=== PATIENT | male | born 1970 | race Caucasian/White ===

== ENCOUNTER → 2023-10-09 06:53 | Outpatient (REF) | payer OTHER, SELFPAY ==
[2023-10-09 07:10] VITALS: BP 134/61; BP_SYST 73
[2023-10-09 08:01] VITALS: BP 114/58; BP_SYST 68
[2023-10-09 08:24] LABS: Body Fluid Mononuclear 74.8 %; Body Fluid Polymorphonuclear 25.2 %; Body Fluid WBC 131 /CUMM
[2023-10-09 08:28] LABS: Body Fluid Second Tech SD
== END ==
LOC: RADI 06:53
PROVIDERS: ATTENDING PHYSICIAN Internal Medicine Gastroenterology
DX: R18.8 Other ascites (principal)
CPT/HCPCS: 49083; 87015; 87070; 87205; 89051

== ENCOUNTER → 2023-10-12 06:57 | Outpatient (REF) | payer OTHER, SELFPAY ==
[2023-10-12 07:10] VITALS: BP 121/59; BP_SYST 65
[2023-10-12 07:50] VITALS: BP 121/61
[2023-10-12 08:57] LABS: Body Fluid Mononuclear 82.1 %; Body Fluid Polymorphonuclear 17.9 %; Body Fluid WBC 145 /CUMM
[2023-10-12 11:25] LABS: Body Fluid Second Tech CMB
== END ==
LOC: RADI 06:57
PROVIDERS: ATTENDING PHYSICIAN Internal Medicine Gastroenterology
DX: R18.8 Other ascites (principal)
CPT/HCPCS: 49083; 87015; 87070; 87205; 89051

== ENCOUNTER → 2023-10-16 06:26 | Outpatient (REF) | payer OTHER, SELFPAY ==
[2023-10-16 07:25] VITALS: BP 127/62; BP_SYST 60
[2023-10-16 08:10] VITALS: BP 143/70; BP_SYST 61
[2023-10-16 08:37] LABS: Body Fluid Mononuclear 82.9 %; Body Fluid Polymorphonuclear 17.1 %; Body Fluid WBC 117 /CUMM
[2023-10-16 08:38] LABS: Body Fluid Second Tech CF
== END ==
LOC: RADI 06:26
PROVIDERS: ATTENDING PHYSICIAN Internal Medicine Gastroenterology
DX: R18.8 Other ascites (principal)
CPT/HCPCS: 49083; 87015; 87070; 87205; 89051

== ENCOUNTER → 2023-10-19 06:52 | Outpatient (REF) | payer OTHER, SELFPAY ==
[2023-10-19 07:15] VITALS: BP 121/62; BP_SYST 63
[2023-10-19 08:02] VITALS: BP 123/62
--- NOTE | 2023-10-19 08:21 | PTCARENOTE ---
Per Anastasia NAJERA, ok to use labs from 08/15/2023 since patient will be getting labs done 10/22/2022 at [facility]
[2023-10-19 09:40] LABS: Body Fluid Mononuclear 88.2 %; Body Fluid Polymorphonuclear 11.8 %; Body Fluid WBC 110 /CUMM
[2023-10-19 09:52] LABS: Body Fluid Second Tech AMA
== END ==
LOC: RADI 06:52
PROVIDERS: ATTENDING PHYSICIAN Internal Medicine Gastroenterology
DX: R18.8 Other ascites (principal)
CPT/HCPCS: 49083; 87015; 87070; 87205; 89051

== ENCOUNTER 2023-10-19 08:35 | Outpatient (RCR) | payer OTHER, SELFPAY ==
[2023-10-12 08:32] VITALS: BP 120/59
[2023-10-12] MEDS: FLEXBUMIN 100 IV (08:50)
[2023-10-12 08:54] VITALS: BP 120/59
[2023-10-12 10:35] VITALS: BP 119/52
[2023-10-16 09:09] VITALS: BP 125/49
[2023-10-16] MEDS: FLEXBUMIN 100 IV (09:15)
[2023-10-16 11:31] VITALS: BP 108/81
[2023-10-19 08:52] VITALS: BP 114/51
[2023-10-19] MEDS: FLEXBUMIN 100 IV (08:57)
[2023-10-19 09:02] VITALS: BP 114/51
[2023-10-19 10:43] VITALS: BP 109/47
== END 2023-11-06 14:50 | disposition home or self-care (01) ==
LOC: OID 08:35
PROVIDERS: ATTENDING PHYSICIAN Internal Medicine Gastroenterology; FAMILY PHYSICIAN Internal Medicine
DX: K70.31 Alcoholic cirrhosis of liver with ascites (principal); Z92.89 Personal history of other medical treatment; Z98.890 Other specified postprocedural states
CPT/HCPCS: 49083; 87015; 87070; 87205; 89051; 96365; 96366; P9047

== ENCOUNTER → 2023-10-23 06:11 | Outpatient (REF) | payer OTHER, SELFPAY ==
[2023-10-23 07:20] VITALS: BP 145/60; BP_SYST 67
[2023-10-23 08:15] VITALS: BP 147/65; BP_SYST 67
[2023-10-23 08:57] LABS: Body Fluid Mononuclear 88.9 %; Body Fluid Polymorphonuclear 11.1 %; Body Fluid WBC 144 /CUMM
[2023-10-23 09:02] LABS: Body Fluid Second Tech SD
== END ==
LOC: RADI 06:11
PROVIDERS: ATTENDING PHYSICIAN Internal Medicine Gastroenterology
DX: R18.8 Other ascites (principal)
CPT/HCPCS: 49083; 87015; 87070; 87205; 89051

== ENCOUNTER → 2023-10-26 07:15 | Outpatient (REF) | payer OTHER, SELFPAY ==
[2023-10-26 07:34] VITALS: BP 133/63; BP_SYST 68
[2023-10-26 08:25] VITALS: BP 98/69
[2023-10-26 08:57] LABS: Body Fluid Mononuclear 79.5 %; Body Fluid Polymorphonuclear 20.5 %; Body Fluid WBC 132 /CUMM
[2023-10-26 09:04] LABS: Body Fluid Second Tech EM
== END ==
LOC: RADI 07:15
PROVIDERS: ATTENDING PHYSICIAN Internal Medicine Gastroenterology
DX: R18.8 Other ascites (principal)
CPT/HCPCS: 49083; 87015; 87070; 87205; 89051

== ENCOUNTER → 2023-10-30 06:39 | Outpatient (REF) | payer OTHER, SELFPAY ==
[2023-10-30 07:15] VITALS: BP 145/50; BP_SYST 65
[2023-10-30 08:10] VITALS: BP 131/60; BP_SYST 64
[2023-10-30 08:39] LABS: Body Fluid Mononuclear 93.4 %; Body Fluid Polymorphonuclear 6.6 %; Body Fluid WBC 123 /CUMM
[2023-10-30 08:40] LABS: Body Fluid Second Tech SS
== END ==
LOC: RADI 06:39
PROVIDERS: ATTENDING PHYSICIAN Internal Medicine Gastroenterology
DX: R18.8 Other ascites (principal)
CPT/HCPCS: 49083; 87015; 87070; 87205; 89051

== ENCOUNTER → 2023-11-02 06:28 | Outpatient (REF) | payer OTHER, SELFPAY ==
[2023-11-02 07:24] VITALS: BP 111/50; BP_SYST 69
[2023-11-02 08:34] LABS: Body Fluid WBC 121 /CUMM
[2023-11-02 08:36] LABS: Body Fluid Second Tech AMA
[2023-11-02 08:55] VITALS: BP 117/60
== END ==
LOC: RADI 06:28
PROVIDERS: ATTENDING PHYSICIAN Internal Medicine Gastroenterology
DX: R18.8 Other ascites (principal)
CPT/HCPCS: 49083; 87015; 87070; 87205; 89051

== ENCOUNTER → 2023-11-06 07:11 | Outpatient (REF) | payer OTHER, SELFPAY ==
[2023-11-06 07:25] VITALS: BP 125/68; BP_SYST 69
[2023-11-06 08:57] LABS: Body Fluid Mononuclear 81.7 %; Body Fluid Polymorphonuclear 18.3 %; Body Fluid WBC 126 /CUMM
[2023-11-06 08:59] LABS: Body Fluid Second Tech SS
== END ==
LOC: RADI 07:11
PROVIDERS: ATTENDING PHYSICIAN Internal Medicine Gastroenterology
DX: R18.8 Other ascites (principal)
CPT/HCPCS: 49083; 87015; 87070; 87205; 89051

== ENCOUNTER → 2023-11-09 06:53 | Outpatient (REF) | payer OTHER, SELFPAY ==
[2023-11-09 07:15] VITALS: BP 141/63; BP_SYST 72
[2023-11-09 08:05] VITALS: BP 153/77; BP_SYST 77
[2023-11-09] MEDS: ZOFRAN ODT (ORALLY DISINTEGRATING) 4 MG PO (08:13)
--- NOTE | 2023-11-09 08:16 | PTCARENOTE ---
[facility] note: patient is feeling very nauseous and belching. order received from Ian TURNER for Zofran 4 mg. medicine given per order. Suggested patient to go to ER, but refused.
[2023-11-09 08:33] VITALS: BP 153/77
[2023-11-09 08:41] LABS: Body Fluid Mononuclear 79.7 %; Body Fluid Polymorphonuclear 20.3 %; Body Fluid WBC 118 /CUMM
[2023-11-09 08:50] LABS: Body Fluid Second Tech AMA
== END ==
LOC: RADI 06:53
PROVIDERS: ATTENDING PHYSICIAN Internal Medicine Gastroenterology
DX: R18.8 Other ascites (principal)
CPT/HCPCS: 49083; 87015; 87070; 87205; 89051

== ENCOUNTER → 2023-11-13 06:31 | Outpatient (REF) | payer OTHER, SELFPAY ==
[2023-11-13 07:10] VITALS: BP 140/60; BP_SYST 73
[2023-11-13 08:02] VITALS: BP 152/77
[2023-11-13 08:36] LABS: Body Fluid Mononuclear 81.2 %; Body Fluid Polymorphonuclear 18.8 %; Body Fluid WBC 117 /CUMM
[2023-11-13 08:38] LABS: Body Fluid Second Tech SD
== END ==
LOC: RADI 06:31
PROVIDERS: ATTENDING PHYSICIAN Internal Medicine Gastroenterology
DX: R18.8 Other ascites (principal)
CPT/HCPCS: 49083; 87015; 87070; 87205; 89051

== ENCOUNTER → 2023-11-16 06:18 | Outpatient (REF) | payer OTHER, SELFPAY ==
[2023-11-16 07:06] VITALS: BP 120/59; BP_SYST 69
[2023-11-16 08:15] VITALS: BP 130/68; BP_SYST 63
[2023-11-16 09:03] LABS: Body Fluid Mononuclear 86.5 %; Body Fluid Polymorphonuclear 13.5 %; Body Fluid WBC 96 /CUMM
[2023-11-16 09:04] LABS: Body Fluid Second Tech AMA
== END ==
LOC: RADI 06:18
PROVIDERS: ATTENDING PHYSICIAN Internal Medicine Gastroenterology
DX: R18.8 Other ascites (principal)
CPT/HCPCS: 49083; 87015; 87070; 87205; 89051

== ENCOUNTER → 2023-11-20 06:34 | Outpatient (REF) | payer OTHER, SELFPAY ==
[2023-11-20 07:13] VITALS: BP 128/64; BP_SYST 64
[2023-11-20 08:17] VITALS: BP 128/72
[2023-11-20 09:12] LABS: Body Fluid Mononuclear 88.5 %; Body Fluid Polymorphonuclear 11.5 %; Body Fluid WBC 121 /CUMM
[2023-11-20 09:22] LABS: Body Fluid Second Tech AMA
== END ==
LOC: RADI 06:34
PROVIDERS: ATTENDING PHYSICIAN Internal Medicine Gastroenterology; FAMILY PHYSICIAN Internal Medicine
DX: R18.8 Other ascites (principal)
CPT/HCPCS: 49083; 87015; 87070; 87205; 89051

== ENCOUNTER → 2023-11-23 06:35 | Outpatient (REF) | payer OTHER, SELFPAY ==
[2023-11-23 07:20] VITALS: BP 136/64; BP_SYST 67
[2023-11-23 08:34] VITALS: BP 156/73; BP_SYST 66
[2023-11-23 08:58] LABS: Body Fluid Mononuclear 92.6 %; Body Fluid Polymorphonuclear 7.4 %; Body Fluid WBC 108 /CUMM
[2023-11-23 09:03] LABS: Body Fluid Second Tech AMA
== END ==
LOC: RADI 06:35
PROVIDERS: ATTENDING PHYSICIAN Internal Medicine Gastroenterology; FAMILY PHYSICIAN Internal Medicine
DX: R18.8 Other ascites (principal)
CPT/HCPCS: 49083; 89051

== ENCOUNTER → 2023-11-27 06:50 | Outpatient (REF) | payer OTHER, SELFPAY ==
[2023-11-27 07:14] VITALS: BP 134/69; BP_SYST 65
[2023-11-27 08:30] VITALS: BP 138/60
[2023-11-27 09:08] LABS: Body Fluid WBC 95 /CUMM
[2023-11-27 09:12] LABS: Body Fluid Second Tech BP
== END ==
LOC: RADI 06:50
PROVIDERS: ATTENDING PHYSICIAN Internal Medicine Gastroenterology
DX: R18.8 Other ascites (principal)
CPT/HCPCS: 49083; 87015; 87070; 87205; 89051

== ENCOUNTER → 2023-11-30 06:19 | Outpatient (REF) | payer OTHER, SELFPAY ==
[2023-11-30 07:15] VITALS: BP 142/66; BP_SYST 74
[2023-11-30 07:53] VITALS: BP 131/63; BP_SYST 67
[2023-11-30 08:12] VITALS: BP 131/63
[2023-11-30 10:37] LABS: Body Fluid Mononuclear 84.1 %; Body Fluid Polymorphonuclear 15.9 %; Body Fluid WBC 63 /CUMM
[2023-11-30 10:40] LABS: Body Fluid Second Tech AMA
== END ==
LOC: RADI 06:19
PROVIDERS: ATTENDING PHYSICIAN Internal Medicine Gastroenterology
DX: R18.8 Other ascites (principal)
CPT/HCPCS: 49083; 89051

== ENCOUNTER → 2023-12-03 12:43 | Outpatient (REF) | payer OTHER, SELFPAY ==
[2023-12-03 13:03] VITALS: BP 118/77; BP_SYST 55
[2023-12-03 14:12] VITALS: BP 125/74; BP_SYST 59
[2023-12-03 15:26] LABS: Body Fluid Mononuclear 74.7 %; Body Fluid Polymorphonuclear 25.3 %; Body Fluid WBC 75 /CUMM
[2023-12-03 15:29] LABS: Body Fluid Second Tech EYM
== END ==
LOC: RADI 12:43
PROVIDERS: ATTENDING PHYSICIAN Internal Medicine Gastroenterology
DX: R18.8 Other ascites (principal)
CPT/HCPCS: 49083; 89051

== ENCOUNTER → 2023-12-07 06:20 | Outpatient (REF) | payer OTHER, SELFPAY ==
[2023-12-07 07:20] VITALS: BP 120/65; BP_SYST 65
[2023-12-07 07:57] VITALS: BP 120/64
[2023-12-07 08:58] LABS: Body Fluid Mononuclear 83.3 %; Body Fluid Polymorphonuclear 16.7 %; Body Fluid WBC 120 /CUMM
[2023-12-07 09:01] LABS: Body Fluid Second Tech CF
== END ==
LOC: RADI 06:20
PROVIDERS: ATTENDING PHYSICIAN Internal Medicine Gastroenterology
DX: R18.8 Other ascites (principal)
CPT/HCPCS: 49083; 87015; 87070; 87205; 89051

== ENCOUNTER → 2023-12-11 07:01 | Outpatient (REF) | payer OTHER, SELFPAY ==
[2023-12-11 07:21] VITALS: BP 130/74; BP_SYST 68
[2023-12-11 08:42] VITALS: BP 136/71; BP_SYST 64
[2023-12-11 08:46] VITALS: BP 136/71
[2023-12-11 09:33] LABS: Body Fluid Mononuclear 84.8 %; Body Fluid Polymorphonuclear 15.2 %; Body Fluid WBC 125 /CUMM
[2023-12-11 10:07] LABS: Body Fluid Second Tech AMA
== END ==
LOC: RADI 07:01
PROVIDERS: ATTENDING PHYSICIAN Internal Medicine Gastroenterology
DX: R18.8 Other ascites (principal)
CPT/HCPCS: 49083; 89051

== ENCOUNTER → 2023-12-14 06:29 | Outpatient (REF) | payer OTHER, SELFPAY ==
[2023-12-14 07:17] VITALS: BP 127/74; BP_SYST 71
[2023-12-14 08:11] VITALS: BP 125/62
[2023-12-14 09:07] LABS: Body Fluid Mononuclear 85.7 %; Body Fluid Polymorphonuclear 14.3 %; Body Fluid WBC 126 /CUMM
[2023-12-14 09:08] LABS: Body Fluid Second Tech AMA
== END ==
LOC: RADI 06:29
PROVIDERS: ATTENDING PHYSICIAN Internal Medicine Gastroenterology
DX: R18.8 Other ascites (principal)
CPT/HCPCS: 49083; 87015; 87070; 87205; 89051

== ENCOUNTER → 2023-12-18 06:55 | Outpatient (REF) | payer OTHER, SELFPAY ==
[2023-12-18 07:18] VITALS: BP 130/80; BP_SYST 77
[2023-12-18 08:40] VITALS: BP 136/74
[2023-12-18 08:59] LABS: Body Fluid Mononuclear 90.5 %; Body Fluid Polymorphonuclear 9.5 %; Body Fluid WBC 147 /CUMM
[2023-12-18 09:26] LABS: Body Fluid Second Tech BP
== END ==
LOC: RADI 06:55
PROVIDERS: ATTENDING PHYSICIAN Internal Medicine Gastroenterology
DX: R18.8 Other ascites (principal)
CPT/HCPCS: 49083; 87015; 87070; 87205; 89051

== ENCOUNTER → 2023-12-21 06:32 | Outpatient (REF) | payer OTHER, SELFPAY ==
[2023-12-21 07:15] VITALS: BP 123/69; BP_SYST 71
[2023-12-21 08:15] VITALS: BP 118/72; BP_SYST 65
[2023-12-21 08:21] VITALS: BP 118/72
[2023-12-21 10:27] LABS: Body Fluid Mononuclear 97.1 %; Body Fluid Polymorphonuclear 2.9 %; Body Fluid WBC 206 /CUMM
[2023-12-21 10:31] LABS: Body Fluid Second Tech EF
== END ==
LOC: RADI 06:32
PROVIDERS: ATTENDING PHYSICIAN Internal Medicine Gastroenterology
DX: R18.8 Other ascites (principal)
CPT/HCPCS: 49083; 89051

== ENCOUNTER → 2023-12-25 06:32 | Outpatient (REF) | payer OTHER, SELFPAY ==
[2023-12-25 07:15] VITALS: BP 135/71; BP_SYST 70
[2023-12-25 08:06] VITALS: BP 123/62
[2023-12-25 08:11] LABS: Body Fluid WBC 226 /CUMM
[2023-12-25 08:18] LABS: Body Fluid Second Tech CF
== END ==
LOC: RADI 06:32
PROVIDERS: ATTENDING PHYSICIAN Internal Medicine Gastroenterology
DX: R18.8 Other ascites (principal)
CPT/HCPCS: 49083; 87015; 87070; 87205; 89051

== ENCOUNTER → 2023-12-28 06:41 | Outpatient (REF) | payer OTHER, SELFPAY ==
[2023-12-28 07:14] VITALS: BP 127/64; BP_SYST 69
[2023-12-28 08:01] VITALS: BP 120/60
[2023-12-28 09:01] LABS: Body Fluid WBC 251 /CUMM
[2023-12-28 09:04] LABS: Body Fluid Second Tech JKH
== END ==
LOC: RADI 06:41
PROVIDERS: ATTENDING PHYSICIAN Internal Medicine Gastroenterology
DX: R18.8 Other ascites (principal)
CPT/HCPCS: 49083; 87015; 87070; 87205; 89051

== ENCOUNTER → 2024-01-01 06:39 | Outpatient (REF) | payer OTHER, SELFPAY ==
[2024-01-01 07:10] VITALS: BP 141/64; BP_SYST 69
[2024-01-01 08:05] VITALS: BP 116/61; BP_SYST 64
[2024-01-01 08:37] VITALS: BP 116/61
[2024-01-01 09:21] LABS: Body Fluid Mononuclear 92.7 %; Body Fluid Polymorphonuclear 7.3 %; Body Fluid WBC 218 /CUMM
[2024-01-01 09:26] LABS: Body Fluid Second Tech AMA
== END ==
LOC: RADI 06:39
PROVIDERS: ATTENDING PHYSICIAN Internal Medicine Gastroenterology
DX: R18.8 Other ascites (principal)
CPT/HCPCS: 49083; 89051

== ENCOUNTER → 2024-01-04 06:16 | Outpatient (REF) | payer OTHER, SELFPAY ==
[2024-01-04 07:20] VITALS: BP 118/59; BP_SYST 69
[2024-01-04 08:52] VITALS: BP 133/58
[2024-01-04 09:34] LABS: Body Fluid Mononuclear 93.8 %; Body Fluid Polymorphonuclear 6.2 %; Body Fluid WBC 241 /CUMM
[2024-01-04 09:35] LABS: Body Fluid Second Tech CS
== END ==
LOC: RADI 06:16
PROVIDERS: ATTENDING PHYSICIAN Internal Medicine Gastroenterology
DX: R18.8 Other ascites (principal)
CPT/HCPCS: 49083; 87015; 87070; 87205; 89051

== ENCOUNTER 2024-01-06 11:53 | Emergency (ER) | payer OTHER, SELFPAY ==
[2024-01-06 11:59] VITALS: BP 130/74
--- NOTE | 2024-01-06 13:15 | ED.GENMED ---
History of Present Illness
<REINALDO Jimenes - Last Filed: 01/06/24 17:53>
General
Chief Complaint: Abdominal Symptoms
Source: patient
Exam Limitations: none
Time Seen by Provider: 01/06/24 12:42
Nursing documentation reviewed up to this point in time: agreed with
Travel History
Have you had any contact with someone who has COVID-19?: No
Do you have any symptoms of coronavirus? Fever > 100 degrees, chills, cough, shortness of breath, sore throat, loss of taste or smell, muscle aches, or headache?: No
History of Present Illness
History of Present Illness:
Patient is a 53-year-old male with history of alcoholic cirrhosis of the liver with ascites inguinal hernia presents to the ER for evaluation. Patient typically gets paracentesis done twice a week Tuesdays and Fridays here at [facility]. He did
get paracentesis on Sunday as scheduled. He however now is followed at [facility] and has hepatology there. He has chronic scrotal swelling from ascites which is worse today. He states he just cannot wait until Sunday.
He denies any fever chills.
He denies any fever chills abdominal pain/chest pain , shortness of breath.
Past History
<REINALDO Jimenes - Last Filed: 01/06/24 17:53>
Past History
ED Past Medical History: HTN and Other (pre-diabetic years ago but lost weight and says he no longer is)
ED Past Surgical History: None and Orthopedic
Patient has exhibited threatening behavior?: No
PSI?: No
Social History
Tobacco: Smoker
Alcohol: Former (Heavy alcohol use, quit March 2022)
Drug: None
Personal: Single
Living: with family
Employment: Not employed
Family History
Family History: Other
Review of Systems
<REINALDO Jimenes - Last Filed: 01/06/24 17:53>
Review of Systems
Allergies reviewed?: Yes
All Other Systems: ROS reviewed and negative except as documented in HPI and ROS
Constitutional: Reports no symptoms; Denies fever, fatigue or chills
Respiratory: Reports no symptoms
ABD/GI: Reports other (mild abdominal swelling/discomfort/chronic )
: Reports other (Worsening scrotal swelling/discomfort )
Skin: Reports no symptoms
Neurological: Reports no symptoms
Psychiatric: Reports no symptoms
Phy Exam
<REINALDO Jimenes - Last Filed: 01/06/24 17:53>
General Physical Exam
General Presentation: no apparent distress
General age: appears stated age
General Skin: warm and dry
General Habitus: normal
General Mental: alert
General Hydration: appears well hydrated
Gastrointestinal Exam
Gastrointestinal Exam: soft and other (abd soft no erythema non tender )
Neurological Exam
Neurological Exam: alert and oriented x3
Musculoskeletal Exam
Musculoskeletal Exam: full ROM
Skin Exam
Skin Exam: normal color and warm/dry
Psychiatric Exam
Psychiatric Exam: normal mood/affect
Course
<REINALDO Jimenes - Last Filed: 01/06/24 17:53>
Vital Signs
Initial and Last Documented VS:
Initial Vital Signs
Temp Pulse Resp BP Pulse Ox
97.9 F 72 16 130/74 100
01/06/24 11:59 01/06/24 11:59 01/06/24 11:59 01/06/24 11:59 01/06/24 11:59
Last Documented Vital Signs
Temp Pulse Resp BP Pulse Ox
97.9 F 72 16 130/74 100
01/06/24 11:59 01/06/24 11:59 01/06/24 11:59 01/06/24 11:59 01/06/24 11:59
Microbiology Technologist consulted with Physician
Microbiology Technologist consulted with physician?: Yes
Name of Physician Consulted: [facility]
<Alfonzo Jacinto MD - Last Filed: 01/06/24 14:31>
Vital Signs
Initial and Last Documented VS:
Initial Vital Signs
Temp Pulse Resp BP Pulse Ox
97.9 F 72 16 130/74 100
01/06/24 11:59 01/06/24 11:59 01/06/24 11:59 01/06/24 11:59 01/06/24 11:59
Last Documented Vital Signs
Temp Pulse Resp BP Pulse Ox
97.9 F 72 16 130/74 100
01/06/24 11:59 01/06/24 11:59 01/06/24 11:59 01/06/24 11:59 01/06/24 11:59
<REINALDO Jimenes - Last Filed: 01/06/24 17:53>
MDM/Problems Addressed
Differential Diagnosis Includes:
Chronic ascites
MDM/Problems Addressed:
Patient is a 53-year-old male with chronic cirrhosis requiring biweekly paracentesis presented to the ER for evaluation of recent scrotal swelling. Patient has constant scrotal swelling and reports shortly after he gets tapped his swelling starts.
He did get tapped on Sunday but comes to the ER today requesting tap today. Patient however is in no acute distress. On exam he has obvious scrotal swelling he appears mildly uncomfortable but denies any fevers. Patient was eval by ED physician
gentle palpation of the scrotum does disperse fluid back into the abdominal region. We did speak with radiology however there is no emergency and paracentesis will not be done at this time. He can follow-up as an outpatient. Patient left prior to
being officially discharged. Discussion was done about blood work however he declined
Chronic conditions affecting care:
Alcoholic cirrhosis with ascites hypertension
<REINALDO Jimenes - Last Filed: 01/06/24 17:53>
*Critical Care Note
Total Time (30-74mins, 75-104mins- exclusive of procedures): Not Applicable
Data Reviewed
Review of Other/Old Records Reveals: Other (previous paracentesis and previous ED visit )
ED Attending Note
<REINALDO Jimenes - Last Filed: 01/06/24 17:53>
-
Portions of this chart may have been created with voice recognition software.� Occasional wrong word or��sound alike� substitutions may have occurred due to the inherent limitations of voice recognition software.
<Alfonzo Jacinto MD - Last Filed: 01/06/24 14:31>
ED Attending Note
Patient seen and examined by attending physician: Yes
I performed the substantive portion of visit, reviewed & personally made and approve the management plan that is documented in note by myself or ANUJ.: Yes
ED Attending Note:
Patient here complaining of increased scrotal pain requesting a paracentesis. Patient receives a paracentesis twice a week. Normally getting 3 to 5000 cc of fluid. Denies fever or abdominal pain. Has some leg cramps but this is not unusual.
On exam patient is nontoxic lying flat resting comfortably in no distress. He is actually sleeping on arrival to the room. Abdomen is soft. Minimal distention periumbilical hernia easily reducible. However no tense ascitic changes. Scrotum is
large however surprisingly soft and easily reducible with the fluid easily pushed back into the abdominal cavity. There is no erythema or cellulitis. No drainage.
Patient is complaining of some increased leg cramps.
Impression: Increased ascitic and groin fluid. No sign of infection. With cramps I highly recommended labs given his significant fluid flux. Reasoning and logic were explained to the patient and potentially serious life-threatening issues were
explained to the patient for checking labs. He refuses labs at this time and does not want them. Interventional radiology is unable to do the paracentesis today. Medically it is not absolutely necessary to do today. Patient was not incredibly
happy with this finding. He was offered admission with observation versus coming back tomorrow or as an outpatient. He apparently eloped after this.
Discharge Plan
Departure
Patient Disposition: Elopement
Date of Disposition: 01/06/24
Time of Disposition: 14:28
Patient with high blood pressure during this ER visit?: No
Discharge Problem:
Scrotal swelling secondary to ascites, History of liver disease
Prescriptions:
No Action
acetaminophen [Tylenol Ex Str Arthritis Pain] 500 mg Tablet
1,000 mg PO Q12
multivitamin Tablet
1 tab PO DAILY
bumetanide 1 mg Tablet
2 mg PO DAILY
spironolactone 25 mg Tablet
12.5 mg PO DAILY
Referrals:
UNKNOWN - PT DOES,NOT KNOW [Family Provider] -
Interventions
Interventions:
*Risk Screen - Suicide Last Done: 01/06/24 13:17
*General Assessment Last Done: 01/06/24 13:17
*Neglect/Abuse Screening Last Done: 01/06/24 13:17
ED- Fall Risk Assessment Last Done: 01/06/24 14:25
*ED COVID-19 Vaccine History Last Done: 01/06/24 13:17
*Nursing Disposition Last Done: 01/06/24 14:25
PH-[facility]-[id number] Assessment Last Done: 01/06/24 13:17
Discharge Date and Time
Discharge Date/Time: 01/06/24 14:29
Print Language: WOLOF
== END 2024-01-06 14:29 | disposition left against medical advice (07) ==
LOC: EMR 11:53
PROVIDERS: EMERGENCY PHYSICIAN Emergency Medicine
DX: N50.89 Other specified disorders of the male genital organs (principal); K70.31 Alcoholic cirrhosis of liver with ascites; I10 Essential (primary) hypertension; F17.200 Nicotine dependence, unspecified, uncomplicated
CPT/HCPCS: 99281

== ENCOUNTER → 2024-01-08 06:52 | Outpatient (REF) | payer OTHER, SELFPAY ==
[2024-01-08 07:41] VITALS: BP 134/68; BP_SYST 65
[2024-01-08 09:00] VITALS: BP 125/72; BP_SYST 61
[2024-01-08 09:12] VITALS: BP 125/72
[2024-01-08 10:18] LABS: Body Fluid Mononuclear 94.2 %; Body Fluid Polymorphonuclear 5.8 %; Body Fluid WBC 244 /CUMM
[2024-01-08 10:24] LABS: Body Fluid Second Tech EF
== END ==
LOC: RADI 06:52
PROVIDERS: ATTENDING PHYSICIAN Internal Medicine Gastroenterology
DX: R18.8 Other ascites (principal)
CPT/HCPCS: 49083; 89051

== ENCOUNTER 2024-01-08 09:19 | Outpatient (RCR) | payer OTHER, SELFPAY ==
[2023-12-28 08:55] VITALS: BP 132/55
[2023-12-28] MEDS: FLEXBUMIN 100 IV (08:56)
[2024-01-01 08:45] VITALS: BP 135/64
[2024-01-01] MEDS: FLEXBUMIN 50 IV (08:46)
[2024-01-01] MEDS: FLEXBUMIN 100 IV (09:30)
[2024-01-01 09:31] VITALS: BP 122/47
[2024-01-01 10:55] VITALS: BP 131/54
[2024-01-04 09:30] VITALS: BP 131/60
[2024-01-04] MEDS: FLEXBUMIN 50 IV (09:36)
[2024-01-04] MEDS: FLEXBUMIN 100 IV (10:24)
[2024-01-08 09:30] VITALS: BP 122/53
[2024-01-08] MEDS: FLEXBUMIN 100 IV (09:38)
[2024-01-08 09:47] VITALS: BP 122/53
[2024-01-08] MEDS: FLEXBUMIN 50 IV (11:06)
[2024-01-08 11:09] VITALS: BP 130/58
[2024-01-08 11:45] VITALS: BP 130/60
== END 2024-01-08 23:59 | disposition home or self-care (01) ==
LOC: OID 09:19
PROVIDERS: ATTENDING PHYSICIAN Internal Medicine Gastroenterology; FAMILY PHYSICIAN Internal Medicine
DX: K70.31 Alcoholic cirrhosis of liver with ascites (principal); Z92.89 Personal history of other medical treatment; Z98.890 Other specified postprocedural states
CPT/HCPCS: 49083; 87015; 87070; 87205; 89051; 96365; 96366; P9047

== ENCOUNTER → 2024-01-11 06:30 | Outpatient (REF) | payer OTHER, SELFPAY ==
[2024-01-11 07:19] VITALS: BP 130/69; BP_SYST 69
[2024-01-11 08:57] LABS: Body Fluid Mononuclear 89.1 %; Body Fluid Polymorphonuclear 10.9 %; Body Fluid WBC 293 /CUMM
[2024-01-11 09:03] LABS: Body Fluid Second Tech AMA
== END ==
LOC: RADI 06:30
PROVIDERS: ATTENDING PHYSICIAN Internal Medicine Gastroenterology
DX: R18.8 Other ascites (principal)
CPT/HCPCS: 49083; 87015; 87070; 87205; 89051

== ENCOUNTER → 2024-01-15 06:25 | Outpatient (REF) | payer OTHER, SELFPAY ==
[2024-01-15 07:40] VITALS: BP 143/66; BP_SYST 76
[2024-01-15 08:59] VITALS: BP 119/51; BP_SYST 66
[2024-01-15 09:22] VITALS: BP 119/51
[2024-01-15 09:27] LABS: Body Fluid Mononuclear 92.3 %; Body Fluid Polymorphonuclear 7.7 %; Body Fluid WBC 232 /CUMM
[2024-01-15 09:29] LABS: Body Fluid Second Tech CF
== END ==
LOC: RADI 06:25
PROVIDERS: ATTENDING PHYSICIAN Internal Medicine Gastroenterology
DX: R18.8 Other ascites (principal)
CPT/HCPCS: 49083; 89051

== ENCOUNTER → 2024-01-18 06:23 | Outpatient (REF) | payer OTHER, SELFPAY ==
[2024-01-18 07:36] VITALS: BP 113/58; BP_SYST 65
[2024-01-18 10:16] LABS: Body Fluid Mononuclear 89.2 %; Body Fluid Polymorphonuclear 10.8 %; Body Fluid WBC 242 /CUMM
[2024-01-18 10:29] LABS: Body Fluid Second Tech CMB
== END ==
LOC: RADI 06:23
PROVIDERS: ATTENDING PHYSICIAN Internal Medicine Gastroenterology
DX: R18.8 Other ascites (principal)
CPT/HCPCS: 49083; 87015; 87070; 87205; 89051

== ENCOUNTER → 2024-01-21 13:56 | Outpatient (REF) | payer OTHER, SELFPAY ==
[2024-01-21 14:47] VITALS: BP 145/76; BP_SYST 74
[2024-01-21 15:43] VITALS: BP 144/77; BP 146/77; BP_SYST 67
[2024-01-21 16:17] LABS: Body Fluid Mononuclear 96.1 %; Body Fluid Polymorphonuclear 3.9 %; Body Fluid WBC 260 /CUMM
[2024-01-21 16:34] LABS: Body Fluid Second Tech EYM
== END ==
LOC: RADI 13:56
PROVIDERS: ATTENDING PHYSICIAN Internal Medicine Gastroenterology
DX: R18.8 Other ascites (principal)
CPT/HCPCS: 49083; 89051

== ENCOUNTER → 2024-01-29 08:05 | Outpatient (REF) | payer OTHER, SELFPAY ==
[2024-01-29 08:20] VITALS: BP 132/67; BP_SYST 71
[2024-01-29 09:16] VITALS: BP 124/53; BP_SYST 66
[2024-01-29 09:45] VITALS: BP 124/53
--- NOTE | 2024-01-29 10:01 | PTCARENOTE ---
[facility] note: pt arrived to [facility] for paracentesis, AAO x 3, feeling weak. patient had paracentesis and removed 5350ml fluid. patient c/o feeling very weak, assisted to wheelchair by 2 RNs. advised pt to go to ER for evaluation but pt refused. pt
wheeled to [facility]. [facility] nurse Tiffanie notified on patient's condition.
[2024-01-29 10:29] LABS: Body Fluid Mononuclear 89.9 %; Body Fluid Polymorphonuclear 10.1 %; Body Fluid WBC 306 /CUMM
[2024-01-29 10:30] LABS: Body Fluid Second Tech LD
== END ==
LOC: RADI 08:05
PROVIDERS: ATTENDING PHYSICIAN Internal Medicine Gastroenterology
DX: R18.8 Other ascites (principal)
CPT/HCPCS: 49083; 89051

== ENCOUNTER → 2024-02-01 07:52 | Outpatient (REF) | payer OTHER, SELFPAY ==
[2024-02-01 08:15] VITALS: BP 134/74; BP_SYST 72
[2024-02-01 09:05] VITALS: BP 121/56
[2024-02-01 10:50] LABS: Body Fluid WBC 366 /CUMM
[2024-02-01 10:51] LABS: Body Fluid Mononuclear 93.2 %; Body Fluid Polymorphonuclear 6.8 %
[2024-02-01 11:16] LABS: Body Fluid Second Tech EF
== END ==
LOC: RADI 07:52
PROVIDERS: ATTENDING PHYSICIAN Internal Medicine Gastroenterology
DX: R18.8 Other ascites (principal)
CPT/HCPCS: 49083; 89051

== ENCOUNTER → 2024-02-05 07:48 | Outpatient (REF) | payer OTHER, SELFPAY ==
[2024-02-05 08:08] VITALS: BP 137/68; BP_SYST 68
[2024-02-05 08:51] LABS: Body Fluid Mononuclear 96.4 %; Body Fluid Polymorphonuclear 3.6 %; Body Fluid WBC 303 /CUMM
[2024-02-05 08:52] LABS: Body Fluid Second Tech EM
[2024-02-05 09:24] VITALS: BP 120/50
== END ==
LOC: RADI 07:48
PROVIDERS: ATTENDING PHYSICIAN Internal Medicine Gastroenterology
DX: R18.8 Other ascites (principal)
CPT/HCPCS: 49083; 89051

== ENCOUNTER → 2024-02-08 07:53 | Outpatient (REF) | payer OTHER, SELFPAY ==
[2024-02-08 08:30] VITALS: BP 116/54; BP_SYST 70
[2024-02-08 09:44] VITALS: BP 116/54
[2024-02-08 10:43] LABS: Body Fluid Mononuclear 93.4 %; Body Fluid Polymorphonuclear 6.6 %; Body Fluid WBC 259 /CUMM
[2024-02-08 10:44] LABS: Body Fluid Second Tech CF
== END ==
LOC: RADI 07:53
PROVIDERS: ATTENDING PHYSICIAN Internal Medicine Gastroenterology
DX: R18.8 Other ascites (principal)
CPT/HCPCS: 49083; 89051

== ENCOUNTER 2024-02-08 09:35 | Outpatient (RCR) | payer OTHER, SELFPAY ==
[2024-01-11 08:58] VITALS: BP 117/60
[2024-01-11] MEDS: FLEXBUMIN 100 IV (08:58)
[2024-01-11 09:12] VITALS: BP 117/60
[2024-01-11 10:28] VITALS: BP 105/66
[2024-01-11 11:00] VITALS: BP 120/55
[2024-01-15] MEDS: FLEXBUMIN 50 IV (09:27)
[2024-01-15 09:29] VITALS: BP 140/54
[2024-01-15] MEDS: FLEXBUMIN 100 IV (10:24)
[2024-01-15 10:25] VITALS: BP 139/42
[2024-01-15 11:48] VITALS: BP 130/44
[2024-01-18 08:57] VITALS: BP 112/56
[2024-01-18] MEDS: FLEXBUMIN 100 IV (08:57)
[2024-01-18 10:34] VITALS: BP 121/60
[2024-01-21 16:20] VITALS: BP 138/67
[2024-01-21 16:23] VITALS: BP 138/67
[2024-01-21] MEDS: FLEXBUMIN 100 IV (16:23)
[2024-01-21 17:46] VITALS: BP 130/65
[2024-01-29 10:00] VITALS: BP 128/62
[2024-01-29] MEDS: FLEXBUMIN 50 IV (10:02)
[2024-01-29] MEDS: FLEXBUMIN 100 IV (10:51)
[2024-01-29 10:53] VITALS: BP 128/67
[2024-01-29 12:14] VITALS: BP 114/63
[2024-02-01] MEDS: FLEXBUMIN 50 IV (09:53)
[2024-02-01] MEDS: FLEXBUMIN 100 IV (10:42)
[2024-02-01 10:45] VITALS: BP 155/60
[2024-02-01 12:15] VITALS: BP 109/63
[2024-02-05 09:51] VITALS: BP 112/56
[2024-02-05] MEDS: FLEXBUMIN 100 IV (09:51)
[2024-02-05] MEDS: FLEXBUMIN 50 IV (11:15)
[2024-02-05 12:00] VITALS: BP 121/53
== END 2024-02-08 14:42 | disposition home or self-care (01) ==
LOC: OID 09:35
PROVIDERS: ATTENDING PHYSICIAN Internal Medicine Gastroenterology; FAMILY PHYSICIAN Internal Medicine
DX: K70.31 Alcoholic cirrhosis of liver with ascites (principal); Z92.89 Personal history of other medical treatment; Z98.890 Other specified postprocedural states
CPT/HCPCS: 36415; 49083; 87015; 87070; 87205; 89051; 96365; 96366; P9047

== ENCOUNTER 2024-02-08 10:30 | Emergency (ER) | payer OTHER, SELFPAY ==
[2024-02-08 10:48] VITALS: BP 103/44
[2024-02-08 11:00] VITALS: BP 98/73
--- NOTE | 2024-02-08 11:56 | ED.GENMED ---
History of Present Illness
General
Chief Complaint: Weakness
Source: patient
Time Seen by Provider: 02/08/24 11:39
Travel History
Have you had any contact with someone who has COVID-19?: No
Do you have any symptoms of coronavirus? Fever > 100 degrees, chills, cough, shortness of breath, sore throat, loss of taste or smell, muscle aches, or headache?: No
History of Present Illness
History of Present Illness:
53-year-old male with history of cirrhosis presents in referral from outpatient infusion center for vomiting and weakness. He had paracentesis performed this morning and was on his way to the OR ID to get his albumin infusion, he started vomiting.
His only complaint at this time is fatigue. He states the nausea is improved. He notes chronic abdominal pain. No other complaints at this time
Past History
Past History
ED Past Medical History: HTN and Other (pre-diabetic years ago but lost weight and says he no longer is)
ED Past Surgical History: None and Orthopedic
Patient has exhibited threatening behavior?: No
PSI?: No
Social History
Tobacco: Smoker
Alcohol: Former (Heavy alcohol use, quit March 2022)
Drug: None
Personal: Single
Living: with family
Employment: Not employed
Family History
Family History: Other
Phy Exam
Physical Exam
Physical Exam:
General: Well-appearing male no acute respiratory distress
HEENT: Normocephalic atraumatic
Heart: Regular rate and rhythm no murmurs
Lungs: Clear no wheeze or rales
Abdomen soft mildly diffusely tender no guarding rebound normal bowel sounds
Extremities: No cyanosis
Course
Orders/Labs/Results
Orders:
Orders
02/08/24 12:23
Complete Blood Count/With Diff Urgent
Comprehensive Metabolic Panel Urgent
Lipase Urgent
02/08/24 14:39
Case Management Consult ONCE
Case Management Consult: Discharge Planning
Comment: Pt is having a challenging time finding transportation from home to treatment centers. Has no quality
of life and may require PT.
02/08/24 14:45
Albumin Human 25% 100 ml [Flexbumin] 25 grams in 100 ml IV 60 mls/hr
02/08/24 15:15
Albumin Human 25% 50 ml [Flexbumin] 12.5 grams in 50 ml IV 60 mls/hr
Abnormal Lab Results
02/08/24
12:23
RBC 3.54 L 10^6/uL
(4.70-6.10)
Hgb 10.8 L g/dL
(13.0-18.0)
Hct 30.7 L %
(39.0-52.0)
Plt Count 99 L 10^3/uL
(130-400)
Absolute Neuts (auto) 8.5 H 10^3/uL
(1.4-6.5)
Absolute Lymphs (auto) 0.8 L 10^3/uL
(1.2-3.4)
Absolute Monos (auto) 1.2 H 10^3/uL
(0.1-0.6)
Neutrophils % 78.5 H %
(42.2-75.2)
Lymphocytes % 7.2 L %
(20.5-51.1)
Monocytes % 11.2 H %
(1.7-9.3)
Sodium 132 L mmol/L
(135-145)
Potassium 5.2 H mmol/L
(3.5-5.1)
Chloride 108 H mmol/L
(98-107)
Carbon Dioxide 21 L mmol/L
(22-30)
BUN 47 H mg/dl
(9-20)
Creatinine 1.6 H mg/dL
(0.7-1.3)
Glucose 163 H mg/dl
(70-99)
Calcium 7.7 L mg/dl
(8.4-10.2)
Total Bilirubin 1.5 H mg/dl
(0.2-1.3)
Alkaline Phosphatase 229 H U/L
(38-126)
Total Protein 5.1 L g/dl
(6.3-8.2)
Albumin 2.4 L g/dl
(3.5-5.0)
Lipase 386 H U/L
(23-300)
02/08/24 12:23
02/08/24 12:23
Vital Signs
Initial and Last Documented VS:
Initial Vital Signs
Temp Pulse Resp BP Pulse Ox
98.4 F 73 18 103/44 95
02/08/24 10:48 02/08/24 10:48 02/08/24 10:48 02/08/24 10:48 02/08/24 10:48
Last Documented Vital Signs
Temp Pulse Resp BP Pulse Ox
98.4 F 70 14 98/73 95
02/08/24 10:48 02/08/24 15:00 02/08/24 15:00 02/08/24 11:00 02/08/24 10:48
MDM/Problems Addressed
Differential Diagnosis Includes:
Generally fatigue and nausea. This is not new for the patient. Currently very somnolent during my exam. Will check labs and give Zofran.
*Critical Care Note
Total Time (30-74mins, 75-104mins- exclusive of procedures): Not Applicable
Update Note
Update Note:
Patient did receive albumin here. Labs reviewed without significant abnormalities. Discussed at length with patient. He is due to see his specialists at [facility] next week for further evaluation of his cirrhosis and recurrent ascites. No indication
for admission at this time. Stable for discharge
ED Attending Note
-
Portions of this chart may have been created with voice recognition software.� Occasional wrong word or��sound alike� substitutions may have occurred due to the inherent limitations of voice recognition software.
Discharge Plan
Departure
Patient Disposition: Home (Routine Discharge)
Date of Disposition: 02/08/24
Time of Disposition: 16:33
Patient with high blood pressure during this ER visit?: No
Discharge Problem:
Weakness
Instructions: Generalized Weakness (DC)
Prescriptions:
No Action
acetaminophen [Tylenol Ex Str Arthritis Pain] 500 mg Tablet
1,000 mg PO Q12
multivitamin Tablet
1 tab PO DAILY
magnesium 500 mg Tablet
500 mg PO DAILY
lactulose 20 gram/30 mL Solution
30 ml PO TID
Referrals:
Alfonzo Conn DO [Family Provider] -
Activity Restrictions/Additional Instructions:
Please return here if needed. Follow-up with your GI specialist at [facility] as planned. Return if worse otherwise
Interventions
Interventions:
*Risk Screen - Suicide Last Done: 02/08/24 10:48
*General Assessment Last Done: 02/08/24 10:48
*Neglect/Abuse Screening Last Done: 02/08/24 10:48
*ED COVID-19 Vaccine History Last Done: 02/08/24 10:48
ED- Cardiac Assessment Last Done: 02/08/24 10:48
ED- Neurological Assessment Last Done: 02/08/24 10:48
ED- Pulmonary Assessment Last Done: 02/08/24 10:48
Discharge Date and Time
Print Language: NAMIBIAN
[2024-02-08 12:36] LABS: % Basophils 0.5 % (0-2); % Eosinophils 2.2 % (0-6); % Immature Granulocytes 0.4 % (0-0.5); % Lymphocytes 7.2 % (20.5-51.1); % Monocytes 11.2 % (1.7-9.3); % Neutrophils 78.5 % (42.2-75.2); Absolute Basophils 0.1 10^3/uL (0-0.2); Absolute Eosinophils 0.2 10^3/uL (0-0.7); Absolute Lymphocytes 0.8 10^3/uL (1.2-3.4); Absolute Monocytes 1.2 10^3/uL (0.1-0.6); Absolute Neutrophils 8.5 10^3/uL (1.4-6.5); Hematocrit 30.7 % (39.0-52.0); Hemoglobin 10.8 g/dL (13.0-18.0); Mean Corp Hgb Conc. 35.2 g/dL (33.0-37.0); Mean Corpuscular Hgb 30.5 pg (27.0-31.0); Mean Corpuscular Volume 86.7 fL (80.0-94.0); Mean Platelet Volume 9.5 fL (7.4-10.4); Nucleated Red Blood Cells % 0 % (-); Platelet Count 99 10^3/uL (130-400); Red Blood Cell Count 3.54 10^6/uL (4.70-6.10); Red Cell Dist. Width 14.4 % (11.5-14.5); White Blood Cell Count 10.8 10^3/uL (4.8-10.8)
[2024-02-08 12:48] LABS: ALT (SGPT) 27 U/L (0-50); AST (SGOT) 37 U/L (17-59); Albumin 2.4 g/dl (3.5-5.0); Alkaline Phosphatase 229 U/L (38-126); Blood Urea Nitrogen 47 mg/dl (9-20); Calcium 7.7 mg/dl (8.4-10.2); Carbon Dioxide 21 mmol/L (22-30); Chloride 108 mmol/L (98-107); Estimated Creatinine Clearance 62 ml/min; Glucose 163 mg/dl (70-99); Lipase 386 U/L (23-300); Potassium 5.2 mmol/L (3.5-5.1); Sodium 132 mmol/L (135-145); Total Bilirubin 1.5 mg/dl (0.2-1.3); Total Protein 5.1 g/dl (6.3-8.2)
[2024-02-08] MEDS: FLEXBUMIN 100 IV (15:36)
--- NOTE | 2024-02-08 15:42 | CM ---
Addendum entered by Iram Colin RN 02/08/24 15:53:
CM spoke with case management at [facility]. They will place a referral for services and reach out to patient.
Original Note:
CM was consulted to discuss resources around transportation and care coordination. CM spoke with patient. He stated that he does not have much family support in the area. He is relying on friends for transportation and it has been coming more
difficult. Patient is also complaining of pain and more difficult ambulating. He has multiple complaints about his medical team and IR. CM provided emotional support.
CM offered home care and a referral to [facility] Care Management. Patient is in agreement with referrals. CM updated bedside RN.
[2024-02-08] MEDS: FLEXBUMIN 50 IV (16:46)
[2024-02-08] MEDS: FLEXBUMIN IV (16:52)
[2024-02-08 17:15] VITALS: BP 96/76
== END 2024-02-08 17:20 | disposition home or self-care (01) ==
LOC: EMR 10:30
PROVIDERS: Physician Assistant; EMERGENCY PHYSICIAN Emergency Medicine; FAMILY PHYSICIAN Family Medicine
DX: R53.1 Weakness (principal); F17.200 Nicotine dependence, unspecified, uncomplicated
CPT/HCPCS: 99285; 96365; 96366; 80053; 83690; 85025; P9047

== ENCOUNTER → 2024-02-11 08:09 | Outpatient (REF) | payer OTHER, SELFPAY ==
[2024-02-11 08:35] VITALS: BP 125/57; BP_SYST 66
[2024-02-11 10:14] VITALS: BP 114/54; BP_SYST 66
[2024-02-11 11:00] LABS: Body Fluid Mononuclear 90.5 %; Body Fluid Polymorphonuclear 9.5 %; Body Fluid WBC 337 /CUMM
[2024-02-11 11:02] LABS: Body Fluid Second Tech CF
== END ==
LOC: RADI 08:09
PROVIDERS: ATTENDING PHYSICIAN Internal Medicine Gastroenterology
DX: R18.8 Other ascites (principal)
CPT/HCPCS: 49083; 89051

== ENCOUNTER 2024-02-12 19:14 | Inpatient (IN) | payer OTHER, SELFPAY ==
[2024-02-12] VITALS (9 sets, daily range): BP systolic 103–134; BP diastolic 53–76; BMI 28.3; BMI 25.7
[2024-02-12] MEDS: DILAUDID 0.5 MG IV ×3 (12:16→22:45)
[2024-02-12 12:28] LABS: % Basophils 0.5 % (0-2); % Eosinophils 0.8 % (0-6); % Immature Granulocytes 0.2 % (0-0.5); % Lymphocytes 9.4 % (20.5-51.1); % Monocytes 7.3 % (1.7-9.3); % Neutrophils 81.8 % (42.2-75.2); Absolute Eosinophils 0.1 10^3/uL (0-0.7); Absolute Lymphocytes 0.8 10^3/uL (1.2-3.4); Absolute Monocytes 0.6 10^3/uL (0.1-0.6); Hematocrit 30.8 % (39.0-52.0); Hemoglobin 10.9 g/dL (13.0-18.0); Mean Corp Hgb Conc. 35.4 g/dL (33.0-37.0); Mean Corpuscular Hgb 30.1 pg (27.0-31.0); Mean Corpuscular Volume 85.1 fL (80.0-94.0); Mean Platelet Volume 9.9 fL (7.4-10.4); Nucleated Red Blood Cells % 0 % (-); Platelet Count 122 10^3/uL (130-400); Red Blood Cell Count 3.62 10^6/uL (4.70-6.10); Red Cell Dist. Width 14.3 % (11.5-14.5); White Blood Cell Count 8.6 10^3/uL (4.8-10.8)
[2024-02-12 12:43] LABS: Ammonia 88 umol/L (9-30)
[2024-02-12 12:52] LABS: ALT (SGPT) 23 U/L (0-50); AST (SGOT) 34 U/L (17-59); Albumin 2.8 g/dl (3.5-5.0); Alkaline Phosphatase 184 U/L (38-126); Blood Urea Nitrogen 52 mg/dl (9-20); Calcium 8.2 mg/dl (8.4-10.2); Carbon Dioxide 20 mmol/L (22-30); Chloride 109 mmol/L (98-107); Estimated Creatinine Clearance 59 ml/min; Glucose 223 mg/dl (70-99); Lipase 358 U/L (23-300); Potassium 6.2 mmol/L (3.5-5.1); Sodium 133 mmol/L (135-145); Total Bilirubin 1.4 mg/dl (0.2-1.3); Total Protein 5.5 g/dl (6.3-8.2)
[2024-02-12 13:06] LABS: INR 1.62; PT 19.1 Sec (11.4-14.6)
[2024-02-12] MEDS: NOVOLIN R 10 UNITS IV (13:25)
[2024-02-12] MEDS: DEXTROSE 50% SYRINGE 25 GRAMS IV (13:26)
[2024-02-12 14:05] LABS: Urine Albumin Negative (Neg - Trace); Urine Bilirubin Negative (Negative); Urine Character Clear (Clear); Urine Color Yellow; Urine Glucose 2+ (Negative); Urine Ketone Negative (Negative); Urine Leukocyte Trace (Negative); Urine Nitrite Negative (Negative); Urine Occult Blood Negative (Negative); Urine Urobilinogen Negative (Neg - 1+)
[2024-02-12] MEDS: DUPHALAC/CHRONULAC 20 GRAMS PO ×2 (14:22→22:40)
--- NOTE | 2024-02-12 14:22 | ED.GENMED ---
History of Present Illness
<Randy Wood PA-C - Last Filed: 02/13/24 15:42>
General
Chief Complaint: Abdominal Symptoms
Time Seen by Provider: 02/12/24 12:00
Travel History
Have you had any contact with someone who has COVID-19?: No
Do you have any symptoms of coronavirus? Fever > 100 degrees, chills, cough, shortness of breath, sore throat, loss of taste or smell, muscle aches, or headache?: No
History of Present Illness
History of Present Illness:
53-year-old male with history of alcoholic cirrhosis with ascites status post TIPS presents to the emergency department for evaluation of abdominal cramping, nausea, vomiting, weakness, and 'confusion' ongoing for the past 24 hours. He states that
his abdominal pain has been present for the past weeks and seems to get worse after his biweekly paracentesis. Most recent paracentesis was yesterday, 3100 cc of fluid was removed, lab analysis negative for SBP. Patient is concerned that his
umbilical hernia may have some correlation to this. He states he has been compliant with his home medications including lactulose
Had recent TIPS revision 3-4 weeks ago at [place]
Past History
<Randy Wood PA-C - Last Filed: 02/13/24 15:42>
Past History
ED Past Medical History: HTN and Other (pre-diabetic years ago but lost weight and says he no longer is)
ED Past Surgical History: None and Orthopedic
Patient has exhibited threatening behavior?: No
PSI?: No
Social History
Tobacco: Smoker
Alcohol: Former (Heavy alcohol use, quit March 2022)
Drug: None
Personal: Single
Living: with family
Employment: Not employed
Family History
Family History: Other
Review of Systems
<Randy Wood PA-C - Last Filed: 02/13/24 15:42>
Review of Systems
Allergies reviewed?: Yes
All Other Systems: ROS reviewed and negative except as documented in HPI and ROS
Phy Exam
<Randy Wood PA-C - Last Filed: 02/13/24 15:42>
Physical Exam
Physical Exam:
GEN: Chronically ill-appearing, writhing in pain
Eyes: PERRLA, EOMs intact, no scleral icterus
HENT: NCAT, oral mucosa moist
Lungs: CTAB, no wheezes, rales, rhonchi, normal chest wall excursion
Cardiac: RRR, no M/R/G, no peripheral edema. Radial pulses 2+ bilat
Abdomen: Protuberant abdomen, bulging and nonreducible umbilical hernia that is exquisitely tender to palpation
Neuro: Somnolent but arouses to voice, moves all extremities freely
MSK: No gross deformity or ecchymosis. No edema. No digital clubbing
Skin: No rashes, petechiae. Normal color, no pallor or jaundice.
Psych: Calm, cooperative, proper hygiene
Course
<Randy Wood PA-C - Last Filed: 02/13/24 15:42>
Orders/Labs/Results
Orders:
Orders
02/12/24 11:52
IV Insert/Care/Rem.- Treatment PRN
02/12/24 11:58
Complete Blood Count/With Diff Urgent
Comprehensive Metabolic Panel Urgent
Lipase Urgent
Urinalysis Reflex To Culture Urgent
Date Specimen was Collected: 02/12/24
Time Specimen was Collected: 11:52
Urine Microscopic Reflex Cult Urgent
02/12/24 12:00
Ammonia Urgent
02/12/24 12:10
HYDROmorphone [Dilaudid] 0.5 mg IV NOW STA
02/12/24 12:16
Prothrombin Time Urgent
02/12/24 13:09
Electrocardiogram (*1) Urgent
Reason for Study: QTc Monitoring
EKG- Treatment ONCE
Dextrose 50%-Water [Dextrose 50% Syringe] 25 grams IV NOW STA
Insulin Human Regular [Novolin R] 10 units IV NOW STA
02/12/24 13:49
HYDROmorphone [Dilaudid] 0.5 mg .ROUTE .STK-MED ONE
02/12/24 13:50
HYDROmorphone [Dilaudid] 0.5 mg IV NOW STA
02/12/24 13:59
CT Abd/Pel (IV only)-DH only Urgent
Comment:
Reason For Exam: nonreducible umbilical hernia pain
Lactulose [Duphalac/Chronulac] 20 grams PO NOW STA
02/12/24 Dinner
NPO
Allow oral meds: Yes
Allow clear liquids: Sips of Clears
02/12/24 15:13
Basic Metabolic Panel Urgent
02/12/24 15:17
Furosemide [Lasix] 40 mg IV NOW STA
02/12/24 18:38
Admit/Transfer Patient As Directed
Co-Sign Provider:
Level of Care: Inpatient admission
Assign to:: IMU- Intermediate Care
Physician / Group: abel
Diagnosis: decompensated cirrhosis
Reason for Hospitalization: decompensated cirrhosis
Expected length of stay greater than two midnights?: Yes
ELOS- Estimated Length of Stay in days: 2
I certify the patient meets the requirements for IP care: Yes
02/12/24 18:40
Code Status As Directed
Resuscitation Status: Full Code
02/12/24 18:45
Calcium Gluconate 1 gram/100mL [Calcium Gluconate] 1 gram in 100 ml IV ONCE
02/12/24 18:54
Blood Culture Q30M
DERRICK Source: Blood/Venous
Specimen Description:
Blood Culture Q30M
DERRICK Source: Blood/Venous
Specimen Description:
02/12/24 20:00
CefTRIAXone [Rocephin] 2,000 mg IV Q12H
02/12/24 21:06
BMP [Basic Metabolic Panel] Routine
02/12/24 21:34
Acetaminophen [Tylenol] 1,000 mg PO [id number] PRN
HYDROmorphone [Dilaudid] 0.5 mg IV Q4HPRN PRN
Heparin 5,000 units SC Q12
Ondansetron Injectable [Zofran] 4 mg IV Q6HPRN PRN
02/12/24 21:34
Consult Interventional Radiology [IRAD CONSULT] Routine
Consulting Provider: Enrico Krishnamurthy
Was physician already notified: Yes
Reason for Consult/Procedure: para
Acknowledgement that appropriate orders are entered: Yes
GASTROINTESTINAL CONSULT Routine
Consulting Provider: Raul Hernandez
Was physician already notified: Yes
Body Fluid Albumin Routine
Fluid Source: Peritoneal (Ascites)
Date Specimen was Collected: 02/13/24
Time Specimen was Collected: 13:35
Body Fluid Amylase Routine
Fluid Source: Peritoneal (Ascites)
Date Specimen was Collected: 02/13/24
Time Specimen was Collected: 13:35
Body Fluid Cell Count Routine
What is the Body Fluid: peritoneal fluid
Date Specimen was Collected: 02/13/24
Time Specimen was Collected: 13:35
Comment: post procedure
Body Fluid LDH Routine
Fluid Source: Peritoneal (Ascites)
Date Specimen was Collected: 02/13/24
Time Specimen was Collected: 13:35
Body Fluid Protein Routine
Fluid Source: Peritoneal (Ascites)
Date Specimen was Collected: 02/13/24
Time Specimen was Collected: 13:35
Fluid Culture with Gram Stain Routine
DERRICK Source: Peritoneal Fluid
Specimen Description:
Date Specimen was Collected: 02/13/24
Time Specimen was Collected: 13:35
Comment: Post Procedure
Activity As Directed
Activity Level: As Tolerated
Vital Signs As Directed
Frequency: Per unit guidelines
IRAD Cytology Routine
Date Specimen was Collected: 02/13/24
Time Specimen was Collected: 13:35
Source: Peritoneal Fluid
Clinical Impression: cirrhosis
History of Malignancy: no
History of Radiation / Chemotherapy: no
Submitting Physician: Aleida Fierro
DX Deep Vein Thrombosis Video Routine
02/12/24 22:00
Lactulose [Duphalac/Chronulac] 20 grams PO TID
Rifaximin [Xifaxan] 200 mg PO TID
02/13/24 05:23
Complete Blood Count/With Diff IN AM
Comprehensive Metabolic Panel IN AM
02/13/24 08:00
Magnesium l-Lactate [Mag-Tab Sr] 84 mg PO DAILY
Abnormal Lab Results
02/12/24 02/12/24 02/12/24
11:58 12:00 12:16
RBC 3.62 L 10^6/uL
(4.70-6.10)
Hgb 10.9 L g/dL
(13.0-18.0)
Hct 30.8 L %
(39.0-52.0)
Plt Count 122 L D 10^3/uL
(130-400)
Absolute Neuts (auto) 7.0 H 10^3/uL
(1.4-6.5)
Absolute Lymphs (auto) 0.8 L 10^3/uL
(1.2-3.4)
Neutrophils % 81.8 H %
(42.2-75.2)
Lymphocytes % 9.4 L %
(20.5-51.1)
PT 19.1 H Sec
(11.4-14.6)
Sodium 133 L mmol/L
(135-145)
Potassium 6.2 H* mmol/L
(3.5-5.1)
Chloride 109 H mmol/L
(98-107)
Carbon Dioxide 20 L mmol/L
(22-30)
BUN 52 H mg/dl
(9-20)
Creatinine 1.6 H mg/dL
(0.7-1.3)
Glucose 223 H mg/dl
(70-99)
Calcium 8.2 L mg/dl
(8.4-10.2)
Total Bilirubin 1.4 H mg/dl
(0.2-1.3)
Alkaline Phosphatase 184 H U/L
(38-126)
Ammonia 88 H umol/L
(9-30)
Total Protein 5.5 L g/dl
(6.3-8.2)
Albumin 2.8 L g/dl
(3.5-5.0)
Lipase 358 H U/L
(23-300)
Leukocyte Esterase Rfl Trace A
(Negative)
Urine Glucose 2+ A
(Negative)
02/12/24
15:13
RBC
Hgb
Hct
Plt Count
Absolute Neuts (auto)
Absolute Lymphs (auto)
Neutrophils %
Lymphocytes %
PT
Sodium 133 L mmol/L
(135-145)
Potassium 6.4 H* mmol/L
(3.5-5.1)
Chloride
Carbon Dioxide 21 L mmol/L
(22-30)
BUN 51 H mg/dl
(9-20)
Creatinine 1.6 H mg/dL
(0.7-1.3)
Glucose 183 H mg/dl
(70-99)
Calcium
Total Bilirubin
Alkaline Phosphatase
Ammonia
Total Protein
Albumin
Lipase
Leukocyte Esterase Rfl
Urine Glucose
02/12/24 11:58
02/12/24 15:13
Vital Signs
Initial and Last Documented VS:
Initial Vital Signs
Pulse Resp BP Pulse Ox
73 16 131/65 100
02/12/24 11:53 02/12/24 11:53 02/12/24 11:53 02/12/24 11:53
Last Documented Vital Signs
Temp Pulse Resp BP Pulse Ox
98.6 F 70 13 122/60 98
02/13/24 15:01 02/13/24 15:00 02/13/24 15:00 02/13/24 14:13 02/13/24 15:00
<Marquise La PA-C - Last Filed: 02/12/24 17:48>
Orders/Labs/Results
Orders:
Orders
02/12/24 11:52
IV Insert/Care/Rem.- Treatment PRN
02/12/24 11:58
Complete Blood Count/With Diff Urgent
Comprehensive Metabolic Panel Urgent
Lipase Urgent
Urinalysis Reflex To Culture Urgent
Date Specimen was Collected: 02/12/24
Time Specimen was Collected: 11:52
Urine Microscopic Reflex Cult Urgent
02/12/24 12:00
Ammonia Urgent
02/12/24 12:10
HYDROmorphone [Dilaudid] 0.5 mg IV NOW STA
02/12/24 12:16
Prothrombin Time Urgent
02/12/24 13:09
Electrocardiogram (*1) Urgent
Reason for Study: QTc Monitoring
EKG- Treatment ONCE
Dextrose 50%-Water [Dextrose 50% Syringe] 25 grams IV NOW STA
Insulin Human Regular [Novolin R] 10 units IV NOW STA
02/12/24 13:49
HYDROmorphone [Dilaudid] 0.5 mg .ROUTE .STK-MED ONE
02/12/24 13:50
HYDROmorphone [Dilaudid] 0.5 mg IV NOW STA
02/12/24 13:59
CT Abd/Pel (IV only)-DH only Urgent
Comment:
Reason For Exam: nonreducible umbilical hernia pain
Lactulose [Duphalac/Chronulac] 20 grams PO NOW STA
02/12/24 Dinner
NPO
Allow oral meds: Yes
Allow clear liquids: Sips of Clears
02/12/24 15:13
Basic Metabolic Panel Urgent
02/12/24 15:17
Furosemide [Lasix] 40 mg IV NOW STA
02/12/24 18:38
Admit/Transfer Patient As Directed
Co-Sign Provider:
Level of Care: Inpatient admission
Assign to:: IMU- Intermediate Care
Physician / Group: abel
Diagnosis: decompensated cirrhosis
Reason for Hospitalization: decompensated cirrhosis
Expected length of stay greater than two midnights?: Yes
ELOS- Estimated Length of Stay in days: 2
I certify the patient meets the requirements for IP care: Yes
02/12/24 18:40
Code Status As Directed
Resuscitation Status: Full Code
02/12/24 18:45
Calcium Gluconate 1 gram/100mL [Calcium Gluconate] 1 gram in 100 ml IV ONCE
02/12/24 18:54
Blood Culture Q30M
DERRICK Source: Blood/Venous
Specimen Description:
Blood Culture Q30M
DERRICK Source: Blood/Venous
Specimen Description:
02/12/24 20:00
CefTRIAXone [Rocephin] 2,000 mg IV Q12H
02/12/24 21:06
BMP [Basic Metabolic Panel] Routine
02/12/24 21:34
Acetaminophen [Tylenol] 1,000 mg PO [id number] PRN
HYDROmorphone [Dilaudid] 0.5 mg IV Q4HPRN PRN
Heparin 5,000 units SC Q12
Ondansetron Injectable [Zofran] 4 mg IV Q6HPRN PRN
02/12/24 21:34
Consult Interventional Radiology [IRAD CONSULT] Routine
Consulting Provider: Enrico Krishnamurthy
Was physician already notified: Yes
Reason for Consult/Procedure: para
Acknowledgement that appropriate orders are entered: Yes
GASTROINTESTINAL CONSULT Routine
Consulting Provider: Raul Hernandez
Was physician already notified: Yes
Body Fluid Albumin Routine
Fluid Source: Peritoneal (Ascites)
Date Specimen was Collected: 02/13/24
Time Specimen was Collected: 13:35
Body Fluid Amylase Routine
Fluid Source: Peritoneal (Ascites)
Date Specimen was Collected: 02/13/24
Time Specimen was Collected: 13:35
Body Fluid Cell Count Routine
What is the Body Fluid: peritoneal fluid
Date Specimen was Collected: 02/13/24
Time Specimen was Collected: 13:35
Comment: post procedure
Body Fluid LDH Routine
Fluid Source: Peritoneal (Ascites)
Date Specimen was Collected: 02/13/24
Time Specimen was Collected: 13:35
Body Fluid Protein Routine
Fluid Source: Peritoneal (Ascites)
Date Specimen was Collected: 02/13/24
Time Specimen was Collected: 13:35
Fluid Culture with Gram Stain Routine
DERRICK Source: Peritoneal Fluid
Specimen Description:
Date Specimen was Collected: 02/13/24
Time Specimen was Collected: 13:35
Comment: Post Procedure
Activity As Directed
Activity Level: As Tolerated
Vital Signs As Directed
Frequency: Per unit guidelines
IRAD Cytology Routine
Date Specimen was Collected: 02/13/24
Time Specimen was Collected: 13:35
Source: Peritoneal Fluid
Clinical Impression: cirrhosis
History of Malignancy: no
History of Radiation / Chemotherapy: no
Submitting Physician: Aleida Fierro
DX Deep Vein Thrombosis Video Routine
02/12/24 22:00
Lactulose [Duphalac/Chronulac] 20 grams PO TID
Rifaximin [Xifaxan] 200 mg PO TID
02/13/24 05:23
Complete Blood Count/With Diff IN AM
Comprehensive Metabolic Panel IN AM
02/13/24 08:00
Magnesium l-Lactate [Mag-Tab Sr] 84 mg PO DAILY
Abnormal Lab Results
02/12/24 02/12/24 02/12/24
11:58 12:00 12:16
RBC 3.62 L 10^6/uL
(4.70-6.10)
Hgb 10.9 L g/dL
(13.0-18.0)
Hct 30.8 L %
(39.0-52.0)
Plt Count 122 L D 10^3/uL
(130-400)
Absolute Neuts (auto) 7.0 H 10^3/uL
(1.4-6.5)
Absolute Lymphs (auto) 0.8 L 10^3/uL
(1.2-3.4)
Neutrophils % 81.8 H %
(42.2-75.2)
Lymphocytes % 9.4 L %
(20.5-51.1)
PT 19.1 H Sec
(11.4-14.6)
Sodium 133 L mmol/L
(135-145)
Potassium 6.2 H* mmol/L
(3.5-5.1)
Chloride 109 H mmol/L
(98-107)
Carbon Dioxide 20 L mmol/L
(-30)
BUN 52 H mg/dl
(9-20)
Creatinine 1.6 H mg/dL
(0.7-1.3)
Glucose 223 H mg/dl
(70-99)
Calcium 8.2 L mg/dl
(8.4-10.2)
Total Bilirubin 1.4 H mg/dl
(0.2-1.3)
Alkaline Phosphatase 184 H U/L
(38-126)
Ammonia 88 H umol/L
(-30)
Total Protein 5.5 L g/dl
(6.3-8.2)
Albumin 2.8 L g/dl
(3.5-5.0)
Lipase 358 H U/L
(23-300)
Leukocyte Esterase Rfl Trace A
(Negative)
Urine Glucose 2+ A
(Negative)
02/12/24
15:13
RBC
Hgb
Hct
Plt Count
Absolute Neuts (auto)
Absolute Lymphs (auto)
Neutrophils %
Lymphocytes %
PT
Sodium 133 L mmol/L
(135-145)
Potassium 6.4 H* mmol/L
(3.5-5.1)
Chloride
Carbon Dioxide 21 L mmol/L
(22-30)
BUN 51 H mg/dl
(9-20)
Creatinine 1.6 H mg/dL
(0.7-1.3)
Glucose 183 H mg/dl
(70-99)
Calcium
Total Bilirubin
Alkaline Phosphatase
Ammonia
Total Protein
Albumin
Lipase
Leukocyte Esterase Rfl
Urine Glucose
02/12/24 11:58
02/12/24 15:13
Vital Signs
Initial and Last Documented VS:
Initial Vital Signs
Pulse Resp BP Pulse Ox
73 16 131/65 100
02/12/24 11:53 02/12/24 11:53 02/12/24 11:53 02/12/24 11:53
Last Documented Vital Signs
Temp Pulse Resp BP Pulse Ox
98.6 F 70 13 122/60 98
02/13/24 15:01 02/13/24 15:00 02/13/24 15:00 02/13/24 14:13 02/13/24 15:00
<Randy Wood PA-C - Last Filed: 02/13/24 15:42>
MDM/Problems Addressed
MDM/Problems Addressed:
Patient will require admission for hyperammonemia and confusion due to hepatic encephalopathy. Imaging is pending for pelvic hernia, differentiated general surgery evaluation. Potassium elevation noted, this is acute on chronic, given insulin and
dextrose IV fluids and BMP will be rechecked. Unclear etiology to this as the patient is not on potassium sparing diuretics or BOBBY/ARB
<Marquise La PA-C - Last Filed: 02/12/24 17:48>
*Critical Care Note
Total Time (30-74mins, 75-104mins- exclusive of procedures): Not Applicable
<Marquise La PA-C - Last Filed: 02/12/24 17:48>
Patient Management
Discussion with other providers: Hospitalist and Honey Producer
Escalation/DeEscalation of care consider admission/obs:
Patient received in signout at [address] scan report with plan to be for patient admission. CT scans with multiple findings including a fat and fluid containing umbilical hernia, moderate abdominopelvic ascites, mild small bowel ileus,
small gallstone and a large right hydrocele. There is also a new L5 compression fracture hospitalist team was notified who accepts for continued evaluation and treatment. I also notified general surgery so they can evaluate the patient in
consultation
ED Attending Note
<Randy Wood PA-C - Last Filed: 02/13/24 15:42>
-
Portions of this chart may have been created with voice recognition software.� Occasional wrong word or��sound alike� substitutions may have occurred due to the inherent limitations of voice recognition software.
Discharge Plan
Departure
Patient Disposition: Admit
Date of Disposition: 02/12/24
Time of Disposition: 17:48
Presentation/result/management discussed w/ accepting MD/DO: Hospitalist
Discharge Problem:
Acute hepatic encephalopathy, Hernia, umbilical, Acute hyperkalemia, CKD (chronic kidney disease)
Interventions
Interventions:
*Risk Screen - Suicide Last Done: 02/12/24 11:53
*General Assessment Last Done: 02/12/24 11:53
*Neglect/Abuse Screening Last Done: 02/12/24 11:53
ED- Fall Risk Assessment Last Done: 02/12/24 12:26
*ED COVID-19 Vaccine History Last Done: 02/12/24 22:03
*Nursing Disposition Last Done: 02/12/24 21:37
UV-Ebhtnd-Lyxyoqpcwg Assessment Last Done: 02/12/24 12:26
Discharge Date and Time
Discharge Date/Time: 02/12/24 21:38
[2024-02-12 14:58] LABS: Urine Amorphous Seen; Urine Mucus Few
[2024-02-12 14:59] LABS: Urine Red Blood Cell 0-2 /HPF (0-2)
[2024-02-12] MEDS: LASIX 40 MG IV (15:28)
[2024-02-12 15:48] LABS: Blood Urea Nitrogen 51 mg/dl (9-20); Calcium 8.4 mg/dl (8.4-10.2); Carbon Dioxide 21 mmol/L (22-30); Chloride 107 mmol/L (98-107); Estimated Creatinine Clearance 59 ml/min; Glucose 183 mg/dl (70-99); Potassium 6.4 mmol/L (3.5-5.1); Sodium 133 mmol/L (135-145)
--- NOTE | 2024-02-12 18:46 | HPS.HSE ---
Family Physician
-
Family Physician: NOT KNOW UNKNOWN - PT DOES
Chief Complaint
-
abdominal pain
History of Present Illness
53-year-old male past medical history of alcoholic cirrhosis status post TIPS 1 year ago, umbilical hernia, hypertension, chronic kidney disease, right-sided hydrocele presenting to the emergency room for abdominal cramping, nausea vomiting and
weakness and confusion for the past day. Patient gets biweekly paracentesis and he has had abdominal pain for the past several weeks that seems to get worse after paracentesis. His last paracentesis was yesterday and 3100 cc of fluid was removed.
Studies were negative for SBP. He has been having 2-3 bowel movements per day. He denies any blood in the stool or black stool. He denies any recent drainage from the umbilical hernia.
He recently had TIPS revision 3 to 4 weeks ago at [place].
He has been complaining of right scrotal swelling and pain for several years. He complains that nobody ever wanted to do anything about it.
He has not drunk alcohol in a few years.
Medical History
Past Medical History
Past Medical History: Reports Other (alcoholic cirrhosis status post TIPS 1 year ago, umbilical hernia, hypertension, chronic kidney disease, right-sided hydrocele)
Past Surgical History: Reports Other (TIPS, TIPS revision )
Social History
Tobacco: Non-smoker
Alcohol: Former
Drug: None
Family History
Family History: Not pertinent
Allergies / Home Medications
Allergies reflects when Allergies were last updated in [facility].
Home Medications with original date entered in [facility]
Allergy/Medication List:
Allergies
Allergy/AdvReac Type Severity Reaction Status Date / Time
No Known Allergies Allergy Verified 02/11/24 10:19
Home Medications
acetaminophen 500 mg tablet 1,000 mg PO Q12 PRN mild pain/fever 08/08/22
lactulose 20 gram/30 mL oral solution 30 ml PO TID 02/05/24
magnesium 250 mg tablet 250 mg PO DAILY 02/12/24
Review of Systems
-
History Source: Patient
A 12 point ROS was completed and negative except as noted: Yes
Constitutional: Reports No Symptoms
EENT: Reports No Symptoms
Respiratory: Reports No Symptoms
Cardiac: Reports No Symptoms
Abdomen/GI: Reports See HPI
: Reports No Symptoms
Musculoskeletal: Reports No Symptoms
Skin: Reports No Symptoms
Neurological: Reports No Symptoms
Endocrine: Reports No Symptoms
Hematologic/Lymphatic: Reports No Symptoms
Psych: Reports No Symptoms
Physical Exam
Vital Signs
Vital Signs
Pulse Resp BP Pulse Ox
86 10 118/56 100
02/12/24 18:30 02/12/24 18:30 02/12/24 18:00 02/12/24 18:30
Physical Exam
General: Well Developed, Well Nourished and No Apparent Distress
HEENT: NormoCephalic, Moist mucous membranes and Atraumatic
Respiratory: Clear
Cardiac: S1/S2 and Regular Rhythm; No Murmur or Rub
GI: Soft, Non Distended, Normal Bowel Sounds and Tender (umbilical hernia tender ); No Organomegaly
Rectal: Deferred by Provider
Musculoskeletal: No Clubbing, No Cyanosis and No Edema
Skin: No Rash
Neuro: Nonfocal/grossly intact
Laboratory Results
-
02/12/24 11:58
02/12/24 15:13
Laboratory Results
PT 19.1 Sec (11.4-14.6) H 02/12/24 12:16
INR 1.62 02/12/24 12:16
Total Bilirubin 1.4 mg/dl (0.2-1.3) H 02/12/24 11:58
AST 34 U/L (17-59) 02/12/24 11:58
ALT 23 U/L (0-50) 02/12/24 11:58
Alkaline Phosphatase 184 U/L (38-126) H 02/12/24 11:58
Lipase 358 U/L (23-300) H 02/12/24 11:58
Data Reviewed
-
Lab Data: Labs Reviewed by me
Old Records: Reviewed
Impression/Plan
-
IMPRESSION:
PLAN:
# Progressive abdominal pelvic ascites/decompensated alcoholic cirrhosis
# History of alcoholic cirrhosis with refractory ascites status post TIPS procedure with recent revision
-IR consulted for paracentesis
-Check blood cultures
-Ceftriaxone started
-Zofran, Dilaudid as needed
-Poor prognosis
-GI consulted
# Hepatic encephalopathy possibly related to TIPS revision
-Ammonia level of 67
-Continue lactulose
-Add Xifaxan
# Fat and fluid containing umbilical hernia
-Tender to palpation
-CT scan showed fat and fluid continue local hernia which can be seen with incarceration/strangulation
-General surgery notified and thinks fluid in hernia is due to ascites rather than strangulation, and patient is not a operative candidate due to advanced cirrhosis, MELD score 21
# Hyperkalemia secondary to advanced cirrhosis
-EKG shows sinus rhythm with first-degree AV block, slightly peaking T waves
-Insulin dextrose given
-40 IV Lasix given
-Give calcium gluconate
-Recheck BMP in 6 hours
Large right hydrocele
-Would not be a surgical candidate
Mild L5 compression fracture age-indeterminate
-Incidentally discovered on CT scan
Grade 1 anterolisthesis of L4 and L5
-Incidentally discovered on CT scan
Chronic kidney disease
-Renal function appears baseline
Chronic anemia
-Hemoglobin at baseline
Thrombocytopenia secondary to cirrhosis
-Improved compared to previously
Former alcohol use disorder
Full code
DVT prophylaxis�heparin
N.p.o.
[2024-02-12] MEDS: STERILE WATER FOR INJECTION 20 ML IV (19:32)
[2024-02-12] MEDS: ROCEPHIN 2000 MG IV (19:32)
[2024-02-12] MEDS: CALCIUM GLUCONATE 100 IV (19:38)
[2024-02-12 21:26] LABS: Blood Urea Nitrogen 50 mg/dl (9-20); Calcium 8.8 mg/dl (8.4-10.2); Carbon Dioxide 21 mmol/L (22-30); Chloride 108 mmol/L (98-107); Estimated Creatinine Clearance 55 ml/min; Glucose 129 mg/dl (70-99); Potassium 5.6 mmol/L (3.5-5.1); Sodium 134 mmol/L (135-145); eGFR 47.61
--- NOTE | 2024-02-12 22:13 | PTCARENOTE ---
Assumed care of Pt from ED RN. Pt ambulated with a steady but slow gait from stretcher to bed. Pt C/O nausea, threw up a moderate amount of bile in basin. Awaiting TOOL AND DIE REPAIRER to assess Pts IV site in order to administer IV zofran. This RN attempted to
slowly flush the Pts right AC IV site to which the Pt yelled out loudly in pain stating 'it stewart'. TOOL AND DIE REPAIRER contacted.
[2024-02-12] MEDS: ZOFRAN 4 MG IV (22:37)
[2024-02-13] VITALS (18 sets, daily range): BP systolic 85–138; BP diastolic 38–88; BMI 25.8
--- NOTE | 2024-02-13 00:04 | PTCARENOTE ---
Pt refused heparin injection, Pt educated on the purpose and necessity of the anticoagulant, but Pt continues to refuse med. Pt also refuses ordered Xifaxan for hepatic encephalopathy, pt states refusal is because his 'java performance engineer is not consulted'
regarding the ordered med. Purpose, necessity, and use of med explained to Pt by this RN. Pt conts to refuse med. Refusal documented in NOV.
--- NOTE | 2024-02-13 02:51 | PTCARENOTE ---
Pt frequently questions care interventions/ the necessity of implementing said interventions. Expresses he feels such interventions are not needed. i.e ringing for assistance when ambulating such as using the bathroom, Q2hr blood pressure checks,
remaining npo. This RN educated Pt on the reasoning and importance of all ordered care interventions.
[2024-02-13] MEDS: DILAUDID 0.5 MG IV (05:25)
[2024-02-13 05:38] LABS: % Basophils 0.6 % (0-2); % Eosinophils 1.5 % (0-6); % Immature Granulocytes 0.5 % (0-0.5); % Lymphocytes 9.3 % (20.5-51.1); % Monocytes 9.7 % (1.7-9.3); % Neutrophils 78.4 % (42.2-75.2); Absolute Basophils 0.1 10^3/uL (0-0.2); Absolute Eosinophils 0.2 10^3/uL (0-0.7); Absolute Immature Granulocytes 0.1 10^3/uL (0-0.05); Absolute Lymphocytes 1.2 10^3/uL (1.2-3.4); Absolute Monocytes 1.2 10^3/uL (0.1-0.6); Absolute Neutrophils 9.9 10^3/uL (1.4-6.5); Hematocrit 30.5 % (39.0-52.0); Hemoglobin 10.8 g/dL (13.0-18.0); Mean Corp Hgb Conc. 35.4 g/dL (33.0-37.0); Mean Corpuscular Hgb 30.3 pg (27.0-31.0); Mean Corpuscular Volume 85.7 fL (80.0-94.0); Mean Platelet Volume 9.9 fL (7.4-10.4); Nucleated Red Blood Cells % 0 % (-); Platelet Count 114 10^3/uL (130-400); Red Blood Cell Count 3.56 10^6/uL (4.70-6.10); Red Cell Dist. Width 14.5 % (11.5-14.5); White Blood Cell Count 12.6 10^3/uL (4.8-10.8)
[2024-02-13 06:26] LABS: ALT (SGPT) 23 U/L (0-50); AST (SGOT) 33 U/L (17-59); Albumin 2.6 g/dl (3.5-5.0); Blood Urea Nitrogen 52 mg/dl (9-20); Carbon Dioxide 18 mmol/L (22-30); Estimated Creatinine Clearance 52 ml/min; Glucose 104 mg/dl (70-99); Potassium 5.9 mmol/L (3.5-5.1); Total Bilirubin 1.8 mg/dl (0.2-1.3); Total Protein 5.5 g/dl (6.3-8.2); eGFR 44.45
[2024-02-13 06:48] LABS: Alkaline Phosphatase 138 U/L (38-126); Calcium 8.4 mg/dl (8.4-10.2); Chloride 110 mmol/L (98-107); Sodium 135 mmol/L (135-145)
[2024-02-13] MEDS: LOKELMA 10 GRAM PO (07:11)
--- NOTE | 2024-02-13 07:16 | PTCARENOTE ---
Pts Am K+ was 5.9, elevated from previous 5.6. UTILITY SPECIALIST notified. order received for lokelma. Med administered. Pt NSR on monitor with first degree block. Denies chest pain.
[2024-02-13] MEDS: XIFAXAN 200 MG PO (08:23)
[2024-02-13] MEDS: DUPHALAC/CHRONULAC 20 GRAMS PO ×3 (08:24→21:36)
[2024-02-13] MEDS: MAG-TAB SR 84 MG PO (08:24)
[2024-02-13] MEDS: ROCEPHIN 2000 MG IV (08:24)
[2024-02-13] MEDS: STERILE WATER FOR INJECTION 20 ML IV (08:25)
[2024-02-13] MEDS: FLUSH (NSS) 2 FLUSH IV (08:26)
--- NOTE | 2024-02-13 10:15 | W.PN.HOSP.TC ---
Today's Communication/Plan
-
see outlined plan
Assessment / Plan
Assessment / Plan
Assessment:
Progressive abdominal pelvic ascites
Underlying decompensated alcoholic cirrhosis with hx of TIPS procedure ([facility]) 1 year ago with revision 2 weeks prior
- s/p outpatient IR paracentesis with 3.1 L removed on 02/10
- CT here showed: Moderate abdominopelvic ascites. Progressed
- IR reconsulted for paracentesis today, may need Albumin
- He was previously on diuretics but stopped them on his own
- continue Rocephin, follow cultures
- pain control, anti-emetics
- GI Consulted
- he has 2x/weekly paracentesis. May need to increase frequency or amount of volume removed
- he follows with [facility] Dr. Young
Hepatic encephalopathy possibly related to TIPS revision and underlying decompensated alcoholic cirrhosis
- continue Lactulose/Xifaxan
- Ammonia level of 88 on admission
Fat and fluid containing umbilical hernia
- Tender to palpation
- CT scan showed fat and fluid around hernia which can be seen with incarceration/strangulation
- GS consulted for evaluation.
Hyperkalemia secondary to advanced cirrhosis
- EKG shows sinus rhythm with first-degree AV block, slightly peaking T waves
- s/p Insulin/dextrose/IV Lasix
- diet with K modification
- Lokelma
- follow BMP
Hypervolemic hyponatremia
- monitor BMP
Large right hydrocele
- outpatient Urology f/u
Mild L5 compression fracture age-indeterminate
- Incidentally discovered on CT scan
Grade 1 anterolisthesis of L4 and L5
- Incidentally discovered on CT scan
Chronic kidney disease, stage 3b
- Renal function appears baseline
Chronic anemia
- Hemoglobin at baseline
chronic Thrombocytopenia secondary to cirrhosis
- Improved compared to previously
Former alcohol use disorder
DVT ppx: SC Heparin
Code: Full
Anticipated Discharge: > 48 hours
Subjective/Interval History
-
Date of Service: February 13, 2024
reports abdominal distention
last paracentesis was Sunday
Objective Data
-
Labs:
Laboratory Results
02/13/24
05:23
WBC 12.6 H
Hgb 10.8 L
Hct 30.5 L
Plt Count 114 L
Sodium 135
Potassium 5.9 H
Chloride 110 H
Carbon Dioxide 18 L
BUN 52 H
Creatinine 1.8 H
Glucose 104 H
Calcium 8.4
Total Bilirubin 1.8 H
AST 33
ALT 23
Alkaline Phosphatase 138 H
Vital Signs:
Vital Signs
Temp Pulse Resp BP Pulse Ox
98.3 F 72 15 110/69 97
02/13/24 07:24 02/13/24 04:45 02/13/24 04:45 02/13/24 04:00 02/13/24 04:45
I&O
02/12/24 02/13/24 02/14/24
06:59 06:59 06:59
Intake Total 240 / 240
Balance 240 / 240
Physical Exam
-
General: Appears Chronically Ill
HEENT: Normocephalic and Atraumatic
Respiratory: Negative Wheezes
Cardiac: Regular Rhythm
GI: Distended
Neuro: AO x 3
Psych: Calm
Data Reviewed
-
Total Time Spent with Patient (in minutes): 45
Labs: Labs Reviewed by me
--- NOTE | 2024-02-13 10:16 | VNURNOTE ---
Chart reviewed. Patient current with [facility]. [facility] referral in [facility]. Will follow hospital course.
--- NOTE | 2024-02-13 10:34 | CON.GS ---
Consultation
-
Requesting Provider: Chepe
Performing Provider: Joon
Reason for Consultation: Umbilical hernia
Medical History
-
Chief Complaint: Abd pain
History of Present Illness:
53Mwith acute onset abdominal cramping, nausea vomiting and weakness and confusion for the past day. Patient gets biweekly paracentesis, most recent 2 days ago with 3.1L drained. He reports abdominal pain for the past several weeks that seems to
get worse after paracentesis. He describes generalized cramping a/w sudden n/v. He gets relief after vomiting. Paracentesis fluid studies were negative for SBP. He has been having 2-3 bowel movements per day. He denies any blood in the stool or
black stool. He denies any recent drainage or skin changes at the umbilical hernia.
He had TIPS revision 3 to 4 weeks ago at [facility]. He has been complaining of right scrotal swelling and pain for several years. He understands this is caused by his ascites. He has not drunk alcohol in a few years.
Past Medical History
Past Medical History: Other (alcoholic cirrhosis status post TIPS 1 year ago, umbilical hernia, hypertension, chronic kidney disease, right-sided hydrocele)
Past Surgical History: Other (as per HPI)
Social History
Tobacco: Non-Smoker
Alcohol: Former
Drug: None
Family History
Family History: Reviewed & Noncontributory
Allergies / Home Medications
Allergy/AdvReac Type Severity Reaction Status Date / Time
No Known Allergies Allergy Verified 02/11/24 10:19
�Medication �Instructions �Recorded �Confirmed �Type
acetaminophen 500 mg tablet 1,000 mg PO Q12 PRN mild pain/fever 08/08/22 02/12/24 History
lactulose 20 gram/30 mL oral 30 ml PO TID 02/05/24 02/12/24 History
solution
magnesium 250 mg tablet 250 mg PO DAILY 02/12/24 02/12/24 History
Review of Systems
-
A 10 point review of systems was completed, and was negative except as per HPI.
Physical Exam
Vital Signs
Temp Pulse Resp BP Pulse Ox
98.3 F 72 15 110/69 97
02/13/24 07:24 02/13/24 04:45 02/13/24 04:45 02/13/24 04:00 02/13/24 04:45
02/12/24 02/13/24 02/14/24
06:59 06:59 06:59
Actual Weight 86.3 kg
Body Mass Index (BMI) 25.8
Lab Results
02/13/24 05:23
02/13/24 05:23
WBC 12.6 10^3/uL (4.8-10.8) H 02/13/24 05:23
Hgb 10.8 g/dL (13.0-18.0) L 02/13/24 05:23
Hct 30.5 % (39.0-52.0) L 02/13/24 05:23
Plt Count 114 10^3/uL (130-400) L 02/13/24 05:23
Abs Immat Gran (auto) 0.1 10^3/uL (0-0.05) H 02/13/24 05:23
Neutrophils % 78.4 % (42.2-75.2) H 02/13/24 05:23
Physical Exam
General: No Apparent Distress
HEENT: Normocephalic and Anicteric
GI: Soft, Non Tender, Distended (fluid distention, moderate) and Other (soft reducible fluid filled umbilical hernia, the skin is thin but there is no evidence of drainage or ulceration)
Skin: Warm and Dry
Neuro: AO x 3
Psych: Calm
Data Reviewed
-
CT Scan: Image Personally Visualized and interpreted, Report Reviewed by me, Discussed with Physician and Discussed with Patient
Labs: Labs Reviewed by me
Old Records: Reviewed
Assessment / Plan
-
53M with abd pain with n/v for several months in setting of advanced chronic liver disease
Child Lackey B
Meld 21
Not a candidate for surgery at this institution, he follows with a team at [facility].
The hernia is soft and reducible, and dry and without ulceration
His pain is not surgical in nature and more likely related to his cirrhosis
I advised him if he develops ulceration or drainage from his umbilical skin this is a surgical emergency and recommended he go directly to [facility] should that occur
No role for surgery at this time, pls call with ?s
--- NOTE | 2024-02-13 12:32 | CON.GI ---
Consultation
-
Date/Time Consultation Requested: 02/13/24, 7:00 AM
Date/Time Consultation Performed: 02/13/24, 9:30 AM
Requesting Provider: Dr. Mo
Performing Provider: Dr. Miller
Reason for Consultation: Refractory Ascites, Decompensated Cirrhosis
Medical History
Chief Complaint / HPI
History of Present Illness:
Jb Martinez is a 53 y.o. male w/ pmhx decompensated etoH cirrhosis c/b thrombocytopenia, hepatic encephalopathy and refractory ascites s/p TIPS w/ recent revision requiring biweekly LVP, tobacco use, prediabetes who was admitted to yesterday
after presenting with worsening abdominal distension with associated nausea, vomiting and encephalopathy. He reports that his last paracentesis was on 02/10, with removal of 3100 cc, studies were neg. for SBP. He is adamant that he is compliant with
his lactulose, takes 30mL TID-- when asked how many BMs he has per day 'depends on what I eat.' He would not answer this question. He was on diuretics, initially stopped due to his worsening kidney function, they states he resumed it but stopped
them on his own as he feels 'they were making him crazy.' He describes an incident recently where he was dressed up in army gear, hiding in his bushes, told his neighbor there were 'Stephen's everywhere.' He does not recall every doing this, his
neighbor told him the following day. After stopping the diuretics, he states he felt back to himself. He does not feel this is due to noncompliance or inadequate dosing of his lactulose. His main complaints at this time are his ongoing frustrations
regrading his refractory ascites and scrotal swelling for the past 2 years, despite TIPs w/ recent revision and diuretics. He feels no one is listening to him and is tired of repeating himself. He is unsure if he is listed for a transplant at [facility].
He does not know the details of his TIPS revision, we have no records of recent procedure performed.
In regards to his cirrhosis, he was initially diagnosed in May 2022, at which time he was diagnosed with cirrhois decompensated by ascites also had an KEYON, MELD was 28, subsequently improved to 21. He currently follows with Dr. Young from
[facility] liver transplant clinic and has had prior evaluation with [facility]. Patient is s/p TIPS procedure 05/2023 but despite this, was still requiring biweekly LVP.He follows with Dr. Rivera, last seeen in the office on 11/05/23, though,
he has missed his last few scheduled appointments. At his most recent office visit in [facility], his calculated MELD 3.0 was 17.
Labs on admission: WBC 8.6, Hgb 10.9, MCV 85 (b/l hgb in the 10's), Plt 122, INR 1.62, K 6.4 --> 5.6 --> 5.9, Cl 107, CO2 21, BUN 51/Cr. 1.6, Glu 183, Tbili 1.8, alk phos 138, AST 33, ALT 23
CT A/P w/ PO & IV Contrast: Nodular hepatic margin consistent with cirrhosis and biliary stent. There is a small gallstone measuring approximately 3 mm. There is a fat and fluid-filled containing umbilical hernia, collectively it measures 6.5 x
4.3 cm. Mild small bowel ileus. Mild fecal material in the colon. Large right hydrocele.
Past Medical History
Past Medical History: Other (EtOH cirrhosis, hydrocele, umbilical hernia, prediabetes)
Social History
Tobacco: Smoker
Alcohol: Former (Last drink in 03/2022 at time of cirrhosis dx)
Drug: Former User (Prior cocaine, mushroom, LSD, marijuana use. )
Living: Alone
Employment: Not Employed
Family History
Family History: Reviewed & Not Pertinent
Allergies / Home Medications
Allergy/AdvReac Type Severity Reaction Status Date / Time
No Known Allergies Allergy Verified 02/11/24 10:19
�Medication �Instructions �Recorded
acetaminophen 500 mg tablet 1,000 mg PO Q12 PRN mild pain/fever 08/08/22
lactulose 20 gram/30 mL oral 30 ml PO TID 02/05/24
solution
magnesium 250 mg tablet 250 mg PO DAILY 02/12/24
Review of Systems
-
History Source: Patient
All other systems: A 12 pt ROS was Negative except as stated above in HPI
Vital Signs
Temp Pulse Resp BP Pulse Ox
98.5 F 72 15 110/69 97
02/13/24 11:16 02/13/24 04:45 02/13/24 04:45 02/13/24 04:00 02/13/24 04:45
Physical Exam
Exam
GENERAL: In no acute distress, appears comfortable
ABDOMEN: +BS; soft, distended; nontender; +reducible umbilical hernia
EXT: No LE edema, b/l
SKIN: Dry, warm
NEURO: AAOx3
Results
WBC 12.6 10^3/uL (4.8-10.8) H 02/13/24 05:23
Hgb 10.8 g/dL (13.0-18.0) L 02/13/24 05:23
Hct 30.5 % (39.0-52.0) L 02/13/24 05:23
MCV 85.7 fL (80.0-94.0) 02/13/24 05:23
Plt Count 114 10^3/uL (130-400) L 02/13/24 05:23
Absolute Neuts (auto) 9.9 10^3/uL (1.4-6.5) H 02/13/24 05:23
PT 19.1 Sec (11.4-14.6) H 02/12/24 12:16
INR 1.62 02/12/24 12:16
Sodium 135 mmol/L (135-145) 02/13/24 05:23
Potassium 5.9 mmol/L (3.5-5.1) H 02/13/24 05:23
Chloride 110 mmol/L (98-107) H 02/13/24 05:23
Carbon Dioxide 18 mmol/L (22-30) L 02/13/24 05:23
BUN 52 mg/dl (9-20) H 02/13/24 05:23
Creatinine 1.8 mg/dL (0.7-1.3) H 02/13/24 05:23
Calcium 8.4 mg/dl (8.4-10.2) 02/13/24 05:23
Total Bilirubin 1.8 mg/dl (0.2-1.3) H 02/13/24 05:23
AST 33 U/L (17-59) 02/13/24 05:23
ALT 23 U/L (0-50) 02/13/24 05:23
Alkaline Phosphatase 138 U/L (38-126) H 02/13/24 05:23
Lipase 358 U/L (23-300) H 02/12/24 11:58
Diagnostic Image Results:
�������-- 11/05/2022 CT abdomen and pelvis: IMPRESSION: Cirrhosis. Portal hypertension. Splenomegaly, which has increased. Ascites, slightly less than that seen previously. No renal or ureteral calculus. No obstructive uropathy. No bowel obstruction.
Possible less than 1 mm gallstone. Multilevel mild vertebral compression deformities, as described. Although age indeterminate, new since prior examination, and appearing relatively nonacute.
�������--11/2022 MRI abdomen-severe hepatitic cirrhosis with innumberable dysplastic nodules, no HCC, severe portal HTN, with recanalization paraumbilical vein, and caput medusa in anterior abdominal wall. small to moderate ascites, severe
splenomegaly, mild to moderatee upper abdomeninal lymphadenopathy, small HH
Prior GI Procedures:
EGD:
���--09/18/2022 EGD, Dr. Rivera: Grade 1-2 varices, small hiatal hernia, variable Z line, edematous-looking gastric folds, biopsies unremarkable, duodenal biopsies benign as well.
Colonoscopy:
��--09/18/2022 colonoscopy, Dr. Rivera: Screening; Sigmoid and rectosigmoid tubular adenoma removed, repeat in 7 years
Assessment / Plan
-
53 y.o. male w/ decompensated etoh cirrhosis c/b hepatic encephalopathy, EV, thrombocytopenia, refractory ascites s/p TIPS w/ recent revision at [facility] presents with nausea, vomiting, abdominal pain and encephalopathy found to be hyperkalemic with a
potassium of 6.5.
Hyperkalemia-- medication-induced vs. progressive kidney disease
-EKG w/ 1sdst degree AV block, slightly peaking T waves
-s/p insulin/dextrose/IV lasix; need to be cautious with nephrotoxic agents
# Decompensated etoh Cirrhosis - MELD 3.0=22
- Please obtain RUQ U/S with duplex need to evaluate vasculature and TIPS
-obtain records from [facility] regarding TIPS revision
- Would perform paracentesis- please send fluid for: cell count with differential, culture, gram stain, albumin, protein, and cytology
- If >4.5L ascitic fluid removed, patient will need 6-8 g/albumin per L of fluid removed (recommend albumin 25%)
- Varices: Last EGD (09/2022) Grade 1-2 varices, small hiatal hernia, variable Z line, edematous-looking gastric folds, biopsies unremarkable, duodenal biopsies benign as well.; Overdue for surveillance EGD 09/2023, no signs of GI bleeding at this
time, hemoglobin at baseline, will defer at this time
- Hepatic Encephalopathy: Unclear compliance at home, CT shows stool burden, recommend increasing dose, titrate to 2-3 loose BMs daily, c/w Xifaxin, change dose to 550mg BID, blood cultures pending, possibly encephalopathy 2/2 TIPS? Need records.
- Ascites: Refractory. Diuretics: none, 2/2 CKD, 2 gram sodium diet, no history of SBP; paracentesis pending, empiric ceftriaxone started
- HCC Screening: CT A/P performed on admission w/o focal liver lesions; AFP 3.5 (08/15/23); needs US/MRI and AFP q6 months, due for repeat AFP now
- Immunizations: if patient lacks immunity to HAV and HBV will need vaccination. Please check HAV total Ab, HBsAg, HBcAb, and HBsAb if not already checked
Data Reviewed
-
Radiology: Report Reviewed by me
CT Scan: Report Reviewed by me
Old Records: Reviewed
Time spent with patient (in minutes): >75 minutes were spent evaluating patient and reviewing prior records
-
-
Thank you for consultation and allowing me to participate in the patient's care. Please call the foreman/pile driving and erection GI physician during the after hours with any questions or concerns.
[2024-02-13 14:38] LABS: Body Fluid Mononuclear 90.1 %; Body Fluid Polymorphonuclear 9.9 %; Body Fluid WBC 324 /CUMM
[2024-02-13 14:40] LABS: Body Fluid Second Tech LD
[2024-02-13 14:59] LABS: Body Fluid Albumin < 1.0 g/dl; Body Fluid Amylase 41 U/L; Body Fluid LDH 99 U/L; Body Fluid Protein < 2.0 g/dl
[2024-02-13] MEDS: XIFAXAN PO ×2 (16:08→16:31)
[2024-02-13 16:43] LABS: Blood Urea Nitrogen 55 mg/dl (9-20); Calcium 8.4 mg/dl (8.4-10.2); Carbon Dioxide 15 mmol/L (22-30); Chloride 110 mmol/L (98-107); Estimated Creatinine Clearance 52 ml/min; Glucose 113 mg/dl (70-99); Magnesium 2.4 mg/dl (1.6-2.3); Potassium 5.5 mmol/L (3.5-5.1); Sodium 132 mmol/L (135-145); eGFR 44.45
--- NOTE | 2024-02-13 17:13 | CM ---
Patient with Hx alcoholic cirrhosis with Dx Progressive abdominal pelvic ascites, s/p paracentesis today. Receiving IV Abx. Per nursing assessment; ambulatory by self in room.
Met with patient who resides alone in a first floor condo.
The patient has been independent in ADLs and ambulation, sometimes using his SPC.
He drives himself to the hospital for his paracentesis twice weekly, although says this is becoming harder to do.
Patient says he asks a friend or neighbor to drive him to medical appts as needed or can take an Uber.
DME - [facility]
Current with [facility] for SN & PT - he does not wish to continue with [facility]---> message to [facility] Liaison.
PCP - [facility]
Pharmacy - [facility]
No CM d/c needs identified.
Plan home.
[2024-02-13] MEDS: FLEXBUMIN 100 IV (18:32)
--- NOTE | 2024-02-13 19:24 | PTCARENOTE ---
PAtient challenging to communicate with during this shift. He is angry and inpatient with staff as we provide care. To [facility] today for Paracentesis and returned after 2200ml drained. No complaints of abd pain upon return. Pt refused lactulose enema
today and GI notified. Pt receiving IV Albumin at this time. Pt is having large loose liquid mtz stools on BSC. Attends or pads offered to pt who refuses these hygiene products. Pt assisted in Shower after he removed his monitoring devices.
[2024-02-14] VITALS (10 sets, daily range): BP systolic 92–136; BP diastolic 50–72; BMI 25.3
[2024-02-14] MEDS: DILAUDID 0.5 MG IV ×3 (00:22→22:34)
--- NOTE | 2024-02-14 01:00 | PTCARENOTE ---
Pt rang call with complaints of pain. Pt appearing tearful and crying saying he is scared of 'falling asleep and never waking up'. Pt appearing frustrated with is situation and scared. Pt given PRN medication and emotional support. Vitals stable at
this time. Assessment, care and vitals as charted.
[2024-02-14] MEDS: TUMS EX (EXTRA STRENGTH) CHEWABLE 2 TABLET PO (03:21)
[2024-02-14 06:03] LABS: Hematocrit 28.2 % (39.0-52.0); Mean Corp Hgb Conc. 35.5 g/dL (33.0-37.0); Mean Corpuscular Hgb 31.2 pg (27.0-31.0); Mean Corpuscular Volume 87.9 fL (80.0-94.0); Mean Platelet Volume 9.9 fL (7.4-10.4); Platelet Count 75 10^3/uL (130-400); Red Blood Cell Count 3.21 10^6/uL (4.70-6.10); Red Cell Dist. Width 14.2 % (11.5-14.5)
[2024-02-14 06:29] LABS: ALT (SGPT) 22 U/L (0-50); AST (SGOT) 35 U/L (17-59); Albumin 2.7 g/dl (3.5-5.0); Alkaline Phosphatase 103 U/L (38-126); Blood Urea Nitrogen 57 mg/dl (9-20); Calcium 8.4 mg/dl (8.4-10.2); Carbon Dioxide 20 mmol/L (22-30); Chloride 104 mmol/L (98-107); Estimated Creatinine Clearance 43 ml/min; Glucose 127 mg/dl (70-99); Potassium 5.1 mmol/L (3.5-5.1); Sodium 131 mmol/L (135-145); Total Bilirubin 2.4 mg/dl (0.2-1.3); Total Protein 5.3 g/dl (6.3-8.2); eGFR 34.94
[2024-02-14] MEDS: STERILE WATER FOR INJECTION 20 ML IV ×2 (08:25→10:40)
[2024-02-14] MEDS: DUPHALAC/CHRONULAC 20 GRAMS PO (08:25)
[2024-02-14] MEDS: ROCEPHIN IV (08:25)
--- NOTE | 2024-02-14 08:39 | PHA.VAN.IN ---
Assessment
- Assessment
Renal Function: Appears similar to baseline (SCr 2.2)
Maximum Temperature: 99.4
Concomitant Antimicrobials: ceftriaxone
Plan
- Plan
Initial / Loading Dose: 2000mg 02/13 pending administration
Maintenance Regimen: dose by level
Monitoring: random 67 am
Pharmacokinetics Vancomycin I
- -
Patient Age: 53
Patient Sex: Male
Vancomycin Day #: 1
Indication: Bacteremia
Requesting Provider: Dr Mo
Pertinent Antimicrobial Allergies:
no known allergies
Height / Weight:
Height 6 ft
Actual Weight 84.6 kg
Pertinent Past Medical History: ascites and liver failure
- Vital Signs / Lab Results
Temp Pulse Resp BP Pulse Ox
99.4 F 77 9 108/55 99
02/14/24 03:09 02/14/24 06:00 02/14/24 06:00 02/14/24 05:47 02/14/24 06:00
Lab Results - Hematology
02/12/24 02/13/24 02/14/24
11:58 05:23 05:53
WBC 8.6 12.6 H 13.0 H
Lab Results - Chemistry
02/12/24 02/12/24 02/12/24
11:58 15:13 21:06
BUN 52 H 51 H 50 H
Creatinine 1.6 H 1.6 H 1.7 H
Estimated Creat Clear 59 59 55
Albumin 2.8 L
02/13/24 02/13/24 02/14/24
05:23 16:21 05:53
BUN 52 H 55 H 57 H
Creatinine 1.8 H 1.8 H 2.2 H
Estimated Creat Clear 52 52 43
Albumin 2.6 L 2.7 L
Lab Results - Urine
02/12/24
11:58
Urine Nitrite (Reflex) Negative
Leukocyte Esterase Rfl Trace A
Urine WBC (Reflex) 3-5
Ur Squamous Epith Cells 3-5
Microbiology Results
02/12/24 18:54 Blood Culture - Preliminary
Blood/Venous Positive culture in progress
Gram Stain - Preliminary
02/13/24 13:37 Gram Stain - Preliminary
Peritoneal Fluid
02/12/24 18:54 Blood Culture - Preliminary
Blood/Venous No Growth in 24 hours- Final report to follow
[2024-02-14] MEDS: ROCEPHIN 2000 MG IV (10:39)
--- NOTE | 2024-02-14 10:43 | CON.ID ---
Consultation
-
Date/Time Consultation Requested: 02/14/2024 1000
Date/Time Consultation Performed: 02/14/2024 1043
Requesting Provider: Dr. Mo
Performing Provider: Dr. Avila
Reason for Consultation: Bacteremia
Chief Complaint / Past History
History of Present Illness
Jb Martinez is a 53-year-old man being evaluated at the request of Dr. Mo in regards to bacteremia. History is obtained from chart review, along with patient interview.
The patient has a significant past medical history of advanced alcoholic cirrhosis, and reports that he has been receiving routine twice weekly paracentesis for the past 2 years. He has previously undergone a TIPS procedure in June 2023, with
revision on 01/23/2024.
He presented to the emergency room on 02/07 following a paracentesis and on his way to the outpatient infusion center to receive albumin. On the way he had significant vomiting and generalized weakness. Ultimately, he received his dose of albumin
and was discharged.
He presented back to the ER on 02/11 for ongoing abdominal pain, nausea, vomiting and weakness. At this point in time he reported also that he had had some confusion over the prior 24 hours. Blood cultures from that time are now positive, and
Infectious Diseases asked to comment upon further antimicrobial therapy.
He reports that prior to admission he was having significant arm and leg cramping. He has not had any fevers, although he has felt cold all admitted. He has not had any temperature spikes since admission. He denies any cough or congestion. He
denies any chest pain. He does note ongoing scrotal swelling, especially on the right side. He denies any dysuria.
Past History
Additional Past Medical History:
Alcoholic cirrhosis
Recurrent ascites (paracentesis twice weekly)
HTN
Umbilical hernia
CKD
Right-sided hydrocele
Additional Past Surgical History:
TIPS procedure (2022; revision 01/2024)
Allergy History:
No Known Allergies Allergy (Verified 02/11/24 10:19)
Medications Reviewed: Yes
Current Antibiotics:
Ceftriaxone 2 g IV every 24 hours
Xifaxan 550 mg twice daily
Vancomycin (dosing per pharmacy
Social History
Tobacco: Smoker (occ.)
Alcohol: Former
Drug: None
Personal: Single
Living: With Family
Family History
Family History: Not Pertinent
Review of Systems
Vital Signs
Temp Pulse Resp BP Pulse Ox
98.9 F 77 9 108/55 99
02/14/24 07:20 02/14/24 06:00 02/14/24 06:00 02/14/24 05:47 02/14/24 06:00
Physical Exam
Physical Exam
Constitutional: No Acute Distress, Comfortable and Non-toxic
Head: Normocephalic
Eyes: Pupils Equal, Pupils Round, No Conjunctival Hemorrhage and Sclera Anicteric
Oral: No Thrush and No Ulcers
Cardiovascular: S1/S2; Negative S3/S4 or Murmur
Pulmonary: Clear; Negative Wheezes, Rales or Rhonchi
Gastrointestinal: Soft, Tender (mild, diffuse), Non Distended and Normal Bowel Sounds
Genito-Urinary: Other (Significant scrotal swelling.)
Extremities: Edema (trace)
Skin: Warm and Dry; Negative Rash or Jaundice
Neurological: Awake and Alert
Psychological: Calm
Lab / Diagnostic Study Results
02/14/24 05:53
02/14/24 05:53
Abs Immat Gran (auto) 0.1 10^3/uL (0-0.05) H 02/13/24 05:23
Absolute Neuts (auto) 9.9 10^3/uL (1.4-6.5) H 02/13/24 05:23
Absolute Lymphs (auto) 1.2 10^3/uL (1.2-3.4) 02/13/24 05:23
Absolute Monos (auto) 1.2 10^3/uL (0.1-0.6) H 02/13/24 05:23
Absolute Basos (auto) 0.1 10^3/uL (0-0.2) 02/13/24 05:23
Immature Gran % 0.5 % (0-0.5) 02/13/24 05:23
Neutrophils % 78.4 % (42.2-75.2) H 02/13/24 05:23
Lymphocytes % 9.3 % (20.5-51.1) L 02/13/24 05:23
Monocytes % 9.7 % (1.7-9.3) H 02/13/24 05:23
Eosinophils % 1.5 % (0-6) 02/13/24 05:23
Basophils % 0.6 % (0-2) 02/13/24 05:23
PT 19.1 Sec (11.4-14.6) H 02/12/24 12:16
INR 1.62 02/12/24 12:16
Ur Squamous Epith Cells 3-5 /LPF (Few) 02/12/24 11:58
Microbiology Results
Micro:
02/13/24
13:37
Fluid WBC 324
Fluid Mononuclear Cell 90.1
Fl Polymorphonucl Cell 9.9
Fluid Other Cells Not Reportable
Fluid Diff Path Review Not Reportable
Fluid Total Protein < 2.0
Fluid Albumin < 1.0
Fluid LDH 99
Fluid Amylase 41
02/13/24 13:37 Body Fluid Culture - Preliminary
Peritoneal Fluid No Growth After 18-24 Hours
Gram Stain - Preliminary
02/12/24 18:54 Blood Culture - Preliminary
Blood/Venous Positive, culture in progress (aerobic bottle)
Gram Stain - Preliminary
02/12/24 18:54 Blood Culture - Preliminary
Blood/Venous No Growth in 24 hours- Final report to follow
Assessment / Plan
Positive blood culture
- suspect may be contaminant
Leukocytosis
KEYON on CKD
Hx alcoholic cirrhosis with recurrent ascites
Hx HTN
Umbilical hernia
Recommendations:
No evidence of SBP on most recent paracentesis.
Agree with initiation of vancomycin given blood culture results.
Repeat blood cultures x 2 today.
Await further culture data to guide further antimicrobial therapy.
Monitor creatinine.
Monitor white count
[2024-02-14] MEDS: VANCOCIN 540 MG IV (10:50)
--- NOTE | 2024-02-14 10:54 | W.PN.GI.CBS2 ---
Addendum entered and electronically signed by Raul Hernandez MD 02/14/24 16:39:
I saw and examined the patient.
The SILVER WRAPPER or PA's note was reviewed and I agree with the note.
Comment:
Pt w/o any abd pain or confusion. Having diarrhea from the lactulose
alert and oriented
u/s with elevated velocities
plan:
hold lactulose, continue xifaxin
ID getting blood cultures
albumin and renal for increasd creatinine
will likely need TIPs reevaluation as velocities on doppler may indicate stenosis
2 gram sodium diet
Original Note:
Today's Communication / Plan
-
US as noted will review with Dr. Hernandez-- no records from [place] with TIPS revision information
6/5 s/p para for 2200 ml neg SBP
2 gram Na diet
concern for noted rise in WBC's and now bacteremia await ID input cont abx on Cetriaxone
also rise in creat overnight -- hold diuretics, Add Albumin 25gram q 8 hours over next 24 hours, for renal eval
urine Na pending
up to date on variceal screening last 09/2022
HCC screen- CT on admission without focal lesion, AFP 3.5 (08/15/23); needs US/MRI and AFP q6 months, repeat AFP pending
for HE continue Lactulose TID and Xifaxan monitor stools may need to titrate down lactulose
pt was due to follow up at [facility] yesterday Dr. Young but missed with admission will need to be rescheduled
Immunizations: if patient lacks immunity to HAV and HBV will need vaccination. Please check HAV total Ab, HBsAb pending
repeat labs with INR in AM to recalculate MELD
pt states some financial issues without work for 2 years-- consult social work for disability process
Assessment / Plan
-
53 y.o. male w/ decompensated etoh cirrhosis c/b hepatic encephalopathy, EV, thrombocytopenia, refractory ascites s/p TIPS w/ recent revision at [facility] presents with nausea, vomiting, abdominal pain and encephalopathy found to be hyperkalemic with a
potassium of 6.5. MELD 21 on admission.
02/14/24 US abdomen- Elevated velocities within the TIPS catheter.Normal spectral Doppler waveforms of the hepatic veins, likely due to cirrhosis. High resistance waveform of the hepatic artery with elevated velocity.
Cholelithiasis. Thickened gallbladder wall, nonspecific.No evidence for intrahepatic bile duct dilation. The common bile duct measures up to 7 mm, considered mildly dilated. Cirrhotic liver. Moderate amount of ascites in the right and left upper
quadrants. Splenomegaly.
-decompensated ETOH cirrhosis MELD 22 on admission
-hyperkalemia on admission -- medication-induced vs. progressive kidney disease
----EKG w/ 1sdst degree AV block, slightly peaking T waves
----s/p insulin/dextrose/IV lasix; need to be cautious with nephrotoxic agents
-acute on chronic kidney disease
-hepatic encephalopathy with elevated ammonia on admission
-bacteremia - gram + cocci
-intractable ascites with frequent paracentesis
-umbilical hernia s/p surgical eval
-right hydrocele
-L5 comp fx
PLAN:
US as noted will review with Dr. Hernandez-- no records from [place] with TIPS revision information
02/12 s/p para for 2200 ml neg SBP
2 gram Na diet
concern for noted rise in WBC's and now bacteremia await ID input cont abx on Cetriaxone
also rise in creat overnight -- hold diuretics, Add Albumin 25gram q 8 hours over next 24 hours, for renal eval
urine Na pending
up to date on variceal screening last 09/2022
HCC screen- CT on admission without focal lesion, AFP 3.5 (08/15/23); needs US/MRI and AFP q6 months, repeat AFP pending
for HE continue Lactulose TID and Xifaxan monitor stools may need to titrate down lactulose
pt was due to follow up at [place] yesterday Dr. Young but missed with admission will need to be rescheduled
Immunizations: if patient lacks immunity to HAV and HBV will need vaccination. Please check HAV total Ab, HBsAb pending
repeat labs with INR in AM to recalculate MELD
pt states some financial issues without work for 2 years-- consult social work for disability process
Subjective
Subjective
Date of Service: February 14, 2024
02/12 brown watery stools, on 2 gram Na diet,
Objective
Data Reviewed
Laboratory Data:
Laboratory Results
02/14/24 05:53
02/14/24 05:53
Laboratory Results
PT 19.1 Sec (11.4-14.6) H 02/12/24 12:16
INR 1.62 02/12/24 12:16
Magnesium 2.4 mg/dl (1.6-2.3) H 02/13/24 16:21
Total Bilirubin 2.4 mg/dl (0.2-1.3) H 02/14/24 05:53
AST 35 U/L (17-59) 02/14/24 05:53
ALT 22 U/L (0-50) 02/14/24 05:53
Alkaline Phosphatase 103 U/L (38-126) 02/14/24 05:53
Lipase 358 U/L (23-300) H 02/12/24 11:58
Vital Signs and I&O:
Vital Signs
Temp Pulse Resp BP Pulse Ox
98.9 F 77 9 108/55 99
02/14/24 07:20 02/14/24 06:00 02/14/24 06:00 02/14/24 05:47 02/14/24 06:00
I&O
02/13/24 02/14/24 02/15/24
06:59 06:59 06:59
Intake Total 1260 / 1260
Balance 1260 / 1260
Physical Exam
Physical Exam
HEENT: Other (jaundice )
Cardiology: Normal Sinus Rhythm
Pulmonary: Clear
GI: Soft, Distended (mild ) and Other (umbilical hernia decompressed )
Neuro: Non Focal and Other (minimal asterixis)
[2024-02-14 11:38] LABS: Urine Sodium < 5 mmol/L (30-90)
--- NOTE | 2024-02-14 12:32 | W.CON.NEPH ---
Consultation
-
Date/Time Consultation Requested: February 14, 2024 11 AM
Date/Time Consultation Performed: February 14, 2024 12:30 PM
Requesting Provider: Dr. Mo
Performing Provider: Dr. Gonzalez
Reason for Consultation: Acute kidney injury
Medical History
-
Chief Complaint: Abdominal cramping, nausea vomiting
History of Present Illness:
This is a 53-year-old gentleman who has alcoholic cirrhosis with history of TIPS in the fall 2022. Unfortunately he still requires very frequent paracenteses almost twice weekly. He does have chronic kidney disease stage IIIa with baseline
creatinine approximately 1.6-1.[address] Houston in our office. He had previously had some hypotension but does not require midodrine at this time with stable blood pressures. He was admitted because of development of abdominal
cramping nausea, vomiting, weakness and confusion for a few days time. At the time of admission he had undergone a CT scan with IV contrast which did not show any new acute pathology. He was noted to have hyperkalemia with a potassium of 6.4 at
the time of admission which was treated medically. That has improved. Today he was found to have a creatinine elevation up to 2.2 and we are asked to assist with management of the acute kidney injury.
Past Medical History
Alcoholic cirrhosis, ascites, sciatica, glucose intolerance, right inguinal hernia, CKD 3A, sinus surgery, bilateral myringotomy tubes, wisdom teeth extraction, right hand surgery
Social History
Works in the pharmaceutical history for 30 years.
Tobacco: Smoker
Alcohol: Former
Family History
Family History: Not Pertinent
Allergies / Home Medications
Allergy/AdvReac Type Severity Reaction Status Date / Time
No Known Allergies Allergy Verified 02/11/24 10:19
�Medication �Instructions �Recorded �Confirmed �Type
acetaminophen 500 mg tablet 1,000 mg PO Q12 PRN mild pain/fever 08/08/22 02/12/24 History
lactulose 20 gram/30 mL oral 30 ml PO TID 02/05/24 02/12/24 History
solution
magnesium 250 mg tablet 250 mg PO DAILY 02/12/24 02/12/24 History
Review of Systems
-
Abdominal pain has improved. No nausea or vomiting. He has some fatigue.
All other systems: Negative unless noted
Physical Exam
Vital Signs
Vital Signs
Temp Pulse Resp BP Pulse Ox
98.3 F 88 17 122/51 99
02/14/24 11:30 02/14/24 11:14 02/14/24 11:14 02/14/24 11:14 02/14/24 11:14
Lab Results
WBC 13.0 10^3/uL (4.8-10.8) H 02/14/24 05:53
RBC 3.21 10^6/uL (4.70-6.10) L 02/14/24 05:53
Hgb 10.0 g/dL (13.0-18.0) L 02/14/24 05:53
Hct 28.2 % (39.0-52.0) L 02/14/24 05:53
Plt Count 75 10^3/uL (130-400) L D 02/14/24 05:53
Sodium 131 mmol/L (135-145) L 02/14/24 05:53
Potassium 5.1 mmol/L (3.5-5.1) 02/14/24 05:53
Chloride 104 mmol/L (98-107) 02/14/24 05:53
Carbon Dioxide 20 mmol/L (22-30) L 02/14/24 05:53
BUN 57 mg/dl (9-20) H 02/14/24 05:53
Creatinine 2.2 mg/dL (0.7-1.3) H 02/14/24 05:53
eGFR 34.94 02/14/24 05:53
Glucose 127 mg/dl (70-99) H 02/14/24 05:53
Calcium 8.4 mg/dl (8.4-10.2) 02/14/24 05:53
Albumin 2.7 g/dl (3.5-5.0) L 02/14/24 05:53
Physical Exam
Patient is awake alert oriented and in no distress. Mood and affect were pleasant, insight and judgment were good. Pupils are equal round and reactive to light, extraocular movements are intact, sclera were anicteric. Hearing was normal, ears and
nose are intact. Oropharynx was clear. Neck was supple with trachea midline and no thyromegaly. Heart was regular rate and rhythm without rubs. Lower extremities without edema. Lungs were clear to auscultation bilaterally and with normal
excursion. Abdomen was soft, nontender, minimally distended, with normal active bowel sounds, and no hepatosplenomegaly. Skin was without rash and with normal turgor.
Data Reviewed
-
CT Scan: Report Reviewed by me (CT of the abdomen and pelvis on 02/12/2024 with IV contrast shows moderate ascites, right hydrocele, biliary stent, cirrhotic liver, fluid and fat containing umbilical hernia, L5 compression fracture)
Medical Tests (Nuc Med, Echo etc): Image Personally Visualized and interpreted (EKG on February 12, 2024 by my read shows sinus rhythm first-degree AV block anterior Q)
Labs: Labs Reviewed by me (Hemoglobin 10.0, WBC 13.0, platelets 75, sodium 131, potassium 5.1, bicarbonate 20, BUN 57, creatinine 2.2, total bilirubin 2.4, AST 35, ALT 22, urine sodium less than 5)
Assessment/Plan
-
Assessment:
Decompensated alcoholic cirrhosis
Hepatic encephalopathy
Thrombocytopenia
Refractory ascites status post TIPS
Hyponatremia
Hyperkalemia
Mild metabolic acidosis
CKD 3A, 1.8
Acute kidney injury
Plan:
Empiric antibiotics with vancomycin. 1 of 2 sets of blood cultures with coag negative staph
No Lasix required at this time
Midodrine required at this time
KEYON is likely due to contrast exposure
No evidence of hepatorenal syndrome
Continue IV albumin replacement after paracentesis
Follow basic metabolic panel
[2024-02-14] MEDS: FLEXBUMIN 100 IV ×2 (12:55→20:34)
--- NOTE | 2024-02-14 13:48 | W.PN.HOSP.TC ---
Today's Communication/Plan
-
continue IV Abx pending cultures
IV Albumin
follow BMP
Assessment / Plan
Assessment / Plan
Assessment:
Progressive abdominal pelvic ascites
Underlying decompensated alcoholic cirrhosis with hx of TIPS procedure ([facility]) 1 year ago with revision 2 weeks prior
- s/p outpatient IR paracentesis with 3.1 L removed on 02/10
- CT here showed: Moderate abdominopelvic ascites. Progressed
- s/p repeat paracentesis 02/13, 2.2 removed
- GI ordering IV albumin
- He was previously on diuretics but stopped them on his own. continue 2gram Na and OFR diet
- continue Rocephin day 2, follow cultures
- pain control, anti-emetics
- GI following
- he has 2x/weekly paracentesis. May need to increase frequency or amount of volume removed
- he follows with [facility] Dr. Young
- US: shows high TIPS velocities. Await records from [facility].
Gram positive bacteremia
- IV Vanco for now
- ID consulted
Hepatic encephalopathy possibly related to TIPS revision and underlying decompensated alcoholic cirrhosis
- continue Lactulose/Xifaxan, titrate to 3 BMs daily
- Ammonia level of 88 on admission
Fat and fluid containing umbilical hernia
- Tender to palpation
- CT scan showed fat and fluid around hernia which can be seen with incarceration/strangulation
- GS evaluated; no indication for surgical indication.
KEYON on CKD stage 3b
Hyperkalemia secondary to advanced cirrhosis
- EKG shows sinus rhythm with first-degree AV block, slightly peaking T waves
- s/p Insulin/dextrose/IV Lasix
- diet with K modification
- s/p Lokelma
- follow BMP
- Nephrology consulted. Arlee KEYON is likely contrast related. No concern for HRS currently.
Hypervolemic hyponatremia
- monitor BMP
Large right hydrocele
- outpatient Urology f/u
Mild L5 compression fracture age-indeterminate
- Incidentally discovered on CT scan
Grade 1 anterolisthesis of L4 and L5
- Incidentally discovered on CT scan
Chronic anemia
- Hemoglobin at baseline
chronic Thrombocytopenia secondary to cirrhosis
- Improved compared to previously
- platelet count 75
Former alcohol use disorder
DVT ppx: SC Heparin
Code: Full
Anticipated Discharge: > 48 hours
Subjective/Interval History
-
Date of Service: February 14, 2024
no new complaints
Objective Data
-
Labs:
Laboratory Results
02/14/24
05:53
WBC 13.0 H
Hgb 10.0 L
Hct 28.2 L
Plt Count 75 L D
Sodium 131 L
Potassium 5.1
Chloride 104
Carbon Dioxide 20 L
BUN 57 H
Creatinine 2.2 H
Glucose 127 H
Calcium 8.4
Total Bilirubin 2.4 H
AST 35
ALT 22
Alkaline Phosphatase 103
Vital Signs:
Vital Signs
Temp Pulse Resp BP Pulse Ox
98.3 F 79 14 122/51 99
02/14/24 11:30 02/14/24 12:00 02/14/24 12:00 02/14/24 11:14 02/14/24 11:14
I&O
02/13/24 02/14/24 02/15/24
06:59 06:59 06:59
Intake Total 1260 / 1260 1140 / 1140
Balance 1260 / 1260 1140 / 1140
Physical Exam
-
General: No Apparent Distress
HEENT: Normocephalic
Respiratory: Negative Wheezes or Rales
Cardiac: Regular Rhythm and S1/S2
GI: Soft
Genito-urinary: No Costovertebral Tender
Neuro: AO x 3
Hematologic / Lymphatic: No Lymphadenopathy
Psych: Calm
Data Reviewed
-
Total Time Spent with Patient (in minutes): 45
Labs: Labs Reviewed by me
--- NOTE | 2024-02-14 14:22 | CM ---
Patient with Hx alcoholic cirrhosis with Dx Progressive abdominal pelvic ascites, s/p paracentesis. Receiving IV Abx, IV Albumin. Per nursing assessment 02/12; ambulatory by self in room.
CM Consult: assist with disability.
Met with patient who states his housing is paid until the end of the year, then he has concerns he will be living in his truck.
Informed patient he can request that his PCP complete disability paperwork. Patient made excuses why he is too busy for another PCP appointment.
Provided written info for [employer] [place], [place] Office, Benefits Dept for assistance with disability - ph [phone].
Plan home.
[2024-02-14] MEDS: DUPHALAC/CHRONULAC PO ×2 (15:42→21:38)
[2024-02-14] MEDS: ZOFRAN 4 MG IV (17:23)
[2024-02-14] MEDS: COMPAZINE 5 MG IV (19:06)
--- NOTE | 2024-02-14 19:47 | PTCARENOTE ---
Assumed care of Pt from day shift RN. Pt AAO. Watching TV. Pt NSR on monitor with first degree heart block, which is known about. HR 78. RR even and unlabored. Pt refused pm heparin and Xifaxan, Pt educated on purpose of meds. Pt sittin on BSC to
have BM. Call dueñas in reach. No further needs at this time.
[2024-02-14 21:50] LABS: Hepatitis B Surface Antibody Negative
[2024-02-14 22:00] LABS: AFP Male/Tumor Marker 2.73 ng/ml
--- NOTE | 2024-02-14 23:13 | PTCARENOTE ---
Pt had large BM on commode, unable to send ordered sample to the lab r/t contamination via urine. Will monitor for next BM to send sample.
[2024-02-14 23:57] LABS: Hepatitis A Antibody, Total Borderline (Negative)
[2024-02-15] VITALS (9 sets, daily range): BP systolic 87–120; BP diastolic 51–65; BMI 25.6; BMI 25.7
[2024-02-15] MEDS: FLEXBUMIN 100 IV (04:43)
--- NOTE | 2024-02-15 05:34 | VATNOTE ---
PT CONTINUES TO C/O THAT EVERY IV INSERTED THIS ADMISSION HAS BEEN 'EXCRUTIATINGLY PAINFUL AND HE HAS NEVER EXPERIENCED ANYTHING LIKE IT.' ATTEMPTED TO PROPOSE A ML INSERTION AN IV/PHLEBOTOMY OPTION FOR PT AND HE RUDELY STATED NO PRIOR TO ME
COMPLETING THE EXPLANATION. THE PCN AT BEDSIDE ATTEMPTED TO ASK PT WHY HE WAS OPPOSED AND HE AGAIN RUDELY SHOUTED, 'I SAID NO'. NEW IV ESTABLISHED DOCUMENTED AND ALBUMIN INFUSION INITIATED. AM LABS OBTAINED AT TIME OF IV INSERTION.
[2024-02-15 06:01] LABS: Hematocrit 25.2 % (39.0-52.0); Hemoglobin 9.1 g/dL (13.0-18.0); Mean Corp Hgb Conc. 36.1 g/dL (33.0-37.0); Mean Corpuscular Hgb 30.5 pg (27.0-31.0); Mean Corpuscular Volume 84.6 fL (80.0-94.0); Platelet Count 76 10^3/uL (130-400); Red Blood Cell Count 2.98 10^6/uL (4.70-6.10); White Blood Cell Count 8.6 10^3/uL (4.8-10.8)
[2024-02-15 06:06] LABS: INR 1.88; PT 21.8 Sec (11.4-14.6)
[2024-02-15 06:31] LABS: Vancomycin Random 13.5 ug/ml
[2024-02-15 06:56] LABS: ALT (SGPT) 23 U/L (0-50); AST (SGOT) 41 U/L (17-59); Albumin 2.8 g/dl (3.5-5.0); Alkaline Phosphatase 90 U/L (38-126); Blood Urea Nitrogen 60 mg/dl (9-20); Calcium 8.4 mg/dl (8.4-10.2); Carbon Dioxide 18 mmol/L (22-30); Chloride 105 mmol/L (98-107); Estimated Creatinine Clearance 49 ml/min; Glucose 91 mg/dl (70-99); Potassium 4.3 mmol/L (3.5-5.1); Sodium 131 mmol/L (135-145); Total Bilirubin 1.5 mg/dl (0.2-1.3); Total Protein 5.3 g/dl (6.3-8.2); eGFR 41.66
[2024-02-15] MEDS: DUPHALAC/CHRONULAC 20 GRAMS PO (08:25)
--- NOTE | 2024-02-15 08:30 | W.PN.ID1 ---
Date of Service
Date of Service: February 15, 2024
Today's Communication
Discontinue ceftriaxone and vancomycin. Continue with rifaximin.
Assessment / Plan
Positive blood culture
- CoNS recovered.
Leukocytosis
- resolved
KEYON on CKD
Hx alcoholic cirrhosis with recurrent ascites
Hx HTN
Umbilical hernia
Recommendations:
No evidence of SBP on most recent paracentesis.
Positive single blood culture with coag negative staph.
Discontinue further ceftriaxone and vancomycin at this time.
Monitor creatinine.
Monitor white count
Subjective / Review of Systems
Review of Systems: No Fever, No Chills and No Abdominal Pain
Vital Signs / Physical Exam
Vital Signs
Vital Signs
Temp Pulse Resp BP Pulse Ox
98.8 F 63 9 103/58 97
02/15/24 03:19 02/15/24 04:50 02/15/24 04:50 02/15/24 04:50 02/14/24 23:05
Physical Exam
Constitutional: No Acute Distress, Comfortable and Non-toxic
Pulmonary: Non Labored
Gastrointestinal: Non Distended
Extremities: Negative Edema
Skin: Negative Rash or Jaundice
Neurological: Awake and Alert
Psychological: Calm
Objective Data
Lab Data
Lab Results
02/15/24 05:24
02/15/24 05:24
PT 21.8 Sec (11.4-14.6) H 02/15/24 05:24
INR 1.88 02/15/24 05:24
Estimated Creat Clear 49 ml/min 02/15/24 05:24
Total Bilirubin 1.5 mg/dl (0.2-1.3) H 02/15/24 05:24
AST 41 U/L (17-59) 02/15/24 05:24
ALT 23 U/L (0-50) 02/15/24 05:24
Alkaline Phosphatase 90 U/L (38-126) 02/15/24 05:24
Most recent labs reviewed.
Micro Results:
02/12/24 18:54 Blood Culture - Preliminary
Blood/Venous No Growth in 48 hours- Final report to follow
02/14/24 15:14 Blood Culture - Pending
Blood/Venous
02/14/24 14:30 Blood Culture - Pending
Blood/Venous
02/12/24 18:54 Blood Culture - Preliminary
Blood/Venous Positive culture in progress
Gram Stain - Preliminary
02/13/24 13:37 Body Fluid Culture - Preliminary
Peritoneal Fluid No Growth After 18-24 Hours
Gram Stain - Preliminary
[2024-02-15] MEDS: STERILE WATER FOR INJECTION IV (08:37)
[2024-02-15] MEDS: ROCEPHIN IV (08:37)
--- NOTE | 2024-02-15 09:35 | W.PN.GI.CBS2 ---
Addendum entered and electronically signed by Odessa Rivera MD 02/15/24 15:05:
I saw and examined the patient.
The TICKET CLERK or PA's note was reviewed and I agree with the note.
Comment: Patient without any abdominal pain, scrotal edema is much more bothersome. No fevers or chills.
Abdomen, distended, no significant lower extremity edema
Alcoholic liver disease with decompensated cirrhosis
-MELD score 3.0-25
Due to get paracentesis today, rule out chylous ascites given turbid fluid noted during previous paracentesis
Added triglycerides, cultures
Creatinine slightly trending down at 1.9, cannot tolerate diuretics given elevated creatinine
Status post revision of TIPS 01/23/2024 at [facility]
Message left for the TICKET CLERK regarding recent ultrasound Doppler findings
Lactulose dose decreased for recent diarrhea, continue 20 mg daily and Xifaxan twice a day
Discussed with Dr. Young at [facility]
He will follow-up with patient 02/22/2024 at 2 PM [facility]
Discussed with patient regarding scrotal sling to be ordered from [employer]
Patient aware.
Repeat CMP in a week. Okay for discharge
Addendum entered and electronically signed by REINALDO Cheatham 02/15/24 12:34:
para 1600ml will need 12.5 gram albumin with KEYON
Addendum entered and electronically signed by REINALDO Cheatham 02/15/24 10:18:
spoke with Lilia Adamson -- US faxed to [phone] and sent images via [employer]
Original Note:
Today's Communication / Plan
-
Pt feeling better today, mental status clear, K 4.3
mild HE may have been triggered with electrolyte imbalance vs recent tips revision vs other
sent message to Lilia Adamson at [facility] to review US with recent tips review
will repeat para today as was due OP to completed -- goes 2 times per week-- will need albumin replacement with renal issues
cont 2 gram Na diet
WBC improving, blood cx coag neg stap-- rx per ID may be contaminant
with diarrhea yesterday Lactulose now 20grm daily and Xifaxan BID
meld 25 will give low dose vitamin K 5mg with rise in INR
appreciate renal input creat 1.8 today
consider urology evaluation for any other recommendation for scrotal swelling
trend hbg with anemia
will need labs 1-2 week after discharge
reviewed with patient will need to review with Dr. Mo for discharge
up to date on variceal screening last 09/2022
HCC screen- CT on admission without focal lesion, AFP 3.5 (08/15/23); needs US/MRI and AFP q6 months, repeat AFP pending
Dr. Rivera spoke with Dr. Young-- followup 02/21 2 pm at [facility] 2nd floor, liver transplant clinic -- pt needs to confirm-- added to discharge
Immunizations: iPt will need vaccination-- hep A ab borderline , hep B s Ab neg -- added to discharge
social work -- disability issues with financial issues out of work
Assessment / Plan
-
53 y.o. male w/ decompensated etoh cirrhosis c/b hepatic encephalopathy, EV, thrombocytopenia, refractory ascites s/p TIPS w/ recent revision at [facility] presents with nausea, vomiting, abdominal pain and encephalopathy found to be hyperkalemic with a
potassium of 6.5. MELD 21 on admission 02/14 25
02/14/24 US abdomen- Elevated velocities within the TIPS catheter.Normal spectral Doppler waveforms of the hepatic veins, likely due to cirrhosis. High resistance waveform of the hepatic artery with elevated velocity.
Cholelithiasis. Thickened gallbladder wall, nonspecific.No evidence for intrahepatic bile duct dilation. The common bile duct measures up to 7 mm, considered mildly dilated. Cirrhotic liver. Moderate amount of ascites in the right and left upper
quadrants. Splenomegaly.
-decompensated ETOH cirrhosis MELD 22 on admission
-hyperkalemia on admission -- medication-induced vs. progressive kidney disease
----EKG w/ 1sdst degree AV block, slightly peaking T waves
----s/p insulin/dextrose/IV lasix; need to be cautious with nephrotoxic agents
-acute on chronic kidney disease
-hepatic encephalopathy with elevated ammonia on admission
-bacteremia - gram + cocci - coag neg staph
-intractable ascites with frequent paracentesis
-umbilical hernia s/p surgical eval
-right hydrocele
-L5 comp fx
PLAN:
Pt feeling better today, mental status clear, K 4.3
mild HE may have been triggered with electrolyte imbalance vs recent tips revision vs other
sent message to Lilia Adamson at [facility] to review US with recent tips review
will repeat para today as was due OP to completed -- goes 2 times per week-- will need albumin replacement with renal issues
cont 2 gram Na diet
WBC improving, blood cx coag neg stap-- rx per ID may be contaminant
with diarrhea yesterday Lactulose now 20grm daily and Xifaxan BID
meld 25 will give low dose vitamin K 5mg with rise in INR
appreciate renal input creat 1.8 today
consider urology evaluation for any other recommendation for scrotal swelling
trend hbg with anemia
will need labs 1-2 week after discharge
reviewed with patient will need to review with Dr. Mo for discharge
up to date on variceal screening last 09/2022
HCC screen- CT on admission without focal lesion, AFP 3.5 (08/15/23); needs US/MRI and AFP q6 months, repeat AFP pending
Dr. Rivera spoke with Dr. Young-- followup 02/21 2 pm at [facility] 2nd floor, liver transplant clinic -- pt needs to confirm-- added to discharge
Immunizations: iPt will need vaccination-- hep A ab borderline , hep B s Ab neg -- added to discharge
social work -- disability issues with financial issues out of work
Subjective
Subjective
Date of Service: February 15, 2024
6/6 brown stools on 2 gram Na diet, c/o scrotal swelling and some abdominal distention
Objective
Data Reviewed
Laboratory Data:
Laboratory Results
02/15/24 05:24
02/15/24 05:24
Laboratory Results
PT 21.8 Sec (11.4-14.6) H 02/15/24 05:24
INR 1.88 02/15/24 05:24
Magnesium 2.4 mg/dl (1.6-2.3) H 02/13/24 16:21
Total Bilirubin 1.5 mg/dl (0.2-1.3) H 02/15/24 05:24
AST 41 U/L (17-59) 02/15/24 05:24
ALT 23 U/L (0-50) 02/15/24 05:24
Alkaline Phosphatase 90 U/L (38-126) 02/15/24 05:24
Lipase 358 U/L (23-300) H 02/12/24 11:58
Vital Signs and I&O:
Vital Signs
Temp Pulse Resp BP Pulse Ox
98.6 F 72 17 96/51 97
02/15/24 07:20 02/15/24 08:28 02/15/24 08:28 02/15/24 08:28 02/14/24 23:05
I&O
02/14/24 02/15/24 02/16/24
06:59 06:59 06:59
Intake Total 1260 / 1260 1919
Output Total 250 / 250
Balance 1260 / 1260 1919 -250 / -250
Physical Exam
Physical Exam
HEENT: Other (jaundice )
Cardiology: Normal Sinus Rhythm
Pulmonary: Clear
GI: Soft, Distended, Non Tender and Other (large amount of scrotal edema)
Extremities: No Edema
Neuro: Non Focal
--- NOTE | 2024-02-15 10:39 | W.PN.HOSP.TC ---
Today's Communication/Plan
-
dc today after paracentesis + likely Albumin
Assessment / Plan
Assessment / Plan
Assessment:
Progressive abdominal pelvic ascites
Underlying decompensated alcoholic cirrhosis with hx of TIPS procedure ([place]) 1 year ago with revision 2 weeks prior
- s/p outpatient IR paracentesis with 3.1 L removed on 02/10
- CT here showed: Moderate abdominopelvic ascites. Progressed
- s/p repeat paracentesis 02/13, 2.2 removed
- s/p IV albumin course
- repeat paracentesis today prior to DC
- He was previously on diuretics but stopped them on his own. continue 2 gram Na and OFR diet
- off Abx no SBP evidence
- pain control, anti-emetics
- GI following
- he has 2x/weekly paracentesis. May need to increase frequency or amount of volume removed
- he follows with [facility] Dr. Young - appointment 02/21 @ 2pm and records/images shared.
- US: shows high TIPS velocities.
coag negative staph bacteremia
- off DC per ID
Hepatic encephalopathy possibly related to TIPS revision and underlying decompensated alcoholic cirrhosis
- continue Lactulose/Xifaxan per GI
- Ammonia level of 88 on admission; mentation has improved
Fat and fluid containing umbilical hernia
- Tender to palpation
- CT scan showed fat and fluid around hernia which can be seen with incarceration/strangulation
- GS evaluated; no indication for surgical indication.
KEYON on CKD stage 3b
Hyperkalemia secondary to advanced cirrhosis
- EKG shows sinus rhythm with first-degree AV block, slightly peaking T waves
- s/p Insulin/dextrose/IV Lasix
- diet with K modification
- s/p Lokelma
- Nephrology following. [facility]o KEYON is likely contrast related. No concern for HRS currently.
- will receive IV Albumin post-paracentesis
- repeat CMP next week
Hypervolemic hyponatremia
- repeat CMP next week
Large right hydrocele
- outpatient Urology f/u
Mild L5 compression fracture age-indeterminate
- Incidentally discovered on CT scan
Grade 1 anterolisthesis of L4 and L5
- Incidentally discovered on CT scan
Chronic anemia
- Hemoglobin at baseline
chronic Thrombocytopenia secondary to cirrhosis
- Improved compared to previously
- platelet count 75
Former alcohol use disorder
DVT ppx: SC Heparin
Code: Full
More than 30 minutes spent in discharge including
Final examination of the patient
Summarizing hospital stay
Instructions for continuing care to all relevant caregivers
Preparation of discharge records, prescriptions, and referral forms
Total time spent (in minutes): 41
Anticipated Discharge: Today
Subjective/Interval History
-
Date of Service: February 15, 2024
for repeat paracentesis prior to DC later today
Objective Data
-
Labs:
Laboratory Results
02/15/24
05:24
WBC 8.6
Hgb 9.1 L
Hct 25.2 L
Plt Count 76 L
PT 21.8 H
INR 1.88
Sodium 131 L
Potassium 4.3
Chloride 105
Carbon Dioxide 18 L
BUN 60 H
Creatinine 1.9 H
Glucose 91
Calcium 8.4
Total Bilirubin 1.5 H
AST 41
ALT 23
Alkaline Phosphatase 90
Vital Signs:
Vital Signs
Temp Pulse Resp BP Pulse Ox
98.6 F 72 17 96/51 97
02/15/24 07:20 02/15/24 08:28 02/15/24 08:28 02/15/24 08:28 02/14/24 23:05
I&O
02/14/24 02/15/24 02/16/24
06:59 06:59 06:59
Intake Total 1260 / 1260 1919 / 1919
Output Total 250 / 250
Balance 1260 / 1260 1919 / 1920 -250 / -250
Physical Exam
-
General: No Apparent Distress
HEENT: Normocephalic and Atraumatic
Respiratory: Negative Wheezes
Cardiac: Regular Rhythm and S1/S2
GI: Distended
Genito-urinary: Other (scrotal edema)
Neuro: AO x 3
Hematologic / Lymphatic: No Lymphadenopathy
Psych: Calm
Data Reviewed
-
Total Time Spent with Patient (in minutes): 41
Labs: Labs Reviewed by me
--- NOTE | 2024-02-15 10:49 | W.DS.TRANS ---
DC Summary - [employer] Transport [employer]
-
Discharge Instructions:
Discharge Diagnosis/Procedures Cirrhosis, with hepatic encephalopathy,
recurrent ascites s/p paracentesis x 2
Diet Restrict fluids to 48 oz,2 Gram Sodium
Activity As tolerated
Blood Work CMP in 1 week - RX provided
Instructions:
Stand-Alone Forms:
Changes to Home Medications: Yes
Discharge Medications:
DC Medications w/original date entered in [employer]
acetaminophen 500 mg tablet 1,000 mg PO Q12 PRN mild pain/fever 08/08/22
magnesium 250 mg tablet 250 mg PO DAILY 02/12/24
lactulose 20 gram/30 mL oral solution 20 g (30 mL) PO DAILY #1,200 mL 02/15/24
rifaximin 550 mg tablet (Xifaxan) 550 mg PO BID #60 tabs 02/15/24
Home Medication Changes
Lactulose to daily
Pending Results: No
Total time spent discharging patient (in min): 41
--- NOTE | 2024-02-15 11:50 | PTCARENOTE ---
Assumed care at 0700. VSS. NSR w/ 1 degree block on telemetry, HR 60-70s. Not interested in taking Xifaxan during am despite education about medication. Patient anxious for discharge, tried to set realistic expectations with patient regarding
discharge planning but often is not willing to listen to what others say.
[2024-02-15] MEDS: FLEXBUMIN 50 IV (12:57)
[2024-02-15] MEDS: MEPHYTON 5 MG PO (13:00)
--- NOTE | 2024-02-15 13:15 | PTCARENOTE ---
Received back from IR, VSS. Bandaid to RLQ. Albumin currently infusing. Patient eager for discharge. Reports he will uber home.
--- NOTE | 2024-02-15 13:49 | VNURNOTE ---
Home Health Liaison met with patient to discuss resuming [facility] services and patient is declining at this time.
He stated that he has appointments, he checks his own BP and does not feel as though [facility] is necessary.
Liaison explained to patient that if he decides to restart in future he would contact his PCP and patient is agreeable.
CM updated.
[2024-02-15 13:55] LABS: Body Fluid Triglycerides 115 mg/dl
[2024-02-15 14:02] LABS: Body Fluid Mononuclear 84.4 %; Body Fluid Polymorphonuclear 15.6 %; Body Fluid WBC 418 /CUMM
[2024-02-15 14:29] LABS: Body Fluid Second Tech AMA
--- NOTE | 2024-02-15 15:13 | CM ---
Met with patient who was preparing for discharge.
The patient says he feels ready for discharge home today.
He plans on calling a neighbor/friend for a ride home.
Spoke with [facility] Liaison; patient declined offer for [facility].
No CM d/c needs identified.
Plan home today.
== END 2024-02-15 14:14 | disposition home or self-care (01) | DRG 433 ==
LOC: IMU 19:14
PROVIDERS: Internal Medicine Gastroenterology; Nurse Practitioner Adult Health; Physician Assistant; Radiology Diagnostic Radiology; Radiology Vascular & Interventional Radiology; ADMITTING PHYSICIAN Hospitalist; ATTENDING PHYSICIAN Internal Medicine; CONSULT PHYSICIAN Internal Medicine Infectious Disease; CONSULT PHYSICIAN Surgery; EMERGENCY PHYSICIAN Emergency Medicine; OTHER PHYSICIAN Internal Medicine; OTHER PHYSICIAN Specialist
PROC: 0W9G3ZZ Drainage of Peritoneal Cavity, Percutaneous Approach (ICD-10-PCS; 2024-02-13)
DX: K70.31 Alcoholic cirrhosis of liver with ascites (principal); E87.1 Hypo-osmolality and hyponatremia; K56.7 Ileus, unspecified; K76.6 Portal hypertension; N17.8 Other acute kidney failure; M48.56XA Collapsed vertebra, not elsewhere classified, lumbar region, initial encounter for fracture; E87.20 Acidosis, unspecified; I85.10 Secondary esophageal varices without bleeding; R78.81 Bacteremia; D63.1 Anemia in chronic kidney disease; D69.59 Other secondary thrombocytopenia; I12.9 Hypertensive chronic kidney disease with stage 1 through stage 4 chronic kidney disease, or unspecified chronic kidney disease; N18.32 Chronic kidney disease, stage 3b; K76.82 Hepatic encephalopathy; K83.8 Other specified diseases of biliary tract; B95.7 Other staphylococcus as the cause of diseases classified elsewhere; T50.8X5A Adverse effect of diagnostic agents, initial encounter; N43.3 Hydrocele, unspecified; N14.11 Contrast-induced nephropathy; I44.0 Atrioventricular block, first degree; K56.41 Fecal impaction; K80.20 Calculus of gallbladder without cholecystitis without obstruction; K42.9 Umbilical hernia without obstruction or gangrene; E74.39 Other disorders of intestinal carbohydrate absorption; E87.5 Hyperkalemia; M43.16 Spondylolisthesis, lumbar region; E87.70 Fluid overload, unspecified; F10.91 Alcohol use, unspecified, in remission; F17.200 Nicotine dependence, unspecified, uncomplicated; T50.2X6A Underdosing of carbonic-anhydrase inhibitors, benzothiadiazides and other diuretics, initial encounter; Z91.128 Patient's intentional underdosing of medication regimen for other reason; R16.1 Splenomegaly, not elsewhere classified; R19.7 Diarrhea, unspecified; Z79.899 Other long term (current) drug therapy
CPT/HCPCS: 88305; 49083; 74177; 76700; 80048; 80053; 80202; 81003; 81015; 82042; 82105; 82140; 82150; 83615; 83690; 83735; 84157; 84300; 84478; 85025; 85027; 85610; 86706; 86708; 87015; 87040; 87070; 87150; 87205; 88112; 89051; 93005; 93975; 96374; 96375; 96376; 99285; P9047; Q9967

== ENCOUNTER → 2024-02-19 07:21 | Outpatient (REF) | payer OTHER, SELFPAY ==
[2024-02-19 07:51] VITALS: BP 115/64; BP_SYST 64
[2024-02-19 08:45] VITALS: BP 115/62
[2024-02-19 09:34] LABS: Body Fluid Mononuclear 88.7 %; Body Fluid Polymorphonuclear 11.3 %; Body Fluid WBC 372 /CUMM
[2024-02-19 10:06] LABS: Body Fluid Second Tech HB
== END ==
LOC: RADI 07:21
PROVIDERS: ATTENDING PHYSICIAN Internal Medicine Gastroenterology
DX: R18.8 Other ascites (principal)
CPT/HCPCS: 49083; 89051

== ENCOUNTER → 2024-02-22 07:01 | Outpatient (REF) | payer OTHER, SELFPAY ==
[2024-02-22 07:40] VITALS: BP 132/60; BP_SYST 71
[2024-02-22 09:25] LABS: Body Fluid Mononuclear 89.5 %; Body Fluid Polymorphonuclear 10.5 %; Body Fluid WBC 313 /CUMM
[2024-02-22 09:45] LABS: Body Fluid Second Tech EF
== END ==
LOC: RADI 07:01
PROVIDERS: ATTENDING PHYSICIAN Internal Medicine Gastroenterology
DX: R18.8 Other ascites (principal)
CPT/HCPCS: 49083; 89051

== ENCOUNTER → 2024-02-26 07:34 | Outpatient (REF) | payer OTHER, SELFPAY ==
[2024-02-26 07:49] VITALS: BP 130/65; BP_SYST 70
[2024-02-26 08:45] VITALS: BP 115/56; BP_SYST 68
[2024-02-26 09:00] VITALS: BP 115/56
[2024-02-26 09:42] LABS: Body Fluid Mononuclear 90.7 %; Body Fluid Polymorphonuclear 9.3 %; Body Fluid WBC 259 /CUMM
[2024-02-26 09:44] LABS: Body Fluid Second Tech AMA
== END ==
LOC: RADI 07:34
PROVIDERS: ATTENDING PHYSICIAN Internal Medicine Gastroenterology
DX: R18.8 Other ascites (principal)
CPT/HCPCS: 49083; 89051

== ENCOUNTER → 2024-02-29 06:24 | Outpatient (REF) | payer OTHER, SELFPAY ==
[2024-02-29 07:35] VITALS: BP 117/65; BP_SYST 68
[2024-02-29 08:34] VITALS: BP 110/63
[2024-02-29 09:18] LABS: Body Fluid Mononuclear 83.7 %; Body Fluid Polymorphonuclear 16.3 %; Body Fluid WBC 240 /CUMM
[2024-02-29 09:37] LABS: Body Fluid Second Tech HB
== END ==
LOC: RADI 06:24
PROVIDERS: ATTENDING PHYSICIAN Internal Medicine Gastroenterology
DX: R18.8 Other ascites (principal)
CPT/HCPCS: 49083; 89051

== ENCOUNTER → 2024-03-04 07:32 | Outpatient (REF) | payer OTHER, SELFPAY ==
[2024-03-04 07:44] VITALS: BP 110/56; BP_SYST 67
[2024-03-04 09:00] VITALS: BP 123/61; BP_SYST 65
[2024-03-04 09:13] VITALS: BP 123/61
[2024-03-04 09:49] LABS: Body Fluid Mononuclear 90.3 %; Body Fluid Polymorphonuclear 9.7 %; Body Fluid WBC 237 /CUMM
[2024-03-04 09:54] LABS: Body Fluid Second Tech AMA
== END ==
LOC: RADI 07:32
PROVIDERS: ATTENDING PHYSICIAN Internal Medicine Gastroenterology
DX: R18.8 Other ascites (principal)
CPT/HCPCS: 49083; 89051

== ENCOUNTER 2024-03-04 09:12 | Outpatient (RCR) | payer OTHER, SELFPAY ==
[2024-02-11 10:15] VITALS: BP 119/60
[2024-02-11 10:34] VITALS: BP 119/60
[2024-02-11] MEDS: FLEXBUMIN 100 IV (10:34)
[2024-02-11 12:13] VITALS: BP 111/48
[2024-02-19 09:11] VITALS: BP 128/70
[2024-02-19] MEDS: FLEXBUMIN 50 IV (09:24)
[2024-02-19 10:12] VITALS: BP 129/68
[2024-02-22 08:15] VITALS: BP 143/67
[2024-02-22 08:24] VITALS: BP 143/61
[2024-02-22] MEDS: FLEXBUMIN 100 IV (08:24)
[2024-02-22 10:00] VITALS: BP 124/48
[2024-02-26 09:14] VITALS: BP 112/60
[2024-02-26] MEDS: FLEXBUMIN 50 IV (09:14)
[2024-02-26] MEDS: FLEXBUMIN 100 IV (10:05)
[2024-02-26 10:06] VITALS: BP 118/61
[2024-02-26 11:45] VITALS: BP 107/53
[2024-02-29] MEDS: FLEXBUMIN 100 IV (09:07)
[2024-02-29 09:14] VITALS: BP 117/64
[2024-02-29 09:17] VITALS: BP 117/64
[2024-02-29 10:50] VITALS: BP 110/46
[2024-03-04] MEDS: FLEXBUMIN 100 IV (09:50)
[2024-03-04 09:51] VITALS: BP 128/60
[2024-03-04 09:53] VITALS: BP 128/60
[2024-03-04] MEDS: FLEXBUMIN 50 IV (11:20)
[2024-03-04 11:25] VITALS: BP 124/47
[2024-03-04 12:36] VITALS: BP 105/48
== END 2024-03-09 23:59 | disposition home or self-care (01) ==
LOC: OID 09:12
PROVIDERS: ATTENDING PHYSICIAN Internal Medicine Gastroenterology; FAMILY PHYSICIAN Internal Medicine
DX: K70.31 Alcoholic cirrhosis of liver with ascites (principal); Z92.89 Personal history of other medical treatment; Z98.890 Other specified postprocedural states
CPT/HCPCS: 49083; 89051; 96365; 96366; P9047

== ENCOUNTER → 2024-03-07 06:49 | Outpatient (REF) | payer OTHER, SELFPAY ==
[2024-03-07 07:30] VITALS: BP 126/70; BP_SYST 72
[2024-03-07 08:48] VITALS: BP 129/62
[2024-03-07 09:26] LABS: Body Fluid Mononuclear 86.8 %; Body Fluid Polymorphonuclear 13.2 %; Body Fluid WBC 280 /CUMM
[2024-03-07 10:04] LABS: Body Fluid Second Tech CMB
== END ==
LOC: RADI 06:49
PROVIDERS: Internal Medicine Gastroenterology; ATTENDING PHYSICIAN Internal Medicine Gastroenterology
DX: R18.8 Other ascites (principal)
CPT/HCPCS: 49083; 89051

== ENCOUNTER → 2024-03-10 07:34 | Outpatient (REF) | payer OTHER, SELFPAY ==
[2024-03-10 08:00] VITALS: BP 119/44; BP_SYST 70
[2024-03-10 09:00] VITALS: BP 111/58; BP_SYST 70
[2024-03-10 11:15] LABS: Body Fluid Mononuclear 90.5 %; Body Fluid Polymorphonuclear 9.5 %; Body Fluid WBC 231 /CUMM
[2024-03-10 11:20] LABS: Body Fluid Second Tech EF
== END ==
LOC: RADI 07:34
PROVIDERS: ATTENDING PHYSICIAN Internal Medicine Gastroenterology
DX: R18.8 Other ascites (principal)
CPT/HCPCS: 49083; 87015; 87070; 87205; 89051

== ENCOUNTER → 2024-03-12 06:56 | Outpatient (REF) | payer OTHER, SELFPAY ==
[2024-03-12 07:20] VITALS: BP 129/64; BP_SYST 72
[2024-03-12 08:05] VITALS: BP 124/53; BP_SYST 71
[2024-03-12 08:15] VITALS: BP 124/53
[2024-03-12 11:36] LABS: Body Fluid Mononuclear 89.7 %; Body Fluid Polymorphonuclear 10.3 %; Body Fluid WBC 272 /CUMM
[2024-03-12 11:44] LABS: Body Fluid Second Tech SS
== END ==
LOC: RADI 06:56
PROVIDERS: ATTENDING PHYSICIAN Internal Medicine Gastroenterology
DX: R18.8 Other ascites (principal)
CPT/HCPCS: 49083; 89051

== ENCOUNTER → 2024-03-14 06:50 | Outpatient (REF) | payer OTHER, SELFPAY ==
[2024-03-14 07:10] VITALS: BP 125/53; BP_SYST 64
[2024-03-14 08:00] VITALS: BP 124/51
[2024-03-14 11:03] LABS: Body Fluid WBC 205 /CUMM
[2024-03-14 11:04] LABS: Body Fluid Mononuclear 90.3 %; Body Fluid Polymorphonuclear 9.7 %
[2024-03-14 11:15] LABS: Body Fluid Second Tech AMA
== END ==
LOC: RADI 06:50
PROVIDERS: ATTENDING PHYSICIAN Internal Medicine Gastroenterology
DX: R18.8 Other ascites (principal)
CPT/HCPCS: 49083; 89051

== ENCOUNTER → 2024-03-17 07:12 | Outpatient (REF) | payer OTHER, SELFPAY ==
[2024-03-17 07:25] VITALS: BP 124/64; BP_SYST 69
[2024-03-17 08:15] VITALS: BP 118/57; BP_SYST 63
[2024-03-17 08:20] VITALS: BP 118/57
[2024-03-17 12:20] LABS: Body Fluid Mononuclear 91.6 %; Body Fluid Polymorphonuclear 8.4 %; Body Fluid WBC 237 /CUMM
[2024-03-17 12:48] LABS: Body Fluid Second Tech EM
== END ==
LOC: RADI 07:12
PROVIDERS: ATTENDING PHYSICIAN Internal Medicine Gastroenterology
DX: R18.8 Other ascites (principal)
CPT/HCPCS: 49083; 89051

== ENCOUNTER 2024-03-18 04:49 | Inpatient (IN) | payer OTHER, SELFPAY ==
[2024-03-17 22:33] VITALS: BP 130/84
[2024-03-17 22:37] VITALS: BP 130/84
[2024-03-17 22:44] VITALS: BMI 26.6
[2024-03-17 23:00] VITALS: BP 120/57
[2024-03-17 23:00] LABS: % Basophils 0.5 % (0-2); % Eosinophils 0.1 % (0-6); % Immature Granulocytes 0.5 % (0-0.5); % Lymphocytes 6.5 % (20.5-51.1); % Monocytes 5.9 % (1.7-9.3); % Neutrophils 86.5 % (42.2-75.2); Absolute Basophils 0.1 10^3/uL (0-0.2); Absolute Immature Granulocytes 0.1 10^3/uL (0-0.05); Absolute Lymphocytes 0.8 10^3/uL (1.2-3.4); Absolute Monocytes 0.7 10^3/uL (0.1-0.6); Absolute Neutrophils 10.6 10^3/uL (1.4-6.5); Hematocrit 32.2 % (39.0-52.0); Hemoglobin 11.1 g/dL (13.0-18.0); Mean Corp Hgb Conc. 34.5 g/dL (33.0-37.0); Mean Corpuscular Hgb 28.2 pg (27.0-31.0); Mean Corpuscular Volume 81.9 fL (80.0-94.0); Mean Platelet Volume 10.2 fL (7.4-10.4); Nucleated Red Blood Cells % 0 % (-); Platelet Count 154 10^3/uL (130-400); Red Blood Cell Count 3.93 10^6/uL (4.70-6.10); Red Cell Dist. Width 14.2 % (11.5-14.5); White Blood Cell Count 12.2 10^3/uL (4.8-10.8)
[2024-03-17 23:19] LABS: ALT (SGPT) 29 U/L (0-50); AST (SGOT) 49 U/L (17-59); Albumin 2.9 g/dl (3.5-5.0); Alkaline Phosphatase 200 U/L (38-126); Blood Urea Nitrogen 48 mg/dl (9-20); Calcium 9.2 mg/dl (8.4-10.2); Carbon Dioxide 24 mmol/L (22-30); Chloride 101 mmol/L (98-107); Estimated Creatinine Clearance 55 ml/min; Glucose 225 mg/dl (70-99); Potassium 4.8 mmol/L (3.5-5.1); Sodium 132 mmol/L (135-145); Total Bilirubin 1.6 mg/dl (0.2-1.3); eGFR 47.61
[2024-03-18] VITALS (22 sets, daily range): BP systolic 96–148; BP diastolic 46–89; BMI 26.1
--- NOTE | 2024-03-18 00:09 | ED.GENMED ---
History of Present Illness
General
Chief Complaint: Male Genito-Urinary Symptoms
Source: patient
Exam Limitations: none
Time Seen by Provider: 03/18/24 00:01
Nursing documentation reviewed up to this point in time: agreed with
History of Present Illness
History of Present Illness:
Pleasant 53-year-old male presents with lower abdominal and right inguinal pain. Patient has ascites and cirrhosis of the liver. He gets paracentesis 3 times a week. He had paracentesis here this morning. He states that he went home and
developed acute on chronic testicular pain. He has known umbilical and inguinal hernias. He states that seem to be bothering him at this point. He denies fever or chills. States that the pain is severe. Patient denies chest pain or shortness of
breath
Past History
Past History
ED Past Medical History: HTN and Other (pre-diabetic years ago but lost weight and says he no longer is)
ED Past Surgical History: None and Orthopedic
Patient has exhibited threatening behavior?: No
PSI?: No
Social History
Tobacco: Smoker
Alcohol: Former (Heavy alcohol use, quit March 2022)
Drug: None
Personal: Single
Living: with family
Employment: Not employed
Family History
Family History: Other
Review of Systems
Review of Systems
Allergies reviewed?: Yes
All Other Systems: ROS reviewed and negative except as documented in HPI and ROS
ABD/GI: Reports abdominal pain; Denies nausea or diarrhea
Psychiatric: Reports anxiety
Phy Exam
General Physical Exam
General Presentation: moderate distress
General age: appears older than age
General Skin: ashen
General Habitus: debilitated
General Mental: alert and anxious
General Hydration: appears well hydrated
ENT Exam
ENT Exam: EOMI, pharynx normal, neck supple and normocephalic
Eye Exam
Eye Exam: PERRL, cornea clear and conjunctiva normal
Cardiovascular Exam
Cardiovascular Exam: regular rate/rhythm, no edema, no murmur and normal peripheral pulses
Pulmonary Exam
Pulmonary Exam: lungs clear, no respiratory distress, no rales, no crackles, no rhonchi, no stridor, no wheezing and no cough
Gastrointestinal Exam
Gastrointestinal Exam: normal bowel sounds, non tender, soft, no organomegaly, no pulsatile mass and non distended
External Findings: other (Umbilical hernia)
Palpation: right lower quadrant: Moderate tenderness
Neurological Exam
Neurological Exam: alert, oriented x3, no motor deficits and speech normal
Musculoskeletal Exam
Musculoskeletal Exam: full ROM and no edema
Skin Exam
Skin Exam: normal color, warm/dry, no rash and no petechia
Psychiatric Exam
Psychiatric Exam: normal mood/affect
Course
Orders/Labs/Results
Orders:
Orders
03/17/24 22:47
CMP [Comprehensive Metabolic Panel] Urgent
Complete Blood Count/With Diff Urgent
03/18/24 00:32
CT Abd/pelvis W Iv Cont Urgent
Comment:
Reason For Exam: right inguinal and lower abd pain. s/p thorocentes
HYDROmorphone [Dilaudid] 1 mg IV NOW STA
Abnormal Lab Results
03/17/24
22:47
WBC 12.2 H 10^3/uL
(4.8-10.8)
RBC 3.93 L 10^6/uL
(4.70-6.10)
Hgb 11.1 L g/dL
(13.0-18.0)
Hct 32.2 L %
(39.0-52.0)
Abs Immat Gran (auto) 0.1 H 10^3/uL
(0-0.05)
Absolute Neuts (auto) 10.6 H 10^3/uL
(1.4-6.5)
Absolute Lymphs (auto) 0.8 L 10^3/uL
(1.2-3.4)
Absolute Monos (auto) 0.7 H 10^3/uL
(0.1-0.6)
Neutrophils % 86.5 H %
(42.2-75.2)
Lymphocytes % 6.5 L %
(20.5-51.1)
Sodium 132 L mmol/L
(135-145)
BUN 48 H mg/dl
(9-20)
Creatinine 1.7 H mg/dL
(0.7-1.3)
Glucose 225 H mg/dl
(70-99)
Total Bilirubin 1.6 H mg/dl
(0.2-1.3)
Alkaline Phosphatase 200 H U/L
(38-126)
Total Protein 6.0 L g/dl
(6.3-8.2)
Albumin 2.9 L g/dl
(3.5-5.0)
03/17/24 22:47
03/17/24 22:47
Vital Signs
Initial and Last Documented VS:
Initial Vital Signs
Temp Pulse Resp BP Pulse Ox
97.9 F 74 22 130/84 100
03/17/24 22:33 03/17/24 22:33 03/17/24 22:33 03/17/24 22:33 03/17/24 22:33
Last Documented Vital Signs
Temp Pulse Resp BP Pulse Ox
97.9 F 78 18 136/69 100
03/17/24 22:33 03/18/24 01:00 03/18/24 02:00 03/18/24 02:00 03/18/24 02:01
*Critical Care Note
Total Time (30-74mins, 75-104mins- exclusive of procedures): 30
comment:
Critical care statement: A total of 30 minutes of critical care time was provided for this patient. This time is separate from time utilized to perform the aforementioned documented procedures. Aggregate critical care time includes only time
during which I was engaged in work directly related to the patient's care, as described above, whether at the bedside or elsewhere in the Emergency Department.
ED Attending Note
-
Portions of this chart may have been created with voice recognition software.� Occasional wrong word or��sound alike� substitutions may have occurred due to the inherent limitations of voice recognition software.
Discharge Plan
Departure
Patient Disposition: Admit
Date of Disposition: 03/18/24
Time of Disposition: 02:09
Admit to: Telemetry
Presentation/result/management discussed w/ accepting MD/DO: Hospitalist
Condition: Fair
Discharge Problem:
SBO (small bowel obstruction), Hernia, umbilical, Abdominal ascites, Inguinal hernia, Alcoholic cirrhosis of liver with ascites
Prescriptions:
No Action
acetaminophen 500 mg Tablet
1,000 mg PO Q12 PRN (Reason: mild pain/fever)
magnesium 250 mg Tablet
250 mg PO DAILY
lactulose 20 gram/30 mL Solution
20 g PO DAILY Qty: 1200 0RF
Referrals:
UNKNOWN - PT NOT,INTERVIEWE [Family Provider] -
Interventions
Interventions:
*Risk Screen - Suicide Last Done: 03/17/24 22:33
*General Assessment Last Done: 03/17/24 22:33
*Neglect/Abuse Screening Last Done: 03/17/24 22:33
ED- Fall Risk Assessment Last Done: 03/17/24 23:15
*ED COVID-19 Vaccine History Last Done: 03/17/24 22:44
ED-Male Genitourinary Assessment Last Done: 03/17/24 23:15
Discharge Date and Time
Print Language: CHADIAN
[2024-03-18] MEDS: DILAUDID 1 MG IV (00:42)
--- NOTE | 2024-03-18 04:27 | HPS.HSE ---
Family Physician
-
Family Physician: INTERVIEWE UNKNOWN - PT NOT
Chief Complaint
-
abdominal pain
History of Present Illness
HPI
53M HX cirrhosis, Portal HTN, recurrent ascites pw lower abdominal and right inguinal pain.
On paracentesis 3 times per week. last paracentesis yesterday morning.
Onset of pain stated s/p paracentesis yesterday
Known HX umbilical and inguinal hernias
ROS
denies fever or chills.
Medical History
Past Medical History
Past Medical History: Reports Other (alcoholic cirrhosis status post TIPS 1 year ago, umbilical hernia, hypertension, chronic kidney disease, right-sided hydrocele)
Past Surgical History: Reports Other (TIPS, TIPS revision )
Social History
Tobacco: Non-smoker
Alcohol: Former
Drug: None
Family History
Family History: Not pertinent
Allergies / Home Medications
Allergies reflects when Allergies were last updated in [employer].
Home Medications with original date entered in [employer]
Allergy/Medication List:
Allergies
Allergy/AdvReac Type Severity Reaction Status Date / Time
No Known Allergies Allergy Verified 02/11/24 10:19
Home Medications
acetaminophen 500 mg tablet 1,000 mg PO Q12 PRN mild pain/fever 08/08/22
lactulose 20 gram/30 mL oral solution 30 ml PO TID 02/05/24
magnesium 250 mg tablet 250 mg PO DAILY 02/12/24
Review of Systems
-
History Source: Patient
A 12 point ROS was completed and negative except as noted: Yes
Constitutional: Reports No Symptoms
EENT: Reports No Symptoms
Respiratory: Reports No Symptoms
Cardiac: Reports No Symptoms
Abdomen/GI: Reports Abdominal Pain
: Reports No Symptoms
Musculoskeletal: Reports No Symptoms
Skin: Reports No Symptoms
Neurological: Reports No Symptoms
Endocrine: Reports No Symptoms
Hematologic/Lymphatic: Reports No Symptoms
Psych: Reports No Symptoms
Physical Exam
Vital Signs
Vital Signs
Temp Pulse Resp BP Pulse Ox
97.9 F 77 18 135/73 100
03/17/24 22:33 03/18/24 04:00 03/18/24 04:00 03/18/24 04:00 03/18/24 04:00
Physical Exam
General: Conversant and Appears in Distress (with pain )
HEENT: NormoCephalic, Anicteric and Moist mucous membranes
Respiratory: Clear
Cardiac: S1/S2 and Regular Rhythm
Breast: Deferred by me
GI: Soft and Other (see CT report )
Neuro: Awake and Alert (lethargic s/p IV dilaudid )
Psych: Calm
Laboratory Results
-
03/17/24 22:47
03/17/24 22:47
Laboratory Results
Total Bilirubin 1.6 mg/dl (0.2-1.3) H 03/17/24 22:47
AST 49 U/L (17-59) 03/17/24 22:47
ALT 29 U/L (0-50) 03/17/24 22:47
Alkaline Phosphatase 200 U/L (38-126) H 03/17/24 22:47
Data Reviewed
-
CT Scan: Report Reviewed by me
Lab Data: Labs Reviewed by me
Old Records: Reviewed
Impression/Plan
-
Reviewed VS: unremarkable
Data
WCC 12.2
Hgb 11.1
Na 132
BUN 48
Cr 1.7 at baseline
eGFR 47 at baseline
03/18/24 CT A/P W/IV CONTRAST
Comparison with 02/12/2024.
- Small bowel obstruction 2/2 right inguinal hernia containing loops of small bowel.
- Small bowel loops within the hernia appear to be incarcerated.
- There is moderate to large surrounding volume of fluid in the inguinal hernia sac.
- Previously, the hernia sac had a moderate to large amount of fluid.
- Moderate sized umbilical hernia, similar to prior containing fluid but no evidence of herniated bowel loops at this site.
- Cirrhosis and large ascites, similar to prior. No free air.
- Patent TIPS, similar to prior.
- No appendicitis or colitis.
- No evidence of hydroureteronephrosis or obstructing stone.
- Unremarkable appearance of the pelvic viscera.
- No AAA.
Last hospitalist admission: 02/12/24 - 02/15/24
PDxs:
Cirrhosis, with hepatic encephalopathy,
recurrent ascites s/p paracentesis x 2
ASSESSMENT & PLAN
Pending Rx reconciliation
Incarcerated loop of SB in Rt Inguinal hernia
Associated abdominal pain
- NPO and IVF
- PRN narcotic analgesia
- PRN anti emetics
- Empiric IV Zosyn
- GS consulted by ER attd
HX decompensated alcoholic cirrhosis with hx of TIPS procedure ([place]) 1 year ago with revision 2 weeks prior
- last IR paracentesis was yesterday AM
- OP IR paracentesis thrice per week
- NPO for Incarcerated SB loos in Rt Inguinal hernia
- follows with [facility] Dr. Young - appointment 02/21 @ 2pm and records/images shared.
- GI consult
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
- check basline NH3
HX CKD 3b stable
Hypervolemic hyponatremia
- trend Na
Chronic pre existing conditions
Large right hydrocele: - outpatient Urology f/u
Mild L5 compression fracture age-indeterminate
Grade 1 anterolisthesis of L4 and L5
Chronic anemia
HX Chronic Thrombocytopenia secondary to cirrhosis: curently normal Plts
Former alcohol use disorder
DVT Px: SCD
Code: Full
ICU
Total Critical Care Time__45___ minutes.
I was immediately available to the patient and staff. I personally examined, reviewed labs, diagnostic images/reports, interpretations, treatment plans, discussed patient care with other providers and family or caregivers (if patient is unable
to make decisions), entered orders as appropriate and documented the medical record.
[2024-03-18] MEDS: DILAUDID 0.5 MG IV (05:14)
--- NOTE | 2024-03-18 06:00 | PTCARENOTE ---
Rec'd pt from ER via stretcher on monitor, CHG bath done, oriented to icu routine, cooperative, SR w/ 1' AV block, weak distal pulses, R groin edema,skin warm/dry, RA, sat 98, lungs decr in bases, Hyper bowel sounds, no bm, abd w/ ascites, tender,
distended, Left nares [place] inserted to low inter wall suction , scant brown liquid, NPO, HNV voided yet
[2024-03-18 06:28] LABS: Hematocrit 29.3 % (39.0-52.0); Hemoglobin 10.2 g/dL (13.0-18.0); Mean Corp Hgb Conc. 34.8 g/dL (33.0-37.0); Mean Corpuscular Hgb 28.7 pg (27.0-31.0); Mean Corpuscular Volume 82.5 fL (80.0-94.0); Mean Platelet Volume 10.3 fL (7.4-10.4); Platelet Count 128 10^3/uL (130-400); Red Blood Cell Count 3.55 10^6/uL (4.70-6.10); Red Cell Dist. Width 14.2 % (11.5-14.5); White Blood Cell Count 14.7 10^3/uL (4.8-10.8)
[2024-03-18 06:43] LABS: ALT (SGPT) 27 U/L (0-50); AST (SGOT) 44 U/L (17-59); Albumin 2.7 g/dl (3.5-5.0); Alkaline Phosphatase 147 U/L (38-126); Blood Urea Nitrogen 48 mg/dl (9-20); Calcium 9.2 mg/dl (8.4-10.2); Carbon Dioxide 25 mmol/L (22-30); Chloride 104 mmol/L (98-107); Estimated Creatinine Clearance 55 ml/min; Glucose 151 mg/dl (70-99); Magnesium 2.3 mg/dl (1.6-2.3); Phosphorus 4.8 mg/dl (2.5-4.5); Potassium 5.4 mmol/L (3.5-5.1); Sodium 133 mmol/L (135-145); Total Bilirubin 1.9 mg/dl (0.2-1.3); Total Protein 5.7 g/dl (6.3-8.2); eGFR 47.61
--- NOTE | 2024-03-18 07:05 | CON.GI ---
Addendum entered and electronically signed by Samantha Zambrano DO 03/18/24 11:07:
Patient seen and examined independently of REINALDO. I agree with her note with my additions below
Jb is a 53-year-old male with decompensated alcoholic cirrhosis possibly listed for transplant at [facility] under the care of Dr. Young. Patient came in last night with persistent and worsening right inguinal pain. CT was
concerning for incarceration.
Patient was seen by general surgery. I spoke to Dr. Anthony who states the hernia was easily reducible with no firmness or skin changes and no plans for surgery. He did have an NG tube placed last night with minimal output.
He does have a significant leukocytosis.He is currently on Zosyn which is appropriate to cover for any possible peritonitis especially in the setting of cirrhosis. If does not improve and would require surgery he would need transfer to [place]
[facility] since he is possibly listed. I did put out a call and left a voicemail for his transplant canvas cutter machine and am awaiting return.
From hepatology standpoint: He gets paracentesis 3 times per week---03/17- 3650, 03/14 2750, 03/12 1550-- neg SBP; patient should get albumin after each paracentesis considering his renal function
Based on labs from today, 03/18/2024: current CLARKE vocal score for surgical risk-- 30 day mortality 6.4%, 90 day mortality 8.4%, 180 day mortality 10.9%, -- 90 day decompensation 23.1 %
MELD 3.0 22
On exam he is somnolent after receiving narcotics but easily arousable and conversant
--- He is hemodynamically stable
-- Abdomen is soft, minimal fluid wave, umbilical hernia that is reducible, inguinal hernia no significant pain with palpation
-- NG tube in place with minimal scant bloody output
# Inguinal hernia with complication -per surgery
-- NG tube per surgery -likely to come out soon
# Decompensated alcoholic cirrhosis status post TIPS with TIPS revision likely failed based on intractable ascites with intermittent hepatic encephalopathy -
-- current CLARKE vocal score for surgical risk-- 30 day mortality 6.4%, 90 day mortality 8.4%, 180 day mortality 10.9%, -- 90 day decompensation 23.1 %
MELD 3.0 22
-- Patient had 3.6 L paracentesis yesterday that was negative for SBP
--Agree with antibiotics to cover him for possible peritonitis in the setting of cirrhosis
--Minimize narcotics which can induce hepatic encephalopathy
--Awaiting conversation with . [facility] to determine his transplant status -no urgent need for transfer unless he is can undergo surgery which according to Dr. Anthony over [place] text is highly unlikely
--Start once daily PPI in the setting of having NG tube with a small amount of dark emesis after placement
-- Will follow
Original Note:
Consultation
-
Date/Time Consultation Requested: 03/18/24 0615
Date/Time Consultation Performed: 03/18/24 0700
Requesting Provider: Markel Lazar MD
Performing Provider: REINALDO Morris, Samantha Zambrano DO
Reason for Consultation: groin pain
Medical History
Chief Complaint / HPI
History of Present Illness:
Pt is a 53yo presents with hx ETOH decompensated cirrhosis s/p TIPS and TIPS revision, intractable ascites with paracentesis now 3 times per week, umbilical hernia, HTN, CKD, right hydrocele presents with lower abdominal pain and inguinal pain.
CT on admission with concern for incarcerated inguinal hernia. Asked to eval for cirrhosis and surgical risk. In reviewing with patient he has hx cirrhosis for several years with known hernia. He has had significant scrotal swelling with
improvement with frequent paracentesis until recently continued swelling after para. He states he will typically get pain in groin after paracentesis that improves with time and lying down. On 03/17 he had para with post groin pain but symptoms
persisted for several hours prompting ER visit.
He currently rates pain as severe and still presents. He complaints of nausea and vomiting may be worse since NGT placement with drainage of small amount of dark emesis with visible blood. Pt states some flatus and regular stools yesterday.
No blood or black in stools. �--09/18/2022 EGD, Dr. Rivera: Grade 1-2 varices, small hiatal hernia, variable Z line, edematous-looking gastric folds, biopsies unremarkable, duodenal biopsies benign as well.
Colonoscopy: 09/18/2022 colonoscopy, Dr. Rivera: Screening; Sigmoid and rectosigmoid tubular adenoma removed, repeat in 7 years.
Past Medical History
Past Medical History: HTN, Renal Failure and Other (cirrhosis s/p TIPS, umbilical hernia, right sided hydrocele, portal HTN)
Past Surgical History: Other (TIPS)
Social History
Alcohol: Former
Drug: Other (prior cocaine, mushroom, LSD, marijuana)
Living: Alone
Employment: Not Employed
Family History
Family History: Reviewed & Not Pertinent
Allergies / Home Medications
Allergy/AdvReac Type Severity Reaction Status Date / Time
No Known Allergies Allergy Verified 03/17/24 07:55
�Medication �Instructions �Recorded
acetaminophen 500 mg tablet 1,000 mg PO Q12 PRN mild pain/fever 08/08/22
magnesium 250 mg tablet 250 mg PO DAILY 02/12/24
lactulose 20 gram/30 mL oral 20 g (30 mL) PO DAILY #1,200 mL 02/15/24
solution
Review of Systems
-
Unable to obtain full review of systems at this time due to: Other (some drifting off in conversation)
History Source: Patient
Constitutional: Reports Other (weight up and down with ascites and paracentesis )
EENT: Reports No Symptoms
Respiratory: Reports No Symptoms
Cardiac: Reports No Symptoms
Abdomen/GI: Reports Nausea, Vomiting (after NGT placement ) and Other (severe groin pain)
: Reports No Symptoms
Musculoskeletal: Reports No Symptoms
Skin: Reports No Symptoms
Neurological: Reports Other (some drifting off with pain meds )
Hematologic/Lymphatic: Reports No Symptoms
Vital Signs
Temp Pulse Resp BP Pulse Ox
98 F 81 16 145/56 100
03/18/24 06:00 03/18/24 06:00 03/18/24 06:00 03/18/24 05:00 03/18/24 06:00
Physical Exam
Exam
General: Other (some distress with continued pain in groin )
HEENT: Normocephalic and Anicteric
Respiratory: Clear
Cardiac: Regular Rhythm
GI: Soft, Tender (groin tenderness ) and Distended (minimal )
Musculoskeletal: No Clubbing and No Cyanosis
Skin: Warm and Dry
Neuro: Awake and Other (drifts off in conversation)
Psych: Agitated (with NGT need for admission)
Results
WBC 14.7 10^3/uL (4.8-10.8) H 03/18/24 06:15
Hgb 10.2 g/dL (13.0-18.0) L 03/18/24 06:15
Hct 29.3 % (39.0-52.0) L 03/18/24 06:15
MCV 82.5 fL (80.0-94.0) 03/18/24 06:15
Plt Count 128 10^3/uL (130-400) L 03/18/24 06:15
Absolute Neuts (auto) 10.6 10^3/uL (1.4-6.5) H 03/17/24 22:47
PT 18.0 Sec (11.4-14.6) H 03/18/24 06:14
INR 1.50 03/18/24 06:14
APTT 38.0 Sec (23.4-35.0) H 03/18/24 06:14
Sodium 133 mmol/L (135-145) L 03/18/24 06:14
Potassium 5.4 mmol/L (3.5-5.1) H 03/18/24 06:14
Chloride 104 mmol/L (98-107) 03/18/24 06:14
Carbon Dioxide 25 mmol/L (22-30) 03/18/24 06:14
BUN 48 mg/dl (9-20) H 03/18/24 06:14
Creatinine 1.7 mg/dL (0.7-1.3) H 03/18/24 06:14
Calcium 9.2 mg/dl (8.4-10.2) 03/18/24 06:14
Total Bilirubin 1.9 mg/dl (0.2-1.3) H 03/18/24 06:14
AST 44 U/L (17-59) 03/18/24 06:14
ALT 27 U/L (0-50) 03/18/24 06:14
Alkaline Phosphatase 147 U/L (38-126) H 03/18/24 06:14
Diagnostic Image Results:
03/18/24 CT Abd/pelvis W Iv Cont
CT findings compatible with small bowel obstruction due to a right inguinal hernia, with small bowel loops extending to the superior margin of a large right-sided hydrocele. Strangulation of the small bowel loops cannot be excluded by imaging.
Cirrhotic liver with TIPS catheter in place. Moderate to large amount of ascites is present.
Umbilical hernia which contains fluid but no evidence for small bowel loops on today's exam.
Small calcifications along the periphery of the gallbladder, which could be peripheral calcified gallstones versus scattered foci of gallbladder wall calcification, similar appearance to previous examination. No evidence of biliary ductal dilation.
Multiple Schmorl's nodes with mild loss of height of vertebral bodies, stable from examination of February 12, 2024. Grade 1 degenerative spondylolisthesis at L4-5, also stable.
7924- Abd X ray Nasogastric tube is present with tip over the left upper quadrant, within the stomach.
paracentesis 3 times per week---03/17- 3650, 03/14 2750, 03/12 1550-- neg SBP
--US abd with abd doppler - Elevated velocities within the TIPS catheter. Normal spectral Doppler waveforms of the hepatic veins, likely due to cirrhosis.
High resistance waveform of the hepatic artery with elevated velocity. Cholelithiasis. Thickened gallbladder wall, nonspecific.No evidence for intrahepatic bile duct dilation. The common bile duct measures up to 7 mm, considered mildly dilated.
Cirrhotic liver. Moderate amount of ascites in the right and left upper quadrants. Splenomegaly.
--11/2022 MRI abdomen-severe hepatitic cirrhosis with innumberable dysplastic nodules, no HCC, severe portal HTN, with recanalization paraumbilical vein, and caput medusa in anterior abdominal wall. small to moderate ascites, severe splenomegaly,
mild to moderatee upper abdomeninal lymphadenopathy, small HH
Prior GI Procedures:
EGD:
���--09/18/2022 EGD, Dr. Rivera: Grade 1-2 varices, small hiatal hernia, variable Z line, edematous-looking gastric folds, biopsies unremarkable, duodenal biopsies benign as well.
Colonoscopy:
��--09/18/2022 colonoscopy, Dr. Rivera: Screening; Sigmoid and rectosigmoid tubular adenoma removed, repeat in 7 years
Assessment / Plan
-
Pt is a 53yo presents with hx ETOH decompensated cirrhosis s/p TIPS, intractable ascites with paracentesis now 3 times per week, umbilical hernia, HTN, CKD, right hydrocele presents with lower abdominal pain and inguinal pain. CT on admission
with concern for incarcerated right inguinal hernia with loop of small bowel extending to superior margin of large right sided hydrocele with strangulation of small bowel loops not excluded. Asked to eval for cirrhosis and surgical risk. In
reviewing with patient he has hx cirrhosis for several years with known hernia. He has had significant scrotal swelling with improvement with frequent paracentesis until recently continued swelling after para. He states he will typically get pain
in groin after paracentesis that improves with time and lying down. On 03/17 he had para with post groin pain but symptoms persisted for several hours prompting ER visit. Follow with Dr. Young at [facility] with transplant listing if MELD >15.
-concern for incarcerated right inguinal hernia with strangulation not excluded
-nausea/vomiting with small amount of blood in emesis
-decompensated ETOH cirrhosis MELD 22 on admission(prior 22 last admission in February)
-hyperkalemia on admission
- chronic kidney disease
- hx hepatic encephalopathy
-intractable ascites with frequent paracentesis
-right hydrocele
-L5 comp fx
PLAN:
Currently with concern for incarcerated hernia
await surgical input
NGT for decompression if patient can tolerate
monitor hbg and for further emesis
current CLARKE vocal score for surgical risk-- 30 day mortality 6.4%, 90 day mortality 8.4%, 180 day mortality 10.9%, -- 90 day decompensation 23.1 %
MELD 3.0 22
NPO
cont IV Zosyn
up to date on variceal screening last 09/2022
HCC screen- CT on admission without focal lesion, AFP 2.73 02/[address] neg
add Lactulose daily-- monitor mental status closely has daily dosing listed on admission but was on TID dosing last admission
minimize narcotics with liver disease
reviewed Dr. Young recent letter -- pt currently listed
-
-
Thank you for consultation and allowing me to participate in the patient's care. Please call the franchise consultant GI physician during the after hours with any questions or concerns.
--- NOTE | 2024-03-18 07:12 | CON.INTV ---
Consultation
Consultation Request
Date/Time Consultation Requested: 03/18/24
Date/Time Consultation Performed: 03/18/24
Performing Provider: [place]
Reason for Consultation: Critical Care
Medical History
-
History of Present Illness:
Patient is a 53-year-old male with previous history of alcoholic cirrhosis, recurrent ascites status post TIPS 1 year ago, portal hypertension presenting with lower abdominal and right inguinal pain. He chronically receives paracentesis 3 times per
week, last paracentesis was day prior to admission. He had onset of pain following procedure. He has known history of umbilical and inguinal hernias. CT obtained indicating small bowel obstruction and right inguinal hernia containing loops of
small bowel, appear to be incarcerated.
Admitted to ICU for potential need for OR.
Past Medical History
Past Medical History: Other (see list below)
Social History
Tobacco: Non-smoker
Alcohol: Former
Drug: None
Family History
Family History: Reviewed & Not Pertinent
Allergies / Home Medications
Allergies
Allergy/AdvReac Type Severity Reaction Status Date / Time
No Known Allergies Allergy Verified 03/17/24 07:55
Home Medications
�Medication �Instructions �Recorded �Confirmed �Last Taken �Type
acetaminophen 500 mg tablet 1,000 mg PO Q12 PRN mild pain/fever 08/08/22 03/17/24 03/07/24 History
magnesium 250 mg tablet 250 mg PO DAILY 02/12/24 03/17/24 03/07/24 History
lactulose 20 gram/30 mL oral 20 g (30 mL) PO DAILY #1,200 mL 02/15/24 03/17/24 03/07/24 Rx
solution
Review of Systems
-
History Source: Patient
All other systems: Negative unless noted
Vitals / Labs / Diagnostic Testing
Vital Signs
Temp Pulse Resp BP Pulse Ox
98 F 81 16 145/56 100
03/18/24 06:00 03/18/24 06:00 03/18/24 06:00 03/18/24 05:00 03/18/24 06:00
Lab Data
03/18/24 06:15
03/18/24 06:14
Laboratory Results
03/18/24
06:14
PT 18.0 H
INR 1.50
APTT 38.0 H
Diagnostic Testing:
Physical Exam
-
HEENT: Normocephalic, Anicteric and Moist Mucous Membranes
Cardiovascular: S1/S2 and Regular Rhythm
Respiratory: Clear and Non-Labored Respirations
GI: Soft, Distended (fluid wave) and Non Tender
Neurology: Awake, Alert, Oriented (to self, place) and Other (some lethargy is noted)
Skin: Warm and Dry
General: Comfortable and Other (NAD)
Assessment
-
Patient is a 53-year-old male with previous history of alcoholic cirrhosis, recurrent ascites status post TIPS 1 year ago, portal hypertension presenting with lower abdominal and right inguinal pain. He chronically receives paracentesis 3 times per
week, last paracentesis was day prior to admission. He had onset of pain following procedure. He has known history of umbilical and inguinal hernias. CT obtained indicating small bowel obstruction and right inguinal hernia containing loops of
small bowel, appear to be incarcerated. Admitted to ICU for potential need for OR.
Acute small bowel obstruction s/p reduction at bedside
Incarcerated loop of small bowel and right inguinal hernia
Abdominal pain
Leukocytosis
Hyperkalemia
Hyperglycemia
Conditions present PRODUCT MARKETING CONSULTANT
Alcoholic cirrhosis
Recurrent ascites status post TIPS, 1 year ago
Still receiving paracentesis 3 times per week/outpatient
Portal hypertension
Hepatic encephalopathy
History of inguinal and umbilical hernia
Hypervolemic hyponatremia, chronic
Chronic kidney disease 3B
Right-sided hydrocele
Chronic anemia/thrombocytopenia
Former alcohol use disorder
Plan
Hepatic encephalopathy noted, chronic history
Takes lactulose as outpatient, can be resumed
Denies pain at this time.
Pain/sedation: As needed
RASS goals: 0
Hemodynamically stable, not requiring pressors.
Cardiac history reviewed-hypertension, portal hypertension
No prior echo for review
Resume home meds
Monitor on telemetry
Oxygen needs: stable on room air
Prior history of lung disease: none
Supplemental O2 as indicated to maintain sats > 89%
CXR/CT reviewed indicating no acute disease
History of cirrhosis, portal hypertension status post TIPS
Follows with [facility], unclear transplant status
NPO, resume diet when able
NG tube in place per surgery
Acute incarcerated hernia status post bedside reduction
No plans for surgical operation at this time
Financial Service Professional recommendations
Aspiration precautions, HOB > 30 degrees
May need to arrange paracentesis as needed while inpatient
CKD stage III
Creat at baseline, follow clinically
Void trials
Follow urine output, critical I/Os
Replete electrolytes as needed
Incarcerated hernia, was started on empiric antibiotics
Can likely stop if culture is negative
Follow fever trend, WBC count
CBC stable, mild anemia and thrombocytopenia which is chronic and at baseline
No signs of acute on chronic coagulopathy.
DVT prophylaxis as assessed based on risk, including mechanical SCDs
Can transfuse if indicated for Hb <7, plt < 10
INR 1.5 (prior 1.88)
No prior h/o diabetes or thyroid disease
Monitor accuchecks PRN/SS coverage if needed
HbA1c n/a
Can likely transfer out of ICU if not plans for surgical procedure. Patient would like to go home.
Reviewed with care team, we will sign off upon transfer.
Diagnostic Data
Chest X-Ray: 03/18/24- No evidence of active cardiopulmonary disease.
CT Scan: AP 03/18/24- CT findings compatible with small bowel obstruction due to a right inguinal hernia, with small bowel loops extending to the superior margin of a large right-sided hydrocele. Strangulation of the small bowel loops cannot be
excluded by imaging.
Cirrhotic liver with TIPS catheter in place. Moderate to large amount of ascites is present. Umbilical hernia which contains fluid but no evidence for small bowel loops on today's exam.
Small calcifications along the periphery of the gallbladder, which could be peripheral calcified gallstones versus scattered foci of gallbladder wall calcification, similar appearance to previous examination. No evidence of biliary ductal dilation.
Multiple Schmorl's nodes with mild loss of height of vertebral bodies, stable from examination of February 12, 2024. Grade 1 degenerative spondylolisthesis at L4-5, also stable.
Echo:
PFT's:
Reports and relevant images were personally reviewed.
-----
Critical care time 65 mins -- this includes review of history, physical exam, medications, hemodynamic/ventilator parameters, laboratory data, imaging and discussion with house staff, pharmacy, respiratory therapy, patient service technician pst, and nursing.
[2024-03-18] MEDS: ZOFRAN 4 MG IV (08:00)
--- NOTE | 2024-03-18 08:00 | PTCARENOTE ---
recd, handoff bedside, uncomfortable and c/o NG tube, that nothing has been done. reviewed plan of care, seen by multiple providers, questions answered. abd soft, rounded. Small amount emesis and retching, med order obtained and given for zofran.
skin warm, dry, falls back to sleep when undisturbed.
[2024-03-18] MEDS: ZOSYN 50 IV ×3 (08:05→20:02)
[2024-03-18] MEDS: NSS 1000 IV (10:02)
--- NOTE | 2024-03-18 10:59 | CON.GS ---
Medical History
-
Chief Complaint: Abdominal pain
History of Present Illness:
Patient is a 53 yo M with a PMH of HTN, decompensated EtOH cirrhosis with HRS s/p TIPS and TIPS revision, recurrent ascites necessitating paracentesis 3x/week c/b umbilical and RIH. He recently underwent a paracentesis on 03/17/2024. Post procedure
he has developed lower abdominal and RIGHT inguinal discomfort. Associated nausea and vomiting. He reports passing flatus and some stool yesterday. Currently at his waxes and wanes between somnolence and agitation. No fevers. Denies any current
nausea or vomiting. Irritated by NGT.
Of note, patient follows with Dr. Young at at [facility]. He is currently on the transplant list. His prior TIPS procedures have all been performed down at [facility]. He receives paracenteses here at .
Past Medical History
Past Medical History: Other (EtOH cirrhosis (MELD 22))
Past Surgical History: Other (TIPS)
Social History
Tobacco: Non-Smoker
Alcohol: Former
Drug: Marijuana, Cocaine and Other (LSD, muchrooms)
Family History
Family History: Reviewed & Not Pertinent
Allergies / Home Medications
Allergy/AdvReac Type Severity Reaction Status Date / Time
No Known Allergies Allergy Verified 03/17/24 07:55
�Medication �Instructions �Recorded �Confirmed �Type
acetaminophen 500 mg tablet 1,000 mg PO Q12 PRN mild pain/fever 08/08/22 03/17/24 History
magnesium 250 mg tablet 250 mg PO DAILY Electrolyte 02/12/24 03/17/24 History
Repletion
lactulose 20 gram/30 mL oral 20 g PO DAILY Gastrointestinal 03/18/24 03/17/24 History
solution Issue
Review of Systems
-
A 10 point review of systems was completed, and was negative except as per HPI.
Physical Exam
Vital Signs
Temp Pulse Resp BP Pulse Ox
97.7 F 90 13 145/79 100
03/18/24 07:53 03/18/24 08:00 03/18/24 08:00 03/18/24 08:00 03/18/24 08:00
03/17/24 03/18/24 03/19/24
06:59 06:59 06:59
Actual Weight 87.2 kg
Body Mass Index (BMI) 26.1
Lab Results
03/18/24 06:15
03/18/24 06:14
WBC 14.7 10^3/uL (4.8-10.8) H 03/18/24 06:15
Hgb 10.2 g/dL (13.0-18.0) L 03/18/24 06:15
Hct 29.3 % (39.0-52.0) L 03/18/24 06:15
Plt Count 128 10^3/uL (130-400) L 03/18/24 06:15
Abs Immat Gran (auto) 0.1 10^3/uL (0-0.05) H 03/17/24 22:47
Neutrophils % 86.5 % (42.2-75.2) H 03/17/24 22:47
Physical Exam
General: Well Developed, Well Nourished and Other (Waxing and waning mental status)
HEENT: Scleral Icterus
Respiratory: Non Labored Respirations
Cardiac: Regular Rhythm
GI: Soft, Non Tender, Distended (Minimal) and Other (Umbilical hernia, soft, reducible, no overlying skin changes)
Genito-urinary: Inguinal Hernia (Large RIGHT inguinoscrotal hernia, soft, reducible, no skin changes, no firmness)
Skin: Warm and Dry
Neuro: Other (Depressed mental status)
Data Reviewed
-
CT Scan: Image Personally Visualized and interpreted and Report Reviewed by me
Labs: Labs Reviewed by me
Assessment / Plan
-
Patient is a 53 yo M p/w abdominal pain following paracenteses
Patient with a longstanding umbilical and RIGHT inguinal hernias. Radiographic concern for a bowel obstruction at the level of his RIGHT inguinal hernia. Prior CT scan imaging without bowel within the hernia sac. Clinically patient with a
reducible inguinal hernia. No evidence of pneumatosis or free air. No indication or need for an emergent or urgent operation. Repeat abdominal x-ray with normal bowel gas pattern and air within the colon. NGT outputs minimal and nonbilious.
Patient is at high risk for operative complications including bleeding, infection, and recurrence. He is also at significantly risk for worsening liver failure. No plans for surgical intervention at this time. Can remove NGT and trial clears.
Trend WBC and would start Zosyn for prophylaxis. If no improvement over the next 24 hours would pursue transfer down to [facility] given his increased risks from a liver standpoint.
-- No plans for surgical intervention
-- DC NGT
-- Clears
-- Zosyn
--- NOTE | 2024-03-18 11:24 | PTCARENOTE ---
NG out per order Dr. Anthony, given clear liquids, instructed to hold/slow down for nausea. ambulated to bathroom to void moderate amount anila, back to bed. talking about plan, notes pain after walking, notes 'scrotum is 'hard' ' but R swelling
remains as earlier, soft.
[2024-03-18] MEDS: NSS (PRESERVATIVE FREE) 10 ML IV (12:07)
[2024-03-18] MEDS: PROTONIX IV 40 MG IV (12:07)
--- NOTE | 2024-03-18 14:59 | W.PN.HOSP.TC ---
Addendum entered and electronically signed by Roberth Yeung MD 03/18/24 15:58:
I saw and evaluated the patient. I reviewed the resident�s note and agree with findings and plan as documented in the resident�s note.
Patient anxious and wanting to remove NGT. Initially wanting to leave hospital if not going to have surgery, discussed that despite if not a surgical candidate patient need to monitor for bowel function recovery. Patient is a high risk for
readmission and further complication and willing to stay.
1. Incarcerated small bowel and right inguinal hernia
-Patient have known right inguinal hernia due to known recurrent ascites
-Came in for new onset of abdominal pain/nausea/vomiting
-CT abdomen pelvis showing part of small bowel loop in inguinal hernia with concern of strangulation.
-Patient having vomiting and NG tube placed by general surgery for decompression
-Gen surgery able to reduce hernia at bedside
-Patient unfortunately remains high risk for any definitive surgical treatment.
-NG tube was removed as patient not able to tolerate, started on trial of clear liquid diet afterwards
-Maintain on slow IVF for now.
2. Leukocytosis w/o fever
-Presumed reactive in nature
-On empiric zosyn for time being with concern for possible secondary peritonitis/gut bacterial translocation
-if spikes fever will need blood culture
3. History of alcoholic cirrhosis
Portal hypertension status post TIPS
History of recurrent ascites
History of hepatic encephalopathy
-Patient has been following up [facility] for possible transplant evaluation, although poor candidate with no clear family support.
-Patient requiring repeat paracentesis, 3 times a week. Paracentesis from yesterday of 3.6L fluid showing WBC to 37 with PMN 8.4% only
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
-Patient is high risk for further mortality/morbidity, see GI note.
-Patient can be resumed back on home dose of lactulose has remains high risk for repeat episode of hepatic encephalopathy.
4, Hyperkalemia
CKD IIIA
-Patient have fluctuating potassium level with underlying CKD 3A.
-Not on any supplement/medication explaining hyperkalemia
-Continue monitoring of potassium worsening, will require Lokelma dosing
Care plan discussed with GI/drawer in plain loom
Total time spent : 56 mins
I personally saw and examined the patient.
I have reviewed all diagnostic interpretations and treatment plans as written.
Time includes patient management by me, time spent at the patients bedside, time to review lab and imaging results, discussing patient care, documentation in the medical record, and time spent with the family or caregiver and discussing care plan
with RN/Consultants.
Original Note:
Today's Communication/Plan
-
-Clear liquid diet
-Continue IV Zosyn
-Discontinue NG tube
- No surgical procedure recommended
Assessment / Plan
Assessment / Plan
53 yo M with a PMH of HTN, decompensated EtOH cirrhosis s/p TIPS and TIPS revision, recurrent ascites necessitating paracentesis 3x/week presented with right-sided abdominal pain/right inguinal hernia.
#Incarcerated loop of SB in Rt Inguinal hernia
- CT Scan: - compatible with small bowel obstruction due to a right inguinal hernia
- s/p reduction at bedside
- Clear liquid diet
- PRN narcotic analgesia
- PRN anti emetics
- Empiric IV Zosyn.
- Surgery not recommended
# Decompensated alcoholic cirrhosis with hx of TIPS procedure ([facility])
- last IR paracentesis was 7/8 AM
- OP IR paracentesis 3/week
#Hepatic encephalopathy possibly related to TIPS revision
- Takes lactulose as outpatient
- check basline NH3
#CKD 3b stable
- Creat at baseline.
- Monitor with daily labs, I/Os
Hypervolemic hyponatremia
- trend Na
Chronic pre existing conditions
Large right hydrocele: - outpatient Urology f/u
Mild L5 compression fracture age-indeterminate
Grade 1 anterolisthesis of L4 and L5
Chronic anemia
HX Chronic Thrombocytopenia secondary to cirrhosis: curently normal Plts
Former alcohol use disorder
DVT Px: SCD
Code: Full
Anticipated Discharge: Within 24 hours
Subjective/Interval History
-
Date of Service: March 18, 2024
Objective Data
-
Labs:
Laboratory Results
03/18/24 03/18/24
06:14 06:15
WBC 14.7 H
Hgb 10.2 L
Hct 29.3 L
Plt Count 128 L
PT 18.0 H
INR 1.50
APTT 38.0 H
Sodium 133 L
Potassium 5.4 H
Chloride 104
Carbon Dioxide 25
BUN 48 H
Creatinine 1.7 H
Glucose 151 H
Calcium 9.2
Total Bilirubin 1.9 H
AST 44
ALT 27
Alkaline Phosphatase 147 H
Vital Signs:
Vital Signs
Temp Pulse Resp BP Pulse Ox
98.0 F 66 12 104/63 99
03/18/24 11:50 03/18/24 14:00 03/18/24 14:00 03/18/24 14:00 03/18/24 14:00
I&O
03/17/24 03/18/24 03/19/24
06:59 06:59 06:59
Intake Total 0 / 0 505 / 505
Output Total 100 / 100
Balance 0 / 0 405 / 405
Review of Systems
-
History Source: Patient
Constitutional: Denies Fever
Cardiac: Denies Chest Pain
Abdomen/GI: Reports Abdominal Pain and Pain (inguinal/testicular); Denies Vomiting, Diarrhea or Constipated
Genitourinary: Reports No Symptoms
Musculoskeletal: Denies Joint Pain
Neuro: Denies Headache
Hematologic / Lymphatic: Denies Bleeding
Physical Exam
-
General: Well Developed, Well Nourished and Appears in Distress
HEENT: Normocephalic and Atraumatic
Respiratory: Clear to Auscultation
Cardiac: Regular Rhythm
GI: Tender and Distended
Skin: Warm and Dry
Neuro: Awake, Alert and Oriented
Psych: Calm
Data Reviewed
-
Labs: Labs Reviewed by me, Discussed with Physician and Discussed with Patient
--- NOTE | 2024-03-18 16:11 | CM ---
Patient seen bedside, initial assessment completed. Patient resides in a first floor condo, has a cane and walker at home. Patient reports he has a sister who lives locally who has multiple sclerosis, reports his mother is 85 and lives in assisted
living. Patient crying during assessment, reports he is a college educated man, now is dependent on others, reports his mortgage is paid until the end of the year, then is unsure what his housing situation will be. Patient reports he has been
unemployed for two years, reports he does not want to but is starting to think about applying for SSI. Patient agreeable to any help/resources. Patient reports he had [facility] once in the past, ended services after one visit. Patient PCP- [facility], pharmacy [facility], confirms he has prescription coverage. CM offered support to patient throughout visit. CM will continue to follow for all discharge planning needs.
Plan; dependent on patients medical progress, watch for possible VN needs.
--- NOTE | 2024-03-18 16:31 | TRANSFER ---
transferred to med surg report to next RN taken by wc to room 421, update and request for pain med to receiving RN. Settled in room, call dueñas in place, verbalizing well. continues to note inquinal/groin pain, scrotum is swollen but soft,
unchanged from earlier assessment.
[2024-03-18] MEDS: DILAUDID 0.25 MG IV ×2 (16:58→22:23)
--- NOTE | 2024-03-18 17:54 | W.DCSUMMARY ---
Addendum entered and electronically signed by Roberth Yeung MD 03/22/24 07:42:
Read, reviewed, and agree. See same day progress note for additional details. Time spent coordinating care, DC planning, review of DC plan of care with resident, transition of care, review of records in EMR, med rec, consults, notes, d/w
consultants, nursing, family, and CM 38 mins
Original Note:
Documented by User: Goyo Parmar MD, Resident 03/19/24 16:20
Discharge Summary
Discharge Data
Date of Admission: 03/18/24
Date of Discharge: 03/19/24
-
Pending Results: No
Hospital Course
Discharging Physician : Goyo Parmar MD ; Roberth Yeung MD
Disposition : Home
Primary care physician : unknown
Principal Discharge diagnosis : Incarcerated small bowel and right inguinal hernia
Chronic Discharge diagnosis : Stage III CKD, history of alcoholic cirrhosis, large right hydrocele, chronic anemia, chronic thrombocytopenia, L5 compression fracture, former alcohol use disorder
Hospital Course : 53-year-old with a history of cirrhosis, portal hypertension, recurrent ascites status presented with lower abdominal and inguinal pain after paracentesis session. He initially was admitted to ICU, CT shows small bowel obstruction
due to right inguinal hernia, surgeon did the bedside reduction. No other surgical intervention was recommended. Patient also had routine paracentesis during his hospital stay. Since his abdominal pain improved significantly after bedside hernia
reduction patient insisted to leave the hospital. Team discussed patient's comorbidities and length. Patient verified understanding and remained adamant to be discharged without any further evaluation and treatment.
Important imaging findings : CT findings compatible with small bowel obstruction due to a right inguinal hernia, with small bowel loops extending to the superior margin of a large right-sided hydrocele. Strangulation of the small bowel loops cannot
be excluded by imaging.
Successful ultrasound guided diagnostic and therapeutic paracentesis
Procedure findings : Paracentesis :2500 cc of pink chylous ascitic fluid was evacuated
Discharge Plan
-
Patient Disposition: Home (Routine Discharge)
Discharge Diagnosis/Procedures: Incarcerated small bowel and right inguinal hernia, History of alcoholic cirrhosis
Condition: Fair
Diet: As tolerated
Additional Diets: Liquid diet for today- can switch to regular diet tomorrow
Activity: As tolerated
Driving Restrictions: As prior to admission
Bathing Restrictions: OK to Shower
Activity Restrictions/Additional Instructions:
fu with [facility]
Referrals:
UNKNOWN - PT NOT,INTERVIEWE [Family Provider] -
Prescriptions:
Continued
acetaminophen 500 mg Tablet
1,000 mg PO [id number] PRN (Reason: mild pain/fever)
magnesium 250 mg Tablet
250 mg PO DAILY
lactulose 20 gram/30 mL solution
20 g PO DAILY
No Action
tramadol 50 mg Tablet
25 mg PO DAILYPRN PRN (Reason: severe pain)
Patient Comments:
03/20/24: filled 03/19/14 for 14 tablets at [facility].
Discharge Orders:
Discharge Patient (As Directed); Ordered 03/19/24
Ordered By: Goyo Parmar
Discharge Date and Time
Discharge Date/Time: 03/19/24 10:00
Print Language: IRAQI

Documented by User: Roberth Yeung MD 03/22/24 07:41
Discharge Summary
Discharge Data
Date of Admission: 03/18/24
Date of Discharge: 03/19/24
Discharge Plan
-
Patient Disposition: Home (Routine Discharge)
Discharge Diagnosis/Procedures: Incarcerated small bowel and right inguinal hernia, History of alcoholic cirrhosis
Condition: Fair
Diet: As tolerated
Additional Diets: Liquid diet for today- can switch to regular diet tomorrow
Activity: As tolerated
Driving Restrictions: As prior to admission
Bathing Restrictions: OK to Shower
Activity Restrictions/Additional Instructions:
fu with [facility]
Referrals:
UNKNOWN - PT NOT,INTERVIEWE [Family Provider] -
Prescriptions:
Continued
acetaminophen 500 mg Tablet
1,000 mg PO [id number] PRN (Reason: mild pain/fever)
magnesium 250 mg Tablet
250 mg PO DAILY
lactulose 20 gram/30 mL solution
20 g PO DAILY
No Action
tramadol 50 mg Tablet
25 mg PO DAILYPRN PRN (Reason: severe pain)
Patient Comments:
03/20/24: filled 03/19/14 for 14 tablets at [facility].
Discharge Orders:
Discharge Patient (As Directed); Ordered 03/19/24
Ordered By: Goyo Parmar
Discharge Date and Time
Discharge Date/Time: 03/19/24 10:00
Print Language: IRAQI
--- NOTE | 2024-03-18 21:38 | W.PN.UPDATE ---
Update Note
Progress Note Update
2030 ask to speak with pt because he wished to leave 'if we are not doing anything.'
Jb is a 53-year-old male with decompensated alcoholic cirrhosis came in last night with persistent and worsening right inguinal pain. CT was concerning for incarceration. Hernia reduced by Dr luo.
Speaking with pt at beside, he wants to know 'what the plan is.' I explained that when reviewing chart the physicians would like to observe him (wbc count, pain levels, if fevers) for 24 hr. Due to his hx, he is high risk for decompensation. Pt
states he has had elevated wbc for 2 years and also has had the hernia for same time. He states no doctor talked to him today (there are 4 different physician notes). I again tried to explain that plan is to Trend WBC and cont Zosyn for
prophylaxis. If no improvement over the next 24 hours would pursue transfer down to [facility] given his increased risks from a liver standpoint. While i attempted to answer questions to best of my ability, pt did not seem satisfied. While he was
agreeable to stay tonight, he states he has a 0700 appt with IR (scheduled previously outpt) for paracentesis for which he states he will go to. I placed order for IR consult in case pt doesn't sign out AMA.
[2024-03-19] MEDS: NSS 1000 IV (00:48)
[2024-03-19] MEDS: ZOSYN 50 IV (01:41)
[2024-03-19] MEDS: DILAUDID 0.25 MG IV (03:37)
[2024-03-19 06:00] VITALS: BMI 26.6
[2024-03-19 07:00] VITALS: BP 93/51
--- NOTE | 2024-03-19 07:08 | W.PN.HOSP.TC ---
Addendum entered and electronically signed by Roberth Yeung MD 03/22/24 14:28:
Peritonitis ruled out.
Addendum entered and electronically signed by Roberth Yeung MD 03/19/24 15:41:
I saw and evaluated the patient. I reviewed the resident�s note and agree with findings and plan as documented in the resident�s note.
Patient resting up in bed earlier in the morning. Denies of any excessive abdominal pain/nausea/vomiting overnight
Able to tolerate diet without any problem.
Patient underwent paracentesis of 2.5L ascitic fluid, declined to get albumin after that.
Patient prematurely being hospitalized nothing done, discussed at length that patient was to monitor for bowel function recovery.
Patient remains frustrated about the surgeon planning to fix his hernia. Discussed briefly that patient is high risk for surgery
Patient understands the risk.
Original Note:
Today's Communication/Plan
-
- d/c today to home and restart home meds
Assessment / Plan
Assessment / Plan
53 yo M with a PMH of HTN, decompensated EtOH cirrhosis s/p TIPS and TIPS revision, recurrent ascites necessitating paracentesis 3x/week presented with right-sided abdominal pain/right inguinal hernia.
# Incarcerated loop of SB in Rt Inguinal hernia
- CT Scan: compatible with small bowel obstruction due to a right inguinal hernia
- s/p reduction at bedside
- PRN narcotic analgesia
- PRN anti emetics
- Empiric IV Zosyn.
- Surgery not recommended
- insisted to leave hospital as he is feeling good
# Decompensated alcoholic cirrhosis with hx of TIPS procedure ([facility])
- last IR paracentesis was 7/8 AM
- OP IR paracentesis 3/week
- planned to get paracentesis today
#Hepatic encephalopathy possibly related to TIPS revision
- Takes lactulose as outpatient
#CKD 3b stable
- Creat at baseline.
- Monitor with daily labs, I/Os
Hypervolemic hyponatremia
- trend Na
Chronic pre existing conditions
Large right hydrocele: - outpatient Urology f/u
Mild L5 compression fracture age-indeterminate
Grade 1 anterolisthesis of L4 and L5
Chronic anemia
HX Chronic Thrombocytopenia secondary to cirrhosis: curently 128
Former alcohol use disorder
DVT Px: SCD
Code: Full
Anticipated Discharge: Today
Subjective/Interval History
-
Date of Service: March 19, 2024
Objective Data
-
Labs:
Laboratory Results
03/19/24
06:00
WBC Pending
Hgb Pending
Hct Pending
Plt Count Pending
PT Pending
INR Pending
Sodium Pending
Potassium Pending
Chloride Pending
Carbon Dioxide Pending
BUN Pending
Creatinine Pending
Glucose Pending
Calcium Pending
Total Bilirubin Pending
AST Pending
ALT Pending
Alkaline Phosphatase Pending
Vital Signs:
Vital Signs
Temp Pulse Resp BP Pulse Ox
97.9 F 66 18 101/56 99
03/18/24 22:30 03/18/24 22:30 03/18/24 22:30 03/18/24 22:30 03/18/24 22:30
I&O
03/18/24 03/19/24 03/20/24
06:59 06:59 06:59
Intake Total 0 / 0 1834
Output Total 100 / 100
Balance 0 / 0 1734
Review of Systems
-
History Source: Patient
Constitutional: Denies Fever
Respiratory: Denies Cough
Cardiac: Denies Chest Pain
Abdomen/GI: Reports Abdominal Pain
Musculoskeletal: Denies Joint Pain
Neuro: Denies Headache
Hematologic / Lymphatic: Denies Bleeding
Physical Exam
-
General: Well Nourished and No Apparent Distress
HEENT: Normocephalic and Atraumatic
Respiratory: Clear to Auscultation
Cardiac: Regular Rhythm
GI: Soft and Nondistended
Skin: Warm and Dry
Neuro: Awake, Alert and Oriented
Psych: Calm
Data Reviewed
-
Labs: Labs Reviewed by me, Discussed with Physician and Discussed with Patient
[2024-03-19 07:41] VITALS: BP 114/58; BP_SYST 63
[2024-03-19 08:40] VITALS: BP 111/57
[2024-03-19 09:03] LABS: Body Fluid Mononuclear 83.3 %; Body Fluid Polymorphonuclear 16.7 %; Body Fluid WBC 234 /CUMM
[2024-03-19 09:12] LABS: Body Fluid Second Tech CMB
--- NOTE | 2024-03-21 15:24 | PN.CDI ---
CDI
- -
CDI:
Physician Documentation Request
Admit Date: 03/18/24 04:49
Dear Doctor Gamal,
Please review the following and provide your response in the progress notes.
Clinical Indicators:
03/17 Pt admitted with incarcerate loop of SB in right inguinal hernia
The diagnosis of possible secondary peritonitis was documented on 03/18/2024, but is not consistently noted in subsequent date of discharge documentation.
03/18 GI note: 'He does have a significant leukocytosis. He is currently on Zosyn which is appropriate to cover for any possible peritonitis especially in the setting of cirrhosis.'
03/18 Hospitalist PN: 'On empiric zosyn for time being with concern for possible secondary peritonitis/gut bacterial translocation.'
Please clarify the following:
Peritonitis is still a likely, suspected, probable diagnosis
Peritonitis was present on admission and is now resolved.
Peritonitis was ruled out
Other
Use of terms such as suspected, likely, concern for, or probable (associated with a specific diagnosis that is being evaluated, monitored, or treated as if it exists) are acceptable and can be coded in the inpatient setting, when documented at the
time of discharge.
Thank you,
Vandana Carroll RN, BSN
CDI Specialist
Available via [employer]
Please use your independent medical judgment in providing your response.
== END 2024-03-19 10:00 | disposition home or self-care (01) | DRG 394 ==
LOC: 4 WEST ACU 04:49
PROVIDERS: Nurse Practitioner Adult Health; Radiology Diagnostic Radiology; Radiology Vascular & Interventional Radiology; Student in an Organized Health Care Education/Training Program; ADMITTING PHYSICIAN Internal Medicine; ATTENDING PHYSICIAN Hospitalist; CONSULT PHYSICIAN Internal Medicine; EMERGENCY PHYSICIAN Student in an Organized Health Care Education/Training Program; OTHER PHYSICIAN Internal Medicine; OTHER PHYSICIAN Surgery
PROC: 0D9670Z Drainage of Stomach with Drainage Device, Via Natural or Artificial Opening (ICD-10-PCS; 2024-03-18)
PROC: 0W9G3ZZ Drainage of Peritoneal Cavity, Percutaneous Approach (ICD-10-PCS; 2024-03-19)
DX: K40.30 Unilateral inguinal hernia, with obstruction, without gangrene, not specified as recurrent (principal); E87.1 Hypo-osmolality and hyponatremia; K76.6 Portal hypertension; M48.56XA Collapsed vertebra, not elsewhere classified, lumbar region, initial encounter for fracture; N50.819 Testicular pain, unspecified; F10.11 Alcohol abuse, in remission; I12.9 Hypertensive chronic kidney disease with stage 1 through stage 4 chronic kidney disease, or unspecified chronic kidney disease; E87.5 Hyperkalemia; M43.16 Spondylolisthesis, lumbar region; D64.9 Anemia, unspecified; D69.59 Other secondary thrombocytopenia; N18.32 Chronic kidney disease, stage 3b; D72.829 Elevated white blood cell count, unspecified; K42.9 Umbilical hernia without obstruction or gangrene; K70.31 Alcoholic cirrhosis of liver with ascites; Z76.82 Awaiting organ transplant status
CPT/HCPCS: 49083; 71045; 74018; 74177; 80053; 83735; 84100; 85025; 85027; 85610; 85730; 87015; 87070; 87205; 89051; 93005; 96374; 99291; P9047; Q9967

== ENCOUNTER 2024-03-20 00:56 | Inpatient (IN) | payer OTHER, SELFPAY ==
[2024-03-19 20:47] VITALS: BP 128/67; BMI 26.7
[2024-03-19 20:50] VITALS: BP 128/67
[2024-03-19 20:59] LABS: % Basophils 0.7 % (0-2); % Eosinophils 2.3 % (0-6); % Immature Granulocytes 0.4 % (0-0.5); % Lymphocytes 15.9 % (20.5-51.1); % Monocytes 13.2 % (1.7-9.3); % Neutrophils 67.5 % (42.2-75.2); Absolute Basophils 0.1 10^3/uL (0-0.2); Absolute Eosinophils 0.2 10^3/uL (0-0.7); Absolute Lymphocytes 1.7 10^3/uL (1.2-3.4); Absolute Monocytes 1.4 10^3/uL (0.1-0.6); Hematocrit 26.9 % (39.0-52.0); Hemoglobin 9.3 g/dL (13.0-18.0); Mean Corp Hgb Conc. 34.6 g/dL (33.0-37.0); Mean Corpuscular Hgb 28.2 pg (27.0-31.0); Mean Corpuscular Volume 81.5 fL (80.0-94.0); Mean Platelet Volume 9.8 fL (7.4-10.4); Nucleated Red Blood Cells % 0 % (-); Platelet Count 135 10^3/uL (130-400); Red Cell Dist. Width 14.1 % (11.5-14.5); White Blood Cell Count 10.4 10^3/uL (4.8-10.8)
[2024-03-19 21:00] VITALS: BP 124/57
--- NOTE | 2024-03-19 21:09 | ED.GENMED ---
History of Present Illness
General
Chief Complaint: Abdominal Pain
Time Seen by Provider: 03/19/24 20:50
History of Present Illness
History of Present Illness:
53-year-old male with history of alcoholic cirrhosis with recurrent ascites, portal hypertension, chronic kidney disease, thrombocytopenia, anemia presenting to the emergency department for abdominal pain. Patient recently admitted to the hospital
from 03/18 - 03/19, discharged today. Patient had been admitted for abdominal pain, found to have a small bowel obstruction with right inguinal hernia, reduced by surgery at bedside. Patient also had a paracentesis during admission. Patient was
feeling better, subsequently discharged home. Reports that pain returned about an hour prior to arrival. Reports nausea without vomiting. Pain is again in the right inguinal region. Denies chest pain or difficulty breathing. Has not had a bowel
movement since discharge. Denies additional acute medical
Past History
Past History
ED Past Medical History: HTN and Other (pre-diabetic years ago but lost weight and says he no longer is)
ED Past Surgical History: None and Orthopedic
Patient has exhibited threatening behavior?: No
PSI?: No
Social History
Tobacco: Smoker
Alcohol: Former (Heavy alcohol use, quit March 2022)
Drug: None
Personal: Single
Living: with family
Employment: Not employed
Family History
Family History: Other
Phy Exam
Physical Exam
Physical Exam:
General: Uncomfortable secondary to pain
HEENT: protecting airway
Neck: appears supple
CV: Normal heart rate, regular rhythm, no evidence of cyanosis
Resp: No accessory muscle use, no increased work of breathing, lungs clear to auscultation bilaterally
Abd: Abdomen is soft and nondistended. Large hernia to the right inguinal canal, soft on palpation, diffusely tender. Limited exam given patient's discomfort
Extremities: No deformities, no swelling, no erythema, pulses and sensation intact
Neuro: alert, no focal neurologic deficit
: deferred
Rectal: deferred
Psych: Normal affect
Skin: Intact
Course
Orders/Labs/Results
Orders:
Orders
03/19/24 20:54
Complete Blood Count/With Diff Urgent
Comprehensive Metabolic Panel Urgent
Lipase Urgent
03/19/24 21:18
CT Abd/pelvis W Iv Cont Urgent
Comment:
Reason For Exam: R-inguinal hernia, increased pain
HYDROmorphone [Dilaudid] 1 mg IV NOW STA
03/19/24 21:30
0.9% Sodium Chloride 1000 ml [Nss] 1,000 ml IV BOLUS
Abnormal Lab Results
03/19/24
20:54
RBC 3.30 L 10^6/uL
(4.70-6.10)
Hgb 9.3 L g/dL
(13.0-18.0)
Hct 26.9 L %
(39.0-52.0)
Absolute Neuts (auto) 7.0 H 10^3/uL
(1.4-6.5)
Absolute Monos (auto) 1.4 H 10^3/uL
(0.1-0.6)
Lymphocytes % 15.9 L %
(20.5-51.1)
Monocytes % 13.2 H %
(1.7-9.3)
Sodium 131 L mmol/L
(135-145)
Potassium 5.5 H mmol/L
(3.5-5.1)
Carbon Dioxide 20 L mmol/L
(22-30)
BUN 48 H mg/dl
(9-20)
Creatinine 2.1 H mg/dL
(0.7-1.3)
Glucose 210 H mg/dl
(70-99)
Calcium 7.7 L D mg/dl
(8.4-10.2)
Alkaline Phosphatase 129 H U/L
(38-126)
Total Protein 5.1 L g/dl
(6.3-8.2)
Albumin 2.3 L g/dl
(3.5-5.0)
03/19/24 20:54
03/19/24 20:54
Vital Signs
Initial and Last Documented VS:
Initial Vital Signs
Temp Pulse Resp BP Pulse Ox
98.5 F 71 20 128/67 100
03/19/24 20:47 03/19/24 20:47 03/19/24 20:47 03/19/24 20:47 03/19/24 20:47
Last Documented Vital Signs
Temp Pulse Resp BP Pulse Ox
98.5 F 70 11 124/57 100
03/19/24 20:47 03/19/24 22:00 03/19/24 22:00 03/19/24 21:00 03/19/24 21:00
MDM/Problems Addressed
MDM/Problems Addressed:
53-year-old male with history of alcoholic cirrhosis with recurrent ascites, portal hypertension, chronic kidney disease, thrombocytopenia, anemia presenting for recurrent abdominal pain status post discharge from the hospital today with known right
inguinal hernia. Vital signs are normal.
On exam, patient uncomfortable secondary to pain. Abdominal exam relatively benign, soft and nondistended with generalized tenderness. However, large inguinal hernia, soft on palpation, diffusely tender. No firmness on palpation. Unable to
reduce given patient's discomfort. Given his level of discomfort, will treat with Dilaudid and repeat CT imaging to ensure no strangulation or incarceration or bowel obstruction.
23:45 -CT without obstructive pathology, however patient is still having significant pain on palpation to the abdomen and the hernia. Does not feel that he can go home given his for this reason we will admit for intractable pain for surgical
consultation and potential additional need for paracentesis.
*Critical Care Note
Total Time (30-74mins, 75-104mins- exclusive of procedures): Not Applicable
ED Attending Note
-
Portions of this chart may have been created with voice recognition software.� Occasional wrong word or��sound alike� substitutions may have occurred due to the inherent limitations of voice recognition software.
Discharge Plan
Departure
Prescriptions:
No Action
acetaminophen 500 mg Tablet
1,000 mg PO Q12 PRN (Reason: mild pain/fever)
magnesium 250 mg Tablet
250 mg PO DAILY
lactulose 20 gram/30 mL solution
20 g PO DAILY
tramadol 25 mg tablet
25 mg PO Q6H PRN (Reason: Mod sev pain) Qty: 14 0RF
Referrals:
Alfonzo Conn DO [Family Provider] -
Interventions
Interventions:
*Risk Screen - Suicide Last Done: 03/19/24 20:52
*General Assessment Last Done: 03/19/24 20:52
*Neglect/Abuse Screening Last Done: 03/19/24 20:52
*ED COVID-19 Vaccine History Last Done: 03/19/24 20:52
JX-[id number]-Dgtfylgqvd Assessment Last Done: 03/19/24 21:05
Discharge Date and Time
Print Language: SALVADOREAN
[2024-03-19 21:12] LABS: ALT (SGPT) 27 U/L (0-50); AST (SGOT) 55 U/L (17-59); Albumin 2.3 g/dl (3.5-5.0); Alkaline Phosphatase 129 U/L (38-126); Blood Urea Nitrogen 48 mg/dl (9-20); Calcium 7.7 mg/dl (8.4-10.2); Carbon Dioxide 20 mmol/L (22-30); Chloride 106 mmol/L (98-107); Estimated Creatinine Clearance 45 ml/min; Glucose 210 mg/dl (70-99); Lipase 253 U/L (23-300); Potassium 5.5 mmol/L (3.5-5.1); Sodium 131 mmol/L (135-145); Total Bilirubin 1.2 mg/dl (0.2-1.3); Total Protein 5.1 g/dl (6.3-8.2); eGFR 36.95
[2024-03-19] MEDS: DILAUDID 1 MG IV (21:21)
[2024-03-19 22:00] VITALS: BP 114/81
[2024-03-19] MEDS: NSS 1000 IV (22:00)
[2024-03-20] VITALS (15 sets, daily range): BP systolic 75–133; BP diastolic 44–79
--- NOTE | 2024-03-20 00:07 | HPS.HSE ---
Family Physician
-
Family Physician: Alfonzo Conn
Chief Complaint
-
lower abdominal pain
History of Present Illness
HPI
53M HX cirrhosis, Portal HTN, recurrent ascites , on schedule paracentesis thrice pwe week , last paracenteis was midnight last night pw lower abdominal and right inguinal pain. Reports nausea without vomiting. Pain is again in the right
inguinal region. Onset of pain stated s/p paracentesis MN last night.
It is acute on chronic lower abdominal pain with large inguinal hernia. Known HX umbilical and inguinal hernia.
No bowel movement since AMA on 03/18/24
He was admitted to from 03/18 - 03/18 anf left AM:
He was admitted for abdominal pain, found to have a small bowel obstruction with right inguinal hernia, reduced by surgery at bedside. Patient also had a paracentesis during admission. .
ROS:
Denies chest pain or difficulty breathing. Denies additional acute medical
Medical History
Past Medical History
Past Medical History: Reports Other (alcoholic cirrhosis status post TIPS 1 year ago, umbilical hernia, hypertension, chronic kidney disease, right-sided hydrocele)
Past Surgical History: Reports Other (TIPS, TIPS revision )
Social History
Tobacco: Non-smoker
Alcohol: Former
Drug: None
Family History
Family History: Not pertinent
Allergies / Home Medications
Allergies reflects when Allergies were last updated in [facility].
Home Medications with original date entered in [facility]
Allergy/Medication List:
Allergies
Allergy/AdvReac Type Severity Reaction Status Date / Time
No Known Allergies Allergy Verified 02/11/24 10:19
Home Medications
acetaminophen 500 mg tablet 1,000 mg PO Q12 PRN mild pain/fever 08/08/22
lactulose 20 gram/30 mL oral solution 30 ml PO TID 02/05/24
magnesium 250 mg tablet 250 mg PO DAILY 02/12/24
Review of Systems
-
History Source: Patient
A 12 point ROS was completed and negative except as noted: Yes
Constitutional: Reports No Symptoms
EENT: Reports No Symptoms
Respiratory: Reports No Symptoms
Cardiac: Reports No Symptoms
Abdomen/GI: Reports Abdominal Pain
: Reports No Symptoms
Musculoskeletal: Reports No Symptoms
Skin: Reports No Symptoms
Neurological: Reports No Symptoms
Endocrine: Reports No Symptoms
Hematologic/Lymphatic: Reports No Symptoms
Psych: Reports No Symptoms
Physical Exam
Vital Signs
Vital Signs
Temp Pulse Resp BP Pulse Ox
98.5 F 70 11 124/57 100
03/19/24 20:47 03/19/24 22:00 03/19/24 22:00 03/19/24 21:00 03/19/24 21:00
Physical Exam
General: Conversant
HEENT: NormoCephalic, Anicteric and Moist mucous membranes
Respiratory: Clear
Cardiac: S1/S2 and Regular Rhythm
Breast: Deferred by me
GI: Soft and Other (see CT report )
Neuro: Awake and Alert (lethargic s/p IV dilaudid )
Psych: Calm
Laboratory Results
-
03/19/24 20:54
03/19/24 20:54
Laboratory Results
Total Bilirubin 1.2 mg/dl (0.2-1.3) 03/19/24 20:54
AST 55 U/L (17-59) 03/19/24 20:54
ALT 27 U/L (0-50) 03/19/24 20:54
Alkaline Phosphatase 129 U/L (38-126) H 03/19/24 20:54
Lipase 253 U/L (23-300) 03/19/24 20:54
Data Reviewed
-
CT Scan: Report Reviewed by me
Lab Data: Labs Reviewed by me
Old Records: Reviewed
Impression/Plan
-
Reviewed VS:
Vital Signs
Temp Pulse Resp BP Pulse Ox
98.5 F 70 11 124/57 100
03/19/24 20:47 03/19/24 22:00 03/19/24 22:00 03/19/24 21:00 03/19/24 21:00
Data
WCC 10.4
Hgb 9.3 - was 10s on 03/17/24
INR 1.5 - base line 1.3- 1.4
Alb 2.3
Na 131
K 5.5
BUN 48
Cr 2.2 - was 1.7 with HX CKD3b
BG 210
Unremarkable LFTs
nl TB
nl Lipase
03/19/24 CT Abd/pelvis W Iv Cont
- Few dilated loops of small bowel in the pelvis due to a bowel and fluid containing right inguinal hernia.
- The number of dilated loops and dilatation have both improved.
- Limited evaluation for obstruction without oral contrast.
- Limited evaluation for bowel wall thickening without oral contrast.
- Moderate abdominal and pelvic ascites. Stable
- Cirrhosis. Stable
- Fat and fluid containing umbilical hernia. Decreased fluid
- Splenomegaly. Stable
- Moderate fecal material throughout the colon. Mildly progressed.
03/18/24 CT A/P W/IV CONTRAST
- Small bowel obstruction 2/2 right inguinal hernia containing loops of small bowel.
- Small bowel loops within the hernia appear to be incarcerated.
- There is moderate to large surrounding volume of fluid in the inguinal hernia sac.
- Previously, the hernia sac had a moderate to large amount of fluid.
- Moderate sized umbilical hernia, similar to prior containing fluid but no evidence of herniated bowel loops at this site.
- Cirrhosis and large ascites, similar to prior. No free air.
- Patent TIPS, similar to prior.
- No appendicitis or colitis.
- No evidence of hydroureteronephrosis or obstructing stone.
- Unremarkable appearance of the pelvic viscera.
- No AAA.
Last hospitalist admission: 03/17/24 - AMA on 03/18/24
ASSESSMENT & PLAN
Pending Rx reconciliation
Acute on chronic lower abdominal and Rt inguinal pain: CT suggest improving he number of dilated loops and dilatation have both improved.
Suspect etiology : Constipation and r umbilical and Inguinal hernia usually manually reducible
- Resume lactulose; escalade to BID in place daily
- clear and ADAT
- PRN narcotic analgesia with hold index fr AMS
- PRN anti emetics
- Hold off ABx for now Zosyn
Suspect prerenal KEYON - due to 2.5 L ascites fluid removal last night
Hyperkalemia due to KEYON
HX CKD 3b stable
- Hyperkalemia Tx: Ramone gluconate 1 gm + D50 + Insulin 10 U
- f/u BG
- Trend Cr and K in AM
HX decompensated alcoholic cirrhosis with synthetic dysfunction
HX TIPS procedure ([facility]) 1 year ago with revision 2 weeks prior
- last IR paracentesis was mid night 03/18/24
- OP IR paracentesis thrice per week
- follows with [facility] Dr. Young - appointment 02/21 @ 2pm and records/images shared.
- IR and GI consult
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
- check baseline NH3
Hypervolemic hyponatremia
- trend Na
Chronic pre existing conditions
Large right hydrocele: - outpatient Urology f/u
Mild L5 compression fracture age-indeterminate
Grade 1 anterolisthesis of L4 and L5
Chronic anemia
HX Chronic Thrombocytopenia secondary to cirrhosis: curently normal Plts
Former alcohol use disorder
DVT Px: SCD
Code: Full
IP MS
[2024-03-20] MEDS: CALCIUM GLUCONATE 1000 MG IV (00:37)
[2024-03-20] MEDS: NOVOLIN R 10 UNITS IV (00:38)
[2024-03-20] MEDS: DUPHALAC/CHRONULAC 20 GRAMS PO ×2 (00:38→10:48)
[2024-03-20] MEDS: DEXTROSE 50% SYRINGE 12.5 GRAMS IV (00:42)
[2024-03-20 03:47] LABS: Potassium 4.5 mmol/L (3.5-5.1)
[2024-03-20] MEDS: ZOFRAN 4 MG IV (03:57)
[2024-03-20] MEDS: DILAUDID 0.25 MG IV ×4 (03:57→20:41)
[2024-03-20 04:22] LABS: Hematocrit 27.5 % (39.0-52.0); Hemoglobin 9.5 g/dL (13.0-18.0); Mean Corp Hgb Conc. 34.5 g/dL (33.0-37.0); Mean Corpuscular Hgb 28.4 pg (27.0-31.0); Mean Corpuscular Volume 82.3 fL (80.0-94.0); Mean Platelet Volume 9.5 fL (7.4-10.4); Platelet Count 100 10^3/uL (130-400); Red Blood Cell Count 3.34 10^6/uL (4.70-6.10); White Blood Cell Count 9.5 10^3/uL (4.8-10.8)
[2024-03-20 04:26] LABS: Ammonia 88 umol/L (9-30)
[2024-03-20 04:48] LABS: Blood Urea Nitrogen 45 mg/dl (9-20); Calcium 7.8 mg/dl (8.4-10.2); Carbon Dioxide 22 mmol/L (22-30); Chloride 108 mmol/L (98-107); Estimated Creatinine Clearance 49 ml/min; Glucose 129 mg/dl (70-99); Potassium 5.2 mmol/L (3.5-5.1); Sodium 133 mmol/L (135-145); eGFR 41.66
--- NOTE | 2024-03-20 06:49 | CON.GI ---
Addendum entered and electronically signed by Samantha Zambrano DO 03/20/24 17:04:
Patient seen and examined independently of REINALDO. I agree with her note with my additions below
Neto is a 53-year-old male with alcoholic decompensated cirrhosis status post TIPS and revision with persistent now and paracentesis dependent ascites followed by transplant [facility] who is not listed undergoing workup who is
followed by Dr. Young. Patient was just here 7 04/16/2010 and left AMA. He was here for same symptoms and at that time right inguinal pain thought to be incarcerated but surgical team was able to reduce the right inguinal hernia. He went home and
awoke with the same pain. On arrival had a CT scan that did show improvement of the dilated loops with a fluid containing right inguinal hernia. He went to IR and they drained 1-1/2 L from the scrotum area. He is aware that because of his liver
disease unless it was an absolute emergency he would need to have any surgical evaluation and surgery done at [facility] where he is being worked up for listing. He has seen Dr. Flood, surgery at [place]. Patient tells me they will
not do surgery unless it was lifesaving because of his recurrent ascites. He has had some relief since the fluid removed.
-- contract coordinator is aware
-- I also had a long talk with the patient and discussion about transplant and workup. He is aware that he needs to comply with everything that the transplant team is asking for
Current [place] vocal score for surgical risk-- 30 day mortality 6.4%, 90 day mortality 8.4%, 180 day mortality 10.9%, -- 90 day decompensation 23.1 %
MELD 3.0 22 based on 03/18 labs
reviewed with patient to keep bowel moving-- agree with Lactulose BID dosing and reviewed with patient to continue OP without missing any doses
-- no current recommendations. patient is at baseline, not infected. Needs to keep regular paracentesis appts.
Will sign off. please call if we can help
Addendum entered and electronically signed by REINALDO Cheatham 03/20/24 11:00:
spoke with Rosanna. updated on recurrent admission.
Original Note:
Consultation
-
Date/Time Consultation Requested: 03/20/24 0130
Date/Time Consultation Performed: 03/20/24 0650
Requesting Provider: REINALDO Boland
Performing Provider: REIANLDO Morris, Samantha Zambrano DO
Reason for Consultation: abd/groin pain
Medical History
Chief Complaint / HPI
History of Present Illness:
Pt is a 53yo presents with hx ETOH decompensated cirrhosis s/p TIPS and TIPS revision, portal HTN, EV, CKD, anemia, thrombocytopenia, intractable ascites with paracentesis now 3 times per week, umbilical hernia, TA polyps, HTN, CKD, right
hydrocele, right inguinal hernia presents with lower abdominal pain and inguinal pain with nausea without vomiting. Pt was admitted 03/17-03/19/24 with similar symptoms and concern for small bowel obstruction with inguinal hernia requiring manual
reduction of hernia by surgical team. He now returns with recurrent pain. On arrival repeat CT 03/19/23 with few dilated SB loops due to bowel and fluid containing right inguinal hernia with improved number and dilation improvement with limited eval
for obstruction. also noted moderate ascites, cirrhosis, umbilical hernia, splenomegaly and moderate stool in colon. He has also completed IR drainage this am for 1950ml from scrotum. In reviewing with patient he has hx cirrhosis for several years
with known hernia and prior evaluation with Dr. Flood at [facility]. He has had significant scrotal swelling with improvement with frequent paracentesis until recently continued swelling after para. He states he will typically get pain in groin after
paracentesis that improves with time and lying down. On 03/17 he had para with post groin pain but symptoms persisted for several hours prompting ER visit. he was improved with decompression and discharged but recurrent symptoms after he returned
home.
He currently states some pain but just completed scrotal drainage so difficuly to assess. He complaints of nausea with pain but no vomiting. He has small stool yesterday but admits to not eating much. Otherwise no GERD, blood or black in
stools. �--09/18/2022 EGD, Dr. Rivera: Grade 1-2 varices, small hiatal hernia, variable Z line, edematous-looking gastric folds, biopsies unremarkable, duodenal biopsies benign as well.Colonoscopy: 09/18/2022 colonoscopy, Dr. Rivera: Screening;
Sigmoid and rectosigmoid tubular adenoma removed, repeat in [address] Young at [facility] with transplant listing if MELD >15 but due for repeat stress testing that has been difficulty to obtain but rescheduled for early April.
Past Medical History
Past Medical History: HTN, Renal Failure (CKD) and Other (cirrhosis s/p TIPS and TIPS revision, portal HTN, EV, TA polyps, inguinal hernia with concern for incarceration, umbilical hernia, right sided hydrocele, portal HTN)
Past Surgical History: Other (TIPS with prior revision)
Social History
Tobacco: Smoker
Alcohol: Former (last drink 2021 with diagnosis of cirrhosis)
Drug: Other (prior cocaine, mushroom, LSD, marijuana years ago )
Living: Alone
Employment: Not Employed
Family History
Family History: Other (per chart father from Lung CA possible colon CA, dementia, mother alive with cognitive decline, sister with MS)
Allergies / Home Medications
Allergy/AdvReac Type Severity Reaction Status Date / Time
No Known Allergies Allergy Verified 03/17/24 07:55
�Medication �Instructions �Recorded
acetaminophen 500 mg tablet 1,000 mg PO Q12 PRN mild pain/fever 08/08/22
magnesium 250 mg tablet 250 mg PO DAILY Electrolyte 02/12/24
Repletion
lactulose 20 gram/30 mL oral 20 g PO DAILY Gastrointestinal 03/18/24
solution Issue
tramadol 25 mg tablet 25 mg PO Q6H PRN Mod sev pain #14 03/19/24
tabs
Review of Systems
-
History Source: Patient
Constitutional: Reports Other (weight up and down with drainage )
EENT: Reports No Symptoms
Respiratory: Reports No Symptoms
Cardiac: Reports No Symptoms
Abdomen/GI: Reports Abdominal Pain (with groin pain) and Nausea
: Reports No Symptoms
Musculoskeletal: Reports No Symptoms
Skin: Reports No Symptoms
Neurological: Reports Weakness
Endocrine: Reports No Symptoms
Hematologic/Lymphatic: Reports No Symptoms
Vital Signs
Temp Pulse Resp BP Pulse Ox
98.5 F 70 10 100/53 100
03/19/24 20:47 03/20/24 05:30 03/20/24 02:15 03/20/24 04:00 03/20/24 01:45
Physical Exam
Exam
General: Well Developed, Well Nourished and No Apparent Distress
HEENT: Normocephalic and Anicteric
Respiratory: Clear
Cardiac: Regular Rhythm
GI: Soft and Distended (minimal )
Genito-urinary: Other (decreased scrotal swelling with drainage )
Musculoskeletal: No Clubbing and No Cyanosis
Skin: Warm and Dry
Neuro: Awake, Alert and AO x 3
Psych: Calm
Results
WBC 9.5 10^3/uL (4.8-10.8) 03/20/24 04:05
Hgb 9.5 g/dL (13.0-18.0) L 03/20/24 04:05
Hct 27.5 % (39.0-52.0) L 03/20/24 04:05
MCV 82.3 fL (80.0-94.0) 03/20/24 04:05
Plt Count 100 10^3/uL (130-400) L D 03/20/24 04:05
Absolute Neuts (auto) 7.0 10^3/uL (1.4-6.5) H 03/19/24 20:54
Sodium 133 mmol/L (135-145) L 03/20/24 04:05
Potassium 5.2 mmol/L (3.5-5.1) H 03/20/24 04:05
Chloride 108 mmol/L (98-107) H 03/20/24 04:05
Carbon Dioxide 22 mmol/L (22-30) 03/20/24 04:05
BUN 45 mg/dl (9-20) H 03/20/24 04:05
Creatinine 1.9 mg/dL (0.7-1.3) H 03/20/24 04:05
Calcium 7.8 mg/dl (8.4-10.2) L 03/20/24 04:05
Total Bilirubin 1.2 mg/dl (0.2-1.3) 03/19/24 20:54
AST 55 U/L (17-59) 03/19/24 20:54
ALT 27 U/L (0-50) 03/19/24 20:54
Alkaline Phosphatase 129 U/L (38-126) H 03/19/24 20:54
Lipase 253 U/L (23-300) 03/19/24 20:54
Diagnostic Image Results:
03/19/24 CT Abd/pelvis W Iv Cont
Few dilated loops of small bowel in the pelvis due to a bowel and fluid containing right inguinal hernia. The number of dilated loops and dilatation have both improved. Limited evaluation for obstruction without oral contrast. Limited evaluation
for bowel wall thickening without oral contrast.
Moderate abdominal and pelvic ascites. Stable
Cirrhosis. Stable
Fat and fluid containing umbilical hernia. Decreased fluid
Splenomegaly. Stable
Moderate fecal material throughout the colon. Mildly progressed.
03/18/24 CT Abd/pelvis W Iv Cont
CT findings compatible with small bowel obstruction due to a right inguinal hernia, with small bowel loops extending to the superior margin of a large right-sided hydrocele. Strangulation of the small bowel loops cannot be excluded by imaging.
Cirrhotic liver with TIPS catheter in place. Moderate to large amount of ascites is present.
Umbilical hernia which contains fluid but no evidence for small bowel loops on today's exam.
Small calcifications along the periphery of the gallbladder, which could be peripheral calcified gallstones versus scattered foci of gallbladder wall calcification, similar appearance to previous examination. No evidence of biliary ductal dilation.
Multiple Schmorl's nodes with mild loss of height of vertebral bodies, stable from examination of February 12, 2024. Grade 1 degenerative spondylolisthesis at L4-5, also stable.
7924- Abd X ray Nasogastric tube is present with tip over the left upper quadrant, within the stomach.
paracentesis 3 times per week---03/17- 3650, 03/14 2750, 03/12 1550-- neg SBP
--US abd with abd doppler - Elevated velocities within the TIPS catheter. Normal spectral Doppler waveforms of the hepatic veins, likely due to cirrhosis.
High resistance waveform of the hepatic artery with elevated velocity. Cholelithiasis. Thickened gallbladder wall, nonspecific.No evidence for intrahepatic bile duct dilation. The common bile duct measures up to 7 mm, considered mildly dilated.
Cirrhotic liver. Moderate amount of ascites in the right and left upper quadrants. Splenomegaly.
--11/2022 MRI abdomen-severe hepatitic cirrhosis with innumberable dysplastic nodules, no HCC, severe portal HTN, with recanalization paraumbilical vein, and caput medusa in anterior abdominal wall. small to moderate ascites, severe splenomegaly,
mild to moderatee upper abdomeninal lymphadenopathy, small HH
Prior GI Procedures:
EGD:
���--09/18/2022 EGD, Dr. Rivera: Grade 1-2 varices, small hiatal hernia, variable Z line, edematous-looking gastric folds, biopsies unremarkable, duodenal biopsies benign as well.
Colonoscopy:
��--09/18/2022 colonoscopy, Dr. Rivera: Screening; Sigmoid and rectosigmoid tubular adenoma removed, repeat in 7 years
Assessment / Plan
-
Pt is a 53yo presents with hx ETOH decompensated cirrhosis s/p TIPS and TIPS revision, portal HTN, EV, CKD, anemia, thrombocytopenia, intractable ascites with paracentesis now 3 times per week, umbilical hernia, TA polyps, HTN, CKD, right
hydrocele, right inguinal hernia presents with lower abdominal pain and inguinal pain with nausea without vomiting. Pt was admitted 03/17-03/19/24 with similar symptoms and concern for small bowel obstruction with inguinal hernia requiring manual
reduction of hernia by surgical team. He now returns with recurrent pain. On arrival repeat CT 03/19/23 with few dilated SB loops due to bowel and fluid containing right inguinal hernia with improved number and dilation improvement with limited eval
for obstruction. also noted moderate ascites, cirrhosis, umbilical hernia, splenomegaly and moderate stool in colon. He has also completed IR drainage this am for 1950ml from scrotum. In reviewing with patient he has hx cirrhosis for several years
with known hernia and prior evaluation with Dr. Flood at [facility]. He has had significant scrotal swelling with improvement with frequent paracentesis until recently continued swelling after para. He states he will typically get pain in groin after
paracentesis that improves with time and lying down. On 03/17 he had para with post groin pain but symptoms persisted for several hours prompting ER visit. he was improved with decompression and discharged but recurrent symptoms after he returned
home. �--09/18/2022 EGD, Dr. Rivera: Grade 1-2 varices, small hiatal hernia, variable Z line, edematous-looking gastric folds, biopsies unremarkable, duodenal biopsies benign as well. Colonoscopy: 09/18/2022 colonoscopy, Dr. Rivera: Screening;
Sigmoid and rectosigmoid tubular adenoma removed, repeat in [address] Young at [facility] with transplant listing if MELD >15.
-concern for incarcerated right inguinal hernia with concern for recent strangulation
-chronic scrotal swelling s/p IR drainage 03/20 for 1950
-right inguinal hernia
-umbilical hernia
-decompensated ETOH cirrhosis MELD 22 on 03/18 (prior 22 last admission in February)
- chronic kidney disease
-hyperkalemia
- hx hepatic encephalopathy
-intractable ascites with frequent paracentesis
-right hydrocele
-L5 comp fx
PLAN:
Pt now returns with recurrent groin pain after return home
now s/p IR drainage of 1950 ml from scrotum
monitor symptom post drainage
will give albumin replacement as scrotal fluid driven by ascites
increased to 2 gram Na diet
reviewed with patient if hernia need repair will need to be done at [facility]-- he has seen Dr. Flood in past to review- consider OP eval for update on need for recurrent admission
per last eval current [place] vocal score for surgical risk-- 30 day mortality 6.4%, 90 day mortality 8.4%, 180 day mortality 10.9%, -- 90 day decompensation 23.1 %
MELD 3.0 22 based on 03/18 labs
reviewed with patient to keep bowel moving-- agree with Lactulose BID dosing and reviewed with patient to continue OP without missing any doses
up to date on variceal screening last 09/2022
HCC screen- CT on admission without focal lesion, AFP 2.73 02/[address] neg
minimize narcotics with liver disease
reviewed Dr. Young recent letter -- pt currently close to listed as need to complete stress testing
I left message for Rosanna Coombs contract coordinator [phone] for update as no return call from Dr. Young left last admission
-
-
Thank you for consultation and allowing me to participate in the patient's care. Please call the store product demonstrator GI physician during the after hours with any questions or concerns.
[2024-03-20 10:27] LABS: Body Fluid Mononuclear 89.4 %; Body Fluid Polymorphonuclear 10.6 %; Body Fluid WBC 170 /CUMM
[2024-03-20 10:44] LABS: Glucose - Point of Care 159 mg/dl (70-99)
[2024-03-20] MEDS: NOVOLOG FLEXPEN-LOW RESISTANCE 1 UNITS SC ×2 (10:49→12:54)
[2024-03-20 10:50] LABS: Glycohemoglobin (HgbA1c) 5.4 % (4.0-5.6)
[2024-03-20] MEDS: FLEXBUMIN 50 IV (10:50)
--- NOTE | 2024-03-20 11:22 | PTCARENOTE ---
pt aaox3. states 9/10 pain in scrotal pelvic area. pt taken to IR for fluid removal and returned after procedure. right groin dressing c/d/i. room air breath sounds clear.
[2024-03-20 11:26] LABS: Body Fluid Second Tech AMA
[2024-03-20 12:46] LABS: Glucose - Point of Care 164 mg/dl (70-99)
--- NOTE | 2024-03-20 15:30 | EDRN ---
Patient taken to room in wheelchair by Viky PATTON.
[2024-03-20 16:24] LABS: Glucose - Point of Care 132 mg/dl (70-99)
[2024-03-20] MEDS: NOVOLOG FLEXPEN-LOW RESISTANCE SC (16:25)
[2024-03-20] MEDS: DUPHALAC/CHRONULAC PO (20:49)
[2024-03-20 21:25] LABS: Glucose - Point of Care 223 mg/dl (70-99)
[2024-03-21 03:29] VITALS: BP 110/86
[2024-03-21] MEDS: DILAUDID 0.25 MG IV (04:09)
[2024-03-21 07:41] VITALS: BP 124/92
[2024-03-21 07:48] LABS: Glucose - Point of Care 114 mg/dl (70-99)
[2024-03-21 08:05] LABS: Hematocrit 29.4 % (39.0-52.0); Hemoglobin 9.8 g/dL (13.0-18.0); Mean Corp Hgb Conc. 33.3 g/dL (33.0-37.0); Mean Corpuscular Hgb 28.2 pg (27.0-31.0); Mean Corpuscular Volume 84.5 fL (80.0-94.0); Mean Platelet Volume 10.3 fL (7.4-10.4); Platelet Count 117 10^3/uL (130-400); Red Blood Cell Count 3.48 10^6/uL (4.70-6.10); Red Cell Dist. Width 14.4 % (11.5-14.5); White Blood Cell Count 9.3 10^3/uL (4.8-10.8)
[2024-03-21 08:27] LABS: Blood Urea Nitrogen 37 mg/dl (9-20); Carbon Dioxide 21 mmol/L (22-30); Chloride 109 mmol/L (98-107); Estimated Creatinine Clearance 55 ml/min; Glucose 100 mg/dl (70-99); Sodium 133 mmol/L (135-145); eGFR 47.61
--- NOTE | 2024-03-21 09:25 | VNURNOTE ---
Chart reviewed. Patient is known to [facility]. Called patient and he did not feel he needed nurses or P.T. in the home. He reported he can get to his doctors' appts and he follows up with them frequently. Patient declining [facility] resumption of
care/services.
[2024-03-21] MEDS: NOVOLOG FLEXPEN-LOW RESISTANCE SC (09:41)
[2024-03-21] MEDS: DUPHALAC/CHRONULAC PO (10:30)
[2024-03-21] MEDS: MAGNESIUM OXIDE 250 MG PO (10:31)
[2024-03-21 11:12] VITALS: BP 107/62
[2024-03-21 12:55] LABS: Glucose - Point of Care 221 mg/dl (70-99)
[2024-03-21] MEDS: NOVOLOG FLEXPEN-LOW RESISTANCE 2 UNITS SC (13:34)
--- NOTE | 2024-03-21 14:58 | W.DS.TRANS ---
DC Summary - Mechanical Maintenance Foreman
-
Discharge Instructions:
Discharge Diagnosis/Procedures Recurrent ascites and a secondary hydrocele;ESLD
Diet Restrict fluids to 64 oz,2 Gram Sodium
Activity As tolerated
Driving Restrictions As prior to admission
Bathing Restrictions None
Instructions:
Stand-Alone Forms:
Changes to Home Medications: No
Discharge Medications:
DC Medications w/original date entered in [facility]
acetaminophen 500 mg tablet 1,000 mg PO [id number] PRN mild pain/fever 08/08/22
magnesium 250 mg tablet 250 mg PO DAILY Electrolyte Repletion 02/12/24
lactulose 20 gram/30 mL oral solution 20 g PO DAILY Gastrointestinal Issue 03/18/24
tramadol 50 mg tablet 25 mg PO DAILYPRN PRN severe pain 03/20/24
Home Medication Changes
Pending Results: No
--- NOTE | 2024-03-21 14:58 | W.PN.HOSP.TC ---
Today's Communication/Plan
-
DC
Assessment / Plan
Assessment / Plan
End-stage liver disease with recurrent ascites. Patient has a standing Sunday ascites fluid tap order by her hepatology team. Came in yesterday with with abdominal discomfort and large hydrocele. He had close to 2 L of ascitic
fluid from right hydrocele tapped. He has rapid reaccumulation. Advised him to keep the scrotum elevated while lying down. Continue with his scheduled 3 times a week tap. Follow-up with transplant team. Patient advised to explore peritoneal
catheter placement if possible with the transplant team.
End-stage liver disease without any had encephalopathy or obvious GI bleeding. Continue with his lactulose.
Medically stable for DC
Anticipated Discharge: Today
Subjective/Interval History
-
Date of Service: March 21, 2024
Toleraing diet
Rt scrotal sac filled up again
No fever or chills
Objective Data
-
Labs:
Laboratory Results
03/21/24
07:14
WBC 9.3
Hgb 9.8 L
Hct 29.4 L
Plt Count 117 L
Sodium 133 L
Potassium 5.0
Chloride 109 H
Carbon Dioxide 21 L
BUN 37 H
Creatinine 1.7 H
Glucose 100 H
Calcium 8.0 L
Vital Signs:
Vital Signs
Temp Pulse Resp BP Pulse Ox
97.8 F 64 18 107/62 100
03/21/24 11:12 03/21/24 11:12 03/21/24 11:12 03/21/24 11:12 03/21/24 11:12
I&O
03/20/24 03/21/24 03/22/24
06:59 06:59 06:59
Intake Total 1490 / 1490
Balance 1490 / 1490
Review of Systems
-
Respiratory: Denies Trouble Breathing
Cardiac: Denies Chest Pain
Physical Exam
-
General: No Apparent Distress
HEENT: Moist Mucous Membranes
Respiratory: Non Labored Respirations; Negative Accessory Resp Muscle Use
Cardiac: Regular Rhythm and S1/S2
GI: Soft and Other (rt hydrocele evident no cellulitis)
Rectal: Other
Neuro: AO x 3; Negative Tremors
Psych: Calm
Data Reviewed
-
Labs: Labs Reviewed by me
--- NOTE | 2024-03-21 16:03 | CM ---
Patient seen, for discharge today. Patient reports no needs to CM at this time, reports he has transportation home.
Plan; home no needs.
== END 2024-03-21 15:25 | disposition home or self-care (01) | DRG 729 ==
LOC: 4 WEST ACU 00:56
PROVIDERS: Radiology Vascular & Interventional Radiology; Registered Nurse; ADMITTING PHYSICIAN Internal Medicine; ATTENDING PHYSICIAN Internal Medicine; CONSULT PHYSICIAN Internal Medicine; EMERGENCY PHYSICIAN Student in an Organized Health Care Education/Training Program; FAMILY PHYSICIAN Family Medicine
PROC: 0V953ZX Drainage of Scrotum, Percutaneous Approach, Diagnostic (ICD-10-PCS; 2024-03-20)
DX: N43.2 Other hydrocele (principal); E87.1 Hypo-osmolality and hyponatremia; K76.6 Portal hypertension; N17.9 Acute kidney failure, unspecified; K70.31 Alcoholic cirrhosis of liver with ascites; K72.10 Chronic hepatic failure without coma; I12.9 Hypertensive chronic kidney disease with stage 1 through stage 4 chronic kidney disease, or unspecified chronic kidney disease; N18.32 Chronic kidney disease, stage 3b; F17.210 Nicotine dependence, cigarettes, uncomplicated; K40.91 Unilateral inguinal hernia, without obstruction or gangrene, recurrent; K59.00 Constipation, unspecified; E87.5 Hyperkalemia; D69.59 Other secondary thrombocytopenia; F10.11 Alcohol abuse, in remission
CPT/HCPCS: 49083; 74177; 80048; 80053; 82140; 82962; 83036; 83690; 84132; 85025; 85027; 89051; 93005; 96361; 96374; 99285; 99406; P9047; Q9967

== ENCOUNTER → 2024-03-24 06:54 | Outpatient (REF) | payer OTHER, SELFPAY ==
[2024-03-24 07:15] VITALS: BP 135/66; BP_SYST 67
[2024-03-24 08:35] VITALS: BP 125/62; BP_SYST 66
[2024-03-24 08:51] VITALS: BP 125/62
[2024-03-24 11:32] LABS: Body Fluid Mononuclear 90.5 %; Body Fluid Polymorphonuclear 9.5 %; Body Fluid WBC 200 /CUMM
[2024-03-24 11:38] LABS: Body Fluid Second Tech CF
== END ==
LOC: RADI 06:54
PROVIDERS: ATTENDING PHYSICIAN Internal Medicine Gastroenterology
DX: R18.8 Other ascites (principal)
CPT/HCPCS: 49083; 89051

== ENCOUNTER 2024-03-24 09:26 | Outpatient (RCR) | payer OTHER, SELFPAY ==
[2024-03-24 09:37] VITALS: BP 134/60
[2024-03-24] MEDS: FLEXBUMIN 100 IV (09:37)
[2024-03-24 09:40] VITALS: BP 134/60
[2024-03-24] MEDS: FLEXBUMIN 50 IV (11:17)
[2024-03-24 11:18] VITALS: BP 110/57
[2024-03-24 11:58] VITALS: BP 115/56
== END 2024-04-09 23:59 | disposition home or self-care (01) ==
LOC: OID 09:26
PROVIDERS: ATTENDING PHYSICIAN Internal Medicine Gastroenterology; PRIMARYCARE PHYSICIAN Internal Medicine; REFERRING PHYSICIAN Internal Medicine Gastroenterology
DX: K70.31 Alcoholic cirrhosis of liver with ascites (principal); Z92.89 Personal history of other medical treatment; Z72.0 Tobacco use; Z98.890 Other specified postprocedural states
CPT/HCPCS: 49083; 89051; 96365; 96366; P9047

== ENCOUNTER → 2024-03-26 06:56 | Outpatient (REF) | payer OTHER, SELFPAY ==
[2024-03-26 07:20] VITALS: BP 113/60; BP_SYST 66
[2024-03-26 08:29] VITALS: BP 132/62
[2024-03-26 11:45] LABS: Body Fluid Mononuclear 90.9 %; Body Fluid Polymorphonuclear 9.1 %; Body Fluid WBC 243 /CUMM
[2024-03-26 11:59] LABS: Body Fluid Second Tech AMA
== END ==
LOC: RADI 06:56
PROVIDERS: ATTENDING PHYSICIAN Internal Medicine Gastroenterology
DX: R18.8 Other ascites (principal)
CPT/HCPCS: 49083; 89051

== ENCOUNTER 2024-03-27 14:57 | Inpatient (IN) | payer OTHER, SELFPAY ==
[2024-03-26 23:30] VITALS: BP 134/57; BMI 27.7
[2024-03-26 23:44] LABS: % Basophils 0.5 % (0-2); % Eosinophils 2.1 % (0-6); % Immature Granulocytes 0.4 % (0-0.5); % Lymphocytes 11.1 % (20.5-51.1); % Neutrophils 71.9 % (42.2-75.2); Absolute Basophils 0.1 10^3/uL (0-0.2); Absolute Eosinophils 0.2 10^3/uL (0-0.7); Absolute Lymphocytes 1.1 10^3/uL (1.2-3.4); Absolute Monocytes 1.4 10^3/uL (0.1-0.6); Hematocrit 28.2 % (39.0-52.0); Hemoglobin 9.9 g/dL (13.0-18.0); Mean Corp Hgb Conc. 35.1 g/dL (33.0-37.0); Mean Corpuscular Volume 79.9 fL (80.0-94.0); Mean Platelet Volume 9.4 fL (7.4-10.4); Nucleated Red Blood Cells % 0 % (-); Platelet Count 114 10^3/uL (130-400); Red Blood Cell Count 3.53 10^6/uL (4.70-6.10); Red Cell Dist. Width 14.4 % (11.5-14.5); White Blood Cell Count 9.7 10^3/uL (4.8-10.8)
[2024-03-27] VITALS (10 sets, daily range): BP systolic 107–144; BP diastolic 49–89; BMI 26.5
[2024-03-27 00:07] LABS: ALT (SGPT) 25 U/L (0-50); AST (SGOT) 38 U/L (17-59); Albumin 2.6 g/dl (3.5-5.0); Alkaline Phosphatase 179 U/L (38-126); Blood Urea Nitrogen 38 mg/dl (9-20); Calcium 8.8 mg/dl (8.4-10.2); Carbon Dioxide 28 mmol/L (22-30); Chloride 103 mmol/L (98-107); Estimated Creatinine Clearance 55 ml/min; Glucose 162 mg/dl (70-99); Lipase 267 U/L (23-300); Sodium 130 mmol/L (135-145); Total Bilirubin 1.3 mg/dl (0.2-1.3); Total Protein 5.3 g/dl (6.3-8.2); eGFR 47.61
[2024-03-27] MEDS: DILAUDID 1 MG IV (01:05)
--- NOTE | 2024-03-27 01:06 | ED.GENMED ---
History of Present Illness
General
Chief Complaint: Abdominal Pain
Source: patient and previous hospital records (Multiple, recurrent hospitalizations generally returning to the ED 1 day with a same day after discharge for continued abdominal pain, right inguinal pain)
Exam Limitations: none
Time Seen by Provider: 03/27/24 00:49
Nursing documentation reviewed up to this point in time: agreed with
History of Present Illness
History of Present Illness:
This is a 53-year-old gentleman who has history of alcoholic cirrhosis with ascites requiring frequent paracentesis with standing order for paracentesis 3 times weekly. He has history of chronic abdominal pain, umbilical as well as right inguinal
hernia, chronic right inguinal pain and chronic right scrotal edema for which he has been repeatedly hospitalized here on a near daily basis over the past several months.
Underwent paracentesis earlier today March 26 with removal of 4 L of fluid as well as March 24.
Repeated overnight hospitalizations for chronic abdominal pain issues requiring repeated doses of IV Dilaudid. He is currently on no oral pain medications and subsequently once he is discharged he returns within 24 hours for recurrent pain.
He denies nausea or vomiting, denies diarrhea or constipation. He has been passing gas.
He does have history of right inguinal hernia with history of partial small bowel obstruction earlier this month and underwent right inguinal hernia reduction by general surgery March 18.
He follows with specialist at [facility].
He states he has an initial appointment with pain management scheduled for tomorrow, March 27 but believes he will miss this as he has returned to the ED due to recurrent pain.
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
Past History
Past History
ED Past Medical History: HTN and Other (pre-diabetic years ago but lost weight and says he no longer is)
ED Past Surgical History: None and Orthopedic
Patient has exhibited threatening behavior?: No
PSI?: No
Social History
Tobacco: Smoker
Alcohol: Former (Heavy alcohol use, quit March 2022)
Drug: None
Personal: Single
Living: with family
Employment: Not employed
Family History
Family History: Other
Phy Exam
Physical Exam
Physical Exam:
GENERAL: 53-year-old gentleman appears older than stated age, awake and alert, repeatedly moaning in pain. Argumentative and demanding IV pain medication.
EYE: anicteric
NECK: Supple, nontender, no meningismus, no significant adenopathy.
ENT: oral mucosa is moist. No rhinorrhea.
CARDIAC: Regular rate and rhythm. no murmur.
LUNGS: Clear breath sounds bilaterally, no acute respiratory distress, no wheezes/rales/rhonchi
ABDOMEN: Rotund and distended, diffuse tenderness throughout abdomen as well as moderate tenderness and moderate fullness right inguinal region with significant right scrotal edema. There is a soft protuberant nontender umbilical hernia.
Normoactive BS.
NEUROLOGICAL: Alert and oriented x3, no focal neuro deficits.
SKIN: Warm and dry, mildly pale in color, skin intact. No rash.
MUSCULOSKELETAL: No C/C/E. peripheral pulses are full and equal b/l. No palpable tenderness.
PSYCH: Anxious and agitated, demanding.
Course
Orders/Labs/Results
Orders:
Orders
03/26/24 23:27
Electrocardiogram (*1) Urgent
Reason for Study: Abdominal Pain
EKG- Treatment ONCE
IV Insert/Care/Rem.- Treatment PRN
03/26/24 23:37
Alcohol Urgent
Complete Blood Count/With Diff Urgent
Comprehensive Metabolic Panel Urgent
Lipase Urgent
03/27/24 01:02
HYDROmorphone [Dilaudid] 1 mg IV NOW STA
03/27/24 01:03
Add On- LAB Urgent
Tests Added?: ETOH
HYDROmorphone [Dilaudid] 1 mg .ROUTE .STK-MED ONE
03/27/24 01:19
CR Obstruct Series W/pa Chest Urgent
Comment:
Reason For Exam: GEN ABD PAIN
03/27/24 02:00
Sodium Zirconium Cyclosilicate [Lokelma] 10 gram PO NOW STA
03/27/24 02:23
Admit/Transfer Patient As Directed
Co-Sign Provider:
Level of Care: Observation services
Assign to:: Telemetry
Physician / Group: edmar
Diagnosis: abd pain
Reason for Telemetry: Other
Other Reason for Telemetry: Hyperkalemia
Date to Stop Telemetry: 03/29/24
Time to Stop Telemetry: 11:00
03/27/24 02:26
Code Status As Directed
Resuscitation Status: Full Code
03/27/24 02:29
Dextrose 50%-Water [Dextrose 50% Syringe] 12.5 grams IV NOW STA
Insulin Human Regular [Novolin R] 4 units IV NOW STA
03/27/24 03:00
Flush (0.9% Sodium Chloride) [Flush (Nss)] See Dose Instructions IV PER PROTOCOL
03/29/24 11:00
DC Protocol for Telemetry ONCE
Abnormal Lab Results
03/26/24 03/27/24
23:37 02:37
RBC 3.53 L 10^6/uL
(4.70-6.10)
Hgb 9.9 L g/dL
(13.0-18.0)
Hct 28.2 L %
(39.0-52.0)
MCV 79.9 L fL
(80.0-94.0)
Plt Count 114 L 10^3/uL
(130-400)
Absolute Neuts (auto) 7.0 H 10^3/uL
(1.4-6.5)
Absolute Lymphs (auto) 1.1 L 10^3/uL
(1.2-3.4)
Absolute Monos (auto) 1.4 H 10^3/uL
(0.1-0.6)
Lymphocytes % 11.1 L %
(20.5-51.1)
Monocytes % 14.0 H %
(1.7-9.3)
Sodium 130 L mmol/L
(135-145)
Potassium 6.0 H mmol/L
(3.5-5.1)
BUN 38 H mg/dl
(9-20)
Creatinine 1.7 H mg/dL
(0.7-1.3)
Glucose 162 H mg/dl
(70-99)
Alkaline Phosphatase 179 H U/L
(38-126)
Total Protein 5.3 L g/dl
(6.3-8.2)
Albumin 2.6 L g/dl
(3.5-5.0)
POC Glucose 196 H mg/dl
(70-99)
03/26/24 23:37
03/26/24 23:37
Vital Signs
Initial and Last Documented VS:
Initial Vital Signs
Temp Pulse Resp BP Pulse Ox
98.3 F 77 16 134/57 98
03/26/24 23:30 03/26/24 23:30 03/26/24 23:30 03/26/24 23:30 03/26/24 23:30
Last Documented Vital Signs
Temp Pulse Resp BP Pulse Ox
98.3 F 74 13 132/86 100
03/26/24 23:30 03/27/24 01:00 03/27/24 01:00 03/27/24 01:00 03/27/24 01:00
MDM/Problems Addressed
Differential Diagnosis Includes:
Patient presents with recurrent abdominal pain, right inguinal pain, recurrent right scrotal edema that has been an ongoing issue for a number of years with recurrent hospitalizations on a near continuous basis over the past several months.
I have significant concern for chronic pain issues as patient received multiple doses of IV Dilaudid during his hospitalizations and then is discharged without narcotic pain medicines only to return within 12 to 24 hours and the cycle repeats.
He does have history of chronic right inguinal hernia with prior small bowel obstruction earlier this month. Thus there is some concern for potential recurrent incarcerated hernia.
Labs are all stable and unchanged save for mildly elevated potassium. Similar elevations noted previously.
EKG is stable and unchanged from previous, March 20.
Peritoneal fluid cultures have all been negative previously.
Multiple prior CTs of the abdomen and pelvis, most recently March 19 showing bowel and fluid containing right inguinal hernia with a few dilated loops of small bowel but overall improved from previous CT March 18. There is also note of significant
stool throughout the colon on CT March 19, progressed from CT March 18.
It is reassuring that patient has had no fever, no vomiting, normal white blood cell count. No prior episodes of peritonitis.
Will medicate for pain with Dilaudid and attempt manual reduction of right inguinal hernia. This has been performed in the past with prompt recurrence and at this point I am more concerned for chronic pain issues then recurrent small bowel
obstruction.
Will check obstruction series.
Chronic conditions affecting care: Psychiatric illness and Other (Chronic abdominal pain; hepatic cirrhosis with recurrent ascites, chronic right inguinal hernia, chronic right scrotal edema)
*Radiology
Radiology exam reviewed: preliminary read by ED provider (Obstruction series shows scattered large bowel gas but no evidence of obstruction nor free air.)
*Pulse Oximetry
Patient hypoxic: no
*EKG
Interpreted by ED Provider?: Yes
Comparison EKG: no changes (Unchanged from previous March 20, 2024)
Rate: normal
Rhythm: sinus
[place]: normal axis
Interval: first degree heart block (Borderline first-degree AV block)
QRS Pattern: normal QRS
Ischemia: no ischemia
*Senior Product Development Scientist Interpretation
Rate: normal
Interpretation: normal
Rhythm: sinus
*Critical Care Note
Total Time (30-74mins, 75-104mins- exclusive of procedures): Not Applicable
Update Note
Update Note:
03/27/2024 0125 AM
Patient sleeping soundly after 1 IV dose of Dilaudid.
Awakens easily.
Right inguinal hernia easily manually reduced but then promptly returns and I suspect large, chronic hernia in nature.
Patient has palliative care consult today which he suspects he will miss as he generally requires recurrent hospitalization for persistent pain requiring ongoing IV narcotic medications.
Will check obstruction series and will plan to admit to hospitalist service.
Would strongly recommend palliative care consult while hospitalized and strongly recommend initiation of oral narcotic pain medications to be continued on an outpatient basis. If not we will continue to see patient return in less than 24 hours of
discharge.
ED Attending Note
-
Portions of this chart may have been created with voice recognition software.� Occasional wrong word or��sound alike� substitutions may have occurred due to the inherent limitations of voice recognition software.
Discharge Plan
Departure
Patient Disposition: Admit
Date of Disposition: 03/27/24
Time of Disposition: 01:58
Admit to: Med/Surg
Admit to doctor: Edmar
Presentation/result/management discussed w/ accepting MD/DO: Hospitalist
Condition: Fair
Discharge Problem:
Recurrent intractable abdominal pain, Alcoholic cirrhosis of liver with ascites, Acute hyperkalemia, Recurrent right inguinal hernia
Prescriptions:
No Action
acetaminophen 500 mg Tablet
1,000 mg PO [id number] PRN (Reason: mild pain/fever)
magnesium 250 mg Tablet
250 mg PO DAILY
lactulose 20 gram/30 mL solution
20 g PO DAILY
tramadol 50 mg Tablet
25 mg PO DAILYPRN PRN (Reason: severe pain)
Patient Comments:
03/20/24: filled 03/19/14 for 14 tablets at [facility].
Referrals:
Alfonzo Conn DO [Family Provider] -
Interventions
Interventions:
*Risk Screen - Suicide Last Done: 03/26/24 23:30
*General Assessment Last Done: 03/26/24 23:30
*Neglect/Abuse Screening Last Done: 03/26/24 23:30
ED- Fall Risk Assessment Last Done: 03/26/24 23:30
*ED COVID-19 Vaccine History Last Done: 03/26/24 23:30
XE-Aswjdu-Mlbernmgwn Assessment Last Done: 03/26/24 23:43
Discharge Date and Time
Print Language: EMIRATI
[2024-03-27 01:43] LABS: Alcohol None Detected
[2024-03-27] MEDS: LOKELMA 10 GRAM PO ×4 (02:29→17:54)
--- NOTE | 2024-03-27 02:30 | HPS.HSE ---
Family Physician
-
Family Physician: Alfonzo Conn
Chief Complaint
-
Lower abdominal pain
History of Present Illness
53-year-old male with history of multiple liver cirrhosis, requiring recurrent ascites 2-3 times a week, been in and out of the hospital last few days including show anemia in March 18, then came back with lower abdominal pain with known history of
incarcerated right inguinal hernia which has been reduced by his surgeon in the ER also had a fluid taken out of the scrotum.
This morning he said he had scheduled paracentesis and everything went smoothly until 1 PM after suddenly have another episode of the lower abdominal pain he was given some Ultram on the last discharge as he was taking it without much relief admit
nausea but no vomiting, by 4 PM moved his bowel he has been passing gas denies any fever or chill or cough or congestion admit the pain is mostly in the right inguinal area radiating to periumbilical area,
Denies any bleeding event or change in stool or urine color or any headache or vision change or any weakness or numbness in extremity.
In the ER given another dose of Dilaudid when I went over he was sleeping hard to wake him up.
His right inguinal hernia is soft and reducible and no evidence of incarceration.
Said he has been sober for 2 years and he is supposed to be hooked up with the transplant team and [facility].
Not sure if he is on diuretics not on medication list or discharge medication recently but he has a chronic hyper kalemia. Potassium was 6 in the ER given a dose of Lokelma.
Regarding his inguinal hernia he was told he and according to the patient [facility] not a candidate for surgery unless his life-threatening emergency.
Medical History
Past Medical History
Past Medical History: Reports Other
Additional Past Medical History:
Past medical history reviewed:
Alcoholic liver cirrhosis
Right inguinal hernia
Chronic hyper kalemia
Chronic kidney disease stage II-III
Social history: Lives alone, still occasionally smoking he is not drinking alcohol or using drugs for 2 years.
Family history: Reviewed and noncontributory
Past Surgical History: Reports Other
Social History
Unable to obtain full social history at this time due to: Other
Family History
Family History: Other
Allergies / Home Medications
Allergies reflects when Allergies were last updated in [facility].
Home Medications with original date entered in [facility]
Allergy/Medication List:
Allergies
Allergy/AdvReac Type Severity Reaction Status Date / Time
No Known Allergies Allergy Verified 03/26/24 23:28
Home Medications
acetaminophen 500 mg tablet 1,000 mg PO [id number] PRN mild pain/fever 08/08/22
magnesium 250 mg tablet 250 mg PO DAILY Electrolyte Repletion 02/12/24
lactulose 20 gram/30 mL oral solution 20 g PO DAILY Gastrointestinal Issue 03/18/24
tramadol 50 mg tablet 25 mg PO DAILYPRN PRN severe pain 03/20/24
Review of Systems
-
A 12 point ROS was completed and negative except as noted: Yes
Physical Exam
Vital Signs
Vital Signs
Temp Pulse Resp BP Pulse Ox
98.3 F 74 13 132/86 100
03/26/24 23:30 03/27/24 01:00 03/27/24 01:00 03/27/24 01:00 03/27/24 01:00
Physical exam:
General: Sleepy, arousable, speaks in low tone of voice and oriented x3, not in distress and holds appropriate conversation.
HEENT: No active discharge, ecchymosis or bruising, moist lips, tongue and mucous membrane.
Eyes: No discharge or red conjunctiva, no nystagmus, pupils are reactive and equal
Neck:Supple, no JVD no bruit no goiter.
Respiratory: Normal AP contour and diameter, normal chest wall movement, normal respiratory effort, no respiratory distress,
Lungs: Good air entry bilaterally, no wheezing or rhonchi, no rales or crackles
Heart: S1, S2 regular, normal rate, no added sound.
Gastrointestinal: Ascites appreciated, soft large right inguinal hernia appreciated, reducible easily, positive bowel sounds, soft, mild generalized tenderness with no guarding or rigidity.
Musculoskeletal: , no chest wall abnormality or tenderness. All joints and extremities have good range of motion, no muscle tenderness or any joint swelling or tenderness.
Extremities: Mild lower extremity pitting edema, good peripheral pulses, good range of motion
Skin: Warm and dry, no ulceration, normal color.
Neurological: Sleepy, arousable, oriented, speaks in low tone of voice, moves extremities freely, normal mentation
Psychiatric: Normal mood, normal thought and judgment, normal affect,
Physical Exam
General: Other
Laboratory Results
-
03/26/24 23:37
03/26/24 23:37
Laboratory Results
Total Bilirubin 1.3 mg/dl (0.2-1.3) 03/26/24 23:37
AST 38 U/L (17-59) 03/26/24 23:37
ALT 25 U/L (0-50) 03/26/24 23:37
Alkaline Phosphatase 179 U/L (38-126) H 03/26/24 23:37
Lipase 267 U/L (23-300) 03/26/24 23:37
X-ray chest, abdomen pelvis done, pending official report, please refer to radiologist report once available, on my review no evidence of small bowel obstruction appreciated.
EKG, showed normal sinus rhythm, right around 70, CA 220, QTc 393 otherwise no acute abnormality
Data Reviewed
-
Diagnostic Radiology: Image Personally Visualized and interpreted and Discussed with Patient
Medical Tests (Nuc Med, Echo, EKG etc): Image Personally Visualized and interpreted and Discussed with Patient
Lab Data: Labs Reviewed by me and Discussed with Patient
Old Records: Reviewed
Impression/Plan
-
IMPRESSION:
53-year-old male history alcoholic liver cirrhosis that has been sober for the last 2 years, presented again to the hospital complaining of the abdominal pain mostly right inguinal area,
Recurrent abdominal pain, possible related ascites and inguinal hernia, no evidence of incarcerated hernia easily reducible and soft and x-ray showed no evidence of small bowel obstruction
Recurrent ascites, had paracentesis done today
Chronic hyperkalemia
Chronic kidney disease stage II-III
Chronic anemia
Hyponatremia
PLAN:
Cardiac monitoring
Given a dose of IV Dilaudid in the ER he was currently calm and sleepy when I evaluated him
Continue Dilaudid 0.5 mg every 4 hours as needed with close monitoring of the respiratory status.
Lokelma given by ER open given half amp of D50 and 4 units of short acting insulin
Recheck lab
Of some reaccumulation but does not look like at this stage need a paracentesis
Get a GI consult she is not on any diuretic, will defer further recommendation to GI in the notes and previous workups reviewed.
Patient have appointment with palliative care this morning as an outpatient.
Continue lactulose
All discussed with the patient in detail and expressed understanding
CODE STATUS full code
DVT prophylaxis heparin subcu
[2024-03-27 02:39] LABS: Glucose - Point of Care 196 mg/dl (70-99)
[2024-03-27] MEDS: DEXTROSE 50% SYRINGE 12.5 GRAMS IV (02:41)
[2024-03-27] MEDS: NOVOLIN R 4 UNITS IV (02:42)
[2024-03-27] MEDS: ZOFRAN 4 MG IV (03:48)
[2024-03-27] MEDS: DILAUDID 0.5 MG IV ×3 (03:58→23:37)
--- NOTE | 2024-03-27 04:24 | PTCARENOTE ---
Pt was a self from stretcher to bed after arriving to [facility] from ED. Pt is AAOx3, reports 8/10 pain in groin and lower abdomen. Pt is nauseous and vomiting clear liquids into toilet; no anti-emetics ordered. House MANAGER [employer] Stephon notified, order placed
for IV Zofran q6h and provided to pt. Pt given PRN IV Dilaudid.
--- NOTE | 2024-03-27 06:49 | CON.GI ---
Addendum entered and electronically signed by Sherine Allison Do, MD 03/27/24 13:16:
I saw and examined the patient.
The FLAP MAKER's note was reviewed and I agree with the note.
Comment: Jb is a 53yo M wtih h/o Judie C ETOH cirrhosis decompensated by recurrent ascites/scrotal edema s/p TIPS with revision who was admitted for abdominal and inguinal pain. He has OP paracentesis 3x/wk for chronic fluid issues. Vitals
reviewed. Labs reviewed. CXR with abd no acute pathology
Impression
- Recurrent large volume ascites with scrotal hydrocele and inguinal hernia
- Decompensated ETOH cirrhosis
- s/p TIPs with revisions
- Hyperkalemia
Recommendations
- Paracentesis 03/26 with4L removed neg for SBP. He has OP standing paracentesis ordered by [facility]
- Advised him to complete transplant eval at [facility]. Declined at [facility]
- Given CKD not candidate for diuresis
- Paracentesis PRN
- Tolerating diet
- Increase lactose
At this juncture no new GI recs will sign off please call for question
Offered FU appt with Dr Fall in our office he declined. He can FU with his [facility] transplant team
Original Note:
Consultation
-
Date/Time Consultation Requested: 03/27/24314
Date/Time Consultation Performed: 03/27/2430
Requesting Provider: Beatrice blount MD
Performing Provider: REINALDO Morris, Sherine Baldwin MD
Reason for Consultation: lower abdominal/groin pain
Medical History
Chief Complaint / HPI
Chief Complaint: lower abdominal/groin pain
History of Present Illness:
Pt is a 53yo presents with hx ETOH decompensated cirrhosis s/p TIPS and TIPS revision current work up with Dr. Young to be listed for transplant, portal HTN, EV, CKD, anemia, thrombocytopenia, intractable ascites with paracentesis now 3 times
per week, umbilical hernia, TA polyps, HTN, CKD, right hydrocele, right inguinal hernia presents with lower abdominal pain and inguinal pain with nausea without vomiting. Pt was admitted 03/17-03/19/24 then returned 03/19- with similar symptoms
and concern for small bowel obstruction with inguinal hernia requiring manual reduction of hernia by surgical team. During second admission he completed paracentesis for 2500ml and also scrotal drainage for 1950ml neg SBP. Pt was seen by surgical
team at but due to liver disease surgical intervention was deferred and pt was recommended follow up with Dr. Flood at [facility] who he has seen in past. He now presents as went to para yesterday and began again with recurrent lower abdominal pain
in inguinal arena with vomiting. On admission inguinal hernia was soft and reducible. On admission hbg 9.9 platelets 114, Na 130, K 6, creat 1.7, glucose 162 with meld 3.0 -23.
Pt admits to some vomiting with pain -- dinner he had eaten and non bloody emesis. Currently he has soreness but lower abdominal/groin pain improved. He admits to taking lactulose 2-3 times per day at home with loose stools. He denies blood
or black in stools. He is due to see Palliative care today and for MRI at [facility] this afternoon.
-09/18/2022 EGD, Dr. Rivera: Grade 1-2 varices, small hiatal hernia, variable Z line, edematous-looking gastric folds, biopsies unremarkable, duodenal biopsies benign as well.Colonoscopy: 09/18/2022 colonoscopy, Dr. Rivera: Screening; Sigmoid and
rectosigmoid tubular adenoma removed, repeat in [address] Young at [facility] with transplant listing if MELD >15 but due for repeat stress testing that has been difficulty to obtain but rescheduled for early April.
Past Medical History
Past Medical History: HTN, Renal Failure (CKD) and Other (cirrhosis s/p TIPS and TIPS revision, portal HTN, EV, TA polyps, inguinal hernia with concern for incarceration, umbilical hernia, right sided hydrocele, portal HTN)
Past Surgical History: Other (TIPS with prior revision)
Social History
Tobacco: Smoker
Alcohol: Former (last drink 2021 with diagnosis of cirrhosis)
Drug: Other (prior cocaine, mushroom, LSD, marijuana years ago )
Living: Alone
Employment: Not Employed
Family History
Family History: Other ( father from Lung CA possible colon CA, dementia, mother alive with cognitive decline, sister with MS)
Allergies / Home Medications
Allergy/AdvReac Type Severity Reaction Status Date / Time
No Known Allergies Allergy Verified 03/26/24 23:28
�Medication �Instructions �Recorded
acetaminophen 500 mg tablet 1,000 mg PO [id number] PRN mild 08/08/22
pain/fever
magnesium 250 mg tablet 250 mg PO DAILY Electrolyte 02/12/24
Repletion
lactulose 20 gram/30 mL oral 20 g PO DAILY Gastrointestinal 03/18/24
solution Issue
tramadol 50 mg tablet 25 mg PO DAILYPRN PRN severe pain 03/20/24
Review of Systems
-
History Source: Patient
Constitutional: Reports Other (weight up and down with drainage )
EENT: Reports No Symptoms
Respiratory: Reports No Symptoms
Cardiac: Reports No Symptoms
Abdomen/GI: Reports Abdominal Pain (with groin pain- now improving but numbness ), Nausea and Vomiting
: Reports No Symptoms
Musculoskeletal: Reports No Symptoms
Skin: Reports No Symptoms
Neurological: Reports Weakness
Endocrine: Reports No Symptoms
Hematologic/Lymphatic: Reports No Symptoms
Vital Signs
Temp Pulse Resp BP Pulse Ox
97.9 F 92 16 130/89 98
03/27/24 04:06 03/27/24 04:06 03/27/24 04:06 03/27/24 04:06 03/27/24 04:22
Physical Exam
Exam
General: Well Developed, Well Nourished and No Apparent Distress
HEENT: Normocephalic and Anicteric
Respiratory: Clear
Cardiac: Regular Rhythm
GI: Soft, Distended (minimal ) and Other (groin with chronic swelling )
Genito-urinary: Other (+ scrotal swelling no firmness noted )
Musculoskeletal: No Clubbing and No Cyanosis
Skin: Warm and Dry
Neuro: Awake, Alert and AO x 3
Psych: Calm
Results
WBC 9.7 10^3/uL (4.8-10.8) 03/26/24 23:37
Hgb 9.9 g/dL (13.0-18.0) L 03/26/24 23:37
Hct 28.2 % (39.0-52.0) L 03/26/24 23:37
MCV 79.9 fL (80.0-94.0) L 03/26/24 23:37
Plt Count 114 10^3/uL (130-400) L 03/26/24 23:37
Absolute Neuts (auto) 7.0 10^3/uL (1.4-6.5) H 03/26/24 23:37
Sodium 130 mmol/L (135-145) L 03/26/24 23:37
Potassium 6.0 mmol/L (3.5-5.1) H 03/26/24 23:37
Chloride 103 mmol/L (98-107) 03/26/24 23:37
Carbon Dioxide 28 mmol/L (22-30) 03/26/24 23:37
BUN 38 mg/dl (9-20) H 03/26/24 23:37
Creatinine 1.7 mg/dL (0.7-1.3) H 03/26/24 23:37
Calcium 8.8 mg/dl (8.4-10.2) 03/26/24 23:37
Total Bilirubin 1.3 mg/dl (0.2-1.3) 03/26/24 23:37
AST 38 U/L (17-59) 03/26/24 23:37
ALT 25 U/L (0-50) 03/26/24 23:37
Alkaline Phosphatase 179 U/L (38-126) H 03/26/24 23:37
Lipase 267 U/L (23-300) 03/26/24 23:37
Diagnostic Image Results:
03/27/24 obs series Nonobstructive bowel gas pattern.
03/19/24 CT Abd/pelvis W Iv Cont
Few dilated loops of small bowel in the pelvis due to a bowel and fluid containing right inguinal hernia. The number of dilated loops and dilatation have both improved. Limited evaluation for obstruction without oral contrast. Limited evaluation
for bowel wall thickening without oral contrast.
Moderate abdominal and pelvic ascites. Stable
Cirrhosis. Stable
Fat and fluid containing umbilical hernia. Decreased fluid
Splenomegaly. Stable
Moderate fecal material throughout the colon. Mildly progressed.
03/18/24 CT Abd/pelvis W Iv Cont
CT findings compatible with small bowel obstruction due to a right inguinal hernia, with small bowel loops extending to the superior margin of a large right-sided hydrocele. Strangulation of the small bowel loops cannot be excluded by imaging.
Cirrhotic liver with TIPS catheter in place. Moderate to large amount of ascites is present.
Umbilical hernia which contains fluid but no evidence for small bowel loops on today's exam.
Small calcifications along the periphery of the gallbladder, which could be peripheral calcified gallstones versus scattered foci of gallbladder wall calcification, similar appearance to previous examination. No evidence of biliary ductal dilation.
Multiple Schmorl's nodes with mild loss of height of vertebral bodies, stable from examination of February 12, 2024. Grade 1 degenerative spondylolisthesis at L4-5, also stable.
7924- Abd X ray Nasogastric tube is present with tip over the left upper quadrant, within the stomach.
paracentesis 3 times per week---03/17- 3650, 03/14 2750, 03/12 1550, 03/19 2500, 03/24- 5500, 03/26- 4000- neg SBP
03/20 hemiscrotal drainage 1950ml
--US abd with abd doppler - Elevated velocities within the TIPS catheter. Normal spectral Doppler waveforms of the hepatic veins, likely due to cirrhosis.
High resistance waveform of the hepatic artery with elevated velocity. Cholelithiasis. Thickened gallbladder wall, nonspecific.No evidence for intrahepatic bile duct dilation. The common bile duct measures up to 7 mm, considered mildly dilated.
Cirrhotic liver. Moderate amount of ascites in the right and left upper quadrants. Splenomegaly.
--11/2022 MRI abdomen-severe hepatitic cirrhosis with innumberable dysplastic nodules, no HCC, severe portal HTN, with recanalization paraumbilical vein, and caput medusa in anterior abdominal wall. small to moderate ascites, severe splenomegaly,
mild to moderatee upper abdomeninal lymphadenopathy, small HH
Prior GI Procedures:
EGD:
���--09/18/2022 EGD, Dr. Rivera: Grade 1-2 varices, small hiatal hernia, variable Z line, edematous-looking gastric folds, biopsies unremarkable, duodenal biopsies benign as well.
Colonoscopy:
��--09/18/2022 colonoscopy, Dr. Rivera: Screening; Sigmoid and rectosigmoid tubular adenoma removed, repeat in 7 years
Assessment / Plan
-
Pt is a 53yo presents with hx ETOH decompensated cirrhosis s/p TIPS and TIPS revision current work up with Dr. Young to be listed for transplant, portal HTN, EV, CKD, anemia, thrombocytopenia, intractable ascites with paracentesis now 3 times
per week, umbilical hernia, TA polyps, HTN, CKD, right hydrocele, right inguinal hernia presents with lower abdominal pain and inguinal pain with nausea without vomiting. Pt was admitted 03/17-03/19/24 then returned 03/19- with similar symptoms
and concern for small bowel obstruction with inguinal hernia requiring manual reduction of hernia by surgical team. During second admission he completed paracentesis for 2500ml and also scrotal drainage for 1950ml neg SBP. Pt was seen by surgical
team at but due to liver disease surgical intervention was deferred and pt was recommended follow up with Dr. Flood at [facility] who he has seen in past. He now presents as went to para yesterday and began again with recurrent lower abdominal pain
in inguinal arena with vomiting. On admission inguinal hernia was soft and reducible. On admission hbg 9.9 platelets 114, Na 130, K 6, creat 1.7, glucose 162 with meld 3.0 -23.
-concern for incarcerated right inguinal hernia with concern for recent strangulation now improved
-hyperkalemia
-chronic scrotal swelling s/p IR drainage 03/20 for 1950
-right inguinal hernia
-umbilical hernia
-decompensated ETOH cirrhosis MELD 3.0 23 on admission
- chronic kidney disease
- hx hepatic encephalopathy chronic lactulose
-intractable ascites with frequent paracentesis
-right hydrocele
-L5 comp fx
PLAN:
3rd admission for continued concern for incarceration of inguinal hernia that again now improved and reducible
K 6 on admission repeat pending
for palliative care consult this am-- pt to review if able to do later vs telehealth agree with consultation
he is also due for MRI at [facility] later today
2 gram K cholesterol lowering diet
from GI standpoint will increased lactulose to TID as was taking increased dose at home to keep BM loose
OP follow up with Dr. Young for continued work up for liver transplant
Pt follow with Dr. Rivera also outpatient
reviewed with Dr. Yeung -- pt to stay today as still with K 6.3 cont care per medical team
per last eval current CLARKE vocal score for surgical risk-- 30 day mortality 6.4%, 90 day mortality 8.4%, 180 day mortality 10.9%, -- 90 day decompensation 23.1 %
MELD 3.0 22 based on 03/18 labs
up to date on variceal screening last 09/2022
HCC screen- CT on admission without focal lesion, AFP 2.73 02/[address] neg -- due OP MRI
minimize narcotics with liver disease
I spoke with Rosanna Coombs unit coordinator [phone] last admission with updates
-
-
Thank you for consultation and allowing me to participate in the patient's care. Please call the program manager environmental planning GI physician during the after hours with any questions or concerns.
[2024-03-27 08:11] LABS: % Basophils 0.4 % (0-2); % Eosinophils 0.6 % (0-6); % Immature Granulocytes 0.5 % (0-0.5); % Lymphocytes 6.7 % (20.5-51.1); % Monocytes 10.2 % (1.7-9.3); % Neutrophils 81.6 % (42.2-75.2); Absolute Basophils 0.1 10^3/uL (0-0.2); Absolute Eosinophils 0.1 10^3/uL (0-0.7); Absolute Immature Granulocytes 0.1 10^3/uL (0-0.05); Absolute Lymphocytes 0.9 10^3/uL (1.2-3.4); Absolute Monocytes 1.4 10^3/uL (0.1-0.6); Absolute Neutrophils 10.9 10^3/uL (1.4-6.5); Hemoglobin 10.2 g/dL (13.0-18.0); Mean Corpuscular Hgb 28.2 pg (27.0-31.0); Mean Corpuscular Volume 82.9 fL (80.0-94.0); Mean Platelet Volume 10.2 fL (7.4-10.4); Nucleated Red Blood Cells % 0 % (-); Platelet Count 118 10^3/uL (130-400); Red Blood Cell Count 3.62 10^6/uL (4.70-6.10); Red Cell Dist. Width 14.5 % (11.5-14.5); White Blood Cell Count 13.4 10^3/uL (4.8-10.8)
[2024-03-27 08:53] LABS: ALT (SGPT) 26 U/L (0-50); AST (SGOT) 38 U/L (17-59); Albumin 2.7 g/dl (3.5-5.0); Alkaline Phosphatase 162 U/L (38-126); Blood Urea Nitrogen 40 mg/dl (9-20); Carbon Dioxide 24 mmol/L (22-30); Chloride 106 mmol/L (98-107); Estimated Creatinine Clearance 59 ml/min; Glucose 130 mg/dl (70-99); Magnesium 2.1 mg/dl (1.6-2.3); Potassium 6.3 mmol/L (3.5-5.1); Sodium 133 mmol/L (135-145); Total Bilirubin 2.1 mg/dl (0.2-1.3); Total Protein 5.6 g/dl (6.3-8.2)
[2024-03-27] MEDS: MAGNESIUM OXIDE 250 MG PO (09:31)
[2024-03-27] MEDS: DILAUDID IV (09:31)
--- NOTE | 2024-03-27 13:23 | CM ---
Patient seen bedside, patient reports nothing has changed since last admission. Patient very drowsy while talking to CM. Patient resides in first floor condo, has a walker and cane at home. Patient utilizes [facility] for [facility]CP, pharmacy used
[facility]. Patient reports he did apply for SSI, reports concern of what he will do after he uses his savings. CM will provide resources for patient off of [facility]. OBS form reviewed, patient reports he has to leave the hospital if he is
OBS status. OBS form placed in chart. TT sent to Hospitalist to make aware. CM will continue to follow for all discharge planning needs.
Plan; home no needs.
--- NOTE | 2024-03-27 13:29 | W.PN.HOSP.TC ---
Today's Communication/Plan
-
Repeat BMP at 2 PM and then again in the morning
Monitor on telemetry
Provide Lokelma
If greater than 6.5 check EKG temporizing measures
Assessment / Plan
Assessment / Plan
Abdominal pain resolved after hernia reduced in the ER . unfortunately unable to undergo surgical repair and would only attempt this if emergent.
Cirrhosis s/p TIPS, undergoing transplant eval at [place]. Make lactulose 3 times daily. Currently not on Lasix due to TIPS and undergoing transplant eval
For MRI at [place] however unable to make it due to him being hospitalized
Refractory ascites requiring every other day paracentesis. For tomorrow
Hyperkalemia avoid K sparing agent. Provide Lokelma 3 times daily first dose now as ordered. Repeat BMP at 4 PM. Low K diet.
-If K greater than 6.5 check EKG temporized with insulin dextrose
Anticipated Discharge: 24 - 48 hours
Subjective/Interval History
-
Date of Service: March 27, 2024
Seen and examined. No new complaints. No acute overnight events.
No further abdominal pain
Objective Data
-
Labs:
Laboratory Results
03/27/24 03/27/24
07: 16:00
WBC 13.4 H
Hgb 10.2 L
Hct 30.0 L
Plt Count 118 L
Sodium 133 L Pending
Potassium 6.3 H* Pending
Chloride 106 Pending
Carbon Dioxide 24 Pending
BUN 40 H Pending
Creatinine 1.6 H Pending
Glucose 130 H Pending
Calcium 9.0 Pending
Total Bilirubin 2.1 H D
AST 38
ALT 26
Alkaline Phosphatase 162 H
Vital Signs:
Vital Signs
Temp Pulse Resp BP Pulse Ox
97.5 F 75 19 129/74 100
03/27/24 10:25 03/27/24 10:25 03/27/24 10:25 03/27/24 10:25 03/27/24 10:25
I&O
03/26/24 03/27/24 03/28/24
06:59 06:59 06:59
Intake Total 480 / 480
Balance 480 / 480
[2024-03-27] MEDS: DUPHALAC/CHRONULAC 20 GRAMS PO ×2 (16:03→21:59)
[2024-03-27 22:54] LABS: Blood Urea Nitrogen 40 mg/dl (9-20); Carbon Dioxide 24 mmol/L (22-30); Chloride 105 mmol/L (98-107); Estimated Creatinine Clearance 59 ml/min; Glucose 167 mg/dl (70-99); Potassium 4.7 mmol/L (3.5-5.1); Sodium 133 mmol/L (135-145)
[2024-03-27] MEDS: TUMS 2 TABLET PO (23:38)
[2024-03-28 03:19] VITALS: BP 118/58
[2024-03-28] MEDS: DILAUDID 0.5 MG IV ×3 (05:31→22:28)
[2024-03-28] MEDS: LOKELMA 10 GRAM PO (05:31)
[2024-03-28 07:50] VITALS: BP 123/70; BP_SYST 65
--- NOTE | 2024-03-28 09:02 | W.PN.HOSP.TC ---
Today's Communication/Plan
-
await bmp to reassess K, remains <5
stop lokelma TID as last night BMP K was <5
likely will need daily lokelma
should not dc with aldactone, discussed with GI ([facility]), may need to tap more frequently, they agree no aldactone due to hyperK of 6.0.
outpatient PCP, hep and nephrology follow up
if < 5 today then can be discharged home with repeat bmp in 3days, daily low dose lokelma and avoid K sparing agents
continue EOD para's, ir consulted for this today
DC home
Assessment / Plan
Assessment / Plan
Abdominal pain resolved after hernia reduced in the ER . unfortunately unable to undergo surgical repair and would only attempt this if emergent.
Cirrhosis s/p TIPS, undergoing transplant eval at [place]. Make lactulose 3 times daily. Currently not on Lasix due to TIPS and undergoing transplant eval
For MRI at [facility] however unable to make it due to him being hospitalized
Refractory ascites requiring every other day paracentesis. For tomorrow
Hyperkalemia avoid K sparing agent. Provide Lokelma 3 times daily first dose now as ordered. Repeat BMP at 4 PM. Low K diet.
-If K greater than 6.5 check EKG temporized with insulin dextrose
Anticipated Discharge: Today
Subjective/Interval History
-
Date of Service: March 28, 2024
Objective Data
-
Labs:
Laboratory Results
03/27/24 03/27/24 03/28/24
16:00 22:09 06:00
Sodium Cancelled 133 L Pending
Potassium Cancelled 4.7 D Pending
Chloride Cancelled 105 Pending
Carbon Dioxide Cancelled 24 Pending
BUN Cancelled 40 H Pending
Creatinine Cancelled 1.6 H Pending
Glucose Cancelled 167 H Pending
Calcium Cancelled 8.0 L Pending
Vital Signs:
Vital Signs
Temp Pulse Resp BP Pulse Ox
98.1 F 65 14 123/70 100
03/28/24 07:50 03/28/24 07:50 03/28/24 07:50 03/28/24 07:50 03/28/24 07:50
I&O
03/27/24 03/28/24 03/29/24
06:59 06:59 06:59
Intake Total 960 / 960
Output Total 480 / 480
Balance 480 / 480
[2024-03-28 09:49] LABS: Body Fluid WBC 265 /CUMM
[2024-03-28 09:50] LABS: Body Fluid Mononuclear 90.2 %; Body Fluid Polymorphonuclear 9.8 %
[2024-03-28 09:56] LABS: Body Fluid Second Tech CF
[2024-03-28] MEDS: DUPHALAC/CHRONULAC 20 GRAMS PO ×3 (11:03→22:28)
[2024-03-28] MEDS: MAGNESIUM OXIDE 250 MG PO (11:04)
[2024-03-28 11:08] VITALS: BP 108/61
[2024-03-28] MEDS: LOKELMA 5 GRAM PO (11:09)
[2024-03-28 11:10] LABS: Blood Urea Nitrogen 38 mg/dl (9-20); Carbon Dioxide 25 mmol/L (22-30); Chloride 104 mmol/L (98-107); Estimated Creatinine Clearance 59 ml/min; Glucose 92 mg/dl (70-99); Potassium 4.9 mmol/L (3.5-5.1); Sodium 130 mmol/L (135-145)
--- NOTE | 2024-03-28 14:17 | W.DCSUMMARY ---
Discharge Summary
Discharge Data
Date of Admission: 03/27/24
Date of Discharge: 03/28/24
-
Pending Results: No
Additional Pending Results:
53M with cirrhosis s/p tips requiring recurrent para followed at undergoing liver transplant at [place] presented with lower abdominal pain with known history of incarcerated right inguinal hernia which has been reduced by his surgeon in the ER also
had a fluid taken out of the scrotum. Found to have a potassium of 6.. that peaked at 6.3 and improved to 4.7 after recieving lokelma. Noted to be on aldactone, this was discussed with GI. Plan to hold Aldactone indefinably. Will need repeat labs,
will continue on low dose lokelma daily for potassium control.Outpt hepatology and IR follow up
Not a candidate for surgical repair of the hernia unless if emergent.
Discharge Plan
-
Patient Disposition: Home (Routine Discharge)
Discharge Diagnosis/Procedures: hyperk
Diet: Other diet
Additional Diets: low k diet
Activity: As tolerated
Driving Restrictions: As prior to admission
Blood Work: bmp in 3days. follow up for Anastasia Craven NP from GI
Activity Restrictions/Additional Instructions:
53M with cirrhosis s/p tips requiring recurrent para followed at undergoing liver transplant at [place] presented with lower abdominal pain with known history of incarcerated right inguinal hernia which has been reduced by his surgeon in the ER also
had a fluid taken out of the scrotum. Found to have a potassium of 6.. that peaked at 6.3 and improved to 4.7 after recieving lokelma. Noted to be on aldactone, this was discussed with GI. Plan to hold Aldactone indefinably. Will need repeat labs,
will continue on low dose lokelma daily for potassium control.Outpt hepatology and IR follow up
Instructions: Cirrhosis, Hyperkalemia
Referrals:
Alfonzo Conn DO [Family Provider] -
Prescriptions:
New
lactulose 20 gram/30 mL Solution
20 g PO TID 30 Days Qty: 2700 0RF
Lokelma 5 gram Powder In Packet
5 g PO DAILY 5 Days Qty: 11 0RF
Continued
acetaminophen 500 mg Tablet
1,000 mg PO [id number] PRN (Reason: mild pain/fever)
magnesium 250 mg Tablet
250 mg PO DAILY
tramadol 50 mg Tablet
25 mg PO DAILYPRN PRN (Reason: severe pain) 3 Days Qty: 3 0RF
Patient Comments:
03/20/24: filled 03/19/14 for 14 tablets at [facility].
Discontinued
lactulose 20 gram/30 mL solution
20 g PO DAILY
Discharge Orders:
Discharge Patient (As Directed); Ordered 03/28/24
Ordered By: Timo Yeung
Discharge Date and Time
Print Language: SENEGALESE
--- NOTE | 2024-03-28 15:02 | PTCARENOTE ---
Rn flow online banking specialist- Patient cleared for dc. Instructions provided. Patient requesting for Dr. Yeung to send in script for tramadol. Patient states that he only has one pill left. Call placed to Dee the pharmacist who confirmed that patient is
accurate. Cam texted Dr. Yeung to electonically send script.
[2024-03-28] MEDS: TUMS 2 TABLET PO ×2 (15:51→22:39)
--- NOTE | 2024-03-28 15:52 | PTCARENOTE ---
Rn flow program facilitator-As per Dr. Yeung via tiger text he called in script for Tramadol, unable to electonically transmit related to [employer] issue. This nurse ented room to take patient to the discharge lounge and patient was found on bed moaning,
stating that he has nausea. Offered patient Tums, and explained cannot give zofran as patient's iv was removed.
--- NOTE | 2024-03-28 15:54 | CM ---
Patient seen bedside, for discharge today. CM provided with resources from [email or web address]. CM will continue to follow for all discharge planning needs.
Plan; home no needs.
[2024-03-28] MEDS: ULTRAM 25 MG PO (16:25)
[2024-03-28] MEDS: ZOFRAN 4 MG PO (16:26)
--- NOTE | 2024-03-28 16:27 | PTCARENOTE ---
Patient moanining in pain. Patient medicated with tramadol 25 mg po, and zofran 4 mg po for pain and nausea.
[2024-03-28] MEDS: OMNIPAQUE 50 ML PO (18:55)
[2024-03-28 19:20] VITALS: BP 152/71
[2024-03-28 23:08] VITALS: BP 145/77
[2024-03-29] MEDS: ULTRAM 25 MG PO (00:42)
[2024-03-29] MEDS: DILAUDID 0.5 MG IV ×2 (03:01→08:15)
[2024-03-29 03:10] VITALS: BP 110/45
[2024-03-29 07:37] VITALS: BP 87/55
[2024-03-29] MEDS: MAGNESIUM OXIDE 250 MG PO (08:14)
[2024-03-29] MEDS: DUPHALAC/CHRONULAC PO (08:17)
--- NOTE | 2024-03-29 13:02 | W.PN.HOSP.TC ---
Today's Communication/Plan
-
d\\.
Assessment / Plan
Assessment / Plan
Abdominal pain resolved after hernia reduced in the ER . unfortunately unable to undergo surgical repair and would only attempt this if emergent.
Cirrhosis s/p TIPS, undergoing transplant eval at [place]. Make lactulose 3 times daily. Currently not on Lasix due to TIPS and undergoing transplant eval
For MRI at [place] however unable to make it due to him being hospitalized
Refractory ascites requiring every other day paracentesis. For tomorrow
Hyperkalemia avoid K sparing agent. Provide Lokelma 3 times daily first dose now as ordered. Repeat BMP at 4 PM. Low K diet.
-If K greater than 6.5 check EKG temporized with insulin dextrose
Anticipated Discharge: Today
Subjective/Interval History
-
Date of Service: March 29, 2024
seen and examined
no new comaplitns
pain resolved
asked if pain meds were at [facility]
updated ct report
was not discharged last night due to recurerrnt onset of acute abd pain and nausea. needed iv analgesics and zofran. CT obtained without acute findings.
Objective Data
-
Vital Signs:
Vital Signs
Temp Pulse Resp BP Pulse Ox
98.7 F 78 72 87/55 100
03/29/24 07:37 03/29/24 07:37 03/29/24 07:37 03/29/24 07:37 03/29/24 07:37
I&O
03/28/24 03/29/24 03/30/24
06:59 06:59 06:59
Intake Total 960 / 960 180 / 180
Output Total 480 / 480 1425 / 1425
Balance 480 / 480 -1245 / -1245
--- NOTE | 2024-03-29 13:03 | W.DCSUMMARY ---
Discharge Summary
Discharge Data
Date of Admission: 03/27/24
Date of Discharge: 03/29/24
-
Pending Results: No
Hospital Course
53M with cirrhosis s/p tips requiring recurrent para followed at undergoing liver transplant at [facility] presented with lower abdominal pain with known history of incarcerated right inguinal hernia which has been reduced by his surgeon in the ER also
had a fluid taken out of the scrotum. Found to have a potassium of 6.. that peaked at 6.3 and improved to 4.7 after recieving lokelma. Noted to be on aldactone, this was discussed with GI. Plan to hold Aldactone indefinably. Will need repeat labs,
will continue on low dose lokelma daily for potassium control.Outpt hepatology and IR follow up
CTAP with con (03/28)
IMPRESSION:
Cirrhosis with splenomegaly and moderate large volume ascites despite the presence of patent TIPS catheter
Stable umbilical and right internal hernias which do not contain bowel
Stable grade 1 spondylolisthesis of L4 on L5
Stable old less than 25% compression fractures of the superior endplates of of L2, L4 and L5
Discharge Plan
-
Patient Disposition: Home (Routine Discharge)
Discharge Diagnosis/Procedures: hyperk
Condition: Good
Diet: Other diet
Additional Diets: low k diet
Activity: As tolerated
Driving Restrictions: As prior to admission
Blood Work: bmp in 3days. follow up for Anastasia Craven NP from GI
Activity Restrictions/Additional Instructions:
53M with cirrhosis s/p tips requiring recurrent para followed at undergoing liver transplant at [facility] presented with lower abdominal pain with known history of incarcerated right inguinal hernia which has been reduced by his surgeon in the ER also
had a fluid taken out of the scrotum. Found to have a potassium of 6.. that peaked at 6.3 and improved to 4.7 after recieving lokelma. Noted to be on aldactone, this was discussed with GI. Plan to hold Aldactone indefinably. Will need repeat labs,
will continue on low dose lokelma daily for potassium control.Outpt hepatology and IR follow up
CTAP with con (03/28)
IMPRESSION:
Cirrhosis with splenomegaly and moderate large volume ascites despite the presence of patent TIPS catheter
Stable umbilical and right internal hernias which do not contain bowel
Stable grade 1 spondylolisthesis of L4 on L5
Stable old less than 25% compression fractures of the superior endplates of of L2, L4 and L5
Instructions: Cirrhosis, Hyperkalemia
Referrals:
Alfonzo Conn DO [Family Provider] -
Prescriptions:
New
lactulose 20 gram/30 mL Solution
20 g PO TID 30 Days Qty: 2700 0RF
Lokelma 5 gram Powder In Packet
5 g PO DAILY 5 Days Qty: 11 0RF
tramadol 50 mg tablet
25 mg PO DAILY Qty: 18 0RF
Continued
acetaminophen 500 mg Tablet
1,000 mg PO [id number] PRN (Reason: mild pain/fever)
magnesium 250 mg Tablet
250 mg PO DAILY
Discontinued
lactulose 20 gram/30 mL solution
20 g PO DAILY
tramadol 50 mg Tablet
25 mg PO DAILYPRN PRN (Reason: severe pain)
Patient Comments:
03/20/24: filled 03/19/14 for 14 tablets at [facility].
Discharge Orders:
Discharge Patient (As Directed); Ordered 03/29/24
Ordered By: Timo Yeung
Discharge Date and Time
Discharge Date/Time: 03/29/24 09:00
Print Language: NAMIBIAN
== END 2024-03-29 09:00 | disposition home or self-care (01) | DRG 433 ==
LOC: 4 WEST ACU 14:57
PROVIDERS: Nurse Practitioner Family; Radiology Vascular & Interventional Radiology; ADMITTING PHYSICIAN Internal Medicine; ATTENDING PHYSICIAN Hospitalist; CONSULT PHYSICIAN Internal Medicine Gastroenterology; EMERGENCY PHYSICIAN Emergency Medicine; FAMILY PHYSICIAN Family Medicine
PROC: 0W9G3ZZ Drainage of Peritoneal Cavity, Percutaneous Approach (ICD-10-PCS; 2024-03-28)
DX: K70.31 Alcoholic cirrhosis of liver with ascites (principal); E87.1 Hypo-osmolality and hyponatremia; K76.6 Portal hypertension; D69.6 Thrombocytopenia, unspecified; D63.1 Anemia in chronic kidney disease; I12.9 Hypertensive chronic kidney disease with stage 1 through stage 4 chronic kidney disease, or unspecified chronic kidney disease; N18.30 Chronic kidney disease, stage 3 unspecified; F10.21 Alcohol dependence, in remission; Z76.82 Awaiting organ transplant status; K42.9 Umbilical hernia without obstruction or gangrene; Z51.5 Encounter for palliative care; E87.5 Hyperkalemia; K40.91 Unilateral inguinal hernia, without obstruction or gangrene, recurrent; N43.3 Hydrocele, unspecified; N50.89 Other specified disorders of the male genital organs; G89.29 Other chronic pain; I44.0 Atrioventricular block, first degree; F17.200 Nicotine dependence, unspecified, uncomplicated; R16.1 Splenomegaly, not elsewhere classified; Z79.899 Other long term (current) drug therapy
CPT/HCPCS: 49083; 74022; 74177; 80048; 80053; 82077; 82962; 83690; 83735; 85025; 87015; 87070; 87205; 89051; 93005; 96374; 99285; Q9967

== ENCOUNTER → 2024-03-31 07:06 | Outpatient (REF) | payer OTHER, SELFPAY ==
[2024-03-31 07:25] VITALS: BP 132/71; BP_SYST 66
[2024-03-31 08:15] VITALS: BP 127/63; BP_SYST 62
[2024-03-31 08:27] VITALS: BP 127/63
[2024-03-31 10:47] LABS: Body Fluid Mononuclear 86.8 %; Body Fluid Polymorphonuclear 13.2 %; Body Fluid WBC 212 /CUMM
[2024-03-31 10:51] LABS: Body Fluid Second Tech EM
== END ==
LOC: RADI 07:06
PROVIDERS: ATTENDING PHYSICIAN Internal Medicine Gastroenterology
DX: R18.8 Other ascites (principal)
CPT/HCPCS: 49083; 89051

== ENCOUNTER → 2024-04-02 07:22 | Outpatient (REF) | payer OTHER, SELFPAY ==
[2024-04-02 07:55] VITALS: BP 141/67; BP_SYST 66
[2024-04-02 08:55] VITALS: BP 141/63
[2024-04-02 11:31] LABS: Body Fluid WBC 222 /CUMM
[2024-04-02 11:32] LABS: Body Fluid Mononuclear 90.1 %; Body Fluid Polymorphonuclear 9.9 %
[2024-04-02 11:37] LABS: Body Fluid Second Tech RP
== END ==
LOC: RADI 07:22
PROVIDERS: ATTENDING PHYSICIAN Internal Medicine Gastroenterology
DX: R18.8 Other ascites (principal)
CPT/HCPCS: 49083; 89051

== ENCOUNTER 2024-04-02 22:57 | Inpatient (IN) | payer OTHER, SELFPAY ==
[2024-04-02 16:58] VITALS: BP 149/62; BMI 25.5
--- NOTE | 2024-04-02 17:00 | EDRN ---
offered aman, pt refused.
[2024-04-02 17:30] LABS: % Basophils 0.4 % (0-2); % Immature Granulocytes 0.4 % (0-0.5); % Lymphocytes 3.9 % (20.5-51.1); % Monocytes 5.5 % (1.7-9.3); % Neutrophils 89.8 % (42.2-75.2); Absolute Basophils 0.1 10^3/uL (0-0.2); Absolute Immature Granulocytes 0.1 10^3/uL (0-0.05); Absolute Lymphocytes 0.7 10^3/uL (1.2-3.4); Absolute Monocytes 0.9 10^3/uL (0.1-0.6); Absolute Neutrophils 15.2 10^3/uL (1.4-6.5); Hematocrit 33.4 % (39.0-52.0); Hemoglobin 11.5 g/dL (13.0-18.0); Mean Corp Hgb Conc. 34.4 g/dL (33.0-37.0); Mean Corpuscular Hgb 27.2 pg (27.0-31.0); Mean Platelet Volume 10.2 fL (7.4-10.4); Nucleated Red Blood Cells % 0 % (-); Platelet Count 176 10^3/uL (130-400); Red Blood Cell Count 4.23 10^6/uL (4.70-6.10); Red Cell Dist. Width 14.9 % (11.5-14.5); White Blood Cell Count 16.9 10^3/uL (4.8-10.8)
[2024-04-02 17:44] LABS: AST (SGOT) 49 U/L (17-59); Albumin 3.1 g/dl (3.5-5.0); Alkaline Phosphatase 166 U/L (38-126); Blood Urea Nitrogen 48 mg/dl (9-20); Calcium 8.6 mg/dl (8.4-10.2); Carbon Dioxide 23 mmol/L (22-30); Chloride 98 mmol/L (98-107); Estimated Creatinine Clearance 52 ml/min; Glucose 191 mg/dl (70-99); Lipase 368 U/L (23-300); Potassium 5.2 mmol/L (3.5-5.1); Sodium 129 mmol/L (135-145); Total Bilirubin 2.3 mg/dl (0.2-1.3); Total Protein 6.4 g/dl (6.3-8.2); eGFR 44.45
[2024-04-02 18:06] LABS: ALT (SGPT) 35 U/L (0-50)
--- NOTE | 2024-04-02 19:26 | ED.GENMED ---
History of Present Illness
General
Chief Complaint: Abdominal Pain
Source: patient and records
Exam Limitations: none
Time Seen by Provider: 04/02/24 18:58
History of Present Illness
History of Present Illness:
53-year-old male presents with severe right inguinal and groin pain. States this has occurred after each paracentesis this week. Today's was more severe. Has typically eased off some. Has been admitted numerous times for similar issues. Has a
known large right inguinal hernia. Has been reduced once which did help relieve the pain. However it did not get rid of the pain. Patient requesting pain medication. Some episodes of nausea and vomiting. Bowel movement yesterday.
Past History
Past History
ED Past Medical History: HTN and Other (pre-diabetic years ago but lost weight and says he no longer is)
ED Past Surgical History: None and Orthopedic
Patient has exhibited threatening behavior?: No
PSI?: No
Social History
Tobacco: Smoker
Alcohol: Former (Heavy alcohol use, quit March 2022)
Drug: None
Personal: Single
Living: with family
Employment: Not employed
Family History
Family History: Other
Review of Systems
Review of Systems
All Other Systems: Not applicable
Constitutional: Denies fever
Respiratory: Reports no symptoms
Cardiac: Reports no symptoms
Phy Exam
Physical Exam
Physical Exam:
GENERAL: Alert and oriented. Nontoxic but appears uncomfortable. Requesting pain management multiple times.
EYE: Orbits normal.
NECK: Supple, no significant adenopathy.
ENT: Pharynx without erythema
CARDIAC: Regular rate and rhythm without any obvious murmurs.
LUNGS: Clear breath sounds,normal
ABDOMEN: Soft, bowel sounds present. Mildly distended. No warmth or erythema. Tenderness left lower quadrant and right lower quadrant with severe tenderness in the scrotum and groin area. Significant swelling of the scrotum with diffuse
tenderness greater on the right.
NEUROLOGICAL: Alert and oriented , grossly non-focal
SKIN: Warm and dry, no rash or lesion, no discoloration, skin intact.
PSYCH: Normal and appropriate interaction.
Course
Orders/Labs/Results
Orders:
Orders
04/02/24 17:01
Electrocardiogram (*1) Urgent
Reason for Study: Abdominal Pain
04/02/24 17:02
EKG- Treatment ONCE
04/02/24 17:24
Complete Blood Count/With Diff Urgent
Comprehensive Metabolic Panel Urgent
Lipase Urgent
04/02/24 19:11
IV Insert/Care/Rem.- Treatment PRN
0.9% Sodium Chloride 250 ml [Nss] 250 ml IV BOLUS
HYDROmorphone [Dilaudid] 0.5 mg IV NOW STA
Ondansetron Injectable [Zofran] 4 mg IV NOW STA
04/02/24 19:22
CT Abd/pel (oral only)-[facility] Only Urgent
Comment:
Reason For Exam: Right inguinal pain
Iohexol [Omnipaque] See Protocol PO NOW STA
Abnormal Lab Results
04/02/24
17:24
WBC 16.9 H 10^3/uL
(4.8-10.8)
RBC 4.23 L 10^6/uL
(4.70-6.10)
Hgb 11.5 L g/dL
(13.0-18.0)
Hct 33.4 L %
(39.0-52.0)
MCV 79.0 L fL
(80.0-94.0)
RDW 14.9 H %
(11.5-14.5)
Abs Immat Gran (auto) 0.1 H 10^3/uL
(0-0.05)
Absolute Neuts (auto) 15.2 H 10^3/uL
(1.4-6.5)
Absolute Lymphs (auto) 0.7 L 10^3/uL
(1.2-3.4)
Absolute Monos (auto) 0.9 H 10^3/uL
(0.1-0.6)
Neutrophils % 89.8 H %
(42.2-75.2)
Lymphocytes % 3.9 L %
(20.5-51.1)
Sodium 129 L mmol/L
(135-145)
Potassium 5.2 H mmol/L
(3.5-5.1)
BUN 48 H mg/dl
(9-20)
Creatinine 1.8 H mg/dL
(0.7-1.3)
Glucose 191 H mg/dl
(70-99)
Total Bilirubin 2.3 H mg/dl
(0.2-1.3)
Alkaline Phosphatase 166 H U/L
(38-126)
Albumin 3.1 L g/dl
(3.5-5.0)
Lipase 368 H U/L
(23-300)
04/02/24 17:24
04/02/24 17:24
Vital Signs
Initial and Last Documented VS:
Initial Vital Signs
Temp Pulse Resp BP Pulse Ox
98.2 F 83 16 149/62 100
04/02/24 16:58 04/02/24 16:58 04/02/24 16:58 04/02/24 16:58 04/02/24 16:58
Last Documented Vital Signs
Temp Pulse Resp BP Pulse Ox
98.2 F 74 10 149/62 100
04/02/24 16:58 04/02/24 21:30 04/02/24 21:30 04/02/24 16:58 04/02/24 19:30
MDM/Problems Addressed
Differential Diagnosis Includes:
Patient with recurring episodes of severe right inguinal pain. Significant scrotal swelling. Whether this is mostly the hernia or from ascites fluid is unclear. Very difficult physical exam to determine this. It appears this has been an issue in
the past. Has a known inguinal hernia. After initial evaluation I immediately contacted surgery for their input. CT scan is pending. Discussed with radiology. Will hold on IV contrast and give oral contrast. Will need to be admitted with the
elevated white count and discomfort. Spontaneous bacterial peritonitis also has to be entertained although previous cultures have all been negative. Symptoms seem much more localized to the groin and more suspicious as this is the etiology of his
symptoms
*Radiology
Radiology exam reviewed: radiology read reviewed (Inguinal hernia. No ascites. No loop of bowel or bowel obstruction.)
*Pulse Oximetry
Patient hypoxic: no
*EKG
Interpreted by ED Provider?: Yes
Interpretation: abnormal
Comparison EKG: no changes
Heart Rate: 75
Rate: normal
Rhythm: sinus
[facility]: normal axis
Interval: first degree heart block
QRS Pattern: normal QRS
Ischemia: no ischemia
*Critical Care Note
Total Time (30-74mins, 75-104mins- exclusive of procedures): Not Applicable
Data Reviewed
Review of Other/Old Records Reveals: Labs, Records, Radiology Studies, Testing and Discharge Summary
Update Note
Update Note:
Patient resting comfortably. No incarcerated hernia by CT. However with ongoing pain elevated white count patient will be admitted. Surgery updated
ED Attending Note
-
Portions of this chart may have been created with voice recognition software.� Occasional wrong word or��sound alike� substitutions may have occurred due to the inherent limitations of voice recognition software.
Discharge Plan
Departure
Patient Disposition: Admit
Date of Disposition: 04/02/24
Time of Disposition: 22:22
Presentation/result/management discussed w/ accepting MD/DO: General surgery
Discharge Problem:
Recurring severe right groin pain/abdomi, History of recurrent ascites, History of cirrhosis, Known right inguinal hernia
Prescriptions:
No Action
acetaminophen 500 mg Tablet
1,000 mg PO [id number] PRN (Reason: mild pain/fever)
magnesium 250 mg Tablet
250 mg PO DAILY
lactulose 20 gram/30 mL Solution
20 g PO TID 30 Days Qty: 2700 0RF
Lokelma 5 gram Powder In Packet
5 g PO DAILY 5 Days Qty: 11 0RF
tramadol 50 mg tablet
50 mg PO BIDPRN PRN (Reason: moderate pain)
Patient Comments:
04/02/2024: last filled 03/31/24, 28 tabs for 14 days from [facility]
Interventions
Interventions:
*Risk Screen - Suicide Last Done: 04/02/24 16:58
*General Assessment Last Done: 04/02/24 19:08
*Neglect/Abuse Screening Last Done: 04/02/24 16:58
ED- Fall Risk Assessment Last Done: 04/02/24 19:08
*ED COVID-19 Vaccine History Last Done: 04/02/24 19:11
WF-Yffmqi-Addngwdjhs Assessment Last Done: 04/02/24 19:08
Discharge Date and Time
Print Language: PORTUGUESE
[2024-04-02] MEDS: DILAUDID 0.5 MG IV (19:30)
[2024-04-02] MEDS: NSS 250 IV (19:31)
[2024-04-02] MEDS: ZOFRAN 4 MG IV (19:31)
[2024-04-02] MEDS: OMNIPAQUE 50 ML PO (19:32)
--- NOTE | 2024-04-02 22:37 | HPS.HSE ---
Family Physician
-
Family Physician: INTERVIEWE UNKNOWN - PT NOT
Chief Complaint
-
lower abdominal and Rt inguinal pain
History of Present Illness
HPI
53M Frequent admission for lower abdominal pain, frequent AMAs HX known large Rt inguinal hernia , cirrhosis, Portal HTN, recurrent ascites , on schedule paracentesis thrice per week pw recurrent lower abdominal and right inguinal pain and
Ingunal swelling s/p paracentesis .
Pain is again in the right inguinal region.
Onset of pain stated s/p paracentesis this AM associated with immdialy filled up the Rt inguinal hernia
Associated with N/V.
It is acute on chronic lower abdominal pain with large inguinal hernia. Known HX umbilical and inguinal hernia.
last bowel movement today 04/02
last paracentesis: 04/02/24
Next paracentesis : Sunday04/02/24
ROS:
Denies chest pain or difficulty breathing. Denies additional acute medical
Medical History
Past Medical History
Past Medical History: Reports Other
Additional Past Medical History:
Past medical history reviewed:
Alcoholic liver cirrhosis
Right inguinal hernia
Chronic hyper kalemia
Chronic kidney disease stage II-III
Social history: Lives alone, still occasionally smoking he is not drinking alcohol or using drugs for 2 years.
Family history: Reviewed and noncontributory
Past Surgical History: Reports Other
Social History
Unable to obtain full social history at this time due to: Other
Family History
Family History: Other
Allergies / Home Medications
Allergies reflects when Allergies were last updated in [facility].
Home Medications with original date entered in [facility]
Allergy/Medication List:
Allergies
Allergy/AdvReac Type Severity Reaction Status Date / Time
No Known Allergies Allergy Verified 03/26/24 23:28
Home Medications
acetaminophen 500 mg tablet 1,000 mg PO [id number] PRN mild pain/fever 08/08/22
magnesium 250 mg tablet 250 mg PO DAILY Electrolyte Repletion 02/12/24
lactulose 20 gram/30 mL oral solution 20 g PO DAILY Gastrointestinal Issue 03/18/24
tramadol 50 mg tablet 25 mg PO DAILYPRN PRN severe pain 03/20/24
Review of Systems
-
Constitutional: Reports No Symptoms
EENT: Reports No Symptoms
Respiratory: Reports No Symptoms
Cardiac: Reports No Symptoms
Abdomen/GI: Reports See HPI
: Reports No Symptoms
Musculoskeletal: Reports No Symptoms
Skin: Reports No Symptoms
Neurological: Reports No Symptoms
Endocrine: Reports No Symptoms
Hematologic/Lymphatic: Reports No Symptoms
Psych: Reports No Symptoms
Physical Exam
Vital Signs
Vital Signs
Temp Pulse Resp BP Pulse Ox
98.2 F 74 10 149/62 100
04/02/24 16:58 04/02/24 21:30 04/02/24 21:30 04/02/24 16:58 04/02/24 19:30
Physical Exam
General: No Apparent Distress, Comfortable, Conversant and Other (mildly lehargic s/p narcotic pain meds at ER )
HEENT: Moist mucous membranes
Respiratory: Clear; No Wheezes
Cardiac: S1/S2 and Regular Rhythm
GI: Soft, Tender (Tenderness left lower quadrant and right lower quadrant with severe tenderness in the scrotum and groin area. Significant swelling of the scrotum with diffuse tenderness greater on the right.) and Other (large inguinal hernia )
Genito-urinary: Deferred by me
Musculoskeletal: No Edema
Skin: Warm and Dry
Neuro: AO x 3 and No Motor Deficits
Psych: Calm
Laboratory Results
-
04/02/24 17:24
04/02/24 17:24
Laboratory Results
Total Bilirubin 2.3 mg/dl (0.2-1.3) H 04/02/24 17:24
AST 49 U/L (17-59) 04/02/24 17:24
ALT 35 U/L (0-50) 04/02/24 17:24
Alkaline Phosphatase 166 U/L (38-126) H 04/02/24 17:24
Lipase 368 U/L (23-300) H 04/02/24 17:24
Data Reviewed
-
CT Scan: Report Reviewed by me
Lab Data: Labs Reviewed by me
Old Records: Reviewed
Impression/Plan
-
Vital Signs
Temp Pulse Resp BP Pulse Ox
98.2 F 74 10 149/62 100
04/02/24 16:58 04/02/24 21:30 04/02/24 21:30 04/02/24 16:58 04/02/24 19:30
Data
WCC 16.9
Hgb 11.5
Plt 176
Na 129 - baseline is hi 120s to to low 130s
K 5.2
BUN 48
Cr 1.8 - was 1.6s with HX CKD3b
BG 190
Unremarkable LFTs
TB 2.3
04/02/24 CT Abd/pel (oral only)-[facility] Only
- Large right inguinal hernia containing ascites.
- No CT evidence for a bowel containing hernia or small bowel obstruction.
- Mild abdominopelvic ascites. Additional chronic findings are similar from multiple previous examinations.
03/19/24 CT Abd/pelvis W Iv Cont
- Few dilated loops of small bowel in the pelvis due to a bowel and fluid containing right inguinal hernia.
- The number of dilated loops and dilatation have both improved.
- Limited evaluation for obstruction without oral contrast.
- Limited evaluation for bowel wall thickening without oral contrast.
- Moderate abdominal and pelvic ascites. Stable
- Cirrhosis. Stable
- Fat and fluid containing umbilical hernia. Decreased fluid
- Splenomegaly. Stable
- Moderate fecal material throughout the colon. Mildly progressed.
03/18/24 CT A/P W/IV CONTRAST
- Small bowel obstruction 2/2 right inguinal hernia containing loops of small bowel.
- Small bowel loops within the hernia appear to be incarcerated.
- There is moderate to large surrounding volume of fluid in the inguinal hernia sac.
- Previously, the hernia sac had a moderate to large amount of fluid.
- Moderate sized umbilical hernia, similar to prior containing fluid but no evidence of herniated bowel loops at this site.
- Cirrhosis and large ascites, similar to prior. No free air.
- Patent TIPS, similar to prior.
- No appendicitis or colitis.
- No evidence of hydroureteronephrosis or obstructing stone.
- Unremarkable appearance of the pelvic viscera.
- No AAA.
Last admission: from 03/27/24 - 03/29
ASSESSMENT & PLAN
Pending Rx reconciliation
Acute on chronic lower abdominal and Rt inguinal pain with ascites fluid filling.
- Unremarkable CT: known chr Rt IH with ascites No for bowel containing hernia or SBO obstruction.
- last bowel movement today 04/02: HX constipation
- on lactulose
- clear and ADAT
- PRN narcotic analgesia with hold index for AMS
- PRN anti emetics
- GS consulted by ER attd
HX decompensated alcoholic cirrhosis with synthetic dysfunction
HX TIPS procedure ([facility]) 1 year ago with revision 2 weeks prior
- follows with [facility] Dr. Young
- last paracentesis: on 04/02/24
- Next paracentesis : Sunday04/02/24
- IR consult due schedule abdominal paracentesis on Sunday
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
- check baseline NH3
HX CKD 3b stable
Mild Hyperkalemia
- stable
- Currently on clear diet . 2 gm K diet when advanced to solid diet
- Trend Cr and K in AM
Hypervolemic hyponatremia: chronic
- at baseline
- FR 1.2 L daily
- trend Na
Chronic pre existing conditions
Large right hydrocele: - outpatient Urology f/u
Mild L5 compression fracture age-indeterminate
Grade 1 anterolisthesis of L4 and L5
Chronic anemia
HX Chronic Thrombocytopenia secondary to cirrhosis: curently normal Plts
Former alcohol use disorder
DVT Px: SCD
Code: Full
IP MS
--- NOTE | 2024-04-02 23:01 | PHANOTE ---
Med Rec Note:
Tried to interview pt 3 different times, pt would not wake up and would continue snoring. Home med list compiled from Dr Sanchez and discharge on 03/28/24.
[2024-04-02 23:15] VITALS: BP 125/73
[2024-04-02 23:43] VITALS: BMI 24.8
[2024-04-03 00:16] VITALS: BMI 24.8
[2024-04-03] MEDS: DILAUDID 1 MG IV ×3 (00:16→18:02)
--- NOTE | 2024-04-03 01:13 | PTCARENOTE ---
Pt. arrived to unit from ED via stretcher. Pt. able to safely ambulate from stretcher to bed in 318-2 on . Pt. AAOx3, tearful about condition. Oriented to room. Call dueñas within reach. Plan of care ongoing.
[2024-04-03] MEDS: LOKELMA 5 GRAM PO ×2 (06:03→08:46)
[2024-04-03 06:28] LABS: Hemoglobin 9.7 g/dL (13.0-18.0); Mean Corp Hgb Conc. 34.6 g/dL (33.0-37.0); Mean Corpuscular Volume 80.7 fL (80.0-94.0); Mean Platelet Volume 9.6 fL (7.4-10.4); Platelet Count 104 10^3/uL (130-400); Red Blood Cell Count 3.47 10^6/uL (4.70-6.10); Red Cell Dist. Width 14.6 % (11.5-14.5); White Blood Cell Count 12.4 10^3/uL (4.8-10.8)
[2024-04-03 06:50] LABS: ALT (SGPT) 23 U/L (0-50); AST (SGOT) 39 U/L (17-59); Albumin 2.4 g/dl (3.5-5.0); Alkaline Phosphatase 106 U/L (38-126); Blood Urea Nitrogen 55 mg/dl (9-20); Calcium 8.1 mg/dl (8.4-10.2); Carbon Dioxide 25 mmol/L (22-30); Chloride 100 mmol/L (98-107); Estimated Creatinine Clearance 52 ml/min; Glucose 86 mg/dl (70-99); Potassium 5.3 mmol/L (3.5-5.1); Sodium 127 mmol/L (135-145); Total Bilirubin 2.1 mg/dl (0.2-1.3); eGFR 44.45
[2024-04-03 07:00] VITALS: BP 99/58
[2024-04-03 07:00] LABS: Total Protein 5.3 g/dl (6.3-8.2)
[2024-04-03] MEDS: DUPHALAC/CHRONULAC 20 GRAMS PO ×2 (07:41→16:03)
--- NOTE | 2024-04-03 08:33 | W.PN.HOSP.TC ---
Addendum entered and electronically signed by Rj Turk MD 04/03/24 16:43:
Total time spent on d/c = 62 min. This included today's physical exam, progress note, review of laboratory and diagnostic data, preparation of discharge documents and prescriptions, and discussions about the pt's hospital course and discharge plan
with the patient and other medical billing manager involved in the patient's care.
Addendum entered and electronically signed by Rj Turk MD 04/03/24 12:47:
I saw and evaluated the patient. I reviewed the resident�s note and agree with findings and plan as documented in the resident�s note.
Patient states he feels 'loopy' after receiving pain medications.� Complains of abdominal discomfort and scrotal discomfort.
NAD, awake and alert
RRR, normal S1/S2
CTAB anteriorly
+BS/soft/diffuse TTP/mild distention with ascites
CT A/P: Large right inguinal hernia containing ascites. No CT evidence for a bowel containing hernia or small bowel obstruction. Mild abdominopelvic ascites. Additional chronic findings are similar from multiple previous examinations.
Acute on chronic abdominal pain:
-underlying alcoholic cirrhosis, s/p TIPS at [facility] ~ 1 year ago
-CT A/P without acute findings
-GI c/s, discussed with GI
-s/p paracentesis 2700cc on 04/02/24 (no SBP), routinely on M//F
-check INR, calculate new MELD score
-check Abd U/S with doppler
-renal to start IV Lasix
-pt has been accepted in transfer at [facility]
CKD3b
-with acute on chronic hyponatremia and hyperkalemia
-note, pt not on diuretics as pt had suicidal ideation in the past with plan to OD on diuretics
-Lokelmia was denied by insurance
-start Lokelma
-renal to start IV Lasix
Dispo: Pt has been accepted in transfer at [facility].
Total time spent on today's encounter was 52 minutes which included time spent in counseling the patient/family regarding diagnosis and treatment plan as listed above, goals of care, and symptom management. Case was discussed with nursing staff,
specialists, and care coordinators/case management. All labs and imaging personally reviewed by me. Remainder the time spent in detailed review of previous records, lab data, imaging, and other medical provider documentation.
Original Note:
Today's Communication/Plan
-
Continue lactulose
Start antibiotics
Continue paracentesis
[facility]
Pain control
US of abd w/ dopplers
Keep scrotum elevated
Assessment / Plan
Assessment / Plan
Assessment: 53-year-old male with frequent admissions for lower abdominal pain. PMH of decompensated cirrhosis with ascites on scheduled paracentesis 3 times weekly, presenting to the hospital again with recurrent lower abdominal pain and right
inguinal pain/swelling s/p paracentesis.
Impression:
Right inguinal pain/swelling
Large right hydrocele/inguinal hernia
Decompensated alcoholic cirrhosis
Chronic ascites due to the above
Hyperkalemia
Chronic hyponatremia
HypERvolemic
Leukocytosis
Acute on chronic anemia
Chronic thrombocytopenia
Secondary to alcoholic cirrhosis
CKD stage IIIa
Grade 1 anterolisthesis of L4 and L5
Mild L5 compression fracture age-indeterminate
Plan:
Right inguinal pain/swelling
-Known right inguinal hernia with recurrent ascites
-CT ABD/pelvis 04/02/2024 with ascites containing inguinal hernia but no evidence of strangulation or small bowel obstruction.
-Paracentesis 04/02/2024 , No growth on cx, neg for SBP.
-Notes reaccumulation of fluid in the right scrotum.
-Keep scrotum elevated.
-Continue paracentesis as scheduled.
-Patient not a candidate for diuresis given his CKD stage IIIa.
-[facility] team appreciated.
-Surgical consult
History of decompensated alcoholic liver cirrhosis
-Recurrent ascites with portal hypertension s/p TIPS
-Followed by [facility] for transplant assessment.
-Continue TIW paracentesis, paracentesis 04/02/2024 with 2700 cc pink chylous ascitic fluid evacuated, cytology pending.
-MELD 3.0 score 27, 90-day mortality 14 to 15%.
-Continue home dose lactulose, patient at high risk of recurrent hepatic encephalopathy.
-GI consult.
-Updated [facility] team Rosanna Coombs and media relations coordinator [phone] and Miguel about pts admission and prognosis, pt accepted by [facility] for transfer. CM aware.
-US abd w/ Doppler to assess for portal vein thrombosis.
Leukocytosis
-Patient afebrile, most likely reactive
-Start empiric Zosyn for possible maintenance
-Blood cultures
Hyperkalemia
-Chronic
-Patient with CKD stage IIIa
-Lokelma
-Monitor potassium level with Lokelma dosing.
Chronic hyponatremia
Leukocytosis
Acute on chronic anemia
Thrombocytopenia
CKD stage IIIa
Chronic ascites
GI prophylaxis: PPI
CODE STATUS: Full code
Anticipated Discharge: > 48 hours
Subjective/Interval History
-
Date of Service: April 03, 2024
Patient seen in the room today, tearful and sad. Emotional supports offered. Denies suicidal ideation. Patient would like his [facility] team to be updated on his current situation and MELD score.
Objective Data
-
Labs:
Laboratory Results
04/03/24
06:10
WBC 12.4 H
Hgb 9.7 L
Hct 28.0 L
Plt Count 104 L D
Sodium 127 L
Potassium 5.3 H
Chloride 100
Carbon Dioxide 25
BUN 55 H
Creatinine 1.8 H
Glucose 86
Calcium 8.1 L
Total Bilirubin 2.1 H
AST 39
ALT 23
Alkaline Phosphatase 106
Vital Signs:
Vital Signs
Temp Pulse Resp BP Pulse Ox
98.1 F 71 18 99/58 100
04/03/24 07:00 04/03/24 07:00 04/03/24 07:00 04/03/24 07:00 04/03/24 07:00
Review of Systems
-
History Source: Patient
All other systems: Not reviewed unless documented
Constitutional: Reports No Symptoms; Denies Fever
Respiratory: Reports No Symptoms; Denies Cough, Trouble Breathing or Wheezing
Cardiac: Reports No Symptoms; Denies Chest Pain or Palpitations
Abdomen/GI: Reports No Symptoms, Nausea and Other (Lower abdominal discomfort); Denies Abdominal Pain or Vomiting
Genitourinary: Reports Other (Right scrotal swelling); Denies Frequency or Urgency
Neuro: Reports No Symptoms
Psych: Reports Sad
Physical Exam
-
General: No Apparent Distress; Negative Respiratory Distress
HEENT: Moist Mucous Membranes
Respiratory: Clear to Auscultation and Non Labored Respirations; Negative Wheezes, Crackles or Accessory Resp Muscle Use
Cardiac: Regular Rhythm and S1/S2
GI: Soft, Nondistended, Normal Bowel Sounds and Other (Right-sided hydrocele)
Rectal: Other
Skin: Warm
Neuro: Awake, Alert, AO x 3 and Sedated (Mildly sedated); Negative Tremors
Psych: Calm and Other (Sad and tearful)
Data Reviewed
-
CT Scan: Image personally visualized and interpreted, Report Reviewed by me and Discussed with Physician
Labs: Labs Reviewed by me and Discussed with Physician
Old Records: Reviewed
[2024-04-03 08:41] VITALS: BP 104/53
--- NOTE | 2024-04-03 10:25 | W.CON.NEPH ---
Consultation
-
Date/Time Consultation Requested: 04/03/2024 10:20AM
Date/Time Consultation Performed: 04/03/2024 11AM
Requesting Provider: Rj Turk
Performing Provider: Arabella Yates
Reason for Consultation: hyponatremia
Medical History
-
Chief Complaint: hyponatremia
History of Present Illness:
Mr. Martinez is a 53YOM with PMH of cirrhosis, portal HTN, recurrent ascites, hyperK, CKD III who presents to the hospital for lower abdominal pain and inguinal swelling. His ascites is managed by recurrent paracentesis. His chronic hyperkalemia is
managed with lokelma. He states that he started to have some inguinal pain after his para which caused him to present. Denies abdominal pain, just feeling of fullness. Last para was yesterday 04/02. Next is planned for Sunday. Currently, he does feel
some nausea. He has a large inguinal hernia.
Past Medical History
Alcoholic liver cirrhosis
Right inguinal hernia
Chronic hyper kalemia
Chronic kidney disease stage II-III
Past Medical History: Other
Past Surgical History: Other (right 2nd digit amputation, wisdom teeth removal)
Social History
Tobacco: Smoker
Alcohol: Former
Drug: None
Family History
Family History: Not Pertinent
Allergies / Home Medications
Allergy/AdvReac Type Severity Reaction Status Date / Time
No Known Allergies Allergy Verified 04/02/24 17:00
�Medication �Instructions �Recorded �Confirmed �Type
acetaminophen 500 mg tablet 1,000 mg PO [id number] PRN mild 08/08/22 04/03/24 History
pain/fever
magnesium 250 mg tablet 250 mg PO DAILY Electrolyte 02/12/24 04/03/24 History
Repletion
lactulose 20 gram/30 mL oral 20 g (30 mL) PO TID 30 days #2,700 03/28/24 04/03/24 Rx
solution mL
sodium zirconium cyclosilicate 5 5 g PO DAILY 5 days #11 ea 03/28/24 04/03/24 Rx
gram oral powder packet (Lokelma)
tramadol 50 mg tablet 50 mg PO BIDPRN PRN moderate pain 04/02/24 04/03/24 History
Review of Systems
-
History Source: Patient
All other systems: Negative unless noted
Abdomen/GI: Nausea and Pain
Physical Exam
Vital Signs
Vital Signs
Temp Pulse Resp BP Pulse Ox
98.1 F 70 18 104/53 100
04/03/24 07:00 04/03/24 08:41 04/03/24 07:00 04/03/24 08:41 04/03/24 07:30
Lab Results
WBC 12.4 10^3/uL (4.8-10.8) H 04/03/24 06:10
RBC 3.47 10^6/uL (4.70-6.10) L 04/03/24 06:10
Hgb 9.7 g/dL (13.0-18.0) L 04/03/24 06:10
Hct 28.0 % (39.0-52.0) L 04/03/24 06:10
Plt Count 104 10^3/uL (130-400) L D 04/03/24 06:10
Sodium 127 mmol/L (135-145) L 04/03/24 06:10
Potassium 5.3 mmol/L (3.5-5.1) H 04/03/24 06:10
Chloride 100 mmol/L (98-107) 04/03/24 06:10
Carbon Dioxide 25 mmol/L (22-30) 04/03/24 06:10
BUN 55 mg/dl (9-20) H 04/03/24 06:10
Creatinine 1.8 mg/dL (0.7-1.3) H 04/03/24 06:10
eGFR 44.45 04/03/24 06:10
Glucose 86 mg/dl (70-99) 07/25/24 06:10
Calcium 8.1 mg/dl (8.4-10.2) L 04/03/24 06:10
Albumin 2.4 g/dl (3.5-5.0) L 04/03/24 06:10
Physical Exam
General: AOx3, No Distress and Nontoxic
HEENT: PERRL, EOMI, Anicteric, Conjunctivae Clear, Ear/Nose Intact, Hearing Normal, Oropharynx Clear/Moist, Dentition Intact, Facial Symmetry, Neck Supple, Trachea Midline, No JVD and No Thyromegaly
Respiratory: Clear, Normal Excursion and Nonlabored Respirations
Cardiac: S1/S2, Regular Rate/Rhythm and Edema
Breast: N/A
Abdomen: Soft, Nontender and Other (slightly distendded, + fluid shift)
Rectal: Deferred by Provider
Genito-urinary: No Costovertebral Tender
Musculoskeletal: No Clubbing, No Cyanosis and Edema
Skin: No Rash, Warm, Dry, No Clubbing, No Cyanosis, Normal Turgor and No Bruising
Neuro: Nonfocal/Grossly Intact
Hematologic/Lymphatic: No Cervical Lymphadenopathy
Psych: Mood/afflect pleasant, Insight/judgement good and Appropriate
Data Reviewed
-
CT Scan: Report Reviewed by me (CT A/P: Large right inguinal hernia containing ascites. No CT evidence for a bowel containing hernia or small bowel obstruction. Mild abdominopelvic ascites. Additional chronic findings are similar from multiple
previous examinations.)
Labs: Labs Reviewed by me, Discussed with Physician and Discussed with Patient
Old Records: Reviewed
Assessment/Plan
-
Assessment:
Hyponatremia
CKD III
acute on chronic lower abdominal pain
Plan:
- likely hypervolemic hyponatremia (urine osm not obtained but urine Na <5 indicates this is most likely from cirrhosis)
- will likely improve with paracentesis
- can also give lasix 40mg IV today, patient was hesitant to take it but was convinced to try. can give after ultrasound is completed.
- patient very frustrated about care and the fact that he is not getting better
- patient accepted in transfer to [place] for txp eval
--- NOTE | 2024-04-03 10:53 | CON.GI ---
Addendum entered and electronically signed by Isabel De La Rosa MD 04/03/24 13:45:
I saw and examined the patient.
The PRODUCTION RECOVERY OPERATOR's note was reviewed and I agree with the note.
Impression:
-Abdominal pain/ nausea/ vomiting-> radiating pain from scrotum/groin to upper abdomen with nausea/vomiting after paracentesis 04/02
-Decompensated Cirrhosis secondary to alcohol. MELD 3.0�27 on admission. S/p TIPS in the past. Follow-up with [facility] liver transplant ( Hannah Wei )
-Recurrent ascites with 3 times/ week paracentesis ( last 04/02/24 2700 pink chylous fluid, negative for SBP ). Could not tolerate diuretics in the past/ CKD
-History of HE in the past on lactulose
- last EGD 09/2022 -grade 1-2 varices. Currently not on any beta-charity. No records from [facility] available to review
-- HCC screening - no focal lesion in the recent CT imaging. AFP normal 02/2024
-chronic scrotal swelling s/p IR drainage 03/20 for 1950cc
-right inguinal hernia -advised to follow-up with surgery at [facility] in the past
-hyperkalemia -started on Lokelma
plan
Medical team discussed with liver transplant team at [facility]. Accepted for transfer to [facility] for further management
Will get ultrasound abdomen with Doppler
Antiemetics as needed
Daily MELD labs
Continue lactulose
Will follow
Original Note:
Consultation
-
Date/Time Consultation Requested: 04/03/24 0930
Date/Time Consultation Performed: 04/03/24 1030
Requesting Provider: Dr. Turk
Performing Provider: Dr. De La Rosa/REINALDO Green
Reason for Consultation: abd pain
Medical History
Chief Complaint / HPI
Chief Complaint: abd pain
History of Present Illness:
53yo presents with hx ETOH decompensated cirrhosis s/p TIPS and TIPS revision current work up with Dr. Young to be listed for transplant, portal HTN, EV, CKD, anemia, thrombocytopenia, intractable ascites with paracentesis now 3 times per week
last one yesterday with 2700 cc of pink chylous ascites, umbilical hernia, TA polyps, HTN, CKD, right hydrocele, right inguinal hernia presents with scrotal swelling that he states was 'rock hard' with radiation of pain from his right groin up to
his umbilical region and lower abdominal pain associated with nausea and vomiting. He tried using Tramadol when the pain first came on without any relief. He states that the N/V stopped and the scrotal edema decreased. He still has pain in the mid
abdomen. There is also a 'different pain from his 'inguinal hernia'. Patient was recently discharged on 03/29/2024 for similar complaints. He did have hyperkalemia at that time and was started on Lokelma. The patient states that unfortunately his
insurance did not cover this and required a prior authorization. He also tried to obtain this from PCP and his insurance again denied it. He did not obtain this medication. In the past the patient has not tolerated diuretics such as Aldactone and
Bumex secondary to 'suicidal ideations and dizziness'. Pt was admitted 03/17-03/19/24 then returned 03/19- with similar symptoms and concern for small bowel obstruction with inguinal hernia requiring manual reduction of hernia by surgical team.
During second admission he completed paracentesis for 2500ml and also scrotal drainage for 1950ml neg SBP. Pt was seen by surgical team at but due to liver disease surgical intervention was deferred and pt was recommended follow up with "Janet"Aleena at [facility] who he has seen in past. Patient states his last bowel movement was yesterday and it was brown. He has chills on and off. He denies any fevers, melena, hematochezia, dysphagia or odynophagia. He denies any early satiety or
unintentional weight loss. He states he tries to follow 2 g sodium diet the best he can. He does not drink any alcohol at the present time.
-09/18/2022 EGD, Dr. Rivera: Grade 1-2 varices, small hiatal hernia, variable Z line, edematous-looking gastric folds, biopsies unremarkable, duodenal biopsies benign as well.Colonoscopy: 09/18/2022 colonoscopy, Dr. Rivera: Screening; Sigmoid and
rectosigmoid tubular adenoma removed, repeat in [address] Young at [facility] with transplant listing if MELD >15 but due for repeat stress testing that has been difficulty to obtain but rescheduled for early April.
Past Medical History
Past Medical History: HTN, Renal Failure (CKD) and Other (cirrhosis s/p TIPS and TIPS revision, portal HTN, EV, TA polyps, inguinal hernia with concern for incarceration, umbilical hernia, right sided hydrocele, portal HTN)
Past Surgical History: Other (TIPS with prior revision)
Social History
Tobacco: Smoker
Alcohol: Former (last drink 2021 with diagnosis of cirrhosis)
Drug: Other (prior cocaine, mushroom, LSD, marijuana years ago )
Living: Alone
Employment: Not Employed
Family History
Family History: Other ( father from Lung CA possible colon CA, dementia, mother alive with cognitive decline, sister with MS)
Allergies / Home Medications
Allergy/AdvReac Type Severity Reaction Status Date / Time
No Known Allergies Allergy Verified 04/02/24 17:00
�Medication �Instructions �Recorded
acetaminophen 500 mg tablet 1,000 mg PO [id number] PRN mild 08/08/22
pain/fever
magnesium 250 mg tablet 250 mg PO DAILY Electrolyte 02/12/24
Repletion
lactulose 20 gram/30 mL oral 20 g (30 mL) PO TID 30 days #2,700 03/28/24
solution mL
sodium zirconium cyclosilicate 5 5 g PO DAILY 5 days #11 ea 03/28/24
gram oral powder packet (Lokelma)
tramadol 50 mg tablet 50 mg PO BIDPRN PRN moderate pain 04/02/24
Review of Systems
-
All other systems: A 12 pt ROS was Negative except as stated above in HPI
Vital Signs
Temp Pulse Resp BP Pulse Ox
98.1 F 70 18 104/53 100
04/03/24 07:00 04/03/24 08:41 04/03/24 07:00 04/03/24 08:41 04/03/24 07:30
Physical Exam
Exam
General: No Apparent Distress
HEENT: Anicteric
Respiratory: Clear (Anterior)
Cardiac: Regular Rhythm
GI: Soft, Non Distended, Normal Bowel Sounds, Tender (Periumbilical, mid abdomen, ) and Other (Reducible umbilical hernia)
Genito-urinary: Other (Scrotal edema)
Musculoskeletal: No Edema
Skin: Warm and Dry
Neuro: AO x 3 and Other (No asterixis)
Psych: Calm
Results
WBC 12.4 10^3/uL (4.8-10.8) H 04/03/24 06:10
Hgb 9.7 g/dL (13.0-18.0) L 04/03/24 06:10
Hct 28.0 % (39.0-52.0) L 04/03/24 06:10
MCV 80.7 fL (80.0-94.0) 04/03/24 06:10
Plt Count 104 10^3/uL (130-400) L D 04/03/24 06:10
Absolute Neuts (auto) 15.2 10^3/uL (1.4-6.5) H 04/02/24 17:24
Sodium 127 mmol/L (135-145) L 04/03/24 06:10
Potassium 5.3 mmol/L (3.5-5.1) H 04/03/24 06:10
Chloride 100 mmol/L (98-107) 04/03/24 06:10
Carbon Dioxide 25 mmol/L (22-30) 04/03/24 06:10
BUN 55 mg/dl (9-20) H 04/03/24 06:10
Creatinine 1.8 mg/dL (0.7-1.3) H 04/03/24 06:10
Calcium 8.1 mg/dl (8.4-10.2) L 04/03/24 06:10
Total Bilirubin 2.1 mg/dl (0.2-1.3) H 04/03/24 06:10
AST 39 U/L (17-59) 04/03/24 06:10
ALT 23 U/L (0-50) 04/03/24 06:10
Alkaline Phosphatase 106 U/L (38-126) 04/03/24 06:10
Lipase 368 U/L (23-300) H 04/02/24 17:24
Diagnostic Image Results:
CT Abd/Pelvis with oral contrast 04/02/24:
IMPRESSION:
Large right inguinal hernia containing ascites. No CT evidence for a bowel containing hernia or small bowel obstruction. Mild abdominopelvic ascites. Additional chronic findings are similar from multiple previous examinations.
Electronically signed by Cyril Treviño, 04/02/2024 10:11
Prior GI Procedures:
EGD: --11/2022 MRI abdomen-severe hepatitic cirrhosis with innumberable dysplastic nodules, no HCC, severe portal HTN, with recanalization paraumbilical vein, and caput medusa in anterior abdominal wall. small to moderate ascites, severe
splenomegaly, mild to moderatee upper abdomeninal lymphadenopathy, small HH
EGD:
���--09/18/2022 EGD, Dr. Rivera: Grade 1-2 varices, small hiatal hernia, variable Z line, edematous-looking gastric folds, biopsies unremarkable, duodenal biopsies benign as well.
Colonoscopy:
��--09/18/2022 colonoscopy, Dr. Rivera: Screening; Sigmoid and rectosigmoid tubular adenoma removed, repeat in 7 years
Assessment / Plan
-
53yo presents with hx ETOH decompensated cirrhosis s/p TIPS and TIPS revision current work up with Dr. Young to be listed for transplant, portal HTN, EV, CKD, anemia, thrombocytopenia, intractable ascites with paracentesis now 3 times per week
last one yesterday with 2700 cc of pink chylous ascites, umbilical hernia, TA polyps, HTN, CKD, right hydrocele, right inguinal hernia presents with scrotal swelling that he states was 'rock hard' with radiation of pain from his right groin up to
his umbilical region and lower abdominal pain associated with nausea and vomiting. He tried using Tramadol when the pain first came on without any relief. He states that the N/V stopped and the scrotal edema decreased. He still has pain in the mid
abdomen. There is also a 'different pain from his 'inguinal hernia'. WBC 12.4 down from 60.9, hemoglobin 9.7 down from 11.5, hematocrit 28.0, platelets 104, PT 17.9, INR 1.47, sodium 127, potassium 5.3, chloride 100, CO2 25, BUN 55, creatinine 1.8,
glucose 86, total bilirubin 2.1, AST 39, ALT 23, alk phos 106, albumin 2.4, lipase [address] of the abdomen and pelvis with oral contrast shows large right inguinal hernia containing ascites. No CT evidence for bowel containing hernia or small bowel
obstruction. Mild abdominal pelvic ascites. Cirrhosis with TIPS catheter in stable position. Gallbladder distention with minimal cholelithiasis. Borderline splenomegaly. Mild abdominal pelvic ascites.
Impression:
-Abdominal pain-> mid abdomen
-ETOH decompensated Cirrhosis s/p TIPS and TIPS revision-> MELD 3.0 = 27 (04/03/24)
-chronic scrotal swelling s/p IR drainage 03/20 for 1950
-nausea/vomiting
-right inguinal hernia
-umbilical hernia
- chronic kidney disease
-hyponatremia
-hyperkalemia
- hx hepatic encephalopathy chronic lactulose
-intractable ascites with frequent paracentesis (04/02/24 2700 pink chylous fluid, WBC 222, Poly 9.9)
-right hydrocele
-L5 comp fx
PLAN:
-Obtain US abdomen with dopplers, r/o PVT, cholecystitis
-Renal consultation
-IM Residient to reach out to Rosanna Coombs borough coordinator
-Continues on Zosyn at this time
-CBC, BMP, LFTs, PT/INR daily
-Continue Lactulose
-Continue Pantoprazole
-Has paracentesis three times a week ordered by rob Medina tomorrow per their protocol. BP soft from his baseline and only 2400 cc removed yesterday. May want to hold off until after US.
-Daily weights.
-Diuretics stopped in the past secondary to dizziness and 'suicidal ideations'
-Surgical consultation pending for hernias
-Further recommendations to be forthcoming.
up to date on variceal screening last 09/2022
HCC screen- CT on admission without focal lesion, AFP 2.73 02/2024. Due OP MRI
minimize narcotics with liver disease
Rosanna Coombs borough coordinator [phone] last admission with updates
Data Reviewed
-
CT Scan: Report Reviewed by me
Old Records: Reviewed
-
-
Thank you for consultation and allowing me to participate in the patient's care. Please call the fashion artist GI physician during the after hours with any questions or concerns.
[2024-04-03 10:54] LABS: INR 1.47; PT 17.9 Sec (11.4-14.6)
[2024-04-03] MEDS: ZOSYN 50 IV (10:57)
[2024-04-03] MEDS: LASIX 40 MG IV (16:02)
--- NOTE | 2024-04-03 16:02 | W.DCSUMMARY ---
Addendum entered and electronically signed by Rj Turk MD 04/03/24 16:43:
Read, reviewed, and agree. See same day progress note for additional details.
Original Note:
Discharge Summary
Discharge Data
Date of Admission: 04/02/24
Date of Discharge: 04/03/24
-
Pending Results: Yes
Additional Pending Results:
Abdominal ultrasound with Doppler
Hospital Course
Discharging Physician : Rj Pierre MD; Kyaw Jovel MD,
Disposition : Acute Care Hospital
Primary care physician : Moises Bryant
Principal Discharge diagnosis : Acute decompensated alcoholic liver cirrhosis.
Chronic Discharge diagnosis : Acute on chronic abdominal pain, CKD Stage IIIa, Hyperkalemia, chronic hyponatremia,Chronic ascites due to the above, chronic anemia, Chronic thrombocytopenia, Grade 1 anterolisthesis of L4 and L5, Mild L5 compression
fracture age-indeterminate.
Hospital Course : 53-year-old male with multiple admissions due to history of EtOH decompensated liver cirrhosis s/p TIPS who presented again to the hospital on 04/02/2024 with complaints of abdominal pain radiating to the scrotum, scrotal swelling,
nausea and vomiting. Patient follows with Dr. Young at [facility] and is being worked up for liver transplant. Patient has a past medical history of portal hypertension, CKD stage IIIa, chronic anemia, chronic thrombocytopenia, intractable ascites
s/p 3 times weekly paracentesis. Last paracentesis performed yesterday with 2700 cc pink chylous ascites evacuated. Patient also has a past medical history of right inguinal hernia, right hydrocele, essential hypertension, chronic hyperkalemia on
Lokelma. On admission, patient's WBC count was 16.9, hemoglobin 11.5, platelets 176, sodium 129 potassium 5.2, T. bili 2.3, and creatinine 1.8. Patient was treated with 10 mg of Lokelma and admitted for further evaluation and management. CT scan
done in the ED as below. Patient received 1 dose of Zosyn which was discontinued with negative culture of ascitic fluid.
After 1 nights of stay in the hospital patient's WBC count improved to 12.4, however hemoglobin dropped to 9.7, platelet 104, potassium 5.3, sodium 127, INR 1.47. Patient's reticulated MELD 3.0 score is currently 27 and the liver transplant team at
[facility] was contacted for evaluation. Patient was accepted for transfer to [place] for further management. Patient has been stabilized and is medically stable for transfer to [facility].
Important imaging findings : CT Abd/Pelvis 04/02/24: Large right inguinal hernia containing ascites. No CT evidence for a bowel containing hernia or small bowel obstruction. Mild abdominopelvic ascites. Additional chronic findings are similar from
multiple previous examinations.
Procedure findings : Paracentesis 04/02/24: 2700 cc of pink chylous ascitic fluid was evacuated.
Discharge Plan
-
Patient Disposition: Acute Care Hospital
Condition: Fair
Discharge Orders:
Discharge Patient (As Directed); Ordered 04/03/24
Ordered By: Kyaw Jovel
Discharge Date and Time
Print Language: SOLOMON ISLANDER
[2024-04-03 16:53] VITALS: BP 116/51
[2024-04-03] MEDS: ZOFRAN 4 MG IV (17:34)
--- NOTE | 2024-04-03 18:03 | CM ---
met with patient at bedside.he lives in a condo with no mirian,his bed and bath is on the first level,she amb i and is I with his adl's.his pcp is unknown and he uses [facility].
pmh:htn,cirrhosis from alcohol,per diabetes,chronic scrotal swelling
patient is adm with abd pain,sp paracentesis with 2700cc fluid obtained,cont lactulose,us roslaia,medical team spoke with liver transplant team at [place].plan is transfer to [place] when bed is available.
== END 2024-04-03 19:15 | disposition short-term general hospital (02) | DRG 433 ==
LOC: 3 WEST ACU 22:57
PROVIDERS: Registered Nurse; Student in an Organized Health Care Education/Training Program; ADMITTING PHYSICIAN Internal Medicine; ATTENDING PHYSICIAN Internal Medicine; CONSULT PHYSICIAN Internal Medicine Gastroenterology; CONSULT PHYSICIAN Student in an Organized Health Care Education/Training Program; EMERGENCY PHYSICIAN Emergency Medicine
DX: K70.31 Alcoholic cirrhosis of liver with ascites (principal); E87.1 Hypo-osmolality and hyponatremia; K76.6 Portal hypertension; M48.56XA Collapsed vertebra, not elsewhere classified, lumbar region, initial encounter for fracture; D63.1 Anemia in chronic kidney disease; I12.9 Hypertensive chronic kidney disease with stage 1 through stage 4 chronic kidney disease, or unspecified chronic kidney disease; N18.32 Chronic kidney disease, stage 3b; F10.21 Alcohol dependence, in remission; E87.70 Fluid overload, unspecified; K40.90 Unilateral inguinal hernia, without obstruction or gangrene, not specified as recurrent; E87.5 Hyperkalemia; F17.200 Nicotine dependence, unspecified, uncomplicated; I44.0 Atrioventricular block, first degree; K42.9 Umbilical hernia without obstruction or gangrene; K82.8 Other specified diseases of gallbladder; M43.16 Spondylolisthesis, lumbar region; N43.3 Hydrocele, unspecified; R11.2 Nausea with vomiting, unspecified; Z96.89 Presence of other specified functional implants; Z79.899 Other long term (current) drug therapy; Z87.19 Personal history of other diseases of the digestive system
CPT/HCPCS: 49083; 74176; 76700; 80053; 83690; 85025; 85027; 85610; 89051; 93005; 93975; 96361; 96374; 96375; 99285; 99406

== ENCOUNTER 2024-04-28 23:06 | Observation (INO) | payer OTHER, SELFPAY ==
[2024-04-28 16:49] VITALS: BP 143/90
[2024-04-28 19:37] VITALS: BP 135/86; BMI 27.7
[2024-04-28 19:38] VITALS: BP 135/86
[2024-04-28 19:59] LABS: % Basophils 0.4 % (0-2); % Eosinophils 0.1 % (0-6); % Immature Granulocytes 1.1 % (0-0.5); % Lymphocytes 1.7 % (20.5-51.1); % Monocytes 3.3 % (1.7-9.3); % Neutrophils 93.4 % (42.2-75.2); Absolute Basophils 0.1 10^3/uL (0-0.2); Absolute Immature Granulocytes 0.2 10^3/uL (0-0.05); Absolute Lymphocytes 0.3 10^3/uL (1.2-3.4); Absolute Monocytes 0.6 10^3/uL (0.1-0.6); Absolute Neutrophils 15.6 10^3/uL (1.4-6.5); Hematocrit 25.2 % (39.0-52.0); Hemoglobin 8.6 g/dL (13.0-18.0); Mean Corp Hgb Conc. 34.1 g/dL (33.0-37.0); Mean Corpuscular Hgb 28.7 pg (27.0-31.0); Mean Platelet Volume 9.3 fL (7.4-10.4); Nucleated Red Blood Cells % 0 % (-); Platelet Count 239 10^3/uL (130-400); Red Cell Dist. Width 16.5 % (11.5-14.5); White Blood Cell Count 16.8 10^3/uL (4.8-10.8)
[2024-04-28 20:09] LABS: INR 1.12; PT 14.2 Sec (11.4-14.6)
[2024-04-28 20:10] LABS: Ammonia < 9 umol/L (9-30)
[2024-04-28 20:30] LABS: ALT (SGPT) 25 U/L (0-50); AST (SGOT) 20 U/L (17-59); Albumin 2.9 g/dl (3.5-5.0); Alkaline Phosphatase 127 U/L (38-126); Blood Urea Nitrogen 52 mg/dl (9-20); Calcium 8.5 mg/dl (8.4-10.2); Carbon Dioxide 22 mmol/L (22-30); Chloride 105 mmol/L (98-107); Estimated Creatinine Clearance 51 ml/min; Glucose 229 mg/dl (70-99); Potassium 5.6 mmol/L (3.5-5.1); Sodium 132 mmol/L (135-145); Total Bilirubin 0.5 mg/dl (0.2-1.3); Total Protein 5.3 g/dl (6.3-8.2); eGFR 44.18
--- NOTE | 2024-04-28 20:32 | ED.GENMED ---
History of Present Illness
General
Chief Complaint: Swelling
Time Seen by Provider: 04/28/24 19:12
History of Present Illness
History of Present Illness:
54-year-old male with history of cirrhosis with ascites status post hepatic transplant at [facility] on April 17 presents to the emergency department for evaluation of worsening bilateral lower extremity edema. He had a routine
postoperative follow-up on Sunday and states he developed mild leg swelling at that time, was started on 20 mg of Lasix. Contacted his extension course coordinator this morning due to abrupt worsening of leg swelling and difficulty walking and his Lasix
was increased to 40 mg, of which she has had 1 dose. He denies any shortness of breath or chest pain. He does report abdominal discomfort postoperatively but denies any fevers or vomiting. He is scheduled for follow-up with the liver transplant
team at [place] and 3 days
Past History
Past History
ED Past Medical History: HTN and Other (pre-diabetic years ago but lost weight and says he no longer is)
ED Past Surgical History: None and Orthopedic
Patient has exhibited threatening behavior?: No
PSI?: No
Social History
Tobacco: Smoker
Alcohol: Former (Heavy alcohol use, quit March 2022)
Drug: None
Personal: Single
Living: with family
Employment: Not employed
Family History
Family History: Other
Review of Systems
Review of Systems
Allergies reviewed?: Yes
All Other Systems: ROS reviewed and negative except as documented in HPI and ROS
Phy Exam
Physical Exam
Physical Exam:
GEN: Well appearing, NAD, WDWN
Eyes: PERRLA, EOMs intact, no scleral icterus
HENT: NCAT, oral mucosa moist, no JVD, no cervical adenopathy.
Lungs: CTAB, no wheezes, rales, rhonchi, normal chest wall excursion
Cardiac: RRR, no M/R/G, no peripheral edema. Radial pulses 2+ bilat
Abdomen: Abdomen is soft with diffuse tenderness, intact chevron incision with no dehiscence, discharge, or erythema
Neuro: AO x 3
MSK: No gross deformity or ecchymosis. 4+ pitting edema bilateral lower extremity
Skin: No rashes, petechiae. Normal color, no pallor or jaundice.
Psych: Calm, cooperative, proper hygiene
Scores
Heart Failure Risk
Heart Failure Risk Score: Not Applicable
Course
Orders/Labs/Results
Orders:
Orders
04/28/24 19:45
Ammonia Urgent
BNP [NT-proBNP] Urgent
CMP [Comprehensive Metabolic Panel] Urgent
Complete Blood Count/With Diff Urgent
Prothrombin Time Urgent
04/28/24 20:00
Venous Doppler Lwr Ext Bilat [US Periph Venous LOWER Ext Pablo] Urgent
Comment:
Reason For Exam: leg edema s/p hepatic transplant
04/28/24 22:31
Furosemide [Lasix] 40 mg IV NOW STA
04/28/24 23:00
Flush (0.9% Sodium Chloride) [Flush (Nss)] See Dose Instructions IV PER PROTOCOL
Abnormal Lab Results
04/28/24
19:45
WBC 16.8 H 10^3/uL
(4.8-10.8)
RBC 3.00 L 10^6/uL
(4.70-6.10)
Hgb 8.6 L g/dL
(13.0-18.0)
Hct 25.2 L %
(39.0-52.0)
RDW 16.5 H %
(11.5-14.5)
Abs Immat Gran (auto) 0.2 H 10^3/uL
(0-0.05)
Absolute Neuts (auto) 15.6 H 10^3/uL
(1.4-6.5)
Absolute Lymphs (auto) 0.3 L 10^3/uL
(1.2-3.4)
Immature Gran % 1.1 H %
(0-0.5)
Neutrophils % 93.4 H %
(42.2-75.2)
Lymphocytes % 1.7 L %
(20.5-51.1)
Sodium 132 L mmol/L
(135-145)
Potassium 5.6 H mmol/L
(3.5-5.1)
BUN 52 H mg/dl
(9-20)
Creatinine 1.8 H mg/dL
(0.7-1.3)
Glucose 229 H mg/dl
(70-99)
Alkaline Phosphatase 127 H U/L
(38-126)
Ammonia < 9 L umol/L
(9-30)
Total Protein 5.3 L g/dl
(6.3-8.2)
Albumin 2.9 L g/dl
(3.5-5.0)
04/28/24 19:45
04/28/24 19:45
Vital Signs
Initial and Last Documented VS:
Initial Vital Signs
Temp Pulse Resp BP Pulse Ox
99.2 F 81 20 143/90 100
04/28/24 16:49 04/28/24 16:49 04/28/24 16:49 04/28/24 16:49 04/28/24 16:49
Last Documented Vital Signs
Temp Pulse Resp BP Pulse Ox
99.2 F 88 18 135/86 100
04/28/24 16:49 04/28/24 20:30 04/28/24 20:30 04/28/24 19:38 04/28/24 20:00
MDM/Problems Addressed
MDM/Problems Addressed:
I discussed the case with all pertinent labs and imaging studies with the transplant team [place], at this time there is no indication for transfer to a tertiary care facility. Will offer admission to the patient based on his functional
limitations due to severe edema and lack of improvement with home diuresis.
*Critical Care Note
Total Time (30-74mins, 75-104mins- exclusive of procedures): Not Applicable
Update Note
Update Note:
Facility Operations Manager Wendy Dorman can be reached at [phone]
ED Attending Note
-
Portions of this chart may have been created with voice recognition software.� Occasional wrong word or��sound alike� substitutions may have occurred due to the inherent limitations of voice recognition software.
Discharge Plan
Departure
Patient Disposition: Admit
Date of Disposition: 04/28/24
Time of Disposition: 22:33
Admit to: Med/Surg
Presentation/result/management discussed w/ accepting MD/DO: Hospitalist
Discharge Problem:
Bilateral lower extremity edema
Prescriptions:
No Action
acetaminophen 500 mg Tablet
1,000 mg PO [id number] PRN (Reason: mild pain/fever)
magnesium 250 mg Tablet
250 mg PO DAILY
lactulose 20 gram/30 mL Solution
20 g PO TID 30 Days Qty: 2700 0RF
Lokelma 5 gram Powder In Packet
5 g PO DAILY 5 Days Qty: 11 0RF
tramadol 50 mg tablet
50 mg PO BIDPRN PRN (Reason: moderate pain)
Patient Comments:
04/02/2024: last filled 03/31/24, 28 tabs for 14 days from [facility]
Referrals:
Alfonzo Conn DO [Family Provider] -
Interventions
Interventions:
*Risk Screen - Suicide Last Done: 04/28/24 16:49
*General Assessment Last Done: 04/28/24 19:37
*Neglect/Abuse Screening Last Done: 04/28/24 16:49
ED- Fall Risk Assessment Last Done: 04/28/24 19:37
*ED COVID-19 Vaccine History Last Done: 04/28/24 16:49
ED- Cardiac Assessment Last Done: 04/28/24 19:37
ED- Pulmonary Assessment Last Done: 04/28/24 19:37
ED-Skin Assessment Last Done: 04/28/24 19:37
Discharge Date and Time
Print Language: VIETNAMESE
[2024-04-28 20:42] LABS: NT-proBNP 1350 pg/ml
[2024-04-28] MEDS: LASIX 40 MG IV (22:48)
[2024-04-28 22:50] VITALS: BP 138/85
--- NOTE | 2024-04-28 22:56 | HPS.HSE ---
Family Physician
-
Family Physician: Alfonzo Conn
Chief Complaint
-
swelling
History of Present Illness
54-year-old male past medical history of alcoholic cirrhosis status post hepatic transplant at [facility] on April 17, chronic hyponatremia, hypertension, CKD 3A, chronic anemia, chronic thrombocytopenia, L5 compression fracture, prediabetes, presents
to the emergency room for evaluation of bilateral lower extremity edema that started over the past 2 days. He had some mild lower extremity edema prior to liver transplant but this got significantly worse in the past 2 days. He also has scrotal
swelling.
He had routine postoperative follow-up 3 days ago and he was started on 20 mg of Lasix. He contacted his clinical resource coordinator this morning due to abrupt worsening of leg swelling and difficulty walking and his Lasix was increased to 40 mg.
Denies any chest pain or shortness of breath. He denies any nausea or vomiting. He has follow-up with liver transplant team at [facility] in 3 days.
He has significant abdominal pain from the surgery but denies any drainage from the surgical site. He denies any diarrhea. He has been taking Tylenol, oxycodone, Flexeril for pain.
He has not drank alcohol in 4 years. He smokes intermittently. Uses medical marijuana.
Medical History
Past Medical History
Past Medical History: Reports Other (alcoholic cirrhosis status post hepatic transplant at [facility] on April 17, chronic hyponatremia, hypertension, CKD 3A, chronic anemia, chronic thrombocytopenia, L5 compression fracture, prediabetes)
Past Surgical History: Reports Other (liver transplant )
Social History
Tobacco: Smoker
Alcohol: Former
Drug: Marijuana
Family History
Family History: Not pertinent
Allergies / Home Medications
Allergies reflects when Allergies were last updated in [employer].
Home Medications with original date entered in [employer]
Allergy/Medication List:
Allergies
Allergy/AdvReac Type Severity Reaction Status Date / Time
No Known Allergies Allergy Verified 04/28/24 16:55
Home Medications
acetaminophen 500 mg tablet 1,000 mg PO [id number] PRN mild pain/fever 08/08/22
cyclobenzaprine 5 mg tablet 5 mg PO TIDPRN PRN muscle spasms 04/28/24
famotidine 20 mg tablet 20 mg PO DAILY 04/28/24
furosemide 20 mg tablet 20 mg PO DAILY 04/28/24
insulin lispro 100 unit/mL subcutaneous pen 0 sliding scale dose SC PRN PRN blood sugar 04/28/24
mycophenolate mofetil 250 mg capsule 250 mg PO DAILY 04/28/24
sennosides 8.6 mg tablet (senna) 8.6 mg PO BIDPRN PRN constipation 04/28/24
sulfamethoxazole 400 mg-trimethoprim 80 mg tablet 1 tab PO DAILY 04/28/24
tacrolimus 5 mg capsule, immediate-release 10 mg PO BID 04/28/24
valganciclovir 450 mg tablet 450 mg PO DAILY 04/28/24
Review of Systems
-
History Source: Patient
A 12 point ROS was completed and negative except as noted: Yes
Constitutional: Reports No Symptoms
EENT: Reports No Symptoms
Respiratory: Reports No Symptoms
Cardiac: Reports No Symptoms
Abdomen/GI: Reports See HPI
: Reports No Symptoms
Musculoskeletal: Reports No Symptoms
Skin: Reports No Symptoms
Neurological: Reports No Symptoms
Endocrine: Reports No Symptoms
Hematologic/Lymphatic: Reports No Symptoms
Psych: Reports No Symptoms
Physical Exam
Vital Signs
Vital Signs
Temp Pulse Resp BP Pulse Ox
99.2 F 85 16 138/85 99
04/28/24 16:49 04/28/24 22:48 04/28/24 21:00 04/28/24 22:50 04/28/24 22:50
Physical Exam
General: Well Developed, Well Nourished and No Apparent Distress
HEENT: NormoCephalic, Moist mucous membranes and Atraumatic
Respiratory: Clear
Cardiac: S1/S2, Regular Rhythm and Peripheral Edema; No Murmur or Rub
GI: Soft, Non Distended, Normal Bowel Sounds, Distended and Other (abdominal scars healing well ); No Organomegaly
Rectal: Deferred by Provider
Musculoskeletal: No Clubbing, No Cyanosis and No Edema
Skin: No Rash
Neuro: Nonfocal/grossly intact
Laboratory Results
-
04/28/24 19:45
04/28/24 19:45
Laboratory Results
PT 14.2 Sec (11.4-14.6) 04/28/24 19:45
INR 1.12 04/28/24 19:45
Total Bilirubin 0.5 mg/dl (0.2-1.3) 04/28/24 19:45
AST 20 U/L (17-59) 04/28/24 19:45
ALT 25 U/L (0-50) 04/28/24 19:45
Alkaline Phosphatase 127 U/L (38-126) H 04/28/24 19:45
Data Reviewed
-
Lab Data: Labs Reviewed by me
Old Records: Reviewed
Impression/Plan
-
IMPRESSION:
PLAN:
# Bilateral lower extremity edema/scrotal swelling likely from decreased lymphatic drainage after liver transplant
-No symptoms to suggest graft failure or pulmonary edema
-Venous ultrasound negative for DVT
-40 IV Lasix given
-Outpatient follow-up with transplant team at [facility] in 3 days
# Alcoholic cirrhosis status post liver transplant on April 17 at [facility]
-continue mycophenolate, tacrolimus
-continue Bactrim, valganciclovir for prophylaxis
-Continue Tylenol, Flexeril
-Tramadol for moderate pain
-Dilaudid for severe pain
#CKD 3A
#Hyperkalemia
-Renal function at baseline
Essential hypertension
Chronic normocytic anemia
-Hemoglobin slightly worse at 8.6
-Continue to monitor for further drop
Chronic thrombocytopenia
History of L5 compression fracture
History of prediabetes
Full code
DVT prophylaxis�heparin
Regular diet
[2024-04-28] MEDS: DILAUDID 0.5 MG IV (23:25)
--- NOTE | 2024-04-29 00:40 | PTCARENOTE ---
Pt arrived from ED via stretcher, ambulated independently to bed. aaox3, cooperative. c/o chest pain that radiates 'to my toes'. denies dizziness or sob. Oriented to room, call dueñas within reach.
[2024-04-29 00:45] VITALS: BP 160/94; BMI 27.2
[2024-04-29] MEDS: FLEXERIL 5 MG PO (01:02)
[2024-04-29] MEDS: DILAUDID 0.5 MG IV ×4 (03:39→18:12)
[2024-04-29 05:43] LABS: % Basophils 0.5 % (0-2); % Eosinophils 1.4 % (0-6); % Immature Granulocytes 1.3 % (0-0.5); % Monocytes 5.2 % (1.7-9.3); % Neutrophils 88.6 % (42.2-75.2); Absolute Basophils 0.1 10^3/uL (0-0.2); Absolute Eosinophils 0.2 10^3/uL (0-0.7); Absolute Immature Granulocytes 0.2 10^3/uL (0-0.05); Absolute Lymphocytes 0.5 10^3/uL (1.2-3.4); Absolute Monocytes 0.8 10^3/uL (0.1-0.6); Absolute Neutrophils 13.4 10^3/uL (1.4-6.5); Hematocrit 25.9 % (39.0-52.0); Hemoglobin 8.5 g/dL (13.0-18.0); Mean Corp Hgb Conc. 32.8 g/dL (33.0-37.0); Mean Corpuscular Hgb 28.6 pg (27.0-31.0); Mean Corpuscular Volume 87.2 fL (80.0-94.0); Mean Platelet Volume 9.7 fL (7.4-10.4); Nucleated Red Blood Cells % 0 % (-); Platelet Count 250 10^3/uL (130-400); Red Blood Cell Count 2.97 10^6/uL (4.70-6.10); Red Cell Dist. Width 16.5 % (11.5-14.5); White Blood Cell Count 15.2 10^3/uL (4.8-10.8)
[2024-04-29 06:10] LABS: ALT (SGPT) 22 U/L (0-50); AST (SGOT) 18 U/L (17-59); Albumin 2.8 g/dl (3.5-5.0); Alkaline Phosphatase 117 U/L (38-126); Blood Urea Nitrogen 51 mg/dl (9-20); Calcium 8.8 mg/dl (8.4-10.2); Carbon Dioxide 25 mmol/L (22-30); Chloride 105 mmol/L (98-107); Estimated Creatinine Clearance 55 ml/min; Glucose 115 mg/dl (70-99); Potassium 5.4 mmol/L (3.5-5.1); Sodium 135 mmol/L (135-145); Total Bilirubin 0.5 mg/dl (0.2-1.3); Total Protein 5.4 g/dl (6.3-8.2); eGFR 47.31
[2024-04-29 07:00] VITALS: BP 137/86
[2024-04-29] MEDS: PEPCID 20 MG PO (08:12)
[2024-04-29] MEDS: BACTRIM 400 MG/80 MG 1 TABLET PO (08:13)
[2024-04-29] MEDS: CELLCEPT 250 MG PO ×2 (08:13→09:47)
[2024-04-29] MEDS: PROGRAF 10 MG PO (08:13)
[2024-04-29] MEDS: VALCYTE 450 MG PO (08:14)
--- NOTE | 2024-04-29 08:20 | PTCARENOTE ---
upon passing morning medications pt reported to this Rn that he self administered 40 MG PO lasix from home per instructions from his transplant team. This RN educated pt about the importance and safety of not taking his home meds and sharing with
the medical team what he needs to be on in addition to either sending meds home or sending them to pharmacy. pt receptive. MD Marie made aware and provided contact to transplant team per pt request.
[2024-04-29] MEDS: DELTASONE 20 MG PO (08:53)
--- NOTE | 2024-04-29 09:55 | W.PN.HOSP.TC ---
Today's Communication/Plan
-
discharge
Assessment / Plan
Assessment / Plan
Physical Exam
General: Well Developed, Well Nourished and No Apparent Distress
HEENT: NormoCephalic, Moist mucous membranes and Atraumatic
Respiratory: Clear
Cardiac: S1/S2, Regular Rhythm and Peripheral Edema; No Murmur or Rub
GI: Soft, Non Distended, Normal Bowel Sounds, abdominal scars healing well
Musculoskeletal: No Clubbing, No Cyanosis, +2 Edema Lower ext's b/l
Skin: Lower ext weeping d/t swelling edema
Neuro: Nonfocal/grossly intact
54M alcoholic cirrhosis status post hepatic transplant at [facility] on April 17, chronic hyponatremia, hypertension, CKD 3A, chronic anemia thrombocytopenia, L5 compression fracture, prediabetes, here for evaluation of bilateral lower extremity edema
scrotal swelling progressive over the past 2 days. Recently started on Lasix 20 mg daily titrated up to 40 mg daily by his quality control coordinator. Presented to ED for further evaluation as swelling persisted, interfered with ambulation. Swelling
since improved with further diuresis though not resolved.
# Bilateral lower extremity edema/scrotal swelling likely from decreased lymphatic drainage after liver transplant, possible prednisone contributing
-No symptoms to suggest graft failure or pulmonary edema
-Venous ultrasound negative for DVT
-40 IV Lasix given
-Outpatient follow-up with transplant team at [place] in 3 days
-improving with diuresis, ambulating without issues
-BNP elevated 1350 though likely d/t CKD as oppose to heart failure
-stable respiratory status on room air
-ECHO appreciated preserved EF 55-60% no significant valve abn's
# Alcoholic cirrhosis status post liver transplant on April 17 at [place]
-continue mycophenolate, tacrolimus, prednisone
-continue Bactrim, valganciclovir for prophylaxis
-Continue Tylenol, Flexeril
-Tramadol for moderate pain
-Dilaudid for severe pain
#CKD 3A
#Mild Hyperkalemia
-Renal function at baseline
-hyperkalemia likely to improve with recent increased diuresis Lasix 40 mg daily
-recommend repeat BMP with transplant team or primary care provider in 1 week.
Essential hypertension
-cont Lasix
Chronic normocytic anemia
-H&H stable 8.6, 8.5
Chronic thrombocytopenia
-appears to be resolved at this time
History of L5 compression fracture
History of prediabetes
Full code
DVT prophylaxis�heparin
Regular diet
Medically stable for discharge home with outpatient follow up recommendations
Total Time Preparing Discharge ___50____ minutes including examination of the patient, summary of the hospital stay, instructions for continuing care to all relevant caregivers; and preparation of discharge records, prescriptions, and referral
forms if necessary.
Anticipated Discharge: Today
Subjective/Interval History
-
Date of Service: April 29, 2024
Seen and examined at bedside in no acute distress sitting up comfortably in bed. Ambulating without issues. Continues to endorse lower extremity swelling b/l though notes some improvement with diuresis. 4lb loss since admission. Patient
otherwise reports feeling well, eager to go home.
Objective Data
-
Labs:
Laboratory Results
04/29/24
04:37
WBC 15.2 H
Hgb 8.5 L
Hct 25.9 L
Plt Count 250
Sodium 135
Potassium 5.4 H
Chloride 105
Carbon Dioxide 25
BUN 51 H
Creatinine 1.7 H
Glucose 115 H
Calcium 8.8
Total Bilirubin 0.5
AST 18
ALT 22
Alkaline Phosphatase 117
Vital Signs:
Vital Signs
Temp Pulse Resp BP Pulse Ox
97.7 F 77 16 137/86 100
04/29/24 07:00 04/29/24 07:00 04/29/24 07:00 04/29/24 07:00 04/29/24 07:00
I&O
04/28/24 04/29/24 04/30/24
06:59 06:59 06:59
Output Total 350 / 350
Balance -350 / -350
[2024-04-29 15:08] VITALS: BP 142/81
--- NOTE | 2024-04-29 17:08 | CM ---
Alert awake oriented patient who lives alone in a one story condo with one step to enter.He is independent in all activities of daily living.He was offered VN he declined need.He had a Liver transplant and has parcentesis 3 x weekly.Explained
observation letter copy give He did not sign obs letter.
DH VN hx / No SNF history
Pharmacy [facility]
PCP DR Conn
PLAN Home Declined VN
[2024-04-29 18:21] VITALS: BP 132/85
--- NOTE | 2024-04-29 18:41 | W.DCSUMMARY ---
Discharge Summary
Discharge Data
Date of Admission: 04/28/24
Date of Discharge: 04/29/24
-
Pending Results: No
Discharge Plan
-
Patient Disposition: Home (Routine Discharge)
Discharge Diagnosis/Procedures: Lower Extremity Lymphedema/scrotal swelling possibly due to decreased lymphatic drainage following recent liver transplant vs adverse effect Prednisone
Chronic Kidney Disease Stage 3
Mild Hyperkalemia
Leukocytosis likely secondary to steroids
Normocytic Anemia
Condition: Fair
Diet: Regular
Activity: As tolerated
Driving Restrictions: Avoid driving while on narcotic pain meds
Bathing Restrictions: None
Blood Work: Please repeat CBC and CMP with transplant team or primary care provider in 1 week of discharge.
Specialty Instructions: Weigh Daily- Call MD for wt gain/loss 3 lbs overnight/5 lbs in 1 week
Activity Restrictions/Additional Instructions:
Please keep your appointment with your transplant team and follow up with your primary care provider in 1 week of discharge.
Instructions: Lymphedema (DC)
Referrals:
Alfonzo Conn DO [Family Provider] - in one week
Prescriptions:
Continued
acetaminophen 500 mg Tablet
1,000 mg PO [id number] PRN (Reason: mild pain/fever)
valganciclovir 450 mg tablet
450 mg PO DAILY
sennosides [senna] 8.6 mg tablet
8.6 mg PO BIDPRN PRN (Reason: constipation)
sulfamethoxazole-trimethoprim 400-80 mg tablet
1 tab PO DAILY
mycophenolate mofetil 250 mg capsule
500 mg PO BID
tacrolimus 5 mg capsule
10 mg PO BID
famotidine 20 mg tablet
20 mg PO DAILY
furosemide 20 mg tablet
40 mg PO DAILY
insulin lispro 100 unit/mL insulin pen
0 sliding scale dose SC PRN PRN (Reason: blood sugar)
cyclobenzaprine 5 mg tablet
5 mg PO TIDPRN PRN (Reason: muscle spasms)
prednisone 20 mg Tablet
20 mg PO DAILY
Discharge Orders:
Discharge Patient (As Directed); Ordered 04/29/24
Ordered By: Nay Marie
Discharge Date and Time
Print Language: GHANAIAN
== END 2024-04-29 19:30 | disposition home or self-care (01) ==
LOC: 4 EAST ACU 23:06
PROVIDERS: Emergency Medicine; Physician Assistant; ADMITTING PHYSICIAN Hospitalist; ATTENDING PHYSICIAN Internal Medicine; EMERGENCY PHYSICIAN Emergency Medicine; FAMILY PHYSICIAN Family Medicine
DX: I89.0 Lymphedema, not elsewhere classified (principal); Z94.4 Liver transplant status; M79.89 Other specified soft tissue disorders; R26.2 Difficulty in walking, not elsewhere classified; N18.31 Chronic kidney disease, stage 3a; I12.9 Hypertensive chronic kidney disease with stage 1 through stage 4 chronic kidney disease, or unspecified chronic kidney disease; F17.200 Nicotine dependence, unspecified, uncomplicated; F10.11 Alcohol abuse, in remission; K70.30 Alcoholic cirrhosis of liver without ascites; E87.5 Hyperkalemia; D69.6 Thrombocytopenia, unspecified; D64.9 Anemia, unspecified; F12.90 Cannabis use, unspecified, uncomplicated; E87.1 Hypo-osmolality and hyponatremia; Z79.621 Long term (current) use of calcineurin inhibitor; Z79.624 Long term (current) use of inhibitors of nucleotide synthesis
CPT/HCPCS: 80053; 82140; 83880; 85025; 85610; 93306; 93970; 96374; 99284; G0378

== ENCOUNTER → 2024-05-13 13:45 | Outpatient (REF) | payer OTHER, SELFPAY | LOC: RAD 13:45 | PROVIDERS: ATTENDING PHYSICIAN Student in an Organized Health Care Education/Training Program | DX: N50.89 Other specified disorders of the male genital organs (principal) | CPT/HCPCS: 76870; 93976 ==

== ENCOUNTER → 2024-05-21 12:31 | Outpatient (REF) | payer OTHER, SELFPAY ==
[2024-05-21 13:02] VITALS: BP 166/87; BP_SYST 73
[2024-05-21 14:42] LABS: Body Fluid Mononuclear 90.9 %; Body Fluid Polymorphonuclear 9.1 %; Body Fluid WBC 33 /CUMM
[2024-05-21 14:43] LABS: Body Fluid Second Tech ASW
== END ==
LOC: RADI 12:31
PROVIDERS: ATTENDING PHYSICIAN Student in an Organized Health Care Education/Training Program; FAMILY PHYSICIAN Family Medicine
DX: N50.89 Other specified disorders of the male genital organs (principal)
CPT/HCPCS: 88305; 10160; 76942; 87015; 87070; 87075; 87102; 87205; 87206; 88112; 89051

== ENCOUNTER 2024-06-02 16:15 | Emergency (ER) | payer OTHER, SELFPAY ==
[2024-06-02 16:18] VITALS: BP 169/75
--- NOTE | 2024-06-02 16:19 | ED.GENMED ---
History of Present Illness
General
Chief Complaint: Abdominal Symptoms
Source: patient
Exam Limitations: none
Time Seen by Provider: 06/02/24 16:18
Nursing documentation reviewed up to this point in time: agreed with
History of Present Illness
History of Present Illness:
54-year-old male with history of alcoholic cirrhosis, status post liver transplant at [facility] on 04/17/2024, chronic hyponatremia, HTN, CKD 3, chronic anemia, thrombocytopenia, LE lymphedema with scrotal swelling (Had 500 mL drained from his scrotal
aspiration on 05/21/2024), presents stating since his liver transplant he's had abdominal pain, what is new is that he is having 'trouble breathing because my stomach feels tight.' Denies f/c/n/v/d/c.
Is frustrated as he lives alone and 'they were supposed to be getting me help at home but they never did.' He saw his transplant team last week and 'they did nothing.' Has another appointment with them tomorrow.
acetaminophen 500 mg tablet 1,000 mg PO [id number] PRN mild pain/fever 08/08/22
cyclobenzaprine 5 mg tablet 5 mg PO TIDPRN PRN muscle spasms 04/28/24
famotidine 20 mg tablet 20 mg PO DAILY 04/28/24
furosemide 20 mg tablet 20 mg PO DAILY 04/28/24
insulin lispro 100 unit/mL subcutaneous pen 0 sliding scale dose SC PRN PRN blood sugar 04/28/24
mycophenolate mofetil 250 mg capsule 250 mg PO DAILY 04/28/24
sennosides 8.6 mg tablet (senna) 8.6 mg PO BIDPRN PRN constipation 04/28/24
sulfamethoxazole 400 mg-trimethoprim 80 mg tablet 1 tab PO DAILY 04/28/24
tacrolimus 5 mg capsule, immediate-release 10 mg PO BID 04/28/24
valganciclovir 450 mg tablet 450 mg PO DAILY 04/28/24
Past History
Past History
ED Past Medical History: HTN and Other (pre-diabetic years ago but lost weight and says he no longer is)
ED Past Surgical History: None and Orthopedic
Patient has exhibited threatening behavior?: No
PSI?: No
Social History
Tobacco: Smoker
Alcohol: Former (Heavy alcohol use, quit March 2022)
Drug: None
Personal: Single
Living: with family
Employment: Not employed
Family History
Family History: Other
Review of Systems
Review of Systems
Allergies reviewed?: Yes
All Other Systems: ROS reviewed and negative except as documented in HPI and ROS
Constitutional: Denies fever or chills
Respiratory: Reports trouble breathing; Denies cough
Cardiac: Denies chest pain
ABD/GI: Reports abdominal pain; Denies nausea, vomiting, diarrhea, constipated or anorexia
: Denies dysuria or difficulty voiding
Musculoskeletal: Denies edema
Skin: Reports other (abdominal scar well healed)
Neurological: Reports other (neuropathy both lower extremities)
Phy Exam
Physical Exam
Physical Exam:
GENERAL: No acute distress. A&Ox3.
CONSTITUTIONAL: Afebrile.
EYES: clear, conjunctivae normal
ENMT: moist mucus membranes, Pharynx nl
RESPIRATORY: Regular respirations, nonlabored, lungs clear. Pulse ox 99% RA
CARDIOVASCULAR: Regular rate and rhythm, no murmurs, no rubs.
GI: Soft, mildly rotund, generally tender to touch, normal BS
MUSCULOSKELETAL: Moves with ease. Well perfused. No edema
SKIN: Warm, dry, pink
PSYCH: Depressed mood and affect. Well kept, interactive, seems annoyed with questioning
NEUROLOGIC: Awake, alert and oriented. No focal neurological deficits
Course
Orders/Labs/Results
Orders:
Orders
06/02/24 16:26
Complete Blood Count/With Diff Urgent
Comprehensive Metabolic Panel Urgent
Lipase Urgent
Manual Differential Urgent
06/02/24 16:43
US Abdomen Limited Urgent
Comment:
Reason For Exam: assess for ascites
06/02/24 21:59
Acetaminophen [Tylenol] 650 mg .ROUTE .STK-MED ONE
06/02/24 22:00
Acetaminophen [Tylenol] 650 mg PO NOW STA
Abnormal Lab Results
06/02/24
16:26
RBC 4.49 L 10^6/uL
(4.70-6.10)
Hgb 11.5 L g/dL
(13.0-18.0)
Hct 36.1 L %
(39.0-52.0)
MCH 25.6 L pg
(27.0-31.0)
MCHC 31.9 L g/dL
(33.0-37.0)
RDW 15.9 H %
(11.5-14.5)
Segmented Neutrophils 80 H %
(42-75)
Lymphocytes (Manual) 9 L %
(20-51)
BUN 30 H mg/dl
(9-20)
Glucose 219 H mg/dl
(70-99)
Alkaline Phosphatase 137 H U/L
(38-126)
06/02/24 16:26
06/02/24 16:26
Vital Signs
Initial and Last Documented VS:
Initial Vital Signs
Temp Pulse Resp BP Pulse Ox
98.4 F 74 18 169/75 99
06/02/24 16:18 06/02/24 16:18 06/02/24 16:18 06/02/24 16:18 06/02/24 16:18
Last Documented Vital Signs
Temp Pulse Resp BP Pulse Ox
98.4 F 72 11 145/81 100
06/02/24 16:18 06/02/24 20:45 06/02/24 20:45 06/02/24 21:09 06/02/24 21:09
MDM/Problems Addressed
Differential Diagnosis Includes:
Ascites
Depression
MDM/Problems Addressed:
54-year-old male with history of alcoholic cirrhosis, status post liver transplant at [facility] on 04/17/2024, chronic hyponatremia, HTN, CKD 3, chronic anemia, thrombocytopenia, LE lymphedema with scrotal swelling (Had 500 mL drained from his scrotal
aspiration on 05/21/2024), presents stating since his liver transplant he's had abdominal pain, what is new is that he is having 'trouble breathing because my stomach feels tight.' Denies f/c/n/v/d/c.
Is frustrated as he lives alone and 'they were supposed to be getting me help at home but they never did.' He saw his transplant team last week and 'they did nothing.' Has another appointment with them tomorrow.
Afebrile, NAD
Abd soft mildly rotund, generally tender. Hypoactive BS
7:00 PM:
CBC with no clinically significant abnormality
CMP with BUN of 30 otherwise unremarkable
Abdominal ultrasound radiology report read: There is a large volume of abdominal and pelvic ascites.
Case discussed with Dr. Simpson who agrees with admission for symptomatic ascites, shortness of breath
Hospitalist notified of admission. Pt updated.
Remains stable.
Attempting to reach Transplant team [phone]
7:50 p.m.
spoke with Nereyda QUIROZ at [facility] who is very familiar with patient.
She recommends transferring pt to [place] since US shows large amt ascites.
Pt remains stable. No hypoxemia.
Spoke with [facility] transplant team attending: Dr. Rea who will accept the patient.
They will let us know when bed available then we arrange transport.
10:20 p.m.
Remains stable
Transport team here
*Critical Care Note
Total Time (30-74mins, 75-104mins- exclusive of procedures): Not Applicable
ED Attending Note
-
Portions of this chart may have been created with voice recognition software.� Occasional wrong word or��sound alike� substitutions may have occurred due to the inherent limitations of voice recognition software.
Discharge Plan
Departure
Patient Disposition: Acute Care Hospital
Date of Disposition: 06/02/24
Time of Disposition: 22:07
Admit to: Med/Surg
Condition: Fair
Discharge Problem:
Abdominal ascites, Increasing shortness of breath
Prescriptions:
No Action
acetaminophen 500 mg Tablet
1,000 mg PO [id number] PRN (Reason: mild pain/fever)
valganciclovir 450 mg tablet
450 mg PO DAILY
sennosides [senna] 8.6 mg tablet
8.6 mg PO BIDPRN PRN (Reason: constipation)
sulfamethoxazole-trimethoprim 400-80 mg tablet
1 tab PO DAILY
mycophenolate mofetil 250 mg capsule
500 mg PO BID
tacrolimus 5 mg capsule
10 mg PO BID
famotidine 20 mg tablet
20 mg PO DAILY
furosemide 20 mg tablet
40 mg PO DAILY
cyclobenzaprine 5 mg tablet
5 mg PO TIDPRN PRN (Reason: muscle spasms)
prednisone 20 mg Tablet
20 mg PO DAILY
Referrals:
Alfonzo Conn DO [Family Provider] -
Hospital Transfer
Other hospital: [facility]
I certify that the patient requires transfer: Yes
Discussed case with accepting physician: Rona
Reason for transfer: specialties available
Interventions
Interventions:
*Risk Screen - Suicide Last Done: 06/02/24 16:18
*General Assessment Last Done: 06/02/24 16:18
*Neglect/Abuse Screening Last Done: 06/02/24 16:18
ED- Fall Risk Assessment Last Done: 06/02/24 22:32
*Nursing Disposition Last Done: 06/02/24 22:32
NP-Kmbgpf-Jqbobsvihj Assessment Last Done: 06/02/24 18:22
Discharge Date and Time
Discharge Date/Time: 06/02/24 22:33
Print Language: HONG KONGER
[2024-06-02 16:25] VITALS: BMI 25.0
[2024-06-02 16:45] LABS: Hematocrit 36.1 % (39.0-52.0); Hemoglobin 11.5 g/dL (13.0-18.0); Mean Corp Hgb Conc. 31.9 g/dL (33.0-37.0); Mean Corpuscular Hgb 25.6 pg (27.0-31.0); Mean Corpuscular Volume 80.4 fL (80.0-94.0); Mean Platelet Volume 9.3 fL (7.4-10.4); Platelet Count 264 10^3/uL (130-400); Red Blood Cell Count 4.49 10^6/uL (4.70-6.10); Red Cell Dist. Width 15.9 % (11.5-14.5); White Blood Cell Count 8.1 10^3/uL (4.8-10.8)
[2024-06-02 16:57] LABS: ALT (SGPT) 32 U/L (0-50); AST (SGOT) 29 U/L (17-59); Albumin 4.3 g/dl (3.5-5.0); Alkaline Phosphatase 137 U/L (38-126); Blood Urea Nitrogen 30 mg/dl (9-20); Calcium 9.5 mg/dl (8.4-10.2); Carbon Dioxide 28 mmol/L (22-30); Chloride 98 mmol/L (98-107); Estimated Creatinine Clearance 71 ml/min; Glucose 219 mg/dl (70-99); Lipase 29 U/L (23-300); Potassium 4.8 mmol/L (3.5-5.1); Sodium 139 mmol/L (135-145); Total Bilirubin 0.6 mg/dl (0.2-1.3); Total Protein 7.2 g/dl (6.3-8.2); eGFR > 60.00
[2024-06-02 17:08] LABS: Absolute Neutrophils -Man Diff 6.4 10^3/uL (1.4-6.5); Band Neutrophils 0 % (0-3); Lymphocytes 9 % (20-51); Metamyelocytes 1 % (-); Monocytes 2 % (2-9); Myelocytes 8 % (-); Platelets Checked Yes; Segmented Neutrophils 80 % (42-75)
[2024-06-02 17:09] LABS: Microcytosis 1+; Normal RBC Morphology No
[2024-06-02 17:10] LABS: Ovalocytes 1+; Total Cells Counted 100
[2024-06-02 20:08] VITALS: BP 141/100
[2024-06-02 21:09] VITALS: BP 145/81
[2024-06-02] MEDS: TYLENOL 650 MG PO (22:00)
== END 2024-06-02 22:33 | disposition short-term general hospital (02) ==
LOC: EMR 16:15
PROVIDERS: EMERGENCY PHYSICIAN Emergency Medicine; FAMILY PHYSICIAN Family Medicine
DX: R18.8 Other ascites (principal); R06.02 Shortness of breath; I12.9 Hypertensive chronic kidney disease with stage 1 through stage 4 chronic kidney disease, or unspecified chronic kidney disease; N18.30 Chronic kidney disease, stage 3 unspecified; F17.200 Nicotine dependence, unspecified, uncomplicated; Z94.4 Liver transplant status; Z79.624 Long term (current) use of inhibitors of nucleotide synthesis; Z87.19 Personal history of other diseases of the digestive system; Z60.2 Problems related to living alone
CPT/HCPCS: 99285; 76705; 80053; 83690; 85025

== ENCOUNTER → 2024-06-06 10:26 | Outpatient (REF) | payer OTHER, SELFPAY | LOC: HWRAD 10:26 | PROVIDERS: ATTENDING PHYSICIAN Surgery; FAMILY PHYSICIAN Family Medicine | DX: N50.89 Other specified disorders of the male genital organs (principal) | CPT/HCPCS: 72194; Q9967 ==

== ENCOUNTER → 2024-06-13 12:20 | Outpatient (REF) | payer OTHER, SELFPAY ==
[2024-06-13 12:50] VITALS: BP 157/73; BP_SYST 62
[2024-06-13 13:29] VITALS: BP 163/103
== END ==
LOC: RADI 12:20
PROVIDERS: ATTENDING PHYSICIAN Surgery
DX: N50.89 Other specified disorders of the male genital organs (principal); N50.82 Scrotal pain; R18.8 Other ascites; Z94.4 Liver transplant status
CPT/HCPCS: 10160; 76942

== ENCOUNTER → 2024-06-20 13:37 | Outpatient (REF) | payer OTHER, SELFPAY ==
[2024-06-20 13:52] VITALS: BP 163/83; BP_SYST 65
== END ==
LOC: RADI 13:37
PROVIDERS: ATTENDING PHYSICIAN Surgery
DX: N50.89 Other specified disorders of the male genital organs (principal); R18.8 Other ascites
CPT/HCPCS: 10160; 76942

== ENCOUNTER → 2024-11-19 15:07 | Outpatient (REF) | payer OTHER, SELFPAY | LOC: HWRAD 15:07 | PROVIDERS: ATTENDING PHYSICIAN Student in an Organized Health Care Education/Training Program | DX: R20.2 Paresthesia of skin (principal); M54.50 Low back pain, unspecified | CPT/HCPCS: 72110 ==

== ENCOUNTER → 2024-11-21 15:55 | Outpatient (REF) | payer OTHER, SELFPAY ==
[2024-11-21 17:18] LABS: TSH Reflex To Free T4 2.86 uIU/ml (0.47-4.68)
[2024-11-21 17:53] LABS: Folate 7.8 ng/ml (2.76-20); Vitamin B12 380 pg/ml (239-931)
[2024-11-22 09:26] LABS: Glycohemoglobin (HgbA1c) 4.9 % (4.0-5.6)
== END ==
LOC: REG 15:55
PROVIDERS: ATTENDING PHYSICIAN Student in an Organized Health Care Education/Training Program
DX: R20.2 Paresthesia of skin (principal); R60.0 Localized edema; M54.50 Low back pain, unspecified; R20.0 Anesthesia of skin
CPT/HCPCS: 36415; 82607; 82746; 83036; 84425; 84443

== ENCOUNTER → 2024-11-24 14:26 | Outpatient (REF) | payer OTHER, SELFPAY | LOC: HWRAD 14:26 | PROVIDERS: ATTENDING PHYSICIAN Student in an Organized Health Care Education/Training Program | DX: R60.0 Localized edema (principal); R20.2 Paresthesia of skin; R20.0 Anesthesia of skin | CPT/HCPCS: 93970 ==

== ENCOUNTER → 2024-11-26 07:45 | Outpatient (REF) | payer OTHER, SELFPAY | LOC: EMG 07:45 | PROVIDERS: ATTENDING PHYSICIAN Student in an Organized Health Care Education/Training Program | DX: R60.0 Localized edema (principal) | CPT/HCPCS: 95886; 95911 ==

== ENCOUNTER → 2024-11-28 09:53 | Outpatient (REF) | payer OTHER, SELFPAY | LOC: HWRAD 09:53 | PROVIDERS: ATTENDING PHYSICIAN Student in an Organized Health Care Education/Training Program | DX: K43.2 Incisional hernia without obstruction or gangrene (principal) | CPT/HCPCS: 76705 ==

== ENCOUNTER 2024-12-02 11:16 | Emergency (ER) | payer OTHER, SELFPAY ==
[2024-12-02 11:21] VITALS: BP 181/106
[2024-12-02 13:00] VITALS: BP 193/88; BMI 25.8
--- NOTE | 2024-12-02 13:02 | ED.GENMED ---
History of Present Illness
General
Chief Complaint: Abdominal Symptoms
Source: patient
Exam Limitations: none
Time Seen by Provider: 12/02/24 12:26
Nursing documentation reviewed up to this point in time: agreed with
History of Present Illness
History of Present Illness:
Patient status post liver transplant at [facility] 7 months ago, presents to ED secondary to persistent nausea sensation with multiple vomiting episodes, shortly after waking up this morning. Denies abdominal pain. Denies
fever or chills. Denies dizziness or weakness. Denies coughing. Denies sore throat. Denies diarrhea. Patient states that he did not anything different last night before he went to sleep. Denies recent illness. Of note, patient states that
last time he had the similar symptoms, he was admitted at [facility] and treated for elevated potassium.
Past History
Past History
ED Past Medical History: HTN and Other (pre-diabetic years ago but lost weight and says he no longer is)
ED Past Surgical History: None and Orthopedic
Patient has exhibited threatening behavior?: No
PSI?: No
Social History
Tobacco: Smoker
Alcohol: Former (Heavy alcohol use, quit March 2022)
Drug: None
Personal: Single
Living: with family
Employment: Not employed
Family History
Family History: Other
Review of Systems
Review of Systems
Allergies reviewed?: Yes
All Other Systems: ROS reviewed and negative except as documented in HPI and ROS
Constitutional: Reports no symptoms
Respiratory: Reports no symptoms
Cardiac: Reports no symptoms
ABD/GI: Reports nausea and vomiting; Denies abdominal pain or diarrhea
Musculoskeletal: Reports no symptoms
Skin: Reports no symptoms
Neurological: Reports no symptoms
Phy Exam
Physical Exam
Physical Exam:
Physical Exam
General: no apparent distress, not acutely ill. afebrile
Head: nc/at. eomi
Neck: supple. normal range of motion.
Heart: s1/s2 regular rate and rhythm
Lungs: no acute respiratory distress. clear bilaterally
Abdomen: normal bowel sounds. not tender. no distention
Neuro: alert and oriented x 3. no focal neurological deficits
Skin: no rash
Psychiatric: well kept. interactive and cooperative
Extremities: no edema. no calf tenderness.
Course
Orders/Labs/Results
Orders:
Orders
12/02/24 12:48
0.9% Sodium Chloride 500 ml [Nss] 500 ml IV BOLUS
12/02/24 13:06
Complete Blood Count/With Diff Urgent
Manual Differential Urgent
12/02/24 13:38
Comprehensive Metabolic Panel Urgent
Lipase Urgent
Magnesium Urgent
12/02/24 14:53
Sodium Zirconium Cyclosilicate [Lokelma] 10 gram PO NOW STA
Abnormal Lab Results
12/02/24 12/02/24
13:06 13:38
WBC 4.1 L 10^3/uL
(4.8-10.8)
MPV 10.7 H fL
(7.4-10.4)
Segmented Neutrophils 78 H %
(42-75)
Lymphocytes (Manual) 12 L %
(20-51)
Potassium 5.5 H mmol/L
(3.5-5.1)
Chloride 109 H mmol/L
(98-107)
BUN 28 H mg/dl
(9-20)
Creatinine 1.4 H mg/dL
(0.7-1.3)
Glucose 119 H mg/dl
(70-99)
Total Protein 6.2 L g/dl
(6.3-8.2)
12/02/24 13:06
12/02/24 13:38
Vital Signs
Initial and Last Documented VS:
Initial Vital Signs
Temp Pulse Resp BP Pulse Ox
98.3 F 71 16 181/106 98
12/02/24 11:21 12/02/24 11:21 12/02/24 11:21 12/02/24 11:21 12/02/24 11:21
Last Documented Vital Signs
Temp Pulse Resp BP Pulse Ox
98.3 F 77 16 162/96 100
12/02/24 11:21 12/02/24 15:20 12/02/24 15:20 12/02/24 15:20 12/02/24 15:20
MDM/Problems Addressed
MDM/Problems Addressed:
Blood work reviewed and discussed with patient as well as Nieves from [facility] liver transplant service. Reviewed outpatient blood work from last week, including elevated potassium and creatinine, which appears to be
improved today. Agrees with plan to discharge patient home with prescription for Lokelma for 1 additional day. Patient has an outpatient blood work already ordered for next week. Transplant team will arrange for an outpatient consultation with
nephrology. Patient otherwise remains afebrile, hemodynamically stable, and nontoxic-appearing, and without any further vomiting episodes in ED. Repeat abdominal exam: Soft and nontender.
Patient expresses understanding and agrees with treatment plan, at time of discharge.
*Critical Care Note
Total Time (30-74mins, 75-104mins- exclusive of procedures): Not Applicable
ED Attending Note
-
Portions of this chart may have been created with voice recognition software.� Occasional wrong word or��sound alike� substitutions may have occurred due to the inherent limitations of voice recognition software.
Discharge Plan
Departure
Patient Disposition: Home (Routine Discharge)
Date of Disposition: 12/02/24
Time of Disposition: 14:59
Patient with high blood pressure during this ER visit?: Yes
Discharge Problem:
Nausea and vomiting, Hyperkalemia
Instructions: Nausea and Vomiting, Adult (DC), Hyperkalemia
Prescriptions:
New
Lokelma 10 gram powder in packet
10 g PO DAILY 1 Days Qty: 1 0RF
ondansetron 4 mg Tablet,Disintegrating
4 mg PO TIDPRN PRN (Reason: nausea/vomiting) Qty: 12 0RF
No Action
acetaminophen 500 mg Tablet
1,000 mg PO [id number] PRN (Reason: mild pain/fever)
valganciclovir 450 mg tablet
450 mg PO DAILY
sulfamethoxazole-trimethoprim 400-80 mg tablet
1 tab PO DAILY
mycophenolate mofetil 250 mg capsule
500 mg PO BID
tacrolimus 5 mg capsule
10 mg PO BID
famotidine 20 mg tablet
20 mg PO DAILY
furosemide 20 mg tablet
40 mg PO DAILY
cyclobenzaprine 5 mg tablet
5 mg PO TIDPRN PRN (Reason: muscle spasms)
prednisone 20 mg Tablet
20 mg PO DAILY
Referrals:
UNKNOWN - PT NOT,INTERVIEWE [Family Provider] -
Activity Restrictions/Additional Instructions:
As discussed, please follow-up with your liver transplant team for further evaluation and treatment. Your prescriptions have been sent electronically to [facility] pharmacy.
Interventions
Interventions:
*Risk Screen - Suicide Last Done: 12/02/24 13:00
*General Assessment Last Done: 12/02/24 13:00
*Neglect/Abuse Screening Last Done: 12/02/24 13:00
*ED- Fall Risk Assessment Last Done: 12/02/24 13:00
*ED COVID-19 Vaccine History Last Done: 12/02/24 13:00
*Nursing Disposition Last Done: 12/02/24 15:27
QS-Zguygl-Exrbasflaa Assessment Last Done: 12/02/24 13:00
Discharge Date and Time
Discharge Date/Time: 12/02/24 15:28
Print Language: MALTESE
[2024-12-02] MEDS: NSS 500 IV (13:08)
[2024-12-02 13:19] LABS: Hematocrit 40.7 % (39.0-52.0); Hemoglobin 14.4 g/dL (13.0-18.0); Mean Corp Hgb Conc. 35.4 g/dL (33.0-37.0); Mean Corpuscular Volume 81.9 fL (80.0-94.0); Mean Platelet Volume 10.7 fL (7.4-10.4); Platelet Count 136 10^3/uL (130-400); Red Blood Cell Count 4.97 10^6/uL (4.70-6.10); Red Cell Dist. Width 13.8 % (11.5-14.5); White Blood Cell Count 4.1 10^3/uL (4.8-10.8)
--- NOTE | 2024-12-02 13:34 | EDRN ---
Ruth attempting redraw of comprehensive blood as it was deemed hemolyzed.
[2024-12-02 14:03] LABS: ALT (SGPT) 19 U/L (0-50); AST (SGOT) 22 U/L (17-59); Albumin 3.8 g/dl (3.5-5.0); Alkaline Phosphatase 113 U/L (38-126); Blood Urea Nitrogen 28 mg/dl (9-20); Calcium 8.9 mg/dl (8.4-10.2); Carbon Dioxide 28 mmol/L (22-30); Chloride 109 mmol/L (98-107); Estimated Creatinine Clearance 66 ml/min; Glucose 119 mg/dl (70-99); Lipase 52 U/L (23-300); Magnesium 1.9 mg/dl (1.6-2.3); Potassium 5.5 mmol/L (3.5-5.1); Sodium 139 mmol/L (135-145); Total Bilirubin 0.5 mg/dl (0.2-1.3); Total Protein 6.2 g/dl (6.3-8.2); eGFR 59.73
[2024-12-02 14:07] VITALS: BP 183/87
[2024-12-02 14:35] LABS: Absolute Neutrophils -Man Diff 3.2 10^3/uL (1.4-6.5); Band Neutrophils 1 % (0-3); Eosinophils 1 % (0-6); Lymphocytes 12 % (20-51); Monocytes 2 % (2-9); Segmented Neutrophils 78 % (42-75)
[2024-12-02 14:36] LABS: Myelocytes 6 % (-); Normal RBC Morphology Yes; Platelets Checked Yes; Total Cells Counted 100
[2024-12-02] MEDS: LOKELMA 10 GRAM PO (15:18)
[2024-12-02 15:20] VITALS: BP 162/96
== END 2024-12-02 15:28 | disposition home or self-care (01) ==
LOC: EMR 11:16
PROVIDERS: EMERGENCY PHYSICIAN Emergency Medicine
DX: R11.2 Nausea with vomiting, unspecified (principal); I10 Essential (primary) hypertension; E87.5 Hyperkalemia; F17.200 Nicotine dependence, unspecified, uncomplicated
CPT/HCPCS: 99284; 96360; 80053; 83690; 83735; 85025

== ENCOUNTER → 2025-04-13 08:31 | Outpatient (REF) | payer MEDICARE, SELFPAY ==
[2025-04-13 09:41] LABS: Hematocrit 37.6 % (39.0-52.0); Hemoglobin 12.8 g/dL (13.0-18.0); Mean Corp Hgb Conc. 34.0 g/dL (33.0-37.0); Mean Corpuscular Volume 82.8 fL (80.0-94.0); Nucleated Red Blood Cells % 0 % (-); Platelet Count 148 10^3/uL (130-400); Red Cell Dist. Width 14.1 % (11.5-14.5)
[2025-04-13 10:39] LABS: ALT (SGPT) 16 U/L (0-50); AST (SGOT) 22 U/L (17-59); Albumin 4.3 g/dl (3.5-5.0); Alkaline Phosphatase 102 U/L (38-126); Blood Urea Nitrogen 27 mg/dl (9-20); Calcium 9.1 mg/dl (8.4-10.2); Carbon Dioxide 25 mmol/L (22-30); Chloride 106 mmol/L (98-107); GGTP 14 U/L (15-73); Glucose 96 mg/dl (70-99); Magnesium 2.1 mg/dl (1.6-2.3); Potassium 5.9 mmol/L (3.5-5.1); Sodium 138 mmol/L (135-145); Total Protein 7.1 g/dl (6.3-8.2); eGFR 47.31
[2025-04-15 11:24] LABS: Tacrolimus (Prograft - FK506) 3.8 ng/mL
== END ==
LOC: REG 08:31
PROVIDERS: ATTENDING PHYSICIAN Registered Nurse
DX: Z94.4 Liver transplant status (principal)
CPT/HCPCS: 36415; 80053; 80197; 82977; 83735; 85025

== ENCOUNTER → 2025-04-28 09:01 | Outpatient (REF) | payer MEDICARE, SELFPAY ==
[2025-04-28 09:59] LABS: Hematocrit 40.7 % (39.0-52.0); Hemoglobin 13.8 g/dL (13.0-18.0); Mean Corp Hgb Conc. 33.9 g/dL (33.0-37.0); Mean Corpuscular Volume 82.6 fL (80.0-94.0); Nucleated Red Blood Cells % 0 % (-); Platelet Count 161 10^3/uL (130-400); Red Cell Dist. Width 13.6 % (11.5-14.5)
[2025-04-28 10:21] LABS: AST (SGOT) 21 U/L (17-59); Albumin 4.4 g/dl (3.5-5.0); Alkaline Phosphatase 113 U/L (38-126); Blood Urea Nitrogen 38 mg/dl (9-20); Calcium 9.5 mg/dl (8.4-10.2); Carbon Dioxide 28 mmol/L (22-30); Chloride 106 mmol/L (98-107); GGTP 13 U/L (15-73); Glucose 106 mg/dl (70-99); HDL Cholesterol 39 mg/dl; LDL Cholesterol, Calculated 111 mg/dl; Magnesium 2.1 mg/dl (1.6-2.3); Potassium 5.2 mmol/L (3.5-5.1); Sodium 140 mmol/L (135-145); Total Protein 7.4 g/dl (6.3-8.2); Very Low Density Lipoprotein 36 mg/dl (0-30); eGFR 47.02
[2025-04-28 10:28] LABS: ALT (SGPT) 17 U/L (0-50)
[2025-04-30 11:20] LABS: Tacrolimus (Prograft - FK506) 3.5 ng/mL
== END ==
LOC: REG 09:01
PROVIDERS: ATTENDING PHYSICIAN Registered Nurse; FAMILY PHYSICIAN Registered Nurse Medical-Surgical
DX: Z94.4 Liver transplant status (principal)
CPT/HCPCS: 36415; 80053; 80061; 80197; 82570; 82977; 83735; 84156; 85025

== ENCOUNTER → 2025-05-13 08:23 | Outpatient (REF) | payer MEDICARE, SELFPAY ==
[2025-05-13 09:56] LABS: Hematocrit 41.5 % (39.0-52.0); Hemoglobin 14.3 g/dL (13.0-18.0); Mean Corp Hgb Conc. 34.5 g/dL (33.0-37.0); Mean Corpuscular Volume 83.7 fL (80.0-94.0); Nucleated Red Blood Cells % 0 % (-); Platelet Count 156 10^3/uL (130-400); Red Cell Dist. Width 13.5 % (11.5-14.5)
[2025-05-13 10:45] LABS: ALT (SGPT) 20 U/L (0-50); AST (SGOT) 24 U/L (17-59); Albumin 4.3 g/dl (3.5-5.0); Alkaline Phosphatase 115 U/L (38-126); Blood Urea Nitrogen 32 mg/dl (9-20); Calcium 9.6 mg/dl (8.4-10.2); Carbon Dioxide 24 mmol/L (22-30); Chloride 109 mmol/L (98-107); GGTP 11 U/L (15-73); Glucose 108 mg/dl (70-99); Magnesium 2.1 mg/dl (1.6-2.3); Potassium 6.4 mmol/L (3.5-5.1); Sodium 139 mmol/L (135-145); Total Protein 7.2 g/dl (6.3-8.2); eGFR 47.02
[2025-05-15 08:52] LABS: Tacrolimus (Prograft - FK506) 3.8 ng/mL
== END ==
LOC: REG 08:23
PROVIDERS: ATTENDING PHYSICIAN Registered Nurse; FAMILY PHYSICIAN Registered Nurse Medical-Surgical
DX: Z94.4 Liver transplant status (principal)
CPT/HCPCS: 80053; 80197; 82977; 83735; 85025

== ENCOUNTER 2025-05-13 14:31 | Emergency (ER) | payer MEDICARE, SELFPAY ==
[2025-05-13 14:33] VITALS: BP 217/109
[2025-05-13 14:36] VITALS: BP 193/105
[2025-05-13 14:58] LABS: Hematocrit 39.9 % (39.0-52.0); Hemoglobin 14.1 g/dL (13.0-18.0); Mean Corp Hgb Conc. 35.3 g/dL (33.0-37.0); Mean Corpuscular Volume 80.3 fL (80.0-94.0); Nucleated Red Blood Cells % 0 % (-); Platelet Count 152 10^3/uL (130-400); Red Cell Dist. Width 13.5 % (11.5-14.5)
[2025-05-13 15:10] LABS: ALT (SGPT) 19 U/L (0-50); AST (SGOT) 23 U/L (17-59); Albumin 4.2 g/dl (3.5-5.0); Alkaline Phosphatase 122 U/L (38-126); Blood Urea Nitrogen 28 mg/dl (9-20); Calcium 8.7 mg/dl (8.4-10.2); Carbon Dioxide 25 mmol/L (22-30); Chloride 108 mmol/L (98-107); Glucose 99 mg/dl (70-99); Potassium 4.5 mmol/L (3.5-5.1); Sodium 137 mmol/L (135-145); Total Protein 7.1 g/dl (6.3-8.2); eGFR 54.64
--- NOTE | 2025-05-13 17:27 | ED.GENMED ---
History of Present Illness
General
Chief Complaint: Abnormal Lab Value
Source: patient
Exam Limitations: none
Time Seen by Provider: 05/13/25 16:57
Nursing documentation reviewed up to this point in time: agreed with
History of Present Illness
History of Present Illness:
see MDM
Past History
Past History
ED Past Medical History: HTN and Other (pre-diabetic years ago but lost weight and says he no longer is)
ED Past Surgical History: None and Orthopedic
Patient has exhibited threatening behavior?: No
PSI?: No
Social History
Tobacco: Smoker
Alcohol: Former (Heavy alcohol use, quit March 2022)
Drug: None
Personal: Single
Living: with family
Employment: Not employed
Family History
Family History: Other
Review of Systems
Review of Systems
Allergies reviewed?: Yes
All Other Systems: Not applicable
Phy Exam
Physical Exam
Physical Exam:
GENERAL: Alert , in no apparent distress
EYE: pupils equal and reactive
NECK: Supple
ENT: o/p clr, mmm.
CARDIAC: Regular rate and rhythm .
LUNGS: Clear breath sounds bilaterally, no acute respiratory distress, no wheezes/rales/rhonchi
ABDOMEN: Soft, without focal tenderness, no r/g, no cvat, normal bowel sounds
NEUROLOGICAL: Alert and oriented, no focal neuro deficits
SKIN: Warm and dry, skin intact.
MUSCULOSKELETAL:minima pretibial edema normal DP pulses
PSYCH: Normal and appropriate interaction.
Course
Orders/Labs/Results
Orders:
Orders
05/13/25 14:36
ECG [Electrocardiogram (*1)] Urgent
Reason for Study: CAD
Other Reason for Exam: L arm numbness with hyperkalemia
05/13/25 14:37
EKG- Treatment ONCE
05/13/25 14:43
Complete Blood Count/With Diff Urgent
Comprehensive Metabolic Panel Urgent
Abnormal Lab Results
05/13/25
14:43
WBC 3.7 L 10^3/uL
(4.8-10.8)
Absolute Lymphs (auto) 1.0 L 10^3/uL
(1.2-3.4)
Monocytes % 10.7 H %
(1.7-9.3)
Chloride 108 H mmol/L
(98-107)
BUN 28 H mg/dl
(9-20)
Creatinine 1.5 H mg/dL
(0.7-1.3)
05/13/25 14:43
05/13/25 14:43
Vital Signs
Initial and Last Documented VS:
Initial Vital Signs
Temp Pulse Resp BP Pulse Ox
37.2 C 76 16 217/109 99
05/13/25 14:33 05/13/25 14:33 05/13/25 14:33 05/13/25 14:33 05/13/25 14:33
Last Documented Vital Signs
Temp Pulse Resp BP Pulse Ox
37.2 C 65 19 160/93 98
05/13/25 14:33 05/13/25 17:34 05/13/25 17:34 05/13/25 17:34 05/13/25 17:34
MDM/Problems Addressed
Differential Diagnosis Includes:
see MDM
MDM/Problems Addressed:
Note:
CHIEF COMPLAINT(S)
Elevated tacrolimus level.
HISTORY OF PRESENT ILLNESS
pt is a 55 y/o M s/p liver TXP [facility] 04/2024, here for eleated potassium level 6.7 this morning.
The patient states he had blood drawn as part of his routine post-transplant monitoring and received a call from the transplant team indicating a significantly elevated tacrolimus level of 6.4. This prompted an immediate return to the hospital for
re-evaluation. A repeat blood test indicated a tacrolimus level of 4.5, which the patient reports is usually in the normal range for him. The blood sample was drawn from his hand.
pt did take his lokelma after the initial blood work was drawn this morning
Additionally, the patient reports several concurrent symptoms and conditions. He is experiencing neuropathy, testified by an inability to feel his feet. He also has a history of high blood pressure and high potassium levels. Though he admits to
previous alcohol consumption, he denies current alcohol use and does not identify as having had an alcohol dependency. He reports not facing withdrawal symptoms after ceasing alcohol use.
The patient is experiencing grief after the recent passing of his mother, which has affected his routine and diet.
she 2 days ago
he is tearful
PAST MEDICAL AND SURIGICAL HISTORY
The patient underwent a liver transplantation in April 2024 and subsequent surgery in January (year unspecified) for additional complications, described as 'burnies' although clarification was vague potentially alluding to surgical adhesions.
CHRONIC MEDICAL CONDITIONS SIGNIFICANTLY AFFECTING CARE
The patient has a history of hypertension, elevated potassium levels, and peripheral neuropathy.
SOCIAL DETERMINANTS AFFECTING HEALTH
The recent of the patients mother has impacted his emotional and psychological state. He expresses feelings of grief and stress, acknowledging how it has affected his routine, particularly his dietary habits.
MEDICATIONS
The patient is on tacrolimus (10 mg daily) and reports the use of furosemide, which he acknowledges affects potassium levels. He also mentions taking Cellcept (Mycophenolate mofetil).
REVIEW OF SYSTEMS
- Musculoskeletal: Peripheral neuropathy, patient reports inability to feel feet.
- Cardiovascular: Hypertension noted.
- Neurological: Peripheral neuropathy symptoms described.
- Gastrointestinal: Reports regular bowel movements influenced by post-medication timing.
PHYSICAL EXAM
- Neurological: Unable to feel feet due to neuropathy.
Nursing notes reviewed and vital signs reviewed.
PLAN
The current potassium level of 4.5 is considered within acceptable range though slightly lower than the patients typical value. It is inferred the initial abnormal level was potentially due to hemolysis. Continue monitoring tacrolimus levels and
adjust medications as necessary. The patient should aim to manage hypertension and high potassium levels, potentially through dietary modifications or medication adjustments as advised.
DIFFERENTIAL DIAGNOSIS
The Differential Diagnosis includes, in no particular order, and is not limited to:
1. Tacrolimus toxicity
2. Medication non-compliance or interactions
3. Chronic kidney disease
4. Cardiovascular disease
5. Alcohol-induced liver disease (prior)
6. Cirrhosis (historical, pre-transplant)
7. Peripheral neuropathy due to diabetes or post-transplant medication
8. Secondary hypertension
9. Post-transplant lymphoproliferative disorder
10. Adrenal insufficiency
Patient is a 55-year-old male status post liver transplant 1 year ago on antirejection meds with chronic hyperkalemia who had blood work drawn this morning routinely and was called with the result of the potassium is 6.4. He had since taken his
Lokelma after the first initial blood draw. He is asymptomatic without chest pain, palpitations. Patient had a repeat potassium level drawn here and it was 4.5. He has no peaked T waves on his EKG. I suspect in first reading was false, though no
hemolysis was visualized or commented on with the laboratory, it is possible there was some hemolysis. Regardless patient does have adequate follow-up and can be discharged at this time. He has other chronic symptoms like neuropathy in his legs
and arms at times but he has no new findings today. Patient just also was put on furosemide to help with some fluid retention. His creatinine is 1.5 which is about baseline for him.
Patient's been pretty stressed and did not eat in the last day and a half because his mom just 2 days ago. He was telling me his recent visit with her was on the same day she , they had a nice meal together and he spoke with her in
the evening just before she passed. He denies that he had any alcohol with this stressful situation.
I SPOKE WITH TXP LIVER AT [facility] AWARE OF THE NORMAL K 4.5, OK TO D/C HOME
*Pulse Oximetry
SaO2: 99
Oxygen Mode of Delivery: Room air
Patient hypoxic: no (98)
*Critical Care Note
Total Time (30-74mins, 75-104mins- exclusive of procedures): Not Applicable
ED Attending Note
-
Portions of this chart may have been created with voice recognition software.� Occasional wrong word or��sound alike� substitutions may have occurred due to the inherent limitations of voice recognition software.
Discharge Plan
Departure
Patient Disposition: Home (Routine Discharge)
Date of Disposition: 05/13/25
Time of Disposition: 17:37
Patient with high blood pressure during this ER visit?: Yes
Condition: Fair
Covid-19: Not Applicable
Discharge Problem:
Hypertension
Instructions: High blood pressure - ED (DC)
Prescriptions:
No Action
acetaminophen 500 mg Tablet
1,000 mg PO [id number] PRN (Reason: mild pain/fever)
valganciclovir 450 mg tablet
450 mg PO DAILY
sulfamethoxazole-trimethoprim 400-80 mg tablet
1 tab PO DAILY
mycophenolate mofetil 250 mg capsule
500 mg PO BID
tacrolimus 5 mg capsule
10 mg PO BID
famotidine 20 mg tablet
20 mg PO DAILY
furosemide 20 mg tablet
40 mg PO DAILY
cyclobenzaprine 5 mg tablet
5 mg PO TIDPRN PRN (Reason: muscle spasms)
prednisone 20 mg Tablet
20 mg PO DAILY
Lokelma 10 gram powder in packet
10 g PO DAILY 1 Days Qty: 1 0RF
ondansetron 4 mg Tablet,Disintegrating
4 mg PO TIDPRN PRN (Reason: nausea/vomiting) Qty: 12 0RF
Referrals:
Joon Mnédez CRNP [Family Provider] - Follow up in 2-3 days
Activity Restrictions/Additional Instructions:
YOUR POTASSIUM WAS RECHECKED AND NORMAL AT THIS TIME
PLEASE FOLLOW UP CLOSELY
RETURN FOR CONCERNS.
Interventions
Interventions:
*Risk Screen - Suicide Last Done: 05/13/25 17:30
*General Assessment Last Done: 05/13/25 17:30
*Neglect/Abuse Screening Last Done: 05/13/25 17:30
*Nursing Disposition Last Done: 05/13/25 18:05
Discharge Date and Time
Discharge Date/Time: 05/13/25 18:06
Print Language: AUSTRALIAN
[2025-05-13 17:34] VITALS: BP 160/93
== END 2025-05-13 18:06 | disposition home or self-care (01) ==
LOC: EMR 14:31
PROVIDERS: EMERGENCY PHYSICIAN Emergency Medicine; FAMILY PHYSICIAN Registered Nurse Medical-Surgical
DX: I10 Essential (primary) hypertension (principal); E87.5 Hyperkalemia; G62.9 Polyneuropathy, unspecified; F17.200 Nicotine dependence, unspecified, uncomplicated; Z63.4 Disappearance and death of family member; Z79.621 Long term (current) use of calcineurin inhibitor; Z94.4 Liver transplant status
CPT/HCPCS: 99284; 80053; 85025; 93005

== ENCOUNTER 2025-05-16 15:00 | Emergency (ER) | payer MEDICARE, SELFPAY ==
[2025-05-16] VITALS (13 sets, daily range): BP systolic 84–165; BP diastolic 71–129; BMI 25.1
--- NOTE | 2025-05-16 16:41 | ED.MUSCINJ ---
HPI-Injury
General
Chief Complaint: Fall
Source: patient
Exam Limitations: none
Time Seen by Provider: 05/16/25 16:14
History of Present Illness-Injury
Initial Injury comments:
55-year-old male liver transplant patient presents complaining of left shoulder pain. He tripped in a parking lot landing on his left arm. No head strike. He is not anticoagulated. No other complaints at this time
Past History
Past History
ED Past Medical History: HTN and Other (pre-diabetic years ago but lost weight and says he no longer is)
ED Past Surgical History: None and Orthopedic
Patient has exhibited threatening behavior?: No
PSI?: No
Social History
Tobacco: Smoker
Alcohol: Former (Heavy alcohol use, quit March 2022)
Drug: None
Personal: Single
Living: with family
Employment: Not employed
Family History
Family History: Other
Phy Exam
Physical Exam
Physical Exam:
General: Uncomfortable appearing male no acute distress
HEENT normal cephalic atraumatic
Musculoskeletal exam: Left shoulder swollen and tender. Increased pain with any motion skin is intact
Injury Course
Orders/Labs/Results
Orders:
Orders
05/16/25 15:02
Shoulder, Left, Trauma CR [CR Shoulder, Trauma - Left] Urgent
Comment:
Reason For Exam: injury
05/16/25 16:40
HYDROmorphone [Dilaudid] 1 mg IV NOW STA
05/16/25 16:41
Sling Left-Treatment ONCE
MDM/Problems Addressed
Differential Diagnosis Includes:
Left shoulder pain after a fall. Consider fracture versus dislocation versus both
X-rays demonstrate greater tuberosity fracture of the left humerus. There is subluxation but no dislocation likely due to joint effusion. Sling applied pain medicine ordered
*Pulse Oximetry
SaO2: 100
Oxygen Mode of Delivery: Room air
Patient hypoxic: no
*Critical Care Note
Total Time (30-74mins, 75-104mins- exclusive of procedures): Not Applicable
ED Attending Note
-
Portions of this chart may have been created with voice recognition software.� Occasional wrong word or��sound alike� substitutions may have occurred due to the inherent limitations of voice recognition software.
Discharge Plan
Departure
Patient Disposition: Home (Routine Discharge)
Date of Disposition: 05/16/25
Time of Disposition: 18:42
Patient with high blood pressure during this ER visit?: No
Discharge Problem:
Fracture of proximal end of humerus
Instructions: Muscle, joint, and bone pain (DC)
Prescriptions:
New
oxycodone 5 mg tablet
5 mg PO Q6H PRN (Reason: Pain) Qty: 14 0RF
No Action
acetaminophen 500 mg Tablet
1,000 mg PO [id number] PRN (Reason: mild pain/fever)
valganciclovir 450 mg tablet
450 mg PO DAILY
sulfamethoxazole-trimethoprim 400-80 mg tablet
1 tab PO DAILY
mycophenolate mofetil 250 mg capsule
500 mg PO BID
tacrolimus 5 mg capsule
10 mg PO BID
famotidine 20 mg tablet
20 mg PO DAILY
furosemide 20 mg tablet
40 mg PO DAILY
cyclobenzaprine 5 mg tablet
5 mg PO TIDPRN PRN (Reason: muscle spasms)
prednisone 20 mg Tablet
20 mg PO DAILY
Lokelma 10 gram powder in packet
10 g PO DAILY 1 Days Qty: 1 0RF
ondansetron 4 mg Tablet,Disintegrating
4 mg PO TIDPRN PRN (Reason: nausea/vomiting) Qty: 12 0RF
Referrals:
Jono Méndez CRNP [Family Provider]
Rj Riley MD [Active, Orthopedics]
Activity Restrictions/Additional Instructions:
Use sling for support. Take pain medicine as needed. Follow-up with Orthopedics.
Interventions
Interventions:
*Risk Screen - Suicide Last Done: 05/16/25 15:18
*General Assessment Last Done: 05/16/25 15:18
*Neglect/Abuse Screening Last Done: 05/16/25 15:18
*ED COVID-19 Vaccine History Last Done: 05/16/25 15:18
ED-Musculoskeletal Assessment Last Done: 05/16/25 15:18
ED- Neurological Assessment Last Done: 05/16/25 15:18
ED-Skin Assessment Last Done: 05/16/25 15:18
Discharge Date and Time
Print Language: ITALIAN
[2025-05-16] MEDS: DILAUDID 1 MG IV (16:47)
== END 2025-05-16 18:55 | disposition home or self-care (01) ==
LOC: EMR 15:00
PROVIDERS: EMERGENCY PHYSICIAN Emergency Medicine; FAMILY PHYSICIAN Registered Nurse Medical-Surgical
DX: S42.255A Nondisplaced fracture of greater tuberosity of left humerus, initial encounter for closed fracture (principal); M25.412 Effusion, left shoulder; I10 Essential (primary) hypertension; F17.200 Nicotine dependence, unspecified, uncomplicated; W01.0XXA Fall on same level from slipping, tripping and stumbling without subsequent striking against object, initial encounter; Y93.01 Activity, walking, marching and hiking; Y92.481 Parking lot as the place of occurrence of the external cause
CPT/HCPCS: 99284; 96374; 73030

== ENCOUNTER → 2025-06-15 07:51 | Outpatient (REF) | payer MEDICARE, SELFPAY ==
[2025-06-15 08:56] LABS: Hematocrit 41.4 % (39.0-52.0); Hemoglobin 13.9 g/dL (13.0-18.0); Mean Corp Hgb Conc. 33.6 g/dL (33.0-37.0); Mean Corpuscular Volume 80.5 fL (80.0-94.0); Nucleated Red Blood Cells % 0 % (-); Platelet Count 149 10^3/uL (130-400); Red Cell Dist. Width 13.2 % (11.5-14.5)
[2025-06-15 09:36] LABS: ALT (SGPT) 20 U/L (0-50); AST (SGOT) 19 U/L (17-59); Albumin 4.0 g/dl (3.5-5.0); Alkaline Phosphatase 146 U/L (38-126); Blood Urea Nitrogen 25 mg/dl (9-20); Calcium 8.9 mg/dl (8.4-10.2); Carbon Dioxide 27 mmol/L (22-30); Chloride 105 mmol/L (98-107); Glucose 95 mg/dl (70-99); Magnesium 2.3 mg/dl (1.6-2.3); Potassium 4.9 mmol/L (3.5-5.1); Sodium 138 mmol/L (135-145); Total Protein 6.9 g/dl (6.3-8.2); eGFR 50.57
[2025-06-15 09:43] LABS: GGTP 23 U/L (15-73)
[2025-06-17 04:44] LABS: Tacrolimus (Prograft - FK506) 4.2 ng/mL
== END ==
LOC: REG 07:51
PROVIDERS: ATTENDING PHYSICIAN Registered Nurse; FAMILY PHYSICIAN Registered Nurse Medical-Surgical
DX: Z94.4 Liver transplant status (principal)
CPT/HCPCS: 36415; 80053; 80197; 82977; 83735; 85025

== ENCOUNTER 2025-07-08 08:06 | Outpatient (RCR) | payer MEDICARE, SELFPAY | END 2025-07-08 23:59 | disposition home or self-care (01) | LOC: RPT 08:06 | PROVIDERS: ATTENDING PHYSICIAN Psychiatry & Neurology Neurology; FAMILY PHYSICIAN Registered Nurse Medical-Surgical | DX: S42.225D 2-part nondisplaced fracture of surgical neck of left humerus, subsequent encounter for fracture with routine healing (principal); G62.9 Polyneuropathy, unspecified; Z73.6 Limitation of activities due to disability; R26.2 Difficulty in walking, not elsewhere classified; M62.81 Muscle weakness (generalized) | CPT/HCPCS: 97010; 97110; 97112; 97140; 97163; 97530 ==

== ENCOUNTER → 2025-07-15 08:03 | Outpatient (REF) | payer MEDICARE, SELFPAY ==
[2025-07-15 09:44] LABS: Hematocrit 47.4 % (39.0-52.0); Hemoglobin 16.4 g/dL (13.0-18.0); Mean Corp Hgb Conc. 34.6 g/dL (33.0-37.0); Mean Corpuscular Volume 80.5 fL (80.0-94.0); Nucleated Red Blood Cells % 0 % (-); Platelet Count 172 10^3/uL (130-400); Red Cell Dist. Width 13.5 % (11.5-14.5)
[2025-07-15 10:58] LABS: ALT (SGPT) 18 U/L (0-50); AST (SGOT) 22 U/L (17-59); Albumin 4.4 g/dl (3.5-5.0); Alkaline Phosphatase 125 U/L (38-126); Blood Urea Nitrogen 28 mg/dl (9-20); Calcium 8.6 mg/dl (8.4-10.2); Carbon Dioxide 26 mmol/L (22-30); Chloride 99 mmol/L (98-107); GGTP 15 U/L (15-73); Glucose 113 mg/dl (70-99); Magnesium 2.1 mg/dl (1.6-2.3); Potassium 4.0 mmol/L (3.5-5.1); Sodium 137 mmol/L (135-145); Total Protein 7.4 g/dl (6.3-8.2); eGFR 54.64
[2025-07-15 11:10] LABS: PSA, Total - Screen 0.52 ng/ml (0.0-4.0)
[2025-07-17 10:18] LABS: Tacrolimus (Prograft - FK506) 3.5 ng/mL
== END ==
LOC: REG 08:03
PROVIDERS: ATTENDING PHYSICIAN Registered Nurse Medical-Surgical; REFERRING PHYSICIAN Registered Nurse
DX: Z12.5 Encounter for screening for malignant neoplasm of prostate (principal); Z94.4 Liver transplant status
CPT/HCPCS: 36415; 80053; 80197; 82977; 83735; 85025; G0103

== ENCOUNTER → 2025-07-17 15:43 | Outpatient (REF) | payer MEDICARE, SELFPAY | LOC: RAD 15:43 | PROVIDERS: ATTENDING PHYSICIAN Nurse Practitioner Primary Care; FAMILY PHYSICIAN Registered Nurse Medical-Surgical | DX: M25.551 Pain in right hip (principal); M25.552 Pain in left hip; G89.29 Other chronic pain; M54.50 Low back pain, unspecified | CPT/HCPCS: 72100; 73521 ==

== ENCOUNTER 2025-07-23 15:35 | Outpatient (RCR) | payer MEDICARE, SELFPAY | END 2025-07-23 23:59 | disposition home or self-care (01) | LOC: RPT 15:35 | PROVIDERS: ATTENDING PHYSICIAN Psychiatry & Neurology Neurology; FAMILY PHYSICIAN Registered Nurse Medical-Surgical | DX: S42.225D 2-part nondisplaced fracture of surgical neck of left humerus, subsequent encounter for fracture with routine healing (principal); G62.9 Polyneuropathy, unspecified; Z73.6 Limitation of activities due to disability; R26.2 Difficulty in walking, not elsewhere classified; M62.81 Muscle weakness (generalized) | CPT/HCPCS: 97010; 97110; 97112; 97140; 97530 ==

== ENCOUNTER 2025-07-29 12:16 | Emergency (ER) | payer MEDICARE, SELFPAY ==
[2025-07-29 12:23] VITALS: BP 206/108
[2025-07-29 13:41] VITALS: BP 188/104
[2025-07-29 14:00] VITALS: BP 169/105
[2025-07-29 14:45] LABS: Hematocrit 43.1 % (39.0-52.0); Hemoglobin 14.5 g/dL (13.0-18.0); Mean Corp Hgb Conc. 33.6 g/dL (33.0-37.0); Mean Corpuscular Volume 80.0 fL (80.0-94.0); Nucleated Red Blood Cells % 0 % (-); Platelet Count 155 10^3/uL (130-400); Red Cell Dist. Width 13.6 % (11.5-14.5)
[2025-07-29 15:00] VITALS: BMI 27.8
[2025-07-29 15:01] LABS: ALT (SGPT) 18 U/L (0-50); AST (SGOT) 19 U/L (17-59); Albumin 3.8 g/dl (3.5-5.0); Alkaline Phosphatase 121 U/L (38-126); Blood Urea Nitrogen 24 mg/dl (9-20); Calcium 8.4 mg/dl (8.4-10.2); Carbon Dioxide 30 mmol/L (22-30); Chloride 100 mmol/L (98-107); Glucose 209 mg/dl (70-99); Potassium 4.1 mmol/L (3.5-5.1); Sodium 134 mmol/L (135-145); Total Protein 6.7 g/dl (6.3-8.2); eGFR 54.64
[2025-07-29 16:09] VITALS: BP 132/81
--- NOTE | 2025-07-29 16:09 | ED.GENMED ---
History of Present Illness
General
Chief Complaint: Headache
Source: patient
Exam Limitations: none
Time Seen by Provider: 07/29/25 14:20
Nursing documentation reviewed up to this point in time: agreed with
History of Present Illness
History of Present Illness:
55-year-old male with past medical history of cirrhosis status post liver transplant 04/17/2024 at [facility] who presents to the emergency department for evaluation after some nausea and vomiting this morning. Patient reports that he woke up
this morning and felt 'not quite right', drank some coffee and then vomited x 2. He took some Zofran and says that he has not had any nausea or vomiting since. He says that he has had mild headache the past week but attributed this to allergies.
No other significant symptoms recently�has not had any abdominal pain. Moving his bowels normally without diarrhea or constipation. He does report a history of hyperkalemia and is on Lokelma and Lasix. He also takes tacrolimus and mycophenolate
for transplant.
Past History
Past History
ED Past Medical History: HTN and Other (pre-diabetic years ago but lost weight and says he no longer is)
ED Past Surgical History: None and Orthopedic
Patient has exhibited threatening behavior?: No
PSI?: No
Social History
Tobacco: Smoker
Alcohol: Former (Heavy alcohol use, quit March 2022)
Drug: None
Personal: Single
Living: with family
Employment: Not employed
Family History
Family History: Other
Review of Systems
Review of Systems
All Other Systems: ROS reviewed and negative except as documented in HPI and ROS
Constitutional: Denies fever
Respiratory: Denies trouble breathing
Cardiac: Denies chest pain
ABD/GI: Reports nausea and vomiting; Denies abdominal pain
: Denies flank pain
Musculoskeletal: Denies neck pain or back pain
Neurological: Reports headache; Denies dizzy
Phy Exam
Physical Exam
Physical Exam:
General: Awake, alert, oriented x3; no acute distress
Head: Normocephalic, atraumatic
Eyes: Conjunctiva normal, sclera anicteric
Throat: Airway intact, handling secretions
Neck: Trachea midline, supple without meningismus
Lungs: Clear to auscultation bilaterally, no wheezing, rales, rhonchi
Heart: Regular rate and rhythm, no murmurs, gallops, or rubs
Abd: Soft, non distended, nontender to deep palpation�surgical scar noted
Neuro: Cranial nerves grossly intact, speech fluid, motor and sensory intact in the extremities
Skin: Warm and well-perfused
Extremities: No edema in extremities, equal pulses in all extremities
Scores
Heart Failure Risk
Heart Failure Risk Score: Not Applicable
Heart Score for Chest Pain Patients
STEMI patient?: Not applicable
Withdrawal Assessment of Alcohol
Withdrawal Assessment Completed?: Not applicable
Course
Orders/Labs/Results
Orders:
Orders
07/29/25 12:27
ECG [Electrocardiogram (*1)] Urgent
Reason for Study: Hypertension, Benign
EKG- Treatment ONCE
07/29/25 14:37
Alcohol Urgent
Complete Blood Count/With Diff Urgent
Comprehensive Metabolic Panel Urgent
07/29/25 16:04
Tacrolimus (Prograft - FK506) [S] Urgent
07/29/25 16:05
Add On- LAB Urgent
Tests Added?: lipase
Abnormal Lab Results
07/29/25
14:37
MCH 26.9 L pg
(27.0-31.0)
Absolute Lymphs (auto) 1.0 L 10^3/uL
(1.2-3.4)
Neutrophils % 76.1 H %
(42.2-75.2)
Lymphocytes % 16.3 L %
(20.5-51.1)
Sodium 134 L mmol/L
(135-145)
BUN 24 H mg/dl
(9-20)
Creatinine 1.5 H mg/dL
(0.7-1.3)
Glucose 209 H mg/dl
(70-99)
07/29/25 14:37
07/29/25 14:37
Vital Signs
Initial and Last Documented VS:
Initial Vital Signs
Temp Pulse Resp BP Pulse Ox
36.7 C 83 18 206/108 99
07/29/25 12:23 07/29/25 12:23 07/29/25 12:23 07/29/25 12:23 07/29/25 12:23
Last Documented Vital Signs
Temp Pulse Resp BP Pulse Ox
36.7 C 83 18 169/105 96
07/29/25 12:23 07/29/25 12:23 07/29/25 12:23 07/29/25 14:00 07/29/25 16:00
MDM/Problems Addressed
Differential Diagnosis Includes:
Gastritis, infection, viral syndrome; low suspicion for intracranial pathology such as brain bleed or meningitis despite his reported headache he appears very well with reassuring neurologic exam and supple neck
MDM/Problems Addressed:
55-year-old male presents for evaluation after vomiting x 2 this morning that she does have a history of liver transplant a little over a year ago at [facility]. He took some Zofran and is feeling a bit better now. He was hypertensive in triage.
Normalized by my assessment. Physical exam is as above�no abdominal pain and no tenderness. Labs were sent off including a CBC which showed no clinically significant abnormalities. Chemistry shows stable CKD. His LFTs are normal. Suspect some
mild gastritis versus viral syndrome. Although he has had headache for the past week he has no meningeal signs to suggest that this is meningitis, no neurologic deficits to suggest intracranial emergency. Stable for discharge with supportive care.
Discussed with transplant team at [facility] will follow-up with him on an outpatient basis for repeat labs. He feels comfortable with this plan. All questions answered.
Chronic conditions affecting care:
Liver failure status post transplant
Acute Exacerbation and/or Progression of Chronic Illness:
Acutely hypertensive resolved without intervention continue to monitor but no emergent antihypertensive indicated
Acute Exacerbation and/or Progression of Chronic Illness: HTN
*Pulse Oximetry
SaO2: 96
Oxygen Mode of Delivery: Room air
Patient hypoxic: no (96%)
*EKG
Interpreted by ED Provider?: Yes
Comparison EKG: no changes
Heart Rate: 74
Rate: normal
Rhythm: sinus
[place]: normal axis
Interval: first degree heart block
QRS Pattern: normal QRS
Ischemia: no ischemia (No significant change from prior)
*Critical Care Note
Total Time (30-74mins, 75-104mins- exclusive of procedures): Not Applicable
Data Reviewed
Review of Other/Old Records Reveals: Labs and Records
Source: patient and records
Patient Management
Discussion with other providers: Prop Setter (Discussed with transplant team at [facility])
ED Attending Note
-
Portions of this chart may have been created with voice recognition software.� Occasional wrong word or��sound alike� substitutions may have occurred due to the inherent limitations of voice recognition software.
Discharge Plan
Departure
Prescriptions:
No Action
acetaminophen 500 mg Tablet
1,000 mg PO [id number] PRN (Reason: mild pain/fever)
valganciclovir 450 mg tablet
450 mg PO DAILY
sulfamethoxazole-trimethoprim 400-80 mg tablet
1 tab PO DAILY
mycophenolate mofetil 250 mg capsule
500 mg PO BID
tacrolimus 5 mg capsule
10 mg PO BID
famotidine 20 mg tablet
20 mg PO DAILY
furosemide 20 mg tablet
40 mg PO DAILY
cyclobenzaprine 5 mg tablet
5 mg PO TIDPRN PRN (Reason: muscle spasms)
prednisone 20 mg Tablet
20 mg PO DAILY
Lokelma 10 gram powder in packet
10 g PO DAILY 1 Days Qty: 1 0RF
ondansetron 4 mg Tablet,Disintegrating
4 mg PO TIDPRN PRN (Reason: nausea/vomiting) Qty: 12 0RF
oxycodone 5 mg tablet
5 mg PO Q6H PRN (Reason: Pain) Qty: 14 0RF
Referrals:
Rj Rhoades MD [Family Provider]
Interventions
Interventions:
*Risk Screen - Suicide Last Done: 07/29/25 12:23
*General Assessment Last Done: 07/29/25 12:23
Discharge Date and Time
Print Language: WALLISIAN
[2025-07-29 16:52] LABS: Lipase 38 U/L (23-300)
== END 2025-07-29 16:30 | disposition home or self-care (01) ==
LOC: EMR 12:16
PROVIDERS: EMERGENCY PHYSICIAN Emergency Medicine; FAMILY PHYSICIAN Internal Medicine
DX: R11.2 Nausea with vomiting, unspecified (principal); K74.60 Unspecified cirrhosis of liver; I12.9 Hypertensive chronic kidney disease with stage 1 through stage 4 chronic kidney disease, or unspecified chronic kidney disease; N18.9 Chronic kidney disease, unspecified; F17.200 Nicotine dependence, unspecified, uncomplicated; I44.0 Atrioventricular block, first degree; Z94.4 Liver transplant status
CPT/HCPCS: 99284; 80053; 80197; 82077; 83690; 85025; 93005

== ENCOUNTER → 2025-08-11 07:36 | Outpatient (REF) | payer MEDICARE, SELFPAY ==
[2025-08-11 08:11] LABS: Hematocrit 46.0 % (39.0-52.0); Hemoglobin 15.5 g/dL (13.0-18.0); Mean Corp Hgb Conc. 33.7 g/dL (33.0-37.0); Mean Corpuscular Volume 82.0 fL (80.0-94.0); Nucleated Red Blood Cells % 0 % (-); Platelet Count 161 10^3/uL (130-400); Red Cell Dist. Width 14.2 % (11.5-14.5)
[2025-08-11 08:39] LABS: ALT (SGPT) 20 U/L (0-50); AST (SGOT) 28 U/L (17-59); Albumin 4.3 g/dl (3.5-5.0); Alkaline Phosphatase 136 U/L (38-126); Blood Urea Nitrogen 25 mg/dl (9-20); Calcium 9.1 mg/dl (8.4-10.2); Carbon Dioxide 30 mmol/L (22-30); Chloride 105 mmol/L (98-107); GGTP 11 U/L (15-73); Glucose 120 mg/dl (70-99); Magnesium 2.1 mg/dl (1.6-2.3); Potassium 4.9 mmol/L (3.5-5.1); Sodium 139 mmol/L (135-145); Total Protein 7.6 g/dl (6.3-8.2); eGFR 50.57
[2025-08-14] LABS: Tacrolimus (Prograft - FK506) 4.5 ng/mL
== END ==
LOC: REG 07:36
PROVIDERS: ATTENDING PHYSICIAN Registered Nurse; FAMILY PHYSICIAN Registered Nurse Medical-Surgical
DX: Z94.4 Liver transplant status (principal)
CPT/HCPCS: 36415; 80053; 80197; 82977; 83735; 85025